=== PATIENT | male | born 1945 | race Caucasian/White ===

== ENCOUNTER 2019-05-08 18:55 | Inpatient (IN) | payer MEDICARE, OTHER, SELFPAY ==
[2019-05-08] VITALS (10 sets, daily range): BP systolic 163–170; BP diastolic 67–71; PULSE 54–93; RESP 19–26; TEMP 36.3–36.7; O2SAT 80–99; BMI 29.9
--- NOTE | ~2019-05-08 | CT_ITS ---
EXAMINATION: CT brain wo con DATE: 05/08/2019 20:34 INDICATION: Altered mental status. Fall. TECHNIQUE: Computed tomography (CT) of the head was performed without intravenous contrast. Sagittal and coronal reconstructions were performed. The mA was adjusted according to patient size. Iterative reconstruction technique was employed. The dose-length product was 681.00 mGy-cm. COMPARISON: head CT dated 11/10/2017 FINDINGS: No fracture. Small regions of encephalomalacia in the right frontal lobe and frontoparietal region co nsistent with chronic infarcts. Unchanged moderate scattered periventricular and subcortical predomin ant white matter hypoattenuation consistent with chronic small vessel ischemic disease. No acute intr acranial hemorrhage, acute infarction or abnormal extra axial fluid collection. Symmetric prominence of the sulci and ventricles consistent with mild age-appropriate diffuse cerebral volume loss. No mas s/mass effect. Unchanged small left mastoid effusion. The orbits, paranasal sinuses and right mastoid air cells are normal. IMPRESSION: 1. No fracture or acute intracranial process. 2. Unchanged small infarcts in the right frontal and right frontoparietal regions 3. Age-related changes including mild volume loss and moderate scattered white matter hypoattenuation consistent with chronic small vessel ischemic disease. Reviewed, dictated and finalized at location A. OMER BUSINESS MANAGER IMPRESSION: 1. No fracture or acute intracranial process. 2. Unchanged small infarcts in the right frontal and right frontoparietal regio ns 3. Age-related changes including mild volume loss and moderate scattered white matter hypoattenuation consistent with chronic small vessel ischemic disease.
--- NOTE | ~2019-05-08 | CT_ITS ---
EXAMINATION: CT femur RT wo con DATE: 05/20/2019 14:55 INDICATION: Right lower limb edema after surgery. TECHNIQUE: Computed tomography (CT) of the right femur was performed without intravenous contrast. Au tomated exposure control and iterative reconstruction technique were employed. The dose-length produc t was 1930.54 mGy-cm. COMPARISON: Right hip radiographs 05/19/2019, right femur radiographs 05/08/2019 FINDINGS: There is a subcapital fracture of right femoral neck with impaction and internal fixation w ith 3 lag screws. There is moderate osteoarthritis of the hips. There is a benign bone island in left parasymphyseal pubis. There is mild osteoarthritis of the knees. There is a 9.4 x 4.2 x 21.7 cm intr amuscular hematoma in the lateral right thigh. There is subcutaneous edema of the abdomen, pelvis, an d thighs. IMPRESSION: 1. Large intramuscular hematoma in lateral right thigh. 2. Subcapital fracture of right femoral neck with internal fixation. Reviewed, dictated and finalized at location A. ET RESEARCHER
--- NOTE | ~2019-05-08 | US_ITS ---
EXAMINATION: US venous doppler [facility] DATE: 05/20/2019 13:42 INDICATION: Lower limb pain and swelling. TECHNIQUE: Grayscale ultrasound images without and with compression and Doppler ultrasound images of the bilateral lower extremity veins were obtained. COMPARISON: Ultrasound 11/11/2017 FINDINGS: The visualized portions of right common femoral vein, profunda (deep) femoral vein, femoral vein, pop liteal vein, peroneal veins, posterior tibial veins, and greater saphenous vein outflow are patent. The visualized portions of left common femoral vein, profunda femoral vein, femoral vein, popliteal v ein, peroneal veins, posterior tibial veins, and greater saphenous vein outflow are patent. IMPRESSION: 1. No deep venous thrombosis. Reviewed, dictated and finalized at location A. ERY ASSISTANT
--- NOTE | ~2019-05-08 | CT_ITS ---
EXAMINATION: CT chest abdomen pelvis w con DATE: 05/08/2019 20:34 INDICATION: Cough and dyspnea with right hip and back pain post fall with altered mental status. TECHNIQUE: Computed tomography (CT) of the chest, abdomen, and pelvis was performed with 100 mL Omnip aque-350 intravenous contrast. Automated exposure control and iterative reconstruction technique were employed. The dose-length product was 1361.28 mGy-cm. COMPARISON: CT abdomen and pelvis dated 11/06/2017 and chest dated 06/12/2017 FINDINGS: CHEST CT: Moderate emphysema. Chronic elevation of the left hemidiaphragm with compressive atelectasis along th e adjacent basilar right lower lobe and discoid atelectasis at the posterior lingula. Small centrilob ular nodules and tree-in-bud pattern in the right upper, middle and lower lobes consistent with endob ronchial spread of disease consistent with pneumonia. Decrease in size of a now 7 mm right lower lobe nodule which measured 9 mm on study dated 12/26/2016 likely sequela of old granulomatous disease. No pleural effusion. Heart size is normal. Atherosclerotic coronary artery calcifications. Aortic valve calcification. No pericardial effusion. Thoracic aorta is normal in caliber with no dissection. Calci fied mediastinal lymph nodes consistent with old granulomatous disease. No pathologically enlarged th oracic lymphadenopathy. T8 and T10 hemangiomas. Multiple chronic compression fractures including T3, T4, T6, T9-T12. ABDOMEN/PELVIS CT: Cirrhotic liver with nodular surface. Gallbladder, spleen, pancreas and bilateral adrenal glands are normal. Nonobstructing 9 mm stone at a lower pole calyx of the right kidney. Bilateral renal cysts th e largest on the right measuring 3 cm in maximal diameter. Regions of cortical scarring at both kidne ys most prominent at the lower pole of the right kidney likely sequela of prior infarction. There are few scattered colonic diverticula without adjacent inflammatory change to suggest diverticulitis. Sm all bowel and appendix are normal. Bladder is normal. No free intraperitoneal gas or fluid. No pathol ogically enlarged dominant or pelvic lymphadenopathy. No interval change in a fusiform infrarenal ane urysm measuring 4.0 cm in maximal diameter with aortobiiliac endoluminal stent grafting. Acute nondis placed right femoral subcapital fracture with posterosuperior impaction. No other acute fractures genoveva ntified. L1 hemangioma. Additional chronic L1-L2 compression fractures. Severe spondylosis at the lum bosacral junction. IMPRESSION: 1. Impacted subcapital fracture of the proximal right femur. 2. Extensive tree-in-bud pattern with small centrilobular nodules throughout the right lung consisten t with and bronchial spread of disease most likely pneumonia. 3. Moderate emphysema with chronic elevation of the left hemidiaphragm and atelectasis in the left lo wer lobe and lingula. 4. Cirrhosis. 5. Nonobstructing 1 mm right renal stone. 6. Unchanged 4.0 cm fusiform infrarenal aortic aneurysm with aorta biiliac endoluminal stent graft. Reviewed, dictated and finalized at location A. GER UNIVERSAL IMPRESSION: 1. Impacted subcapital fracture of the proximal right femur. 2. Extensive tree-in-bud pattern with small centrilobular nodules throughout th e right lung consistent with and bronchial spread of disease most likely pneumo bhavna. 3. Moderate emphysema with chronic elevation of the left hemidiaphragm and atel ectasis in the left lower lobe and lingula. 4. Cirrhosis. 5. Nonobstructing 1 mm right renal stone. 6. Unchanged 4.0 cm fusiform infrarenal aortic aneurysm with aorta biiliac endo luminal stent graft.
--- NOTE | ~2019-05-08 | XR_ITS ---
EXAMINATION: XR chest 1V portable DATE: 05/20/2019 14:32 INDICATION: Tachypnea. TECHNIQUE: A single frontal view of the chest was obtained. COMPARISON: Chest single view 05/16/2019, chest 2 views 08/01/2005, chest CT 05/08/2019 FINDINGS: There is marked elevation of left hemidiaphragm. There are lucencies in the lungs, consiste nt with emphysema. There is mild atelectasis in the mid and lower lung zones. No pneumothorax or pleu ral effusion. The heart size is normal. IMPRESSION: 1. Chronic marked elevation of left hemidiaphragm. 2. Mild atelectasis in the mid and lower lung zones. 3. Emphysema. Reviewed, dictated and finalized at location A. MBLER SANDAL PARTS
--- NOTE | ~2019-05-08 | XR_ITS ---
EXAMINATION: XR pelvis 1-2V, XR femur RT min 2V DATE: 05/08/2019 20:12 INDICATION: Pelvic pain and limited range of motion post fall TECHNIQUE: 1. An anteroposterior view of the pelvis was obtained. 1. Overlapping proximal and distal frontal and lateral views of the right femur were obtained. COMPARISON: None. FINDINGS: Impacted right femoral subcapital fracture. No other fractures identified. Bilateral hip joint spaces as well as the joint spaces in the right knee appear relatively preserved on nonweightbearing imagin g. No right knee joint effusion. Partially visualized aorta and iliac endoluminal stent grafting. Phl eboliths in the pelvis. IMPRESSION: 1. Impacted subcapital right femoral fracture. Reviewed, dictated and finalized at location A. RINARY VIRUS SERUM INSPECTOR IMPRESSION: 1. Impacted subcapital right femoral fracture.
--- NOTE | ~2019-05-08 | XR_ITS ---
XR hip RT 2V w AP pelvis 05/19/2019 16:21 Indication: Severe right hip pain. Recent hip surgery. Procedure: 3 views right hip Comparison: 05/12/2019 Findings: There are 3 lag screws transfixing the right femoral neck. There are residual surgical stap les in the overlying skin surface. There is an impacted right femoral subcapital fracture. There is o steoarthritis of the right hip. Phleboliths are present in the pelvis. No significant change to align ment allowing for differences of technique. There is partially visualized aorta and iliac endoluminal stent grafting. Impression: 1: Stable appearance to right hip status post internal fixation with 3 lag screws. No significant alt eration of alignment. Reviewed, dictated and finalized at location A. VIORAL HEALTH THERAPIST Impression: 1: Stable appearance to right hip status post internal fixation with 3 lag scre ws. No significant alteration of alignment.
--- NOTE | ~2019-05-08 | XR_ITS ---
EXAMINATION: XR chest 1V portable DATE: 05/08/2019 20:13 INDICATION: Cough, dyspnea and altered mental status TECHNIQUE: frontal view of the chest was obtained. COMPARISON: Chest radiograph dated 10/02/2018 FINDINGS: Hyperexpansion of lungs consistent with Elevation of the left hemidiaphragm. Similar pattern of bandl magalys and patchy airspace opacities in the mid to lower lung zone most likely atelectasis/scarring. Sub tle reticulonodular pattern in the right mid to lower lung zone which is more suspicious for pneumoni a. No pneumothorax or definitive pleural effusion. Cardiomediastinal silhouette is within normal limi ts for AP technique. Chronic lower thoracic compression fracture. Partially visualized aortic endolum inal stent graft extending beyond the inferior margin of the [id number]. IMPRESSION: 1. Stable appearance of chronic elevation of the left hemidiaphragm and patchy and bandlike opacities in the left mid and lower lung zone likely associated chronic atelectasis/scarring. 2. Subtle reticulonodular pattern throughout the right lung which is more suspicious for pneumonia. Reviewed, dictated and finalized at location A. SKEINS EXAMINER IMPRESSION: 1. Stable appearance of chronic elevation of the left hemidiaphragm and patchy and bandlike opacities in the left mid and lower lung zone likely associated ch ronic atelectasis/scarring. 2. Subtle reticulonodular pattern throughout the right lung which is more suspi cious for pneumonia.
--- NOTE | ~2019-05-08 | CT_ITS ---
EXAMINATION: CT abdomen pelvis wo con EXAM DATE: 05/25/2019 11:26 INDICATION: Abdominal pain, anemia. TECHNIQUE: Spiral CT of the abdomen and pelvis was performed without contrast. Axial, coronal and s agittal images were reviewed. The dose-length product (DLP) for this examination was 1004.40 mGy-cm. The exposure was tailored according to patient size (auto mA exposure control), and iterative recon struction (ASIR) was used as additional dose reduction technique. Comparison is made to prior examina tion from 05/08/2019. FINDINGS: There is large right thigh intramuscular hematoma laterally. Mildly nodular liver contour l ikely cirrhosis. The liver, spleen, adrenal glands and pancreas are otherwise unremarkable. Gallbla dder is unremarkable. No biliary obstruction. There is right calyceal stone measuring 10 mm. Right renal cyst measuring 3 cm. There are several bilateral subcentimeter lesions consistent with hemorrha gic cysts. The prostate is unremarkable. The bladder is collapsed with Lyles catheter balloon anchor inside. There is no retroperitoneal or pelvic lymphadenopathy. Aortobiiliac endograft. The appendix is normal. The stomach and small bowel are unremarkable. Moderately distended rectal v franki measuring 7.7 cm in diameter. Moderate amount of colonic stool proximal to this. No free intra peritoneal gas. Heart is normal in size. The interventricular septum is perceptible, suggesting pat ient is anemic. There is small right pleural effusion with adjacent atelectasis. Elevated left hemidi aphragm. There are no osteoblastic or osteolytic lesions identified. Chronic appearing mild to mod erate compression fractures unchanged. There are 3 right hip lag screws. IMPRESSION: 1. No acute intra-abdominal findings. 2. Moderately distended rectal vault and moderate amount of colonic stool. 3. Right thigh hematoma/seroma. Interval right hip lag screw placement fixing subcapital femoral nec k fracture. 4. Probable cirrhosis. 5. Small right pleural effusion. Reviewed, dictated and finalized at location B. CE ACADEMY PROGRAM COORDINATOR IMPRESSION: 1. No acute intra-abdominal findings. 2. Moderately distended rectal vault and moderate amount of colonic stool. 3. Right thigh hematoma/seroma. Interval right hip lag screw placement fixing subcapital femoral neck fracture. 4. Probable cirrhosis. 5. Small right pleural effusion.
--- NOTE | ~2019-05-08 | XR_ITS ---
EXAMINATION: XR surgery orthopedic DATE: 05/12/2019 16:42 INDICATION: Right hip pinning TECHNIQUE: AP and lateral fluoroscopic spot images of the right hip were obtained during procedure pe rformed by Dr. Davis. Radiologist was not present for the imaging or procedure. The amount of fluor oscopy time used during this procedure was 6.2 minutes. COMPARISON: 05/08/2019 FINDINGS: Interval reduction and internal fixation with 3 cannulated lag screws of a subcapital fract ure of the proximal right femur. Alignment remains near-anatomic with mild superior and posterior imp action. No new fractures identified. IMPRESSION: 1. Expected appearance during pinning of a right hip subcapital fracture which is in near-anatomic al ignment. Reviewed, dictated and finalized at location A. IDE EVENT SALES SPECIALIST IMPRESSION: 1. Expected appearance during pinning of a right hip subcapital fracture which is in near-anatomic alignment.
--- NOTE | ~2019-05-08 | XR_ITS ---
EXAMINATION: XR chest 1V portable INDICATION: Shortness of breath TECHNIQUE: Portable AP chest at 1431 hours COMPARISON: 05/08/2019 FINDINGS: There is chronic elevation of the left hemidiaphragm and stable bandlike opacity of the lef t lower lung zone. There the heart size is normal. Are diffuse opacities of the lungs which demonstra jasmyne slight increase. Small pleural effusions are present. No pneumothorax is identified. IMPRESSION: 1. Diffuse lung disease with slight worsening, consistent with atelectasis versus pneumonia. Reviewed, dictated and finalized at location A. TY AND SECURITY OFFICER IMPRESSION: 1. Diffuse lung disease with slight worsening, consistent with atelectasis vers us pneumonia.
--- NOTE | 2019-05-08 18:52 | ED.FALL ---
HPI - Fall General Chief Complaint: Shortness of Breath/Dyspnea Stated Complaint: hip pain Time Seen by Provider: 05/08/19 18:52 Source: patient, EMS and RN notes reviewed Mode of arrival: EMS Limitations: altered mental status History of Present Illness HPI Narrative: A 75 y/o male presents to the ED via EMS with worsening rt hip pain since having a ground level fall yesterday. Per EMS report that the pt was standing from his wheelchair while his was changing his depends when he fell and landed on his rt hip. They note that the pt has been complaining of worsening rt hip pain, lethargy, confusion, and SOB, so the pt's called EMS to have him brought in to be evaluated. Upon their arrival the pt's O2 sat was in the high 60's on 3L NC, so they placed him on 6L NC and his O2 sat increased into the 80's. MD complaint: fall Onset (ago): day(s) (yesterday) Fall from: standing Fall witnessed: yes, by family Place fall occurred: home Context: tripped/slipped Location of injury: other (rt hip) Associated symptoms (after fall): confusion and other (lethargy) Related Data Home Medications Medication Instructions Recorded Confirmed cholecalciferol (vitamin D3) 25 25 mcg PO DAILY 03/11/19 05/07/19 mcg (1,000 unit) capsule flecainide 100 mg tablet 100 mg PO Q12H 03/11/19 05/07/19 ipratropium 0.5 mg-albuterol 3 mg 3 ml INHALATION QID PRN 03/11/19 05/07/19 (2.5 mg base)/3 mL nebulization soln prednisone 10 mg tablet 10 mg PO DAILY 03/11/19 05/07/19 furosemide 20 mg tablet 10 mg PO QAM tablet 05/07/19 05/07/19 Allergies Allergy/AdvReac Type Severity Reaction Status Date / Time Sulfa (Sulfonamide Allergy Severe Unknown Verified 05/08/19 19:33 Antibiotics) sulfamethoxazole Allergy Severe SWELLING Verified 05/08/19 19:33 Quinolones Allergy Intermediate leg pain Verified 05/08/19 19:33 ciprofloxacin Allergy Unknown Joint pain Verified 05/08/19 19:33 clavulanic acid Allergy Unknown Unknown Verified 05/08/19 19:33 sulfanilamide Allergy Unknown Unknown Verified 05/08/19 19:33 trimethoprim Allergy Unknown Unknown Verified 05/08/19 19:33 CIPROFLOXACIN HCL Allergy Severe SWELLING Uncoded 05/08/19 19:33 NKFA Allergy Unknown Unknown Uncoded 04/13/19 14:11 Review of Systems Review of Systems: Narrative: RESPIRATORY: Reports SOB. MUSCULOSKELETAL: Reports rt hip pain. NEUROLOGIC: Reports confusion and lethargy. ROS unobtainable: unobtainable due to mental status PMFSH Past Medical History Medical History A-fib Aortic aneurysm Arthritis BPH (benign prostatic hyperplasia) Cardiac arrhythmia CHF (congestive heart failure) COPD (chronic obstructive pulmonary disease) DDD (degenerative disc disease) Emphysema, unspecified Generalized osteoarthritis of multiple sites H/O: HTN (hypertension) CHERRY (headache) History of melena History of pneumonia Hx of cataract Hx of transient ischemic attack (TIA) Hx: UTI (urinary tract infection) Hypercholesteremia Lupus erythematosus RA (rheumatoid arthritis) Shingles Stroke Surgical History Surgical History History of tonsillectomy Family History Family History Mother Family history of Alzheimer's disease Sibling Malignant neoplasm of prostate Father Family history of Hodgkin's lymphoma Patient's father is Social History Social History Smoking status: Former smoker Second hand tobacco smoke exposure: No Alcohol intake: never Comments PCP: Dr. Mcneill. Exam Narrative: Exam Narrative: GENERAL: Ill-appearing, somnolent, arousable to sternal rub HEAD: Normocephalic, atraumatic. EYES: PERRLA and EOMI. ENT: Nares clear, no rhinorrhea or epistaxis. Mucous membranes dry NECK: Supple. CHEST: Coarse breath sounds, shallow respiration, faint expirat
--- NOTE | 2019-05-08 18:55 | ECG_ITS ---
Measurements Intervals [place] Rate: 57 P: 96 MT: 77 QRS: 177 QRSD: 156 T: -53 QT: 428 QTc: 418 Interpretive Statements SINUS RHYTHM WITH SECOND DEGREE AV BLOCK, TYPE I OR II (2:1 AV CONDUCTION) RIGHT BUNDLE BRANCH BLOCK BASELINE ARTIFACT- I, II, III, AVR, AVF, V1-V6 ABNORMAL ECG Electronically Signed On 05-09-2019 8:25:57 GENERAL PRODUCTION MANAGER by Gurvinder Weiss D.O.
[2019-05-08] MEDS: ALBUTEROL SULFATE NEB 2.5 MG/0.5 ML INH 5 MG INHALATION (19:13)
[2019-05-08 19:25] LABS: Alveolar/Arterial O2 Gradient 130.5 mmHg; Base Excess ABG 1.3 mEq/l (+/-2.0); Fractional Inspired Oxygen 36 %; HCO3 ABG 30.1 mEq/l (22.0-26.0); Oxygen Content ABG 15.5 %vol (16.0-22.0); Oxyhemoglobin 78.8 % THb (90.0-100.0); PO2 FiO2 Ratio Arterial Blood 1.35 %
[2019-05-08] MEDS: SODIUM CHLORIDE 0.9% IV 1,000 ML 999 ML IV CONT (19:27)
[2019-05-08] MEDS: methylPREDNISolone SOD SUCC 125 MG VIAL IV PUSH (19:27)
[2019-05-08 19:29] LABS: Basophils Absolute Auto 0.1 K/mm3 (0.0-0.1); Basophils Percent Auto 0.4 % (0.2-1.2); Hematocrit 45.5 % (42.0-52.0); Hemoglobin 13.9 g/dL (14.0-18.0); Immature Granulocyte Absolute 0.24 K/mm3 (0.00-0.031); Immature Granulocyte Percent A 1.2 % (0-0.5); Lymphocytes Absolute Auto 1.31 K/mm3 (0.9-3.2); Lymphocytes Percent Auto 6.7 % (18.3-44.2); Mean Corpuscular HGB Conc 30.5 g/dl (32-36); Mean Corpuscular Hemoglobin 30.4 pg (26-34); Mean Corpuscular Volume 99.6 fl (80-100); Mean Platelet Volume 10.3 fl (7.4-10.4); Monocytes Absolute Auto 1.7 K/mm3 (0.1-0.6); Monocytes Percent Auto 8.6 % (2.6-8.5); Neutrophils Absolute Auto 16.3 K/mm3 (1.3-6.7); Neutrophils Percent Auto 83.1 % (45.5-73.1); Platelet Count Result 197 k/mm3 (150-375); Red Blood Count 4.57 M/mm3 (4.6-6.20); Red Cell Distribution Width 15.1 % (11.5-14.5); White Blood Count 19.6 K/mm3 (4.5-10.0)
[2019-05-08 19:30] LABS: PCO2 ABG 66.8 mmHg (35.0-45.0); PO2 ABG 48.7 mmHg (80.0-100.0); pH ABG 7.271 (7.350-7.450)
[2019-05-08 19:31] LABS: Device NASAL CANNULA; Modified Allen's Test Pass; Oxygen Saturation ABG 77.7 % (95.0-100.0); Site Drawn RIGHT RADIAL
[2019-05-08 19:40] LABS: INR 1.2; Partial Thromboplastin Time 34.3 SECONDS (22.3-36.8); Prothrombin Time 15.3 Seconds (11.1-14.7)
[2019-05-08 19:41] LABS: Alanine Aminotransferase 29 U/L (4-50); Albumin Level 4.1 g/dL (3.5-5.1); Alkaline Phosphatase 116 U/L (38-126); Aspartate Amino Transferase 24 U/L (17-59); Bilirubin,Total 0.8 mg/dL (0.2-1.3); Blood Urea Nitrogen 29 mg/dL (9-20); Calcium 9.8 mg/dL (8.4-10.2); Carbon Dioxide 32 mmol/L (22-30); Chloride 98 mmol/L (98-107); Estimated CRCL calculation 39 ml/min; Estimated Glomerular Filt Rate 49; Glucose 113 mg/dL (75-110); Potassium 5.1 mmol/L (3.4-5.0); Sodium 139 mmol/L (137-145)
[2019-05-08 19:42] LABS: Ammonia < 9 umol/L (9-30)
[2019-05-08 19:55] LABS: NT Pro B Type Natriuretic Pept 7380 PG/ML (5-100); Troponin I 0.095 ng/mL (0.000-0.034)
[2019-05-08 20:02] LABS: Lactic Acid Reflex 1.4 mmol/L (0.7-2.1)
[2019-05-08 20:55] LABS: Alveolar/Arterial O2 Gradient 156.1 mmHg; Carboxyhemoglobin 1.2 % THb (0-2.0); Fractional Inspired Oxygen 40 %; HCO3 ABG 22.8 mEq/l (22.0-26.0); Methemoglobin ABG 0.1 %THb (0-1.5); Oxygen Content ABG 16.1 %vol (16.0-22.0); Oxygen Saturation ABG 89.8 % (95.0-100.0); Oxyhemoglobin 88.4 % THb (90.0-100.0); PO2 FiO2 Ratio Arterial Blood 1.67 %; Reduced Hemoglobin 10.3 %THb (0-5.0); Total Hemoglobin 12.9 g/dL (12.0-18.0)
[2019-05-08 20:57] LABS: Device NON-INVASIVE VENT; Modified Allen's Test Pass; Site Drawn LEFT RADIAL; pH ABG 7.244 (7.350-7.450)
[2019-05-08 20:58] LABS: Non-Invasive Expiratory Pressure 5 CMH2O; Non-Invasive Inspiratory Pressure 12 CMH2O; Non-Invasive Vent Rate 12 /MIN
--- NOTE | 2019-05-08 21:31 | PM.IMHP ---
H&P: HPI History of Present Illness Chief complaint: Decreased level of consciousness Narrative: This is a pleasant 74-year-old male with known COPD and congestive heart failure who was brought to the hospital today secondary to altered mental status. EMS had reported to ER staff that the patient had worsening shortness of breath, confused, and somnolent. The patient's had reported that his symptoms had worsened since yesterday when he fell at home. The patient was satting in the 80s on 6 L of oxygen at home with obvious increased work of breathing. Patient was promptly placed on a BiPAP in the ER and his mentation and respiratory function improved significantly. On my encounter with the patient ankush he does not remember the details surrounding his fall yesterday but he tells me that he has had increased shortness of breath, wheezing, and increased generalized weakness. The patient was found to have a right hip fracture today in the ER. The patient tells me he coughs all the time and denies any significant increased coughing. Denies any fevers or chills. Denies any chest pain, abdominal pain, nausea, vomiting, diarrhea. He has chronic lower extremity swelling which he does not think has worsened recently. Review of Systems Review of Systems: All systems reviewed & are unremarkable except as noted in HPI and below PMFSH Past Medical History Medical History A-fib Aortic aneurysm Arthritis BPH (benign prostatic hyperplasia) Cardiac arrhythmia CHF (congestive heart failure) COPD (chronic obstructive pulmonary disease) DDD (degenerative disc disease) Emphysema, unspecified Generalized osteoarthritis of multiple sites H/O: HTN (hypertension) CHERRY (headache) History of melena History of pneumonia Hx of cataract Hx of transient ischemic attack (TIA) Hx: UTI (urinary tract infection) Hypercholesteremia Lupus erythematosus RA (rheumatoid arthritis) Shingles Stroke Surgical History Surgical History History of tonsillectomy Family History Family History Mother Family history of Alzheimer's disease Sibling Malignant neoplasm of prostate Coronary artery disease Breast cancer Father Patient's father is Family history of Hodgkin's lymphoma Other Parents Social History Social History Smoking packs per day: 1 Smoking cigarettes per day: 20.0 Years smoked: 41 Smoking pack-years: 41.00 Smoking status: Former smoker Tobacco type: cigarettes Second hand tobacco smoke exposure: No Alcohol intake: never Substance use: never Substance use type: does not use Gender identity (if verbalized by the patient): Male Spiritual care concerns: No Agree to blood products: Yes Meds Home Medications and Allergies Home Medications Medication Instructions Recorded Confirmed Type flecainide 100 mg tablet 100 mg PO Q12H 03/11/19 05/08/19 History prednisone 10 mg tablet 10 mg PO DAILY 03/11/19 05/08/19 History benzonatate 200 mg capsule 200 mg PO TID PRN #30 cap 05/07/19 05/08/19 Rx cefuroxime axetil 250 mg tablet 250 mg PO Q12H #20 tablet 05/07/19 05/08/19 Rx furosemide 20 mg tablet 40 mg PO QAM tablet 05/07/19 05/08/19 History acetaminophen [Tylenol Extra 1,000 mg PO Q4-6H PRN MDD 4000mg 05/08/19 05/08/19 History Strength] [id number] A-D-aloe 1 applic TOPICAL Q12H PRN 05/08/19 05/08/19 History [Zinc Oxide Diaper Cream] ipratropium-albuterol 3 ml INHALATION Q4H PRN 05/08/19 05/08/19 History ipratropium-albuterol [Combivent 1 puff INHALATION Q4H 05/08/19 05/08/19 History Respimat] lidocaine 1 patch TOPICAL DAILY PRN 05/08/19 05/08/19 History ropinirole 0.5 mg PO DAILY 05/08/19 05/08/19 History Allergies Allergy/AdvReac Type Se
--- NOTE | 2019-05-08 22:30 | ADMGEN ---
This patient, Clyde Engel, was admitted to IMU Room 204-01 on 05/08/19 at 2208. Patient/family oriented to hospital policies and general routines including ID bracelet, bed and alarms, visiting hours, pain management, procedures, bathroom and other care routines, personal items, smoking policy, room service/diet, and visiting hours. Valuables list has been completed. Information on how to activate the Rapid Response Team has been discussed. Patient/Family are encouraged to report perceived risks to care and to ask questions if they do not understand what they are told or what they should do.
[2019-05-08] MEDS: LACTATED RINGERS 1,000 ML 125 ML IV CONT (23:29)
[2019-05-08] MEDS: HYDROMORPHONE HCL 1 MG/ML INJ IV PUSH (23:30)
[2019-05-08 23:56] LABS: Base Excess ABG -1.2 mEq/l (+/-2.0); Fractional Inspired Oxygen 45 %; Oxygen Content ABG 16.4 %vol (16.0-22.0); Oxygen Saturation ABG 89.9 % (95.0-100.0); Oxyhemoglobin 89.1 % THb (90.0-100.0); PO2 ABG 66.7 mmHg (80.0-100.0); PO2 FiO2 Ratio Arterial Blood 1.48 %; Total Hemoglobin 13.1 g/dL (12.0-18.0)
[2019-05-08 23:57] LABS: Modified Allen's Test Pass; PCO2 ABG 61.7 mmHg (35.0-45.0); Site Drawn LEFT RADIAL; pH ABG 7.259 (7.350-7.450)
[2019-05-08 23:58] LABS: Device NON-INVASIVE VENT; Non-Invasive Expiratory Pressure 5 CMH2O; Non-Invasive Inspiratory Pressure 12 CMH2O; Non-Invasive Vent Rate 12 /MIN
[2019-05-09] VITALS (29 sets, daily range): BP systolic 134–155; BP diastolic 66–76; PULSE 61–91; RESP 18–24; TEMP 36–36.8; O2SAT 91–100
[2019-05-09 01:15] LABS: Troponin I 0.184 ng/mL (0.000-0.034)
[2019-05-09] MEDS: IPRATROPIUM BR 0.02% INH SOLN 0.5 MG/2.5 ML VIAL INHALATION (01:26)
[2019-05-09 02:24] LABS: Alveolar/Arterial O2 Gradient 209.2 mmHg; Base Excess ABG -0.5 mEq/l (+/-2.0); Fractional Inspired Oxygen 50 %; HCO3 ABG 28.3 mEq/l (22.0-26.0); Methemoglobin ABG 0.2 %THb (0-1.5); Oxygen Content ABG 17.9 %vol (16.0-22.0); Oxyhemoglobin 90.9 % THb (90.0-100.0); PO2 ABG 73.6 mmHg (80.0-100.0); PO2 FiO2 Ratio Arterial Blood 1.47 %; Reduced Hemoglobin 7.9 %THb (0-5.0)
[2019-05-09 02:26] LABS: pH ABG 7.253 (7.350-7.450)
[2019-05-09 02:27] LABS: PCO2 ABG 65.5 mmHg (35.0-45.0)
[2019-05-09 02:28] LABS: Device NON-INVASIVE VENT; Modified Allen's Test Pass; Non-Invasive Vent Rate 20 /MIN; Site Drawn RIGHT RADIAL
[2019-05-09 02:29] LABS: Non-Invasive Expiratory Pressure 8 CMH2O; Non-Invasive Inspiratory Pressure 20 CMH2O
[2019-05-09 03:31] LABS: Add Urine Microscopic? YES; Appearance Urine Cloudy (Clear); Bilirubin Urine Negative (Negative); Blood Urine 1+ (Negative); Color Urine Yellow (Yellow); Glucose Urine UA Negative (Negative); Ketones Urine Negative (Negative); Leukocyte Esterase Ur 3+ LEU/UL (NEGATIVE); Mucus Urine Rare /lpf; Nitrate Urine Negative (Negative); Protein Urine 1+ mg/dL (Negative); WBC Clumps Urine Present /HPF; WBC Urine >75 /hpf (0-3)
[2019-05-09 03:37] LABS: Basophils Percent Auto 0.2 % (0.2-1.2); Hematocrit 38.2 % (42.0-52.0); Hemoglobin 11.9 g/dL (14.0-18.0); Immature Granulocyte Absolute 0.18 K/mm3 (0.00-0.031); Immature Granulocyte Percent A 1.3 % (0-0.5); Lymphocytes Absolute Auto 0.55 K/mm3 (0.9-3.2); Lymphocytes Percent Auto 3.9 % (18.3-44.2); Mean Corpuscular HGB Conc 31.2 g/dl (32-36); Mean Corpuscular Hemoglobin 30.7 pg (26-34); Mean Corpuscular Volume 98.5 fl (80-100); Mean Platelet Volume 10.4 fl (7.4-10.4); Monocytes Absolute Auto 0.3 K/mm3 (0.1-0.6); Monocytes Percent Auto 1.9 % (2.6-8.5); Neutrophils Absolute Auto 12.9 K/mm3 (1.3-6.7); Neutrophils Percent Auto 92.7 % (45.5-73.1); Platelet Count Result 178 k/mm3 (150-375); Red Blood Count 3.88 M/mm3 (4.6-6.20)
[2019-05-09 03:41] LABS: Specific Grav Ur 1.036 (1.001-1.035)
[2019-05-09 03:48] LABS: Blood Urea Nitrogen 28 mg/dL (9-20); Calcium 9.2 mg/dL (8.4-10.2); Carbon Dioxide 30 mmol/L (22-30); Chloride 98 mmol/L (98-107); Estimated CRCL calculation 55 ml/min; Estimated Glomerular Filt Rate > 60; Glucose 133 mg/dL (75-110); Potassium 5.2 mmol/L (3.4-5.0); Sodium 138 mmol/L (137-145)
[2019-05-09 04:12] LABS: Troponin I 0.182 ng/mL (0.000-0.034)
[2019-05-09] MEDS: HYDROMORPHONE HCL 1 MG/ML INJ IV PUSH ×4 (06:20→20:26)
[2019-05-09] MEDS: LACTATED RINGERS 1,000 ML 125 ML IV CONT ×2 (06:58→15:42)
[2019-05-09 08:29] LABS: Blood Urea Nitrogen 28 mg/dL (9-20); Carbon Dioxide 31 mmol/L (22-30); Chloride 101 mmol/L (98-107); Estimated CRCL calculation 54 ml/min; Estimated Glomerular Filt Rate > 60; Glucose 126 mg/dL (75-110); Potassium 5.6 mmol/L (3.4-5.0); Sodium 140 mmol/L (137-145)
[2019-05-09] MEDS: ACETAMINOPHEN 500 MG TABLET 1000 MG PO (08:45)
[2019-05-09] MEDS: ENOXAPARIN 40 MG/0.4 ML SYRINGE SUB-Q (08:45)
[2019-05-09 12:03] LABS: Glucose Point of Care 110 (65-105)
--- NOTE | 2019-05-09 14:09 | PM.CNCAR ---
Assessment and Plan Assessment and plan (1) Community acquired pneumonia: Qualifiers: Laterality: left Lung location: lower lobe of lung Qualified Code(s): J18.9 - Pneumonia, unspecified organism Code(s): J18.9 - Pneumonia, unspecified organism Status: Acute Assessment and Plan: Continue antibiotics, supportive care per primary service. (2) Elevated troponin: Code(s): R79.89 - Other specified abnormal findings of blood chemistry Status: Acute Assessment and Plan: Most likely secondary to acute hypoxic respiratory failure and pneumonia. Type 2 infarct non [place] troponin elevation most likely. (3) AV block, 2nd degree: Code(s): I44.1 - Atrioventricular block, second degree Status: Acute Assessment and Plan: Resolved at present. Continue telemetry. Multifactorial including electrolyte disturbance, acute critical illness, hypoxic respiratory failure, and flecainide. Agree with holding flecainide given troponin elevation and concern for intermittent second-degree AV block.. Appropriateness of AV oliver blocking agents to be determined. (4) Hyperkalemia: Code(s): E87.5 - Hyperkalemia Status: Acute Assessment and Plan: Per primary service. May also contribute to rhythm disturbance although multiple contributions in this instance. (5) Sepsis: Qualifiers: Acute respiratory failure type: with hypercapnia Sepsis acute organ dysfunction status: with acute organ dysfunction Sepsis type: sepsis due to unspecified organism Severe sepsis acute organ dysfunction type: acute respiratory failure Severe sepsis shock status: without septic shock Qualified Code(s): A41.9 - Sepsis, unspecified organism; R65.20 - Severe sepsis without septic shock; J96.02 - Acute respiratory failure with hypercapnia Code(s): A41.9 - Sepsis, unspecified organism Status: Acute Assessment and Plan: Per primary service. (6) Obstructive sleep apnea: Code(s): G47.33 - Obstructive sleep apnea (adult) (pediatric) Status: Acute Assessment and Plan: BiPAP. (7) Paroxysmal atrial fibrillation: Code(s): I48.0 - Paroxysmal atrial fibrillation Status: Acute Assessment and Plan: No recurrence. Maintaining sinus rhythm. Patient is not on systemic anticoagulation. Candidacy questionable given recent fall. Will need to assess appropriateness this hospitalization. Aspirin daily reasonable at this time. (8) COPD (chronic obstructive pulmonary disease): Code(s): J44.9 - Chronic obstructive pulmonary disease, unspecified Status: Acute Assessment and Plan: As above. Bronchodilator therapy as appropriate. (9) Acute encephalopathy: Code(s): G93.40 - Encephalopathy, unspecified Status: Resolved Assessment and Plan: Secondary to sepsis, pneumonia. Per primary service. (10) Closed subcapital fracture of neck of right femur: Qualifiers: Encounter type: initial encounter Qualified Code(s): S72.011A - Unspecified intracapsular fracture of right femur, initial encounter for closed fracture Code(s): S72.011A - Unspecified intracapsular fracture of right femur, initial encounter for closed fracture Status: Acute History of Present Illness History of Present Illness Consult date/time: Date of service: 05/09/19 14:09 This is a cardiology consultation at the request of Dr. Barrera for our opinion regarding elevated troponin and abnormal EKG. Requesting physician: Vinod Barrera MD Consult reason: Other (Elevated troponin, abnormal EKG) Reason For Visit: Decreased level of consciousness Narrative: Patient is a 74-year-old gentleman with history of COPD, paroxysmal atrial flutter maintained on flecainide as an outpatient, history of AAA status post endovascular repair 2011, hypertension, obstructive sleep apnea noncompliant with CPAP right to the emergency department
--- NOTE | 2019-05-09 14:58 | PM.IMPN ---
Progress Note: A&P Assessment and Plan (1) Acute respiratory failure with hypoxia and hypercarbia: Code(s): J96.01 - Acute respiratory failure with hypoxia; J96.02 - Acute respiratory failure with hypercapnia Status: Acute Assessment and Plan: Respiratory distress with hypoxia and hypercapnia. Probably chronic component related to not wearing CPAP at home. CT scan showing extensive right sided pneumonia. ABG this morning reviewed. Clinically, hunter appears to be improving. Will trial off BiPAP today to see how he fares. Contineu Xopenex. (2) Sepsis: Qualifiers: Acute respiratory failure type: with hypercapnia Sepsis acute organ dysfunction status: with acute organ dysfunction Sepsis type: sepsis due to unspecified organism Severe sepsis acute organ dysfunction type: acute respiratory failure Severe sepsis shock status: without septic shock Qualified Code(s): A41.9 - Sepsis, unspecified organism; R65.20 - Severe sepsis without septic shock; J96.02 - Acute respiratory failure with hypercapnia Code(s): A41.9 - Sepsis, unspecified organism Status: Acute Assessment and Plan: Present on admission with ADONIS, respiratory failure, tachnypnea and leukocytosis 2nd to PNA. BCx pending. Continue IV antibiotics, nebs. (3) Closed subcapital fracture of neck of right femur: Qualifiers: Encounter type: initial encounter Qualified Code(s): S72.011A - Unspecified intracapsular fracture of right femur, initial encounter for closed fracture Code(s): S72.011A - Unspecified intracapsular fracture of right femur, initial encounter for closed fracture Status: Acute Assessment and Plan: Pain control as needed overnight and as tolerated. Lyles catheter placed. Discussed with Ortho. (4) Acute exacerbation of chronic obstructive airways disease: Code(s): J44.1 - Chronic obstructive pulmonary disease with (acute) exacerbation Status: Acute Assessment and Plan: No significnat wheezing noted today. Contineu Xopeneix. Wena BiPAP as toelrated. Start steroids. (5) AV block, 2nd degree: Code(s): I44.1 - Atrioventricular block, second degree Status: Acute Assessment and Plan: EKG showing 2nd degree AVB. Tele more associated with Type II. Cardiology consulted. Could be related to the hyperkalemia. (6) Elevated troponin: Code(s): R79.89 - Other specified abnormal findings of blood chemistry Status: Acute Assessment and Plan: Suspect demand ischemia related to above. Triop peaked at 0.184 but flat now. No chest pain. Will discuss with Cardiology. Add ASA. (7) Acute encephalopathy: Code(s): G93.40 - Encephalopathy, unspecified Status: Resolved Assessment and Plan: CT brain unremarkable for acute pathology. Likely secondary to respiratory failure. Patietn has underlying confusion/dementia and hx od CVA. (8) RA (rheumatoid arthritis): Code(s): M06.9 - Rheumatoid arthritis, unspecified Status: Acute Assessment and Plan: Patietn on chronic steroids for RA and SLE and immunosuppressed. Will resume steroids for stress dose. (9) Hyperkalemia: Code(s): E87.5 - Hyperkalemia Status: Acute Assessment and Plan: Potassium 5.1 on admission and has climbed to 5.6 this morning. Will repeat level. Subjective Date/time seen: 05/09/19 14:58 Interval history: 74yo male here altered mental status and shortness of breath. He had fallen suffering a right femoral fracture as well. Patient is alert but confused. He he provided the following history that is supplemented by his sons in the room. He denies any chest pain. He feels ?terrible? although cannot elaborate. His hip pain is well controlled. He was on antibiotics recently for bronchitis. His son states the patient has been having ataxia and balance issues recently.
[2019-05-09 15:52] LABS: Potassium 4.8 mmol/L (3.4-5.0)
[2019-05-09] MEDS: ASPIRIN 81 MG CHEWABLE TABLET PO (16:36)
--- NOTE | 2019-05-09 17:14 | CONS_ITS ---
DATE OF CONSULTATION: 05/09/2019 HISTORY OF PRESENT ILLNESS: This is a 74-year-old male who came into the hospital yesterday with complaints of right hip pain. He was also diagnosed with sepsis in the emergency department, was admitted to the intermediate ICU. He also had altered mental status. They also were told that he fell out of his chair and when an x-ray was taken, he was found to have a femoral neck fracture. Orthopedic consultation was requested. Currently, he is in a clinical state of sepsis with elevated white count and the source is most likely from the urine. He also has a history of pneumonia, has history of lupus, rheumatoid arthritis, and he was taking methotrexate as well. Currently complains only of right hip pain, denies any left hip pain, any other lower extremity pain or upper extremity pain. PAST MEDICAL HISTORY: AFib, aortic aneurysm, BPH, congestive heart failure, COPD, emphysema, hypertension, pneumonia, cataract, TIA, UTI, lupus, rheumatoid arthritis, shingles, and stroke. SURGICAL HISTORY: Tonsillectomy. SOCIAL HISTORY: He is a former smoker. Does not use any alcohol products. MEDICATIONS: Flecainide, prednisone, benzonatate, cefuroxime, furosemide, Tylenol, albuterol, ropinirole. ALLERGIES: SULFA, QUINOLONES, CIPRO, CLAVULANIC ACID. PHYSICAL EXAMINATION: GENERAL: He is alert and oriented and he is in the presence of his 2 sons. EXTREMITIES: The right hip was examined first, he has tenderness in the proximal hip region. He has pain with minimal passive motion of the right hip. He has no tenderness in the thigh. He has no tenderness in the knee. There is no swelling to the knee. The calf is nontender. The foot and ankle are nontender. He is able to dorsi and plantar flex the right foot with 5/5 strength. Dorsalis pedis pulse is 1+, posterior tib pulse is 1+. The left lower extremity examined, he has no pain with range of motion of the left hip. He has no thigh tenderness. No knee tenderness. Calf is nontender. Tib-fib is nontender. Foot and ankle nontender. He dorsi and plantar flexes the left foot without any difficulty. He was able to perform a straight leg raise with the left lower extremity as well. Upper extremity examination shows he is able to elevate both shoulders. He has no tenderness in the clavicles, shoulders, arms, elbows, forearms, wrist, and hand bilaterally. NECK: Nontender. Thoracic, lumbar, sacral, iliac region and the coccyx are nontender. X-RAYS: Show right femoral neck fracture with some displacement. The x-rays are not true hip views. PLAN: Plan is for x-rays of the hip with AP and cross-table and obliques views. This will allow us to assess whether he is a candidate for a closed reduction percutaneous pinning versus a hemiarthroplasty of the right hip. I talked to the patient and the 2 sons extensively about the options and the complications and the risks of both procedures. We also spoke about infection, DVT, PE, nonunion, malunion, avascular necrosis of the femoral head, and the potential procedures with any of those things happen, so we need to await his medical condition to improve and his white count to come down and to be medically cleared. We will check the x-rays and will revisit his situation on a daily basis until we see some significant amount of improvement in order to taken to the operating room. MEHRAN SALAZAR M.D. BIOMETRIC FINGERPRINTING TECHNICIAN BIOMETRIC FINGERPRINTING TECHNICIAN D I MT: Kaylee
[2019-05-09 17:31] LABS: Glucose Point of Care 92 (65-105)
[2019-05-09] MEDS: methylPREDNISolone SOD SUCC 40 MG VIAL IV PUSH (17:34)
[2019-05-09 21:02] LABS: Glucose Point of Care 101 (65-105)
[2019-05-10] VITALS (26 sets, daily range): BP systolic 126–144; BP diastolic 58–67; PULSE 60–89; RESP 18–24; TEMP 35.9–36.6; O2SAT 24–99
--- NOTE | 2019-05-10 | ECHO_ITS ---
Patient Info Name: Clyde Engel Age: 74 years : 1945 Gender: Male Ht: 68 in Wt: 195 lbs BSA: 2.08 m2 HR: 80 bpm BP: 137 / 67 mmHg Heart Rhythm: Right Bundle Branch Block, Sinus Rhythm Technical Quality: Fair Exam Date: 05/10/2019 10:32 AM Exam Location: [facility] Patient Status: Inpatient Admit Date: 05/08/2019 Staff Ordering Physician: Arian Navarrete MD Credit Review Analyst: Pineda Osuna RDCS Attending Provider: Matthew Quinn MD Referring Physician: Rosalba JORDAN; Exam Type: CA echo dop color flow w con Study Info Indications I45.5 - Other specified heart block Complete two-dimensional, color flow and Doppler transthoracic echocardiogram is performed with contrast to opacify the left ventrical and to improve the deliniation of the left ventrical endocarial boarders. Contrast/Agitated Saline Contrast/Ag. Saline: Definity Amount: 2.00 ml Administered By: Janelle Benoit RN History/Risk Factors 2degree AV block; CHF, COPD, HTN, elevated trops. Summary 1. Left ventricular systolic function is normal, estimated at 55-60%. 2. There is mildly increased left ventricular wall thickness. 3. The left ventricular diastolic function is grade I diastolic dysfunction. 4. Technically difficult study. 5. Left atrial chamber dimension is moderately enlarged. 6. Right atrial chamber dimension is severely enlarged. 7. There is mild aortic valve stenosis with a peak velocity of 195.62 cm/s, mean gradient of 8 mmHg, and aortic valve area of 2.00 cm2. 8. There is trace aortic valve regurgitation. 9. There is trace mitral valve regurgitation. 10. Moderate pulmonary hypertension, estimated pulmonary arterial systolic pressure is 49 mmHg. 11. There is mild tricuspid valve regurgitation. Left Ventricle Left ventricular chamber dimension is normal. Left ventricular systolic function is normal, estimated at 55-60%. There is mildly increased left ventricular wall thickness. The left ventricular diastolic function is grade I diastolic dysfunction. Technically difficult study. Right Ventricle Right ventricular chamber dimension is normal. Right ventricular systolic function is normal. Left Atria Left atrial chamber dimension is moderately enlarged. Right Atria Right atrial chamber dimension is severely enlarged. Aortic Valve The aortic valve is not well visualized. There is mild aortic valve sclerosis. There is mild aortic valve stenosis with a peak velocity of 195.62 cm/s, mean gradient of 8 mmHg, and aortic valve area of 2.00 cm2. There is trace aortic valve regurgitation. There is mild aortic valve calcification. Pulmonic Valve The pulmonic valve is not well visualized. There is trace pulmonic regurgitation. Mitral Valve The mitral valve has normal leaflets. There is trace mitral valve regurgitation. The mitral valve annulus is mildly calcified. Tricuspid Valve The tricuspid valve leaflets are normal. There is mild tricuspid valve regurgitation. Moderate pulmonary hypertension, estimated pulmonary arterial systolic pressure is 49 mmHg. Pericardium/Pleural The pericardium appears not well visualized. Inferior Vena Cava Normal inferior vena cava with >50% collapse upon inspiration consistent with normal right atrial pressure, 5 mmHg. Aorta The aortic root size at the sinus of Valsalva is normal. There is moderate aortic atherosclerosis. Left Ventricular Outflow
[2019-05-10] MEDS: LACTATED RINGERS 1,000 ML 125 ML IV CONT ×3 (00:15→17:11)
[2019-05-10] MEDS: methylPREDNISolone SOD SUCC 40 MG VIAL IV PUSH ×5 (00:16→23:02)
[2019-05-10 00:22] LABS: Glucose Point of Care 102 (65-105)
[2019-05-10] MEDS: HYDROMORPHONE HCL 1 MG/ML INJ IV PUSH ×4 (04:43→17:11)
[2019-05-10 04:57] LABS: Basophils Percent Auto 0.2 % (0.2-1.2); Hematocrit 36.9 % (42.0-52.0); Hemoglobin 11.4 g/dL (14.0-18.0); Immature Granulocyte Absolute 0.21 K/mm3 (0.00-0.031); Lymphocytes Absolute Auto 0.49 K/mm3 (0.9-3.2); Lymphocytes Percent Auto 2.3 % (18.3-44.2); Mean Corpuscular HGB Conc 30.9 g/dl (32-36); Mean Corpuscular Hemoglobin 30.1 pg (26-34); Mean Corpuscular Volume 97.4 fl (80-100); Mean Platelet Volume 10.7 fl (7.4-10.4); Monocytes Absolute Auto 0.7 K/mm3 (0.1-0.6); Monocytes Percent Auto 3.4 % (2.6-8.5); Neutrophils Absolute Auto 20.2 K/mm3 (1.3-6.7); Neutrophils Percent Auto 93.1 % (45.5-73.1); Platelet Count Result 182 k/mm3 (150-375); Red Blood Count 3.79 M/mm3 (4.6-6.20); Red Cell Distribution Width 14.7 % (11.5-14.5); White Blood Count 21.7 K/mm3 (4.5-10.0)
[2019-05-10 05:13] LABS: Alanine Aminotransferase 18 U/L (4-50); Alkaline Phosphatase 79 U/L (38-126); Aspartate Amino Transferase 21 U/L (17-59); Bilirubin,Total 0.7 mg/dL (0.2-1.3); Blood Urea Nitrogen 23 mg/dL (9-20); Calcium 9.2 mg/dL (8.4-10.2); Carbon Dioxide 31 mmol/L (22-30); Chloride 98 mmol/L (98-107); Estimated CRCL calculation 59 ml/min; Estimated Glomerular Filt Rate > 60; Glucose 117 mg/dL (75-110); Magnesium 2.1 mg/dL (1.6-2.3); Phosphorus 3.3 mg/dL (2.5-4.5); Potassium 4.7 mmol/L (3.4-5.0); Sodium 139 mmol/L (137-145)
[2019-05-10 05:46] LABS: Glucose Point of Care 138 (65-105)
[2019-05-10 06:18] LABS: Folic Acid 9.1 ng/mL (2.76->20)
[2019-05-10 06:28] LABS: Alveolar/Arterial O2 Gradient 136.4 mmHg; Base Excess ABG 2.9 mEq/l (+/-2.0); Device NON-INVASIVE VENT; Fractional Inspired Oxygen 40 %; HCO3 ABG 28.5 mEq/l (22.0-26.0); Modified Allen's Test Pass; Oxygen Content ABG 17.5 %vol (16.0-22.0); Oxygen Saturation ABG 97.1 % (95.0-100.0); Oxyhemoglobin 96.1 % THb (90.0-100.0); PCO2 ABG 47.8 mmHg (35.0-45.0); PO2 ABG 93.8 mmHg (80.0-100.0); PO2 FiO2 Ratio Arterial Blood 2.35 %; Site Drawn LEFT RADIAL; Total Hemoglobin 12.9 g/dL (12.0-18.0); pH ABG 7.393 (7.350-7.450)
[2019-05-10 06:29] LABS: Non-Invasive Expiratory Pressure 8 CMH2O; Non-Invasive Inspiratory Pressure 20 CMH2O; Non-Invasive Vent Rate 20 /MIN
[2019-05-10] MEDS: ASPIRIN 81 MG CHEWABLE TABLET PO (08:13)
[2019-05-10] MEDS: ENOXAPARIN 40 MG/0.4 ML SYRINGE SUB-Q (08:13)
--- NOTE | 2019-05-10 11:04 | ECG_ITS ---
Measurements Intervals [place] Rate: 77 P: 68 [place]: 188 QRS: -27 QRSD: 138 T: -42 QT: 431 QTc: 488 Interpretive Statements SINUS RHYTHM RIGHT BUNDLE BRANCH BLOCK BASELINE ARTIFACT- II, III, AVF, V1, V4-V5 ABNORMAL ECG Electronically Signed On 05-10-2019 13:58:06 ATM SERVICER by Gurvinder Weiss D.O.
[2019-05-10] MEDS: PERFLUTREN LIPID MICROSPHERES 1.5 ML VIAL DILUTED TO 10 ML TOTAL VOLUME IV PUSH (11:08)
--- NOTE | 2019-05-10 11:32 | PM.IMPN ---
Progress Note: A&P Assessment and Plan (1) Acute respiratory failure with hypoxia and hypercarbia: Code(s): J96.01 - Acute respiratory failure with hypoxia; J96.02 - Acute respiratory failure with hypercapnia Status: Acute Assessment and Plan: Respiratory distress with hypoxia and hypercapnia. Probably chronic component related to undiagnosed sleep apnea. CT scan showing extensive right sided pneumonia. ABG this morning reviewed showing 7.39/48/94. Patient much better and toelrating being off the BiPAP, COntinue nebs, abx and steroids. Continue BiPAP at night. (2) Sepsis: Qualifiers: Acute respiratory failure type: with hypercapnia Sepsis acute organ dysfunction status: with acute organ dysfunction Sepsis type: sepsis due to unspecified organism Severe sepsis acute organ dysfunction type: acute respiratory failure Severe sepsis shock status: without septic shock Qualified Code(s): A41.9 - Sepsis, unspecified organism; R65.20 - Severe sepsis without septic shock; J96.02 - Acute respiratory failure with hypercapnia Code(s): A41.9 - Sepsis, unspecified organism Status: Acute Assessment and Plan: Present on admission with ADONIS, respiratory failure, tachypnea and leukocytosis 2nd to PNA. BCx NGTD but UCx growing Enterococcus species (but suspect it is a contaminant). Continue IV antibiotics, nebs. (3) Closed subcapital fracture of neck of right femur: Qualifiers: Encounter type: initial encounter Qualified Code(s): S72.011A - Unspecified intracapsular fracture of right femur, initial encounter for closed fracture Code(s): S72.011A - Unspecified intracapsular fracture of right femur, initial encounter for closed fracture Status: Acute Assessment and Plan: Pain controlled. Ortho on consult. Patient possibly could have fracture repair in 1-2 days. (4) Acute exacerbation of chronic obstructive airways disease: Code(s): J44.1 - Chronic obstructive pulmonary disease with (acute) exacerbation Status: Acute Assessment and Plan: No significant wheezing noted today. Continue Xopenex. As above. (5) AV block, 2nd degree: Code(s): I44.1 - Atrioventricular block, second degree Status: Acute Assessment and Plan: EKG showing 2nd degree AVB. Tele today sowing no alarms. [place] it could be related to the hyperkalemia. (6) Elevated troponin: Code(s): R79.89 - Other specified abnormal findings of blood chemistry Status: Acute Assessment and Plan: Suspect demand ischemia related to above. Triop peaked at 0.184 but flat now. No chest pain. Continue ASA. (7) Acute encephalopathy: Code(s): G93.40 - Encephalopathy, unspecified Status: Resolved Assessment and Plan: CT brain unremarkable for acute pathology. Likely secondary to respiratory failure. Hunter has underlying confusion/dementia and hx of CVA. (8) RA (rheumatoid arthritis): Code(s): M06.9 - Rheumatoid arthritis, unspecified Status: Acute Assessment and Plan: Hunter on chronic steroids for RA and SLE and immunosuppressed. Currently on Solu-Medrol. (9) Hyperkalemia: Code(s): E87.5 - Hyperkalemia Status: Acute Assessment and Plan: Potassium 5.1 on admission and improved overnight. Potassium 4.7 today. Continue to monitor. Check cortisol Subjective Date/time seen: 05/10/19 11:32 Interval history: 74yo male here altered mental status and shortness of breath. Able to come off the BiPAP today to Nasal cannula. SOB better. No CP. No n/v. Denies dysphagia. available and states hunter has had sleep issues just for the past few weeks, not longstanding. She denies that the patient has dysphagia. He does not have a diagnosis of JONO but the patient 'wakes up gasping'. Right hip pain controlled. Exam Narrative: Exam Narrative: Layne
[2019-05-10 13:33] LABS: Glucose Point of Care 112 (65-105)
--- NOTE | 2019-05-10 14:51 | PM.PNCARD ---
Progress Note: A&P Assessment and Plan (1) Community acquired pneumonia: Qualifiers: Laterality: left Lung location: lower lobe of lung Qualified Code(s): J18.9 - Pneumonia, unspecified organism Code(s): J18.9 - Pneumonia, unspecified organism Status: Acute Assessment and Plan: Continue antibiotics, supportive care per primary service. (2) Elevated troponin: Code(s): R79.89 - Other specified abnormal findings of blood chemistry Status: Acute Assessment and Plan: Most likely secondary to acute hypoxic respiratory failure and pneumonia. Type 2 infarct non [place] troponin elevation most likely. However, given patient's age and risk factors ischemic evaluation warranted in future prior to resuming flecainide to ensure safety margin. (3) AV block, 2nd degree: Code(s): I44.1 - Atrioventricular block, second degree Status: Acute Assessment and Plan: Resolved at present. Continue telemetry. Will not resume flecainide as risks proceed to outweigh benefits. Maintaining sinus rhythm. Will utilize beta-rosa therapy for history of atrial fibrillation in the past as tolerated until safety margin with flecainide clarified. (4) Hyperkalemia: Code(s): E87.5 - Hyperkalemia Status: Acute Assessment and Plan: Per primary service. May also contribute to rhythm disturbance although multiple contributions in this instance. (5) Sepsis: Qualifiers: Acute respiratory failure type: with hypercapnia Sepsis acute organ dysfunction status: with acute organ dysfunction Sepsis type: sepsis due to unspecified organism Severe sepsis acute organ dysfunction type: acute respiratory failure Severe sepsis shock status: without septic shock Qualified Code(s): A41.9 - Sepsis, unspecified organism; R65.20 - Severe sepsis without septic shock; J96.02 - Acute respiratory failure with hypercapnia Code(s): A41.9 - Sepsis, unspecified organism Status: Acute Assessment and Plan: Per primary service. White blood cell count rising, possibly secondary to steroids. (6) Obstructive sleep apnea: Code(s): G47.33 - Obstructive sleep apnea (adult) (pediatric) Status: Acute Assessment and Plan: BiPAP. (7) Paroxysmal atrial fibrillation: Code(s): I48.0 - Paroxysmal atrial fibrillation Status: Acute Assessment and Plan: No recurrence. Maintaining sinus rhythm. Patient is not on systemic anticoagulation. Candidacy questionable given recent fall. Will need to assess appropriateness this hospitalization. Aspirin daily reasonable at this time. (8) COPD (chronic obstructive pulmonary disease): Code(s): J44.9 - Chronic obstructive pulmonary disease, unspecified Status: Acute Assessment and Plan: As above. Bronchodilator therapy as appropriate. (9) Acute encephalopathy: Code(s): G93.40 - Encephalopathy, unspecified Status: Resolved Assessment and Plan: Resolved. secondary to sepsis, pneumonia. Per primary service. (10) Closed subcapital fracture of neck of right femur: Qualifiers: Encounter type: initial encounter Qualified Code(s): S72.011A - Unspecified intracapsular fracture of right femur, initial encounter for closed fracture Code(s): S72.011A - Unspecified intracapsular fracture of right femur, initial encounter for closed fracture Status: Acute Assessment and Plan: Per primary service, pain control as appropriate. Subjective Date/time seen: Date of service: 05/10/19 14:51 Follow-up for second-degree AV block, elevated troponin Patient feeling better. No chest pain. Shortness of breath present but improving. Off BiPAP this a.m.. Still feels weak, complains of right hip discomfort from fall and fracture. No new issues overnight. Maintaining sinus rhythm on telemetry. No prolonged pauses or high-grade AV blocks identified. Revi
[2019-05-10 17:05] LABS: Glucose Point of Care 122 (65-105)
[2019-05-10 23:42] LABS: Vancomycin Trough 10.9 ug/mL (10.0-20.0)
[2019-05-11] VITALS (20 sets, daily range): BP systolic 143–168; BP diastolic 63–76; PULSE 56–89; RESP 18–23; TEMP 36.4–36.7; O2SAT 90–98
[2019-05-11 04:43] LABS: Hematocrit 36.8 % (42.0-52.0); Hemoglobin 11.2 g/dL (14.0-18.0); Mean Corpuscular HGB Conc 30.4 g/dl (32-36); Mean Corpuscular Volume 98.7 fl (80-100); Mean Platelet Volume 10.7 fl (7.4-10.4); Platelet Count Result 178 k/mm3 (150-375); Red Blood Count 3.73 M/mm3 (4.6-6.20); Red Cell Distribution Width 14.6 % (11.5-14.5); White Blood Count 11.3 K/mm3 (4.5-10.0)
[2019-05-11 05:02] LABS: Blood Urea Nitrogen 26 mg/dL (9-20); Calcium 9.2 mg/dL (8.4-10.2); Carbon Dioxide 37 mmol/L (22-30); Chloride 100 mmol/L (98-107); Estimated CRCL calculation 67 ml/min; Estimated Glomerular Filt Rate > 60; Glucose 137 mg/dL (75-110); Potassium 4.7 mmol/L (3.4-5.0); Sodium 140 mmol/L (137-145)
[2019-05-11] MEDS: methylPREDNISolone SOD SUCC 40 MG VIAL IV PUSH ×3 (05:27→18:21)
[2019-05-11] MEDS: BENZONATATE 100 MG CAPSULE 200 MG PO (05:28)
[2019-05-11] MEDS: LACTATED RINGERS 1,000 ML 70 ML IV CONT ×2 (05:28→20:21)
[2019-05-11] MEDS: ASPIRIN 81 MG CHEWABLE TABLET PO (09:09)
[2019-05-11 10:40] LABS: Glucose Point of Care 133 (65-105)
--- NOTE | 2019-05-11 11:58 | PM.IMPN ---
Progress Note: A&P Assessment and Plan (1) Acute respiratory failure with hypoxia and hypercarbia: Code(s): J96.01 - Acute respiratory failure with hypoxia; J96.02 - Acute respiratory failure with hypercapnia Status: Acute Assessment and Plan: Result of pneumonia. Making some improvements. Did still have some desaturation issues earlier today. Not requiring BiPAP continuously. Will add Pulmozyme and Mucinex to other nebulizer treatments already in place. Continue IV steroids. not clinically ready for surgical intervention of femur fracture. Will continue to monitor in IMU today. (2) Community acquired pneumonia: Qualifiers: Laterality: right Lung location: unspecified part of lung Qualified Code(s): J18.9 - Pneumonia, unspecified organism Code(s): J18.9 - Pneumonia, unspecified organism Status: Acute Assessment and Plan: CT chest with extensive tree-in-bud pattern with small centrilobular nodules throughout the right lung consistent with pneumonia. Continue nebulizer treatments as noted above. Continue IV cefepime and vancomycin. Pulmozyme and Mucinex added as noted above. (3) Sepsis: Qualifiers: Acute respiratory failure type: with hypercapnia Sepsis acute organ dysfunction status: with acute organ dysfunction Sepsis type: sepsis due to unspecified organism Severe sepsis acute organ dysfunction type: acute respiratory failure Severe sepsis shock status: without septic shock Qualified Code(s): A41.9 - Sepsis, unspecified organism; R65.20 - Severe sepsis without septic shock; J96.02 - Acute respiratory failure with hypercapnia Code(s): A41.9 - Sepsis, unspecified organism Status: Acute Assessment and Plan: Criteria met on admission. Result of pneumonia. Continue IV antibiotics as noted above. Blood cultures pending at present time. Urine culture with Enterococcus. Already on IV vancomycin. WBC decreased to 11.3 today. Telemetry reviewed on 05/11/2019 with heart rate controlled. Continue to monitor. (4) Closed subcapital fracture of neck of right femur: Qualifiers: Encounter type: initial encounter Qualified Code(s): S72.011A - Unspecified intracapsular fracture of right femur, initial encounter for closed fracture Code(s): S72.011A - Unspecified intracapsular fracture of right femur, initial encounter for closed fracture Status: Acute Assessment and Plan: Orthopedics consulted and appreciate input. Plan for eventual surgical correction once respiratory status allows. Oral acetaminophen and IV Dilaudid available for pain as needed. (5) Acute exacerbation of chronic obstructive airways disease: Code(s): J44.1 - Chronic obstructive pulmonary disease with (acute) exacerbation Status: Acute Assessment and Plan: Slow but steady progress. Continue respiratory treatments as noted above. (6) AV block, 2nd degree: Code(s): I44.1 - Atrioventricular block, second degree Status: Acute Assessment and Plan: EKG showing 2nd degree AVB. Cardiology consulted and appreciate input. On review of telemetry. Continue to monitor. No longer on flecainide. Continue to monitor. (7) Elevated troponin: Code(s): R79.89 - Other specified abnormal findings of blood chemistry Status: Acute Assessment and Plan: Troponin level peaked at 0.184. Suspect demand ischemia, Type II infarct, related to above. No chest pain. Cardiology has seen as noted above. Echocardiogram with EF 55-60%, diastolic dysfunction grade 1 and moderate pulmonary hypertension. (8) Acute encephalopathy: Code(s): G93.40 - Encephalopathy, unspecified Status: Resolved Assessment and Plan: Likely result of respiratory failure. CT brain unremarkable for acute pathology. (9) RA (rheumatoid arthritis): Qualifiers: Rheumatoid arthritis location: unspecified site R
[2019-05-11 14:51] LABS: Glucose Point of Care 116 (65-105)
[2019-05-11 17:22] LABS: Glucose Point of Care 129 (65-105)
[2019-05-11] MEDS: DORNASE ALFA INH SOLN 1 MG/ML 2.5 ML AMP 2.5 MG INHALATION (19:26)
[2019-05-11 20:35] LABS: Glucose Point of Care 135 (65-105)
[2019-05-12] VITALS (39 sets, daily range): BP systolic 111–171; BP diastolic 65–94; PULSE 63–138; RESP 14–29; TEMP 36.1–36.8; O2SAT 89–100
[2019-05-12] MEDS: BENZONATATE 100 MG CAPSULE 200 MG PO (00:01)
[2019-05-12] MEDS: methylPREDNISolone SOD SUCC 40 MG VIAL IV PUSH ×4 (00:01→20:03)
[2019-05-12 04:59] LABS: Hemoglobin 11.6 g/dL (14.0-18.0); Mean Corpuscular HGB Conc 29.7 g/dl (32-36); Mean Corpuscular Hemoglobin 29.8 pg (26-34); Mean Corpuscular Volume 100.3 fl (80-100); Mean Platelet Volume 10.6 fl (7.4-10.4); Platelet Count Result 173 k/mm3 (150-375); Red Blood Count 3.89 M/mm3 (4.6-6.20); Red Cell Distribution Width 14.6 % (11.5-14.5); White Blood Count 12.3 K/mm3 (4.5-10.0)
[2019-05-12 05:16] LABS: Blood Urea Nitrogen 32 mg/dL (9-20); Calcium 9.2 mg/dL (8.4-10.2); Carbon Dioxide 37 mmol/L (22-30); Chloride 96 mmol/L (98-107); Estimated CRCL calculation 75 ml/min; Estimated Glomerular Filt Rate > 60; Glucose 135 mg/dL (75-110); Magnesium 2.3 mg/dL (1.6-2.3); Potassium 4.9 mmol/L (3.4-5.0); Sodium 139 mmol/L (137-145)
[2019-05-12] MEDS: ASPIRIN 81 MG CHEWABLE TABLET PO (09:03)
[2019-05-12] MEDS: DORNASE ALFA INH SOLN 1 MG/ML 2.5 ML AMP 2.5 MG INHALATION ×2 (09:55→20:27)
[2019-05-12 10:29] LABS: Glucose Point of Care 118 (65-105)
--- NOTE | 2019-05-12 11:28 | PM.IMPN ---
Progress Note: A&P Assessment and Plan (1) Acute respiratory failure with hypoxia and hypercarbia: Code(s): J96.01 - Acute respiratory failure with hypoxia; J96.02 - Acute respiratory failure with hypercapnia Status: Acute Assessment and Plan: Result of pneumonia. Noticeably improved today. Oxygen saturation now holding above 90% on 6 L oxygen. No longer requiring BiPAP. Will continue nebulizer treatments, Pulmozyme and Mucinex. Continue IV steroids. Given his multiple comorbidities, patient is high risk for complications with repair of right femur fracture but is adequately improve respiratory standpoint to proceed your surgical intervention at this time from hospitalist standpoint. Will continue to monitor closely. (2) Community acquired pneumonia: Qualifiers: Laterality: right Lung location: unspecified part of lung Qualified Code(s): J18.9 - Pneumonia, unspecified organism Code(s): J18.9 - Pneumonia, unspecified organism Status: Acute Assessment and Plan: CT chest with extensive tree-in-bud pattern with small centrilobular nodules throughout the right lung consistent with pneumonia. Continue respiratory treatments as noted above. Continue IV cefepime and vancomycin. WBC stable at 12.3 today. (3) Sepsis: Qualifiers: Acute respiratory failure type: with hypercapnia Sepsis acute organ dysfunction status: with acute organ dysfunction Sepsis type: sepsis due to unspecified organism Severe sepsis acute organ dysfunction type: acute respiratory failure Severe sepsis shock status: without septic shock Qualified Code(s): A41.9 - Sepsis, unspecified organism; R65.20 - Severe sepsis without septic shock; J96.02 - Acute respiratory failure with hypercapnia Code(s): A41.9 - Sepsis, unspecified organism Status: Acute Assessment and Plan: Criteria met on admission. Result of pneumonia. Continue IV antibiotics as noted above. Blood cultures negative to date. Urine culture with Enterococcus but already on IV vancomycin. Will continue to monitor. (4) Closed subcapital fracture of neck of right femur: Qualifiers: Encounter type: initial encounter Qualified Code(s): S72.011A - Unspecified intracapsular fracture of right femur, initial encounter for closed fracture Code(s): S72.011A - Unspecified intracapsular fracture of right femur, initial encounter for closed fracture Status: Acute Assessment and Plan: Orthopedics consulted and appreciate input. Oral acetaminophen and IV Dilaudid available for pain as needed. Plan for eventual surgical intervention. (5) Acute exacerbation of chronic obstructive airways disease: Code(s): J44.1 - Chronic obstructive pulmonary disease with (acute) exacerbation Status: Acute Assessment and Plan: Improving. Remains on oxygen as noted above. Continue respiratory treatments as noted above. (6) AV block, 2nd degree: Code(s): I44.1 - Atrioventricular block, second degree Status: Acute Assessment and Plan: EKG showing 2nd degree AVB on admission. Cardiology consulted and appreciate input. On review of telemetry on 05/12/2019, heart rate controlled. No longer on flecainide. Will continue to monitor. (7) Elevated troponin: Code(s): R79.89 - Other specified abnormal findings of blood chemistry Status: Acute Assessment and Plan: Troponin level peaked at 0.184. Suspect demand ischemia, Type II infarct, related to above. No current chest pain. Echocardiogram with EF 55-60%, diastolic dysfunction grade 1 and moderate pulmonary hypertension. Advised cardiology of improved pulmonary status and await any further recommendations given plan for eventual ischemic workup. (8) Acute encephalopathy: Code(s): G93.40 - Encephalopathy, unspecified Status: Resolved Assessment and Plan: Likely result of respiratory failure. CT brain u
[2019-05-12 11:35] LABS: Vancomycin Trough 19.6 ug/mL (10.0-20.0)
[2019-05-12 12:05] LABS: Glucose Point of Care 133 (65-105)
[2019-05-12] MEDS: LACTATED RINGERS 1,000 ML 70 ML IV CONT (12:17)
--- NOTE | 2019-05-12 13:32 | PM.PNCARD ---
Progress Note: A&P Assessment and Plan (1) Community acquired pneumonia: Qualifiers: Laterality: right Lung location: unspecified part of lung Qualified Code(s): J18.9 - Pneumonia, unspecified organism Code(s): J18.9 - Pneumonia, unspecified organism Status: Acute Assessment and Plan: Continue antibiotics, supportive care per primary service. (2) Elevated troponin: Code(s): R79.89 - Other specified abnormal findings of blood chemistry Status: Acute Assessment and Plan: Most likely secondary to acute hypoxic respiratory failure and pneumonia. Type 2 infarct, non ND troponin elevation most likely. However, given patient's age and risk factors ischemic evaluation warranted in future prior to resuming flecainide to ensure safety margin. EF 60-65% by echo. No direct contraindication to right hip pinning which is a lower risk surgery. Explained to patient and his potential risk for ND however this risk anticipated be lower. Overall patient lower to intermediate risk. No further invasive workup indicated prior to right hip nailing/pinning. (3) AV block, 2nd degree: Code(s): I44.1 - Atrioventricular block, second degree Status: Acute Assessment and Plan: Resolved, no recurrence. Continue telemetry. Hold flecainide. (4) Hyperkalemia: Code(s): E87.5 - Hyperkalemia Status: Acute Assessment and Plan: Per primary service. May also contribute to rhythm disturbance although multiple contributions in this instance. (5) Sepsis: Qualifiers: Acute respiratory failure type: with hypercapnia Sepsis acute organ dysfunction status: with acute organ dysfunction Sepsis type: sepsis due to unspecified organism Severe sepsis acute organ dysfunction type: acute respiratory failure Severe sepsis shock status: without septic shock Qualified Code(s): A41.9 - Sepsis, unspecified organism; R65.20 - Severe sepsis without septic shock; J96.02 - Acute respiratory failure with hypercapnia Code(s): A41.9 - Sepsis, unspecified organism Status: Acute Assessment and Plan: Per primary service. White blood cell count rising, possibly secondary to steroids. (6) Obstructive sleep apnea: Code(s): G47.33 - Obstructive sleep apnea (adult) (pediatric) Status: Acute Assessment and Plan: BiPAP. (7) Paroxysmal atrial fibrillation: Code(s): I48.0 - Paroxysmal atrial fibrillation Status: Acute Assessment and Plan: No recurrence. Maintaining sinus rhythm. Patient is not on systemic anticoagulation. Candidacy questionable given recent fall. Will need to assess appropriateness this hospitalization. Aspirin daily reasonable at this time. (8) COPD (chronic obstructive pulmonary disease): Code(s): J44.9 - Chronic obstructive pulmonary disease, unspecified Status: Acute Assessment and Plan: As above. Bronchodilator therapy as appropriate. (9) Acute encephalopathy: Code(s): G93.40 - Encephalopathy, unspecified Status: Resolved Assessment and Plan: Resolved. secondary to sepsis, pneumonia. Per primary service. (10) Closed subcapital fracture of neck of right femur: Qualifiers: Encounter type: initial encounter Qualified Code(s): S72.011A - Unspecified intracapsular fracture of right femur, initial encounter for closed fracture Code(s): S72.011A - Unspecified intracapsular fracture of right femur, initial encounter for closed fracture Status: Acute Assessment and Plan: Per primary service, pain control as appropriate. Subjective Date/time seen: Date of service: 05/12/19 13:32 Follow-up for transient second-degree AV block, elevated troponin. Patient feels better. Complains of right hip pain. Breathing improved denies chest pain or significant shortness of breath at this time. Wearing BiPAP at night. Orthopedic surgery plan
--- NOTE | 2019-05-12 14:10 | PC.NURSE ---
Patient to OR via Bed. Report given to KARLA Blakely
[2019-05-12] MEDS: LACTATED RINGERS 1,000 ML 30 ML IV CONT ×2 (14:20→16:36)
--- NOTE | 2019-05-12 14:53 | WPDANESEPPF ---
Anes - Initial Pre Proc Eval Procedure: Operation Date: 05/12/19 15:00 Proposed Procedures p Right Hip Pinning - Octavio Davis MD Date/Time: 05/12/19 14:53 Surgeon: Patrick Quinn MD Pre Op Diagnosis: Sepsis, Pneumonia, Subcapital femoral fracture Patient Data Age: 74 Gender: M Height: 5 ft 8 in Weight: 90.4 kg Last Vital Signs Temp 36.7 C 05/12/19 14:35 Pulse 132 H 05/12/19 14:35 Resp 20 05/12/19 14:35 BP 147/78 H 05/12/19 14:35 Pulse Ox 89 L 05/12/19 14:35 Allergies Allergy/AdvReac Type Severity Reaction Status Date / Time Sulfa (Sulfonamide Allergy Severe Unknown Verified 05/08/19 19:33 Antibiotics) sulfamethoxazole Allergy Severe SWELLING Verified 05/08/19 19:33 Quinolones Allergy Intermediate leg pain Verified 05/08/19 19:33 ciprofloxacin Allergy Unknown Joint pain Verified 05/08/19 19:33 clavulanic acid Allergy Unknown Unknown Verified 05/08/19 19:33 sulfanilamide Allergy Unknown Unknown Verified 05/08/19 19:33 trimethoprim Allergy Unknown Unknown Verified 05/08/19 19:33 CIPROFLOXACIN HCL Allergy Severe SWELLING Uncoded 05/08/19 19:33 NKFA Allergy Unknown Unknown Uncoded 04/13/19 14:11 Home Medications Medication Instructions Recorded Confirmed Type flecainide 100 mg tablet 100 mg PO Q12H 03/11/19 05/08/19 History prednisone 10 mg tablet 10 mg PO DAILY 03/11/19 05/08/19 History benzonatate 200 mg capsule 200 mg PO TID PRN #30 cap 05/07/19 05/08/19 Rx cefuroxime axetil 250 mg tablet 250 mg PO Q12H #20 tablet 05/07/19 05/08/19 Rx furosemide 20 mg tablet 40 mg PO QAM tablet 05/07/19 05/08/19 History acetaminophen [Tylenol Extra 1,000 mg PO Q4-6H PRN MDD 4000mg 05/08/19 05/08/19 History Strength] kuwuvmeecil-[id number]-[id number] A-D-aloe 1 applic TOPICAL Q12H PRN 05/08/19 05/08/19 History [Zinc Oxide Diaper Cream] ipratropium-albuterol 3 ml INHALATION Q4H PRN 05/08/19 05/08/19 History ipratropium-albuterol [Combivent 1 puff INHALATION Q4H 05/08/19 05/08/19 History Respimat] lidocaine 1 patch TOPICAL DAILY PRN 05/08/19 05/08/19 History ropinirole 0.5 mg PO DAILY 05/08/19 05/08/19 History Laboratory Tests 05/11/19 05/11/19 05/12/19 17:20 20:30 04:26 WBC 12.3 K/mm3 H K/mm3 (4.5-10.0) RBC 3.89 M/mm3 L M/mm3 (4.6-6.20) Hgb 11.6 g/dL L g/dL (14.0-18.0) Hct 39.0 % L % (42.0-52.0) MCV 100.3 fl H fl (80-100) MCH 29.8 pg pg (26-34) MCHC 29.7 g/dl L g/dl (32-36) RDW 14.6 % H % (11.5-14.5) Plt Count 173 k/mm3 k/mm3 (150-375) MPV 10.6 fl H fl (7.4-10.4) Sodium Potassium Chloride Carbon Dioxide BUN Creatinine Estim Creat Clear Calc Estimated GFR Glucose POC Capillary Glucose 129 mg/dl H mg/dl 135 mg/dl H mg/dl (65-105) (65-105) Calcium Magnesium Vancomycin Trough 05/12/19 05/12/19 05/12/19 04:26 07:32 10:49 WBC RBC Hgb Hct MCV MCH MCHC RDW Plt Count MPV Sodium 139 mmol/L mmol/L (137-145) Potassium 4.9 mmol/L mmol/L (3.4-5.0) Chloride 96 mmol/L L mmol/L (98-107) Carbon Dioxide 37 mmol/L H mmol/L (22-30) BUN 32 mg/dL H mg/dL (9-20) Creatinine 0.80 mg/dL mg/dL (0.7-1.3) Estim Creat Clear Calc 75 ml/min ml/min Estimated GFR > 60 (59 - ) Glucose 135 mg/dL H mg/dL (75-110) POC Capillary Glucose 118 mg/dl H mg/dl (65-105) Calcium 9.2 mg/dL mg/dL (8.4-10.2) Magnesium 2.3 mg/dL mg/dL (1.6-2.3) Vancomycin Trough 19.6 ug/mL ug/mL (10.0-20.0) 05/12/19 12:03 WBC RBC Hgb Hct MCV MCH MCHC
--- NOTE | 2019-05-12 15:14 | PM.PNORT ---
Progress Note: A&P Additional Plan R FEMORAL NECK FRACTURE WITH IMPACTION. I SPOKE AGAIN TO THE PATIENT IN THE PRESENCE OF HIS . HE IS SCHEDULED FOR PERC PINNING OF THE RIGHT FEMORAL NECK. HE IS AT HIGH RISK FOR HAVING SOME KIND OF PERIOPERATIVE COMPLICATIONS IE PULMONARY AND OR CARDIAC EVENT. HE WOULD LIKE TO PROCEED REGARDLESS. Subjective Subjective Date/Time Seen: 05/12/19 15:14 R HIP FEMORAL NECK FRACTURE. STILL WITH SIGNIFICANT PAIN. BREATHING IMPROVED. NO CALF PAIN Exam Extrem: Other: THIGH SOFT, NV INTACT R HIP PAIN WITH PROM Objective Data Vital Signs Vital Signs: Vital Signs - 24 hr 05/11/19 16:00 05/11/19 16:32 05/11/19 18:00 Temperature 36.4 C Pulse Rate 67 88 82 Respiratory Rate Blood Pressure 146/68 H Pulse Oximetry 91 05/11/19 19:26 05/11/19 19:41 05/11/19 20:00 Temperature 36.6 C Pulse Rate 71 67 63 Respiratory Rate 20 20 23 H Blood Pressure 168/76 H Pulse Oximetry 97 97 05/11/19 22:00 05/11/19 23:35 05/12/19 00:00 Temperature 36.7 C Pulse Rate 82 73 105 H Respiratory Rate 22 H Blood Pressure 164/70 H Pulse Oximetry 98 05/12/19 01:31 05/12/19 01:40 05/12/19 02:00 Temperature Pulse Rate 72 75 67 Respiratory Rate 20 20 Blood Pressure Pulse Oximetry 100 05/12/19 04:00 05/12/19 06:00 05/12/19 08:00 Temperature 36.6 C 36.2 C L Pulse Rate 63 70 68 Respiratory Rate 22 H 22 H Blood Pressure 160/79 H 171/68 H Pulse Oximetry 98 100 05/12/19 09:56 05/12/19 09:59 05/12/19 10:05 Temperature Pulse Rate 66 68 Respiratory Rate 20 20 Blood Pressure Pulse Oximetry 97 05/12/19 12:00 05/12/19 13:42 05/12/19 13:54 Temperature 36.8 C Pulse Rate 70 69 68 Respiratory Rate 24 H 20 20 Blood Pressure 151/67 H Pulse Oximetry 93 05/12/19 14:35 05/12/19 15:08 Temperature 36.7 C Pulse Rate 132 H 132 H Respiratory Rate 20 21 H Blood Pressure 147/78 H Pulse Oximetry 89 L 91 Intake/Output Intake/Output: Intake & Output 05/09/19 05/10/19 05/11/19 05/12/19 23:59 23:59 23:59 23:59 Intake Total 3250 2840 4140 1920 Output Total 1200 1650 1350 1375 Balance 2050 1190 2790 545 Meds/Results Medications: Active Medications Generic Name Dose Route Start Last Admin Trade Name Freq PRN Reason Stop Dose Admin Acetaminophen 1,000 mg 05/09/19 04:09 05/09/19 08:45 Tylenol Tablet PO 1,000 mg Q4-6H PRN Administration Pain Rated 1-3 Aspirin 81 mg 05/10/19 08:00 05/12/19 09:03 Aspirin Chewable PO 81 mg DAILY@0800 EDA Administration Benzonatate 200 mg 05/09/19 04:09 05/12/19 00:01 Tessalon Perles PO 200 mg TID PRN Administration cough Budesonide/Formoterol Fumarate 2 puff 05/12/19 08:00 Symbicort 160-4.5 Mcg (*Sp) Inhaler INHALATION Q12HRT [facility] Dextrose 12.5 gm 05/10/19 17:06 Dextrose 50% Syringe IV PUSH PRN PRN Hypoglycemia Protocol Dornase Michael 2.5 mg 05/11/19 20:00 05/12/19 09:55 Pulmozyme INHALATION 2.5 mg Q12HRT EDA Administration Enoxaparin Sodium 40 mg 05/09/19 09:00 05/12/19 08:58 Lovenox SUB-Q Not Given DAILY EDA Glucagon 1 mg 05/10/19 17:06 Glucagon For Inj IM PRN PRN Hypoglycemia Protocol Glucose 15 gm 05/10/19 17:06 Glutose 15 PO PRN PRN Hypoglycemia Protocol Guaifenesin 1,200 mg 05/11/19 13:00 05/12/19 09:04 Mucinex 12 Hr Tab PO 1,200 mg Q12HR EDA Administration Hydromorphone HCl 1 mg 05/09/19 08:26 05/10/19 17:11 Dilaudid Inj IV PUSH 1 mg Q3H PRN Administration Pain Rated 7-10 Lactated Ringer's 1,000 mls @ 70 mls/hr 05/08/19 21:15 05/12/19 13:10 Lr - Lactated Ringers Iv IV CONT 0 mls/hr .[id number] EDA Infusion Dextrose 1,000 mls @ 100 mls/hr 05/10/19 17:06 Dextrose 5% 1,000 Ml IVPB PRN PRN Hypoglycemia Protocol Vancomycin HCl 1,250 mg in 250 mls @ 200 mls/hr 05/11/19 12:00 05/12/19 14:40 Vancom
[2019-05-12] MEDS: ceFAZolin SODIUM 1 GM VIAL 2 GM IV PUSH (15:50)
--- NOTE | 2019-05-12 16:23 | PM.OP ---
Procedure Note - Brief Procedure Note - Brief Date of procedure: 05/12/19 Pre-op diagnosis: Sepsis, Pneumonia, Subcapital femoral fracture Procedure performed: closed reducion, perc pinning right femoral neck fracture Anesthesia: GETA Surgeon: Octavio Davis MD Estimated blood loss (mL): 20 Complications: No immediate complications Condition: stable Disposition: PACU
[2019-05-12 16:52] LABS: Glucose Point of Care 131 (65-105)
--- NOTE | 2019-05-12 17:10 | SUR.PHASEI ---
Patient was wearing 6L O2 prior to surgery. RN doesn't have a high flow NC in PACU so she is unable to take patient off simple mask. Anesthesia is aware and said it was fine.
--- NOTE | 2019-05-12 17:39 | SUR.PHASEI ---
1739: RN spoke with Dr. Bradshaw about patient being in A-fib sustaining the 130s and was ok sending patient back to IMU without any interventions at this time.
--- NOTE | 2019-05-12 18:35 | PC.NURSE ---
Patient returned to room from PACU. Report received from KARLA Moreno
[2019-05-12] MEDS: SODIUM CHLORIDE 0.9% IV 1,000 ML 125 ML IV CONT (19:58)
[2019-05-12] MEDS: DOCUSATE SODIUM 100 MG CAPSULE PO (20:03)
[2019-05-12] MEDS: MORPHINE SULFATE 4 MG/ML INJ 3 MG IV PUSH (21:01)
[2019-05-12 21:12] LABS: Glucose Point of Care 114 (65-105)
[2019-05-12] MEDS: METOPROLOL TARTRATE INJ 5 MG/5 ML VIAL IV PUSH (22:30)
--- NOTE | 2019-05-12 23:11 | OP_ITS ---
DATE OF PROCEDURE: 05/12/2019 PREOPERATIVE DIAGNOSIS: Right femoral neck fracture. POSTOPERATIVE DIAGNOSIS: Right femoral neck fracture. PROCEDURE: Right femoral neck closed reduction and percutaneous pinning. ANESTHESIA: General. COMPLICATIONS: None. INDICATIONS: This is a 74-year-old male, who fell and injured his right hip, was diagnosed with an impacted right femoral neck fracture. Once he was cleared for surgery, he was indicated for closed reduction and percutaneous pinning of right femoral neck fracture. DESCRIPTION OF PROCEDURE: The patient was taken to the operating room in stable condition and placed in supine position. General anesthesia was induced and then he was placed on a fracture table. With gentle traction and internal rotation, the femoral neck fracture was reduced to near-anatomic position and then once that was performed, the right lower extremity was prepped and draped sterilely from the calf to the iliac crest. A small incision was made using fluoroscopy just distal to the flare of the greater trochanter in line with the femoral neck. A guide pin was placed through the femoral neck and into some shy of the subchondral bone in the femoral head. This was in good position. Two other screws then were placed in order to form a triangle type configuration through the femoral neck and just shy of the subchondral bone. Once that was performed, then reamers were used to ream over the guide pins and then three 7.3 cannulated partially threaded screws made by [employer] were then placed through the femoral neck bridging the fracture fragments. The fracture was in near-anatomic position and the hardware was in good position as well. Once that was performed, then the wound was irrigated thoroughly and then the fascial layer was approximated with #0 Vicryl, subcutaneous with 2-0 Vicryl, and skin with jana. Wound was washed and placed sterile dressing. The patient was extubated and sent to recovery room. Yony I MT: Kaylee
[2019-05-13] VITALS (27 sets, daily range): BP systolic 109–141; BP diastolic 57–69; PULSE 73–143; RESP 18–28; TEMP 36–36.9; O2SAT 92–98; BMI 10.0
[2019-05-13] MEDS: ceFAZolin 2 GM/D5W 50 ML 2 GM/50 ML BAG IVPB ×3 (00:19→16:30)
[2019-05-13] MEDS: methylPREDNISolone SOD SUCC 40 MG VIAL IV PUSH ×3 (01:00→11:32)
[2019-05-13 05:14] LABS: Basophils Percent Auto 0.2 % (0.2-1.2); Hematocrit 35.9 % (42.0-52.0); Hemoglobin 10.8 g/dL (14.0-18.0); Immature Granulocyte Absolute 0.28 K/mm3 (0.00-0.031); Immature Granulocyte Percent A 2.1 % (0-0.5); Lymphocytes Absolute Auto 0.52 K/mm3 (0.9-3.2); Mean Corpuscular HGB Conc 30.1 g/dl (32-36); Mean Corpuscular Hemoglobin 29.8 pg (26-34); Mean Corpuscular Volume 99.2 fl (80-100); Mean Platelet Volume 10.8 fl (7.4-10.4); Monocytes Absolute Auto 0.6 K/mm3 (0.1-0.6); Monocytes Percent Auto 4.8 % (2.6-8.5); Neutrophils Absolute Auto 11.6 K/mm3 (1.3-6.7); Neutrophils Percent Auto 88.9 % (45.5-73.1); Platelet Count Result 174 k/mm3 (150-375); Red Blood Count 3.62 M/mm3 (4.6-6.20); Red Cell Distribution Width 14.3 % (11.5-14.5); White Blood Count 13.1 K/mm3 (4.5-10.0)
[2019-05-13 05:28] LABS: Blood Urea Nitrogen 31 mg/dL (9-20); Calcium 8.7 mg/dL (8.4-10.2); Carbon Dioxide 35 mmol/L (22-30); Chloride 97 mmol/L (98-107); Estimated CRCL calculation 97 ml/min; Estimated Glomerular Filt Rate > 60; Glucose 125 mg/dL (75-110); Magnesium 2.1 mg/dL (1.6-2.3); Potassium 4.8 mmol/L (3.4-5.0); Sodium 136 mmol/L (137-145)
[2019-05-13] MEDS: SODIUM CHLORIDE 0.9% IV 1,000 ML 125 ML IV CONT (05:46)
[2019-05-13] MEDS: DORNASE ALFA INH SOLN 1 MG/ML 2.5 ML AMP 2.5 MG INHALATION ×2 (08:31→22:23)
[2019-05-13 08:33] LABS: Glucose Point of Care 131 (65-105)
[2019-05-13] MEDS: ENOXAPARIN 40 MG/0.4 ML SYRINGE SUB-Q (08:36)
[2019-05-13] MEDS: DOCUSATE SODIUM 100 MG CAPSULE PO ×2 (08:36→21:35)
[2019-05-13] MEDS: ASPIRIN 81 MG CHEWABLE TABLET PO (08:36)
[2019-05-13] MEDS: METOPROLOL TARTRATE INJ 5 MG/5 ML VIAL IV PUSH (09:13)
--- NOTE | 2019-05-13 10:27 | PM.IMPN ---
Progress Note: A&P Assessment and Plan (1) Acute respiratory failure with hypoxia and hypercarbia: Code(s): J96.01 - Acute respiratory failure with hypoxia; J96.02 - Acute respiratory failure with hypercapnia Status: Acute Assessment and Plan: Result of pneumonia. Continues to improve. Remains on oxygen by nasal cannula now down to 5 L. No longer requiring BiPAP. Will continue nebulizer treatments, Pulmozyme and Mucinex. Continue IV steroids. Will continue to monitor. (2) Community acquired pneumonia: Qualifiers: Laterality: right Lung location: unspecified part of lung Qualified Code(s): J18.9 - Pneumonia, unspecified organism Code(s): J18.9 - Pneumonia, unspecified organism Status: Acute Assessment and Plan: CT chest with extensive tree-in-bud pattern with small centrilobular nodules throughout the right lung consistent with pneumonia. Improving. Continue respiratory treatments as noted above. Continue IV cefepime and vancomycin. WBC 13.1 today. Will continue to monitor. (3) Sepsis: Qualifiers: Acute respiratory failure type: with hypercapnia Sepsis acute organ dysfunction status: with acute organ dysfunction Sepsis type: sepsis due to unspecified organism Severe sepsis acute organ dysfunction type: acute respiratory failure Severe sepsis shock status: without septic shock Qualified Code(s): A41.9 - Sepsis, unspecified organism; R65.20 - Severe sepsis without septic shock; J96.02 - Acute respiratory failure with hypercapnia Code(s): A41.9 - Sepsis, unspecified organism Status: Acute Assessment and Plan: Criteria met on admission. Result of pneumonia. Continue IV antibiotics as noted above. Blood cultures negative to date. Urine culture with Enterococcus but already on IV vancomycin. Will continue to monitor. (4) Atrial flutter with rapid ventricular response: Code(s): I48.92 - Unspecified atrial flutter Status: Acute Assessment and Plan: Developed atrial flutter with RVR just prior to undergoing surgery yesterday. Cardiology is already following. Telemetry reviewed on 05/13/2019 with heart rate remaining elevated at 120 to 130. Cardiology is now started IV diltiazem with metoprolol held. Currently on aspirin for now for anticoagulation with high risk for bleeding complications. Will continue to monitor. Appreciate help from Cardiology. (5) Closed subcapital fracture of neck of right femur: Qualifiers: Encounter type: initial encounter Qualified Code(s): S72.011A - Unspecified intracapsular fracture of right femur, initial encounter for closed fracture Code(s): S72.011A - Unspecified intracapsular fracture of right femur, initial encounter for closed fracture Status: Acute Assessment and Plan: Orthopedics consulted and appreciate input. Now status post pinning on 05/20/2019. Postoperative management per Orthopedics. (6) Acute exacerbation of chronic obstructive airways disease: Code(s): J44.1 - Chronic obstructive pulmonary disease with (acute) exacerbation Status: Acute Assessment and Plan: Improving. Remains on oxygen as noted above. Continue respiratory treatments as noted above. (7) AV block, 2nd degree: Code(s): I44.1 - Atrioventricular block, second degree Status: Acute Assessment and Plan: EKG showing 2nd degree AVB on admission. Cardiology consulted and appreciate input. No longer on flecainide. Will continue to monitor. (8) Elevated troponin: Code(s): R79.89 - Other specified abnormal findings of blood chemistry Status: Acute Assessment and Plan: Troponin level peaked at 0.184. Suspect demand ischemia, Type II infarct, related to above. No current chest pain. Echocardiogram with EF 55-60%, diastolic dysfunction grade 1 and moderate pulmonary hypertension. Per Cardiology, eventual plan for ischemic workup. (9
[2019-05-13 12:20] LABS: Glucose Point of Care 145 (65-105)
--- NOTE | 2019-05-13 13:09 | ECG_ITS ---
Measurements Intervals [place] Rate: 138 P: [place]: 0 QRS: -57 QRSD: 161 T: 213 QT: 316 QTc: 479 Interpretive Statements ATRIAL FLUTTER/TACHYCARDIA WITH RAPID VENTRICULAR RESPONSE RIGHT BUNDLE BRANCH BLOCK LEFT ANTERIOR FASCICULAR BLOCK ABNORMAL ECG Electronically Signed On 05-13-2019 14:46:13 RN PALLIATIVE CARE by Gurvinder Weiss D.O.
--- NOTE | 2019-05-13 14:56 | P.PNAN_ITS ---
Anes - Prog Note Post-Op Date/Time: 05/13/19 14:56 Vital Signs: Last Vital Signs Temp 96.8 F L 05/13/19 14:00 Pulse 138 H 05/13/19 14:00 Resp 26 H 05/13/19 14:00 BP 113/64 05/13/19 14:00 Pulse Ox 95 05/13/19 14:00 I/O: Intake & Output 05/12/19 05/13/19 05/13/19 23:59 07:59 15:59 Intake Total 250 1350 250 Output Total 150 625 Balance 100 725 250 Laboratory Tests 05/13/19 04:24 05/13/19 04:24 05/12/19 05/12/19 05/13/19 16:51 20:31 04:24 WBC RBC Hgb Hct MCV MCH MCHC RDW Plt Count MPV Immature Gran % (Auto) Neut % (Auto) Lymph % (Auto) [place] % (Auto) Eos % (Auto) Baso % (Auto) Lymph # (Auto) [place] # (Auto) Eos # (Auto) Baso # (Auto) Abs Immat Gran (auto) Absolute Neuts (auto) Absolute Nucleated RBC Nucleated RBC % Sodium 136 L Potassium 4.8 Chloride 97 L Carbon Dioxide 35 H BUN 31 H Creatinine 0.60 L Estim Creat Clear Calc 97 Estimated GFR > 60 Glucose 125 H POC Capillary Glucose 131 H 114 H Calcium 8.7 Magnesium 2.1 05/13/19 05/13/19 05/13/19 04:24 07:46 11:29 WBC 13.1 H RBC 3.62 L Hgb 10.8 L Hct 35.9 L MCV 99.2 MCH 29.8 MCHC 30.1 L RDW 14.3 Plt Count 174 MPV 10.8 H Immature Gran % (Auto) 2.1 H Neut % (Auto) 88.9 H Lymph % (Auto) 4.0 L [place] % (Auto) 4.8 Eos % (Auto) 0.0 Baso % (Auto) 0.2 Lymph # (Auto) 0.52 L [place] # (Auto) 0.6 Eos # (Auto) 0.0 Baso # (Auto) 0.0 Abs Immat Gran (auto) 0.28 H Absolute Neuts (auto) 11.6 H Absolute Nucleated RBC 0.0 Nucleated RBC % 0.0 Sodium Potassium Chloride Carbon Dioxide BUN Creatinine Estim Creat Clear Calc Estimated GFR Glucose POC Capillary Glucose 131 H 145 H Calcium Magnesium Patient Feedback: Patient satisfied with anesthetic care.
--- NOTE | 2019-05-13 16:16 | PM.PNCARD ---
Progress Note: A&P Assessment and Plan (1) Community acquired pneumonia: Qualifiers: Laterality: right Lung location: unspecified part of lung Qualified Code(s): J18.9 - Pneumonia, unspecified organism Code(s): J18.9 - Pneumonia, unspecified organism Status: Acute Assessment and Plan: Continue antibiotics, supportive care per primary service. (2) Elevated troponin: Code(s): R79.89 - Other specified abnormal findings of blood chemistry Status: Acute Assessment and Plan: Most likely secondary to acute hypoxic respiratory failure and pneumonia. Type 2 infarct, non [place] troponin elevation most likely. However, given patient's age and risk factors ischemic evaluation warranted in future prior to resuming flecainide to ensure safety margin. EF 60-65% by echo. (3) AV block, 2nd degree: Code(s): I44.1 - Atrioventricular block, second degree Status: Acute Assessment and Plan: Resolved, no recurrence. Continue telemetry. Hold flecainide. (4) Hyperkalemia: Code(s): E87.5 - Hyperkalemia Status: Acute Assessment and Plan: Per primary service. May also contribute to rhythm disturbance although multiple contributions in this instance. (5) Sepsis: Qualifiers: Acute respiratory failure type: with hypercapnia Sepsis acute organ dysfunction status: with acute organ dysfunction Sepsis type: sepsis due to unspecified organism Severe sepsis acute organ dysfunction type: acute respiratory failure Severe sepsis shock status: without septic shock Qualified Code(s): A41.9 - Sepsis, unspecified organism; R65.20 - Severe sepsis without septic shock; J96.02 - Acute respiratory failure with hypercapnia Code(s): A41.9 - Sepsis, unspecified organism Status: Acute Assessment and Plan: Per primary service. White blood cell count rising, possibly secondary to steroids. (6) Obstructive sleep apnea: Code(s): G47.33 - Obstructive sleep apnea (adult) (pediatric) Status: Acute Assessment and Plan: BiPAP. (7) Paroxysmal atrial fibrillation: Code(s): I48.0 - Paroxysmal atrial fibrillation Status: Acute Assessment and Plan: Developed atrial flutter with rapid ventricular response just prior to undergoing surgery to yesterday afternoon. Hemodynamically stable, asymptomatic. Start diltiazem drip due to poor heart rate control. Discontinue IV metoprolol, hold oral metoprolol until tolerance with diltiazem known. Monitor BP closely. Systemic anticoagulation ideally advise, however, patient high risk for bleeding complications particular status post fall. Continue aspirin for now. (8) COPD (chronic obstructive pulmonary disease): Code(s): J44.9 - Chronic obstructive pulmonary disease, unspecified Status: Acute Assessment and Plan: As above. Bronchodilator therapy as appropriate. (9) Acute encephalopathy: Code(s): G93.40 - Encephalopathy, unspecified Status: Resolved Assessment and Plan: Resolved. secondary to sepsis, pneumonia. Per primary service. (10) Closed subcapital fracture of neck of right femur: Qualifiers: Encounter type: initial encounter Qualified Code(s): S72.011A - Unspecified intracapsular fracture of right femur, initial encounter for closed fracture Code(s): S72.011A - Unspecified intracapsular fracture of right femur, initial encounter for closed fracture Status: Acute Assessment and Plan: Per primary service, pain control as appropriate. Status post right hip pinning. Subjective Date/time seen: Date of service: 05/13/19 16:16 Follow-up for history of atrial fibrillation/flutter, secondary AV block elevated troponin Feels more fatigued today. Status post right hip pinning yesterday. Right when he has being taken down for surgery he developed atrial flutter with rapid ventricular response. He denies
[2019-05-13 16:56] LABS: Glucose Point of Care 126 (65-105)
--- NOTE | 2019-05-13 17:59 | PM.PNORT ---
Progress Note: A&P Additional Plan POD 1 DOING WELL FROM ORTHO STANDPOINT. CONTINUE PT. Subjective Subjective Date/Time Seen: 05/13/19 17:59 POD 1 IMPROVING. WAS UP IN CHAIR TODAY. 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 H[employer] SIGN Objective Data Vital Signs Vital Signs: Vital Signs - 24 hr 05/12/19 18:00 05/12/19 18:15 05/12/19 18:30 Temperature 36.7 C 36.7 C Pulse Rate 133 H 135 H 133 H Pulse Rate [At Rest After Therapy Session] Respiratory Rate 20 14 22 H Blood Pressure 131/80 132/78 131/80 Pulse Oximetry 99 99 97 05/12/19 19:00 05/12/19 19:39 05/12/19 20:00 Temperature 36.6 C 36.4 C L Pulse Rate 135 H 135 H 138 H Pulse Rate [At Rest After Therapy Session] Respiratory Rate 24 H 22 H 23 H Blood Pressure 127/82 130/80 Pulse Oximetry 95 95 95 05/12/19 20:25 05/12/19 20:35 05/12/19 20:47 Temperature Pulse Rate 136 H 136 H 126 H Pulse Rate [At Rest After Therapy Session] Respiratory Rate 28 H 28 H 24 H Blood Pressure Pulse Oximetry 99 05/12/19 20:56 05/12/19 21:51 05/12/19 22:00 Temperature 36.6 C Pulse Rate 137 H 136 H 138 H Pulse Rate [At Rest After Therapy Session] Respiratory Rate 22 H 23 H Blood Pressure 111/65 122/75 Pulse Oximetry 97 95 05/12/19 22:30 05/12/19 23:20 05/12/19 23:39 Temperature 36.7 C Pulse Rate 138 H 107 H 107 H Pulse Rate [At Rest After Therapy Session] Respiratory Rate 22 H 24 H Blood Pressure 132/70 Pulse Oximetry 96 92 05/12/19 23:57 05/13/19 00:00 05/13/19 02:00 Temperature Pulse Rate 107 H 73 Pulse Rate [At Rest After Therapy Session] Respiratory Rate 24 H Blood Pressure Pulse Oximetry 93 92 05/13/19 02:26 05/13/19 02:31 05/13/19 04:00 Temperature Pulse Rate 73 73 74 Pulse Rate [At Rest After Therapy Session] Respiratory Rate 20 20 20 Blood Pressure Pulse Oximetry 96 96 02/13/20 06:00 05/13/19 08:00 05/13/19 08:25 Temperature 36.2 C L Pulse Rate 74 74 110 H Pulse Rate [At Rest After Therapy Session] Respiratory Rate 20 20 Blood Pressure 136/57 L Pulse Oximetry 96 05/13/19 08:30 05/13/19 08:35 05/13/19 09:10 Temperature 36.9 C Pulse Rate 112 H 139 H Pulse Rate [At Rest After Therapy Session] Respiratory Rate 20 20 Blood Pressure 126/69 Pulse Oximetry 93 92 05/13/19 09:13 05/13/19 11:00 05/13/19 12:00 Temperature 36.1 C L 36.4 C L Pulse Rate 140 H 142 H 142 H Pulse Rate [At Rest After Therapy Session] Respiratory Rate 20 24 H Blood Pressure 141/69 H 114/58 L Pulse Oximetry 94 94 05/13/19 13:05 05/13/19 14:00 05/13/19 14:50 Temperature 36.0 C L Pulse Rate 138 H 106 H Pulse Rate [At Rest After Therapy Session] 140 H Respiratory Rate 26 H 20 Blood Pressure 113/64 Pulse Oximetry 95 05/13/19 15:00 05/13/19 16:00 05/13/19 16:30 Temperature 36.1 C L Pulse Rate 105 H 82 Pulse Rate [At Rest After Therapy Session] Respiratory Rate 20 28 H Blood Pressure 109/63 Pulse Oximetry 95 92 Intake/Output Intake/Output: Intake & Output 05/10/19 05/11/19 05/12/19 05/13/19 23:59 23:59 23:59 23:59 Intake Total 2840 4140 2220 1850 Output Total 1650 1350 1525 625 Balance 1190 2790 695 1225 Meds/Results Medications: Active Medications Generic Name Dose Route Start Last Admin Trade Name Freq PRN Reason Stop Dose Admin Hydrocodone Bitart/Acetaminophen 1 tab 05/12/19 16:24 05/13/19 08:37 [place] 7.5-325 Mg PO 1 tab Q3H PRN Administration Pain Rated 4-6 Aspirin 81 mg 05/10/19 08:00 05/13/19 08:36 Aspirin Chewable PO 81 mg DAILY@0800 [facility] Administration Benzonatate 200 mg 05/09/19 04:09 05/12/19 00:01 Tesdayana Perles PO 200 mg TID PRN Administration cough Budesonide/Formoterol Fumarate 2 puff 05/12/19 08:00 05/13/19 08:32 Symbicort 160-4.5 Mcg (*Sp) Inhaler INHALATION 2 puff Q12HRT EDA Administration Dextrose 12.5 gm 02
[2019-05-13 20:32] LABS: Glucose Point of Care 171 (65-105)
--- NOTE | 2019-05-13 23:03 | PC.NURSE ---
1999----Patient refusing gel pad to right hip.
[2019-05-14] VITALS (27 sets, daily range): BP systolic 107–146; BP diastolic 50–64; PULSE 71–83; RESP 16–32; TEMP 35.9–36.4; O2SAT 95–99; BMI 10.0
[2019-05-14 04:50] LABS: Hematocrit 34.8 % (42.0-52.0); Hemoglobin 10.6 g/dL (14.0-18.0); Mean Corpuscular HGB Conc 30.5 g/dl (32-36); Mean Corpuscular Hemoglobin 30.2 pg (26-34); Mean Corpuscular Volume 99.1 fl (80-100); Mean Platelet Volume 10.9 fl (7.4-10.4); Platelet Count Result 150 k/mm3 (150-375); Red Blood Count 3.51 M/mm3 (4.6-6.20); Red Cell Distribution Width 14.4 % (11.5-14.5); White Blood Count 15.3 K/mm3 (4.5-10.0)
[2019-05-14 05:16] LABS: Blood Urea Nitrogen 33 mg/dL (9-20); Calcium 8.5 mg/dL (8.4-10.2); Carbon Dioxide 36 mmol/L (22-30); Chloride 96 mmol/L (98-107); Estimated CRCL calculation 86 ml/min; Estimated Glomerular Filt Rate > 60; Glucose 137 mg/dL (75-110); Magnesium 2.1 mg/dL (1.6-2.3); Potassium 4.7 mmol/L (3.4-5.0); Sodium 135 mmol/L (137-145)
[2019-05-14] MEDS: methylPREDNISolone SOD SUCC 40 MG VIAL IV PUSH ×4 (05:54→17:36)
[2019-05-14] MEDS: DOCUSATE SODIUM 100 MG CAPSULE PO ×2 (08:36→17:36)
[2019-05-14] MEDS: ENOXAPARIN 40 MG/0.4 ML SYRINGE SUB-Q (08:37)
[2019-05-14] MEDS: ASPIRIN 81 MG CHEWABLE TABLET PO (08:37)
[2019-05-14] MEDS: ZINC OXIDE 20% OINT 30 GM TUBE 1 APPLIC TOPICAL (08:39)
--- NOTE | 2019-05-14 09:16 | PCDIET ---
Weekly nutritional screen. Patient is tolerating current diet with adequate intake (100% of most recorded meals). No weight loss reported. BMI 31.8. No nutritional needs at this time.
[2019-05-14] MEDS: DORNASE ALFA INH SOLN 1 MG/ML 2.5 ML AMP 2.5 MG INHALATION ×2 (09:31→20:31)
[2019-05-14 09:35] LABS: Glucose Point of Care 142 (65-105)
[2019-05-14 11:47] LABS: Vancomycin Trough 24.4 ug/mL (10.0-20.0)
[2019-05-14 11:47] LABS: Glucose Point of Care 135 (65-105)
[2019-05-14 12:00] LABS: Glucose Point of Care 133 (65-105)
--- NOTE | 2019-05-14 12:32 | PM.PNCARD ---
Progress Note: A&P Additional Plan 74-year-old gentleman with paroxysmal atrial flutter with recurrences after being off of his flecainide for several days in the hospital. The drug was discontinued because of concern regarding AV node dysfunction. Last night he had a recurrence of asymptomatic a flutter and despite the concerned about his AV node he was interestingly treated with intravenous diltiazem. I will stop the diltiazem and try modest dose of metoprolol. His telemetry will be observed while he is in the hospital. Another alternative would be to consider resuming flecainide at a reduced dosage. He does not believe that he had a syncopal episode at home at the time of his fall although certainly with evidence of second-degree AV block this was a concern. Time Spent With Patient Time with patient: 15 - 25 minutes Subjective Date/time seen: Date of service: 05/14/19 12:32 Interval history: Date of Service: 05/13/2019. Admitted with respiratory failure, sepsis, right femur fracture. Successfully underwent surgery for right hip fracture yesterday. Has had problems with tachycardia since that time but denies palpitations. No chest pain. Occasional shortness of breath. No cough. No significant pain in right hip. Patient had a symptomatic recurrence of atrial flutter last evening after which she was started on intravenous diltiazem. Case currently back in sinus rhythm. Obviously his flecainide was effective at maintaining sinus rhythm and off the drug he is showing the propensity to have recurrences of atrial flutter. Exam Narrative: Exam Narrative: General: male lying supine in bed, more comfortable A&O x3 , pleasant and cooperative. No apparent distress. Head: atraumatic, normocephalic Eyes: EOM intact, sclerae anicteric, conjunctivae unremarkable Ears/Nose: external inspection of ears and nose were grossly normal Mouth/Throat: Mucosa pink and moist Neck: supple, normal range of motion, no jugular venous distention or carotid bruits, thyroid nonpalpable, trachea midline. Cardiac: Normal rate normal rhythm +systolic murmur early, clicks, gallops, or rubs. Lungs: diminished breath sounds, no wheezes or crackles. + prolonged expiratory phase. Abdomen: Soft, nontender, nondistended, positive bowel sounds throughout. No appreciable hepato-splenomegaly, no rebound guarding or rigidity noted. Abdominal aorta nonpalpable, no appreciable bruits. Extremities: 1+ edema, clubbing, and or cyanosis. reddish discoloration over bilateral feet. Extremities warm and well perfused. Skin: Warm and dry without ecchymoses, and/or petechiae. Musculoskeletal: Muscle strength and tone intact limited in right lower extremity due to hip fracture and pain Vascular: Carotid upstrokes 2+ bilaterally, radial pulses 2+ bilaterally, dorsalis pedis pulses 2+ bilaterally Neurologic: Cranial nerves 2-12 grossly intact, examination grossly nonfocal although limited due to clinical status Pscyhiatric: Mood calm and appropriate. Objective Data Vital Signs Vital Signs: Vital Signs - 24 hr 05/13/19 13:05 05/13/19 14:00 05/13/19 14:50 Temperature 36.0 C L Pulse Rate 138 H 106 H Pulse Rate [At Rest After Therapy Session] 140 H Respiratory Rate 26 H 20 Blood Pressure 113/64 Pulse Oximetry 95 05/13/19 15:00 05/13/19 16:00 05/13/19 16:30 Temperature 36.1 C L Pulse Rate 105 H 141 H 82 Pulse Rate [At Rest After Therapy Session] Respiratory Rate 20 28 H Blood Pressure 109/63 Pulse Oximetry 95 92 05/13/19 18:00 05/13/19 19:50 05/13/19 20:00 Temperature 36.0 C L Pulse Rate 74 74 73 Pulse Rate [At Rest After Therapy Session] Respiratory Rate 20 Blood Pressure 128/61 Pulse Oximetry 95 95 05/13/19 22:00 05/13/19 22:23 05/13/19 22:35 Temperature Pulse Rate 73 73 73 Pulse Rate [At Rest After Therapy Session] Respiratory Rate 20 20 Blood Pressure Pulse
[2019-05-14] MEDS: METOPROLOL SUCCINATE EXT REL 25 MG TABCR PO (13:50)
--- NOTE | 2019-05-14 15:10 | PM.IMPN ---
Progress Note: A&P Assessment and Plan (1) Acute respiratory failure with hypoxia and hypercarbia: Code(s): J96.01 - Acute respiratory failure with hypoxia; J96.02 - Acute respiratory failure with hypercapnia Status: Acute Assessment and Plan: Result of pneumonia. Continues to improve. Remains on oxygen by nasal cannula still at 5 L. No longer requiring BiPAP. Will wean oxygen as tolerated. Will continue nebulizer treatments, Pulmozyme and Mucinex. Continue IV steroids but wean. Will continue to monitor. (2) Community acquired pneumonia: Qualifiers: Laterality: right Lung location: unspecified part of lung Qualified Code(s): J18.9 - Pneumonia, unspecified organism Code(s): J18.9 - Pneumonia, unspecified organism Status: Acute Assessment and Plan: CT chest with extensive tree-in-bud pattern with small centrilobular nodules throughout the right lung consistent with pneumonia. Continue respiratory treatments as noted above. Continue IV cefepime and vancomycin. WBC increased at 15.3 today but is on steroids. Clinically improving. Will continue to monitor. (3) Sepsis: Qualifiers: Acute respiratory failure type: with hypercapnia Sepsis acute organ dysfunction status: with acute organ dysfunction Sepsis type: sepsis due to unspecified organism Severe sepsis acute organ dysfunction type: acute respiratory failure Severe sepsis shock status: without septic shock Qualified Code(s): A41.9 - Sepsis, unspecified organism; R65.20 - Severe sepsis without septic shock; J96.02 - Acute respiratory failure with hypercapnia Code(s): A41.9 - Sepsis, unspecified organism Status: Acute Assessment and Plan: Criteria met on admission. Result of pneumonia. Continue IV antibiotics as noted above. Blood cultures negative to date. Urine culture with Enterococcus but already on IV vancomycin. Will continue to monitor. (4) Atrial flutter with rapid ventricular response: Code(s): I48.92 - Unspecified atrial flutter Status: Acute Assessment and Plan: Developed atrial flutter with RVR just prior to undergoing surgery on 05/12/2019. Appreciate help from Cardiology. Telemetry reviewed on 05/14/2019 with sinus rhythm with heart rate now controlled. IV diltiazem stopped by Cardiology today. Metoprolol restarted. Will continue to monitor. Remains off flecainide at this time. (5) Closed subcapital fracture of neck of right femur: Qualifiers: Encounter type: initial encounter Qualified Code(s): S72.011A - Unspecified intracapsular fracture of right femur, initial encounter for closed fracture Code(s): S72.011A - Unspecified intracapsular fracture of right femur, initial encounter for closed fracture Status: Acute Assessment and Plan: Orthopedics consulted and appreciate input. Now status post pinning on 05/20/2019. POD # 2. Postoperative management per Orthopedics. (6) Acute exacerbation of chronic obstructive airways disease: Code(s): J44.1 - Chronic obstructive pulmonary disease with (acute) exacerbation Status: Acute Assessment and Plan: Improving. Remains on oxygen as noted above. Continue respiratory treatments as noted above. (7) AV block, 2nd degree: Code(s): I44.1 - Atrioventricular block, second degree Status: Acute Assessment and Plan: EKG showing 2nd degree AVB on admission. Cardiology consulted and appreciate input as noted above. No longer on flecainide. Will continue to monitor. (8) Elevated troponin: Code(s): R79.89 - Other specified abnormal findings of blood chemistry Status: Acute Assessment and Plan: Troponin level peaked at 0.184. Suspect demand ischemia, Type II infarct, related to above. No current chest pain. Echocardiogram with EF 55-60%, diastolic dysfunction grade 1 and moderate pulmonary hypertension. Per Cardiology, eventual plan
[2019-05-14 17:04] LABS: Glucose Point of Care 142 (65-105)
--- NOTE | 2019-05-14 18:27 | PM.PNORT ---
Progress Note: A&P Additional Plan POD 2 DOING WELL. CONT PT Subjective Subjective Date/Time Seen: 05/14/19 18:28 POD 2 IMPROVING. STILL ON 5 LITERS OF 02. 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 [employer] SIGN Objective Data Vital Signs Vital Signs: Vital Signs - 24 hr 05/13/19 19:50 05/13/19 20:00 05/13/19 22:00 Temperature 36.0 C L Pulse Rate 74 73 73 Respiratory Rate 20 Blood Pressure 128/61 Pulse Oximetry 95 95 05/13/19 22:23 05/13/19 22:35 05/13/19 23:54 Temperature 36.6 C Pulse Rate 73 73 75 Respiratory Rate 20 20 18 Blood Pressure 126/57 L Pulse Oximetry 98 96 05/14/19 00:00 05/14/19 02:00 05/14/19 02:39 Temperature Pulse Rate 73 74 71 Respiratory Rate 20 Blood Pressure Pulse Oximetry 96 05/14/19 02:49 05/14/19 03:15 05/14/19 04:00 Temperature Pulse Rate 73 73 74 Respiratory Rate 20 18 Blood Pressure 126/63 Pulse Oximetry 96 96 05/14/19 06:00 05/14/19 08:00 05/14/19 08:12 Temperature 36.3 C L Pulse Rate 74 75 74 Respiratory Rate 16 Blood Pressure 134/64 Pulse Oximetry 95 05/14/19 09:31 05/14/19 09:34 05/14/19 09:45 Temperature Pulse Rate 83 74 Respiratory Rate 20 20 Blood Pressure Pulse Oximetry 98 05/14/19 09:57 05/14/19 12:00 05/14/19 12:33 Temperature 36.2 C L Pulse Rate 74 76 76 Respiratory Rate 16 Blood Pressure 107/50 L Pulse Oximetry 96 05/14/19 13:50 05/14/19 13:53 05/14/19 15:35 Temperature Pulse Rate 76 78 73 Respiratory Rate 18 Blood Pressure Pulse Oximetry 05/14/19 15:41 05/14/19 15:47 05/14/19 16:00 Temperature 35.9 C L Pulse Rate 74 71 74 Respiratory Rate 32 H 18 Blood Pressure 136/60 Pulse Oximetry 99 05/14/19 17:54 Temperature Pulse Rate 77 Respiratory Rate Blood Pressure Pulse Oximetry Intake/Output Intake/Output: Intake & Output 05/11/19 05/12/19 05/13/19 05/14/19 23:59 23:59 23:59 23:59 Intake Total 4140 2220 3820 1470 Output Total 1350 1525 1275 1250 Balance 2790 380 6217 220 Meds/Results Medications: Active Medications Generic Name Dose Route Start Last Admin Trade Name Freq PRN Reason Stop Dose Admin Hydrocodone Bitart/Acetaminophen 1 tab 05/12/19 16:24 05/14/19 11:19 [place] 7.5-325 Mg PO 1 tab Q3H PRN Administration Pain Rated 4-6 Aspirin 81 mg 05/10/19 08:00 05/14/19 08:37 Aspirin Chewable PO 81 mg DAILY@0800 EDA Administration Benzonatate 200 mg 05/09/19 04:09 05/12/19 00:01 Tessalon Perles PO 200 mg TID PRN Administration cough Budesonide/Formoterol Fumarate 2 puff 05/12/19 08:00 05/14/19 09:31 Symbicort 160-4.5 Mcg (*Sp) Inhaler INHALATION 2 puff Q12HRT EDA Administration Dextrose 12.5 gm 05/10/19 17:06 Dextrose 50% Syringe IV PUSH PRN PRN Hypoglycemia Protocol Docusate Sodium 100 mg 05/12/19 17:00 05/14/19 17:36 Colace Capsule PO 100 mg BID EDA Administration Dornase Michael 2.5 mg 05/11/19 20:00 05/14/19 09:31 Pulmozyme INHALATION 2.5 mg Q12HRT EDA Administration Enoxaparin Sodium 40 mg 05/09/19 09:00 05/14/19 08:37 Lovenox SUB-Q 40 mg DAILY EDA Administration Glucagon 1 mg 05/10/19 17:06 Glucagon For Inj IM PRN PRN Hypoglycemia Protocol Glucose 15 gm 05/10/19 17:06 Glutose 15 PO PRN PRN Hypoglycemia Protocol Guaifenesin 1,200 mg 05/11/19 13:00 05/14/19 08:37 Mucinex 12 Hr Tab PO 1,200 mg Q12HR EDA Administration Dextrose 1,000 mls @ 100 mls/hr 05/10/19 17:06 Dextrose 5% 1,000 Ml IVPB PRN PRN Hypoglycemia Protocol Cefepime HCl 1 gm in 50 mls @ 100 mls/hr 05/12/19 14:00 05/14/19 14:49 Maxipime 1 Gm/D5w 50 Ml IVPB Infused Q8HR EDA Infusion Vancomycin HCl 1,250 mg in 250 mls @ 200 mls/hr 05/14/19 18:00 05/14/19 17:36 Vancomycin 1,250 Mg/D5w 250 Ml IVPB 200 mls/hr Q18H S
[2019-05-14 20:13] LABS: Glucose Point of Care 162 (65-105)
[2019-05-15] VITALS (30 sets, daily range): BP systolic 115–146; BP diastolic 68–106; PULSE 72–146; RESP 16–22; TEMP 35.5–37.1; O2SAT 91–99; BMI 10.0
[2019-05-15] MEDS: methylPREDNISolone SOD SUCC 40 MG VIAL IV PUSH ×5 (00:50→20:20)
[2019-05-15 04:39] LABS: Hemoglobin 10.2 g/dL (14.0-18.0); Mean Corpuscular HGB Conc 30.9 g/dl (32-36); Mean Corpuscular Hemoglobin 30.2 pg (26-34); Mean Corpuscular Volume 97.6 fl (80-100); Mean Platelet Volume 10.7 fl (7.4-10.4); Platelet Count Result 141 k/mm3 (150-375); Red Blood Count 3.38 M/mm3 (4.6-6.20); Red Cell Distribution Width 14.3 % (11.5-14.5); White Blood Count 13.2 K/mm3 (4.5-10.0)
[2019-05-15 04:53] LABS: Blood Urea Nitrogen 31 mg/dL (9-20); Calcium 8.5 mg/dL (8.4-10.2); Carbon Dioxide 37 mmol/L (22-30); Chloride 98 mmol/L (98-107); Estimated CRCL calculation 88 ml/min; Estimated Glomerular Filt Rate > 60; Glucose 138 mg/dL (75-110); Magnesium 2.2 mg/dL (1.6-2.3); Potassium 4.9 mmol/L (3.4-5.0); Sodium 136 mmol/L (137-145)
[2019-05-15 08:04] LABS: Glucose Point of Care 126 (65-105)
[2019-05-15] MEDS: DOCUSATE SODIUM 100 MG CAPSULE PO ×2 (08:58→17:05)
[2019-05-15] MEDS: ENOXAPARIN 40 MG/0.4 ML SYRINGE SUB-Q (08:58)
[2019-05-15] MEDS: METOPROLOL SUCCINATE EXT REL 25 MG TABCR PO (08:58)
[2019-05-15] MEDS: ASPIRIN 81 MG CHEWABLE TABLET PO (08:58)
--- NOTE | 2019-05-15 09:28 | PM.PNCARD ---
Progress Note: A&P Additional Plan Patient with history of atrial flutter, RVR was doing very well as an outpatient on flecainide. Recurrent atrial flutter now with RVR and patient is symptomatic. The drug was stopped several days ago because of concern regarding his AV node function. He had no symptomatic Elie arrhythmias and was clinically doing better on the medication I will see resume it today with 200 mg this morning followed by 100 mg q.12 hours. Hopefully this will restore sinus rhythm as it has in the past for this gentleman. Time Spent With Patient Time with patient: 15 - 25 minutes Subjective Date/time seen: Date of service: 05/15/19 09:28 Interval history: Date of Service: 05/14/2019. Admitted with respiratory failure, sepsis, right femur fracture. Successfully underwent surgery for right hip fracture on 05/13/2019. No chest pain today. Some shortness of breath. Cough improving. No headache. Pain right hip controlled. This morning patient is back in atrial flutter with 2-1 conduction, RVR heart rate 1 4 0. Reports to be more short of breath in this situation Exam Narrative: Exam Narrative: General: male lying supine in bed, more comfortable A&O x3 , pleasant and cooperative. No apparent distress. Head: atraumatic, normocephalic Eyes: EOM intact, sclerae anicteric, conjunctivae unremarkable Ears/Nose: external inspection of ears and nose were grossly normal Mouth/Throat: Mucosa pink and moist Neck: supple, normal range of motion, no jugular venous distention or carotid bruits, thyroid nonpalpable, trachea midline. Cardiac: Tachycardic, regular rate +systolic murmur early, clicks, gallops, or rubs. Lungs: diminished breath sounds, no wheezes or crackles. + prolonged expiratory phase. Abdomen: Soft, nontender, nondistended, positive bowel sounds throughout. No appreciable hepato-splenomegaly, no rebound guarding or rigidity noted. Abdominal aorta nonpalpable, no appreciable bruits. Extremities: 1+ edema, clubbing, and or cyanosis. reddish discoloration over bilateral feet. Extremities warm and well perfused. Skin: Warm and dry without ecchymoses, and/or petechiae. Musculoskeletal: Muscle strength and tone intact limited in right lower extremity due to hip fracture and pain Vascular: Carotid upstrokes 2+ bilaterally, radial pulses 2+ bilaterally, dorsalis pedis pulses 2+ bilaterally Neurologic: Cranial nerves 2-12 grossly intact, examination grossly nonfocal although limited due to clinical status Pscyhiatric: Mood calm and appropriate. Objective Data Vital Signs Vital Signs: Vital Signs - 24 hr 05/14/19 09:31 05/14/19 09:34 05/14/19 09:45 Temperature Pulse Rate 83 74 Respiratory Rate 20 20 Blood Pressure Pulse Oximetry 98 05/14/19 09:57 05/14/19 12:00 05/14/19 12:33 Temperature 36.2 C L Pulse Rate 74 76 76 Respiratory Rate 16 Blood Pressure 107/50 L Pulse Oximetry 96 05/14/19 13:50 05/14/19 13:53 05/14/19 15:35 Temperature Pulse Rate 76 78 73 Respiratory Rate 18 Blood Pressure Pulse Oximetry 05/14/19 15:41 05/14/19 15:47 05/14/19 16:00 Temperature 35.9 C L Pulse Rate 74 71 74 Respiratory Rate 32 H 18 Blood Pressure 136/60 Pulse Oximetry 99 05/14/19 17:54 05/14/19 20:00 05/14/19 20:32 Temperature 36.4 C L Pulse Rate 77 74 77 Respiratory Rate 20 18 Blood Pressure 146/64 H Pulse Oximetry 98 96 05/14/19 20:40 05/14/19 22:00 05/14/19 22:55 Temperature Pulse Rate 77 79 77 Respiratory Rate 16 23 H Blood Pressure Pulse Oximetry 97 05/15/19 00:00 05/15/19 00:31 05/15/19 02:00 Temperature 36.1 C L Pulse Rate 109 H 109 H 76 Respiratory Rate 18 18 Blood Pressure 146/75 H Pulse Oximetry 96 96 05/15/19 02:49 05/15/19 02:50 05/15/19 04:00 Temperature Pulse Rate 72 78 77 Respiratory Rate 18 20 22 H Blood Pressure Pulse Oximetry 97 97
[2019-05-15] MEDS: DORNASE ALFA INH SOLN 1 MG/ML 2.5 ML AMP 2.5 MG INHALATION ×2 (09:43→20:34)
[2019-05-15] MEDS: FLECAINIDE ACETATE 100 MG TABLET 200 MG PO (10:04)
--- NOTE | 2019-05-15 11:57 | PM.PNORT ---
Progress Note: A&P Additional Plan POD 3 IMPROVING FROM ORTHO STANDPOINT. CONTINUE PT. Time Spent With Patient Time with patient: 15 - 25 minutes Subjective Subjective Date/Time Seen: 05/15/19 11:57 POD 3 IMPROVING. PAIN IS LESS. 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[employer] SIGN Objective Data Vital Signs Vital Signs: Vital Signs - 24 hr 05/14/19 12:00 05/14/19 12:33 05/14/19 13:50 Temperature 36.2 C L Pulse Rate 76 76 76 Respiratory Rate 16 Blood Pressure 107/50 L Pulse Oximetry 96 05/14/19 13:53 05/14/19 15:35 05/14/19 15:41 Temperature 35.9 C L Pulse Rate 78 73 74 Respiratory Rate 18 32 H Blood Pressure 136/60 Pulse Oximetry 99 05/14/19 15:47 05/14/19 16:00 05/14/19 17:54 Temperature Pulse Rate 71 74 77 Respiratory Rate 18 Blood Pressure Pulse Oximetry 05/14/19 20:00 05/14/19 20:32 05/14/19 20:40 Temperature 36.4 C L Pulse Rate 74 77 77 Respiratory Rate 20 18 16 Blood Pressure 146/64 H Pulse Oximetry 98 96 05/14/19 22:00 05/14/19 22:55 05/15/19 00:00 Temperature Pulse Rate 79 77 109 H Respiratory Rate 23 H 18 Blood Pressure Pulse Oximetry 97 96 05/15/19 00:31 05/15/19 02:00 05/15/19 02:49 Temperature 36.1 C L Pulse Rate 109 H 76 72 Respiratory Rate 18 18 Blood Pressure 146/75 H Pulse Oximetry 96 05/15/19 02:50 05/15/19 04:00 05/15/19 04:05 Temperature Pulse Rate 78 77 73 Respiratory Rate 20 22 H 21 H Blood Pressure Pulse Oximetry 97 97 97 05/15/19 04:37 05/15/19 06:00 05/15/19 08:00 Temperature 36.1 C L Pulse Rate 77 81 143 H Respiratory Rate 22 H Blood Pressure 128/70 Pulse Oximetry 97 05/15/19 08:11 05/15/19 08:58 05/15/19 09:44 Temperature 36.3 C L Pulse Rate 124 H 146 H 142 H Respiratory Rate 16 20 Blood Pressure 141/106 H Pulse Oximetry 95 05/15/19 09:46 05/15/19 10:00 05/15/19 10:04 Temperature Pulse Rate 145 H 143 H Respiratory Rate 20 Blood Pressure Pulse Oximetry 91 05/15/19 10:10 Temperature Pulse Rate 144 H Respiratory Rate Blood Pressure Pulse Oximetry Intake/Output Intake/Output: Intake & Output 05/12/19 05/13/19 05/14/19 05/15/19 23:59 23:59 23:59 23:59 Intake Total 2220 3820 1770 250 Output Total 1525 1275 1250 775 Balance 695 2545 520 -525 Meds/Results Medications: Active Medications Generic Name Dose Route Start Last Admin Trade Name Freq PRN Reason Stop Dose Admin Hydrocodone Bitart/Acetaminophen 1 tab 05/12/19 16:24 05/15/19 05:29 [employer] 7.5-325 Mg PO 1 tab Q3H PRN Administration Pain Rated 4-6 Aspirin 81 mg 05/10/19 08:00 05/15/19 08:58 Aspirin Chewable PO 81 mg DAILY@0800 EDA Administration Benzonatate 200 mg 05/09/19 04:09 05/12/19 00:01 Tessalon Perles PO 200 mg TID PRN Administration cough Budesonide/Formoterol Fumarate 2 puff 05/12/19 08:00 05/15/19 09:43 Symbicort 160-4.5 Mcg (*Sp) Inhaler INHALATION 2 puff Q12HRT EDA Administration Dextrose 12.5 gm 05/10/19 17:06 Dextrose 50% Syringe IV PUSH PRN PRN Hypoglycemia Protocol Docusate Sodium 100 mg 05/12/19 17:00 05/15/19 08:58 Colace Capsule PO 100 mg BID EDA Administration Dornase Michael 2.5 mg 05/11/19 20:00 05/15/19 09:43 Pulmozyme INHALATION 2.5 mg Q12HRT EDA Administration Enoxaparin Sodium 40 mg 05/09/19 09:00 05/15/19 08:58 Lovenox SUB-Q 40 mg DAILY EDA Administration Flecainide Acetate 100 mg 05/15/19 21:00 [place] PO Q12HR EDA Glucagon 1 mg 05/10/19 17:06 Glucagon For Inj IM PRN PRN Hypoglycemia Protocol Glucose 15 gm 05/10/19 17:06 Glutose 15 PO PRN PRN Hypoglycemia Protocol Guaifenesin 1,200 mg 05/11/19 13:00 05/15/19 08:58 Mucinex 12 Hr Tab PO 1,200 mg Q12HR EDA Administration Dextrose 1,000 mls @ 100 mls/hr 05/10/19 17:0
[2019-05-15 12:38] LABS: Glucose Point of Care 144 (65-105)
--- NOTE | 2019-05-15 13:30 | PM.IMPN ---
Progress Note: A&P Assessment and Plan (1) Respiratory failure: Qualifiers: Chronicity: acute on chronic Respiratory failure complication: hypoxia and hypercapnia Qualified Code(s): J96.21 - Acute and chronic respiratory failure with hypoxia; J96.22 - Acute and chronic respiratory failure with hypercapnia Code(s): J96.90 - Respiratory failure, unspecified, unspecified whether with hypoxia or hypercapnia Status: Acute Assessment and Plan: Result of pneumonia. Continues to improve. Remains on oxygen by nasal cannula still at 5 L. Does use 2-3 L of oxygen at home. Will continue to wean oxygen as tolerated. Hopefully will do better with more mobilization. Will continue to monitor. (2) Community acquired pneumonia: Qualifiers: Laterality: right Lung location: unspecified part of lung Qualified Code(s): J18.9 - Pneumonia, unspecified organism Code(s): J18.9 - Pneumonia, unspecified organism Status: Acute Assessment and Plan: CT chest with extensive tree-in-bud pattern with small centrilobular nodules throughout the right lung consistent with pneumonia. Continue respiratory treatments as noted above. Continue IV cefepime and vancomycin. WBC decreased to 13.2 today. Continues to steadily improve. Will continue to monitor. (3) Sepsis: Qualifiers: Acute respiratory failure type: with hypercapnia Sepsis acute organ dysfunction status: with acute organ dysfunction Sepsis type: sepsis due to unspecified organism Severe sepsis acute organ dysfunction type: acute respiratory failure Severe sepsis shock status: without septic shock Qualified Code(s): A41.9 - Sepsis, unspecified organism; R65.20 - Severe sepsis without septic shock; J96.02 - Acute respiratory failure with hypercapnia Code(s): A41.9 - Sepsis, unspecified organism Status: Acute Assessment and Plan: Criteria met on admission. Result of pneumonia. Continue IV antibiotics as noted above. Blood cultures negative to date. Urine culture with Enterococcus - on IV vancomycin as noted above. Will continue to monitor. (4) Atrial flutter with rapid ventricular response: Code(s): I48.92 - Unspecified atrial flutter Status: Acute Assessment and Plan: Developed atrial flutter with RVR just prior to undergoing surgery on 05/12/2019. Appreciate help from Cardiology. Telemetry reviewed on 05/15/2019 with heart rate in 120s. No longer on IV diltiazem. Remains on metoprolol. Flecainide restarted today by Cardiology. Will need to remain in IMU for further monitoring. (5) Closed subcapital fracture of neck of right femur: Qualifiers: Encounter type: initial encounter Qualified Code(s): S72.011A - Unspecified intracapsular fracture of right femur, initial encounter for closed fracture Code(s): S72.011A - Unspecified intracapsular fracture of right femur, initial encounter for closed fracture Status: Acute Assessment and Plan: Orthopedics consulted and appreciate input. Now status post pinning on 05/20/2019. POD #3. Postoperative management per Orthopedics. Continue PT/OT. (6) Acute exacerbation of chronic obstructive airways disease: Code(s): J44.1 - Chronic obstructive pulmonary disease with (acute) exacerbation Status: Acute Assessment and Plan: Continues to improve. Remains on oxygen as noted above. Continue respiratory treatments as noted above. (7) AV block, 2nd degree: Code(s): I44.1 - Atrioventricular block, second degree Status: Acute Assessment and Plan: EKG showing 2nd degree AVB on admission. Cardiology consulted and appreciate input as noted above. Continue to monitor. (8) Elevated troponin: Code(s): R79.89 - Other specified abnormal findings of blood chemistry Status: Acute Assessment and Plan: Troponin level peaked at 0.184. Suspect demand ischemia, Type II infarct,
[2019-05-15 18:27] LABS: Glucose Point of Care 111 (65-105)
[2019-05-15] MEDS: FLECAINIDE ACETATE 100 MG TABLET PO (20:20)
[2019-05-15 21:18] LABS: Glucose Point of Care 138 (65-105)
[2019-05-16] VITALS (28 sets, daily range): BP systolic 111–137; BP diastolic 66–85; PULSE 100–130; RESP 16–22; TEMP 35.9–36.6; O2SAT 90–100
[2019-05-16 05:34] LABS: Hemoglobin 11.2 g/dL (14.0-18.0); Mean Corpuscular HGB Conc 31.1 g/dl (32-36); Mean Corpuscular Hemoglobin 30.6 pg (26-34); Mean Corpuscular Volume 98.4 fl (80-100); Mean Platelet Volume 11.2 fl (7.4-10.4); Platelet Count Result 153 k/mm3 (150-375); Red Blood Count 3.66 M/mm3 (4.6-6.20); Red Cell Distribution Width 14.4 % (11.5-14.5)
[2019-05-16 05:51] LABS: Blood Urea Nitrogen 39 mg/dL (9-20); Calcium 8.7 mg/dL (8.4-10.2); Carbon Dioxide 38 mmol/L (22-30); Chloride 99 mmol/L (98-107); Estimated CRCL calculation 88 ml/min; Estimated Glomerular Filt Rate > 60; Glucose 131 mg/dL (75-110); Magnesium 2.3 mg/dL (1.6-2.3); Potassium 5.1 mmol/L (3.4-5.0); Sodium 137 mmol/L (137-145)
[2019-05-16] MEDS: MORPHINE SULFATE 4 MG/ML INJ 3 MG IV PUSH (06:01)
[2019-05-16 08:16] LABS: Glucose Point of Care 142 (65-105)
[2019-05-16] MEDS: DORNASE ALFA INH SOLN 1 MG/ML 2.5 ML AMP 2.5 MG INHALATION ×2 (09:06→19:36)
[2019-05-16] MEDS: methylPREDNISolone SOD SUCC 40 MG VIAL IV PUSH (09:13)
[2019-05-16] MEDS: METOPROLOL SUCCINATE EXT REL 25 MG TABCR PO (09:13)
[2019-05-16] MEDS: ENOXAPARIN 40 MG/0.4 ML SYRINGE SUB-Q (09:14)
[2019-05-16] MEDS: ASPIRIN 81 MG CHEWABLE TABLET PO (09:14)
[2019-05-16] MEDS: DOCUSATE SODIUM 100 MG CAPSULE PO ×2 (09:14→21:16)
[2019-05-16] MEDS: FLECAINIDE ACETATE 100 MG TABLET PO ×2 (09:14→21:16)
--- NOTE | 2019-05-16 10:03 | PM.PNCARD ---
Progress Note: A&P Additional Plan As the patient is persisting atrial flutter I will advance his anticoagulation to full-dose Lovenox. Continue flecainide Hope that flecainide will medically convert him to sinus rhythm after a couple of more doses. If not DC cardioversion can be attempted earlier this week. Given his respiratory status I would involve anesthesia and that if necessary. Time Spent With Patient Time with patient: 15 - 25 minutes Subjective Date/time seen: Date of service: 05/16/19 10:03 Interval history: Date of Service: 05/16/2019 admitted with respiratory failure, sepsis, right femur fracture. Successfully underwent surgery for right hip fracture on 05/13/2019. No chest pain today. Some shortness of breath. Cough improving. No headache. Pain right hip controlled. This morning the patient persists in atrial flutter with RVR heart rate is a little bit better in the 110-120 range and he feels better. Flecainide resumed yesterday as per my note. Exam Const: General: no acute distress HENMT: Mouth: Yes moist mucous membranes Eyes: Sclera: sclerae normal Pupils: Equal, round and reactive pupils present Neck: Neck: supple and no JVD Thyroid: thyroid normal Resp: Effort & Inspection: normal respiratory effort Other: Few scattered rhonchi are noted Cardio: Rhythm: abnormal rhythm GI: Auscultation: normal bowel sounds Skin: General skin exam: normal color Neuro: Cognition (Neuro): normal cognition Extrem: General: normal to inspection Objective Data Vital Signs Vital Signs: Vital Signs - 24 hr 05/15/19 10:04 05/15/19 10:10 05/15/19 12:00 Temperature 36.3 C L Pulse Rate 143 H 144 H 120 H Respiratory Rate 20 Blood Pressure 115/68 Pulse Oximetry 96 05/15/19 14:15 05/15/19 15:36 05/15/19 15:42 Temperature Pulse Rate 121 H 120 H 122 H Respiratory Rate 20 20 Blood Pressure Pulse Oximetry 05/15/19 16:00 05/15/19 18:16 05/15/19 19:38 Temperature 35.5 C L 37.1 C Pulse Rate 123 H 126 H 127 H Respiratory Rate 20 18 Blood Pressure 116/68 145/74 H Pulse Oximetry 93 99 05/15/19 20:00 05/15/19 20:20 05/15/19 20:35 Temperature Pulse Rate 127 H 127 H 125 H Respiratory Rate 18 20 Blood Pressure Pulse Oximetry 99 05/15/19 20:40 05/15/19 20:46 05/15/19 22:00 Temperature Pulse Rate 123 H 113 H Respiratory Rate 20 Blood Pressure Pulse Oximetry 93 05/16/19 00:00 05/16/19 00:21 05/16/19 02:00 Temperature 36.3 C L Pulse Rate 117 H 117 H 110 H Respiratory Rate 18 18 Blood Pressure 137/70 Pulse Oximetry 100 100 05/16/19 02:18 05/16/19 02:27 05/16/19 04:00 Temperature Pulse Rate 119 H 117 H 111 H Respiratory Rate 20 20 16 Blood Pressure Pulse Oximetry 94 05/16/19 05:11 05/16/19 06:00 05/16/19 07:52 Temperature 36.6 C 35.9 C L Pulse Rate 124 H 100 125 H Respiratory Rate 16 16 Blood Pressure 129/70 114/85 Pulse Oximetry 94 94 05/16/19 09:06 05/16/19 09:12 05/16/19 09:13 Temperature Pulse Rate 130 H 129 H Respiratory Rate 20 Blood Pressure Pulse Oximetry 91 05/16/19 09:14 05/16/19 09:21 Temperature Pulse Rate 129 H 126 H Respiratory Rate 20 Blood Pressure Pulse Oximetry Intake/Output Intake/Output: Intake & Output 05/13/19 05/14/19 05/15/19 05/16/19 23:59 23:59 23:59 23:59 Intake Total 3820 1770 1000 540 Output Total 1275 1250 1375 850 Balance 0834 738 -083 -878 Meds/Results Medications: Active Medications Generic Name Dose Route Start Last Admin Trade Name Freq PRN Reason Stop Dose Admin Hydrocodone Bitart/Acetaminophen 1 tab 05/12/19 16:24 05/15/19 05:29 [place] 7.5-325 Mg PO 1 tab Q3H PRN Administration Pain Rated 4-6 Aspirin 81 mg 05/10/19 08:00 05/16/19 09:14 Aspirin Chewable PO 81 mg DAILY@0800 EDA Administration Benzonatate 200 mg 05/09/19 04:09 05/12/19 00:01 Tessalon Perles PO 200 mg TID PRN Administ
--- NOTE | 2019-05-16 10:55 | PM.IMPN ---
Progress Note: A&P Assessment and Plan (1) Respiratory failure: Qualifiers: Chronicity: acute on chronic Respiratory failure complication: hypoxia and hypercapnia Qualified Code(s): J96.21 - Acute and chronic respiratory failure with hypoxia; J96.22 - Acute and chronic respiratory failure with hypercapnia Code(s): J96.90 - Respiratory failure, unspecified, unspecified whether with hypoxia or hypercapnia Status: Acute Assessment and Plan: Result of pneumonia. Continues to improve. Remains on oxygen by nasal cannula but decreased to 4 L today. Does use 2-3 L of oxygen at home. Will continue to wean oxygen as tolerated. Repeat chest x-ray today with diffuse airspace disease. WBC is slightly higher at 18 but is on steroids. Continue nebulizer treatments. Plan for SNF when ready for discharge. (2) Community acquired pneumonia: Qualifiers: Laterality: right Lung location: unspecified part of lung Qualified Code(s): J18.9 - Pneumonia, unspecified organism Code(s): J18.9 - Pneumonia, unspecified organism Status: Acute Assessment and Plan: CT chest with extensive tree-in-bud pattern with small centrilobular nodules throughout the right lung consistent with pneumonia. Continue respiratory treatments as noted above. Chest x-ray today as noted above. Continue IV cefepime and vancomycin. WBC as noted above. Will reassess tomorrow. Continue to monitor. (3) Sepsis: Qualifiers: Acute respiratory failure type: with hypercapnia Sepsis acute organ dysfunction status: with acute organ dysfunction Sepsis type: sepsis due to unspecified organism Severe sepsis acute organ dysfunction type: acute respiratory failure Severe sepsis shock status: without septic shock Qualified Code(s): A41.9 - Sepsis, unspecified organism; R65.20 - Severe sepsis without septic shock; J96.02 - Acute respiratory failure with hypercapnia Code(s): A41.9 - Sepsis, unspecified organism Status: Acute Assessment and Plan: Criteria met on admission. Result of pneumonia. Continue IV antibiotics as noted above. Blood cultures negative to date. Urine culture with Enterococcus - on IV vancomycin as noted above. Will continue to monitor. (4) Atrial flutter with rapid ventricular response: Code(s): I48.92 - Unspecified atrial flutter Status: Acute Assessment and Plan: Developed atrial flutter with RVR just prior to undergoing surgery on 05/12/2019. Appreciate help from Cardiology. Telemetry reviewed on 05/16/2019 with heart rate remaining in 120s to 130s. Remains on flecainide and metoprolol. Therapeutic Lovenox for anticoagulation. Will continue to monitor. (5) Closed subcapital fracture of neck of right femur: Qualifiers: Encounter type: initial encounter Qualified Code(s): S72.011A - Unspecified intracapsular fracture of right femur, initial encounter for closed fracture Code(s): S72.011A - Unspecified intracapsular fracture of right femur, initial encounter for closed fracture Status: Acute Assessment and Plan: Orthopedics consulted and appreciate input. Now status post pinning on 05/20/2019. POD #4. Postoperative management per Orthopedics. Continue PT/OT. (6) Acute exacerbation of chronic obstructive airways disease: Code(s): J44.1 - Chronic obstructive pulmonary disease with (acute) exacerbation Status: Acute Assessment and Plan: Continues to improve. Remains on oxygen as noted above. Continue respiratory treatments as noted above. Continue to wean steroids. (7) AV block, 2nd degree: Code(s): I44.1 - Atrioventricular block, second degree Status: Acute Assessment and Plan: EKG showing 2nd degree AVB on admission. Cardiology consulted and appreciate input as noted above. Continue to monitor. (8) Elevated troponin: Code(s): R79.89 - Other specified abnormal findings of blo
[2019-05-16] MEDS: ENOXAPARIN 60 MG/0.6 ML SYRINGE SUB-Q (12:03)
[2019-05-16 13:07] LABS: Glucose Point of Care 107 (65-105)
--- NOTE | 2019-05-16 16:28 | PM.OP ---
Procedure Note - Brief Procedure Note - Brief Date of procedure: 05/25/19 Pre-op diagnosis: Sepsis, Pneumonia, Subcapital femoral fracture Post-op diagnosis: same Procedure performed: PERC PINNING RIGHT FEMORAL NECK FRACTURE Anesthesia: GETA Surgeon: Octavio Davis MD Estimated blood loss (mL): 10 Complications: No immediate complications Condition: stable Disposition: PACU
--- NOTE | 2019-05-16 16:29 | PM.PNORT ---
Progress Note: A&P Additional Plan POD 4 DOING WELL. CONT PT. Time Spent With Patient Time with patient: less than 15 minutes Subjective Subjective Date/Time Seen: 05/16/19 16:29 POD 4 DOING WELL. 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 Objective Data Vital Signs Vital Signs: Vital Signs - 24 hr 05/15/19 18:16 05/15/19 19:38 05/15/19 20:00 Temperature 37.1 C Pulse Rate 126 H 127 H 127 H Respiratory Rate 18 18 Blood Pressure 145/74 H Pulse Oximetry 99 99 05/15/19 20:20 05/15/19 20:35 05/15/19 20:40 Temperature Pulse Rate 127 H 125 H Respiratory Rate 20 Blood Pressure Pulse Oximetry 93 05/15/19 20:46 05/15/19 22:00 05/16/19 00:00 Temperature Pulse Rate 123 H 113 H 117 H Respiratory Rate 20 18 Blood Pressure Pulse Oximetry 100 05/16/19 00:21 05/16/19 02:00 05/16/19 02:18 Temperature 36.3 C L Pulse Rate 117 H 110 H 119 H Respiratory Rate 18 20 Blood Pressure 137/70 Pulse Oximetry 100 05/16/19 02:27 05/16/19 04:00 05/16/19 05:11 Temperature 36.6 C Pulse Rate 117 H 111 H 124 H Respiratory Rate 20 16 16 Blood Pressure 129/70 Pulse Oximetry 94 94 05/16/19 06:00 05/16/19 07:52 05/16/19 08:00 Temperature 35.9 C L Pulse Rate 100 125 H 121 H Respiratory Rate 16 Blood Pressure 114/85 Pulse Oximetry 94 05/16/19 09:06 05/16/19 09:12 05/16/19 09:13 Temperature Pulse Rate 130 H 129 H Respiratory Rate 20 Blood Pressure Pulse Oximetry 91 05/16/19 09:14 05/16/19 09:21 05/16/19 10:00 Temperature Pulse Rate 129 H 126 H 129 H Respiratory Rate 20 Blood Pressure Pulse Oximetry 05/16/19 11:55 05/16/19 12:00 05/16/19 14:00 Temperature 36.3 C L Pulse Rate 112 H 113 H 115 H Respiratory Rate Blood Pressure 119/69 Pulse Oximetry 98 05/16/19 15:20 05/16/19 15:28 Temperature Pulse Rate 118 H 117 H Respiratory Rate 20 20 Blood Pressure Pulse Oximetry Intake/Output Intake/Output: Intake & Output 05/13/19 05/14/19 05/15/19 05/16/19 23:59 23:59 23:59 23:59 Intake Total 3820 1770 1000 540 Output Total 1275 1250 1375 1475 Balance 2546 289 -559 -016 Meds/Results Medications: Active Medications Generic Name Dose Route Start Last Admin Trade Name Freq PRN Reason Stop Dose Admin Hydrocodone Bitart/Acetaminophen 1 tab 05/12/19 16:24 05/15/19 05:29 [place] 7.5-325 Mg PO 1 tab Q3H PRN Administration Pain Rated 4-6 Aspirin 81 mg 05/10/19 08:00 05/16/19 09:14 Aspirin Chewable PO 81 mg DAILY@0800 EDA Administration Benzonatate 200 mg 05/09/19 04:09 05/12/19 00:01 Tessalon Perles PO 200 mg TID PRN Administration cough Budesonide/Formoterol Fumarate 2 puff 05/12/19 08:00 05/16/19 09:06 Symbicort 160-4.5 Mcg (*Sp) Inhaler INHALATION 2 puff Q12HRT EDA Administration Dextrose 12.5 gm 05/10/19 17:06 Dextrose 50% Syringe IV PUSH PRN PRN Hypoglycemia Protocol Docusate Sodium 100 mg 05/12/19 17:00 05/16/19 09:14 Colace Capsule PO 100 mg BID EDA Administration Dornase Michael 2.5 mg 05/11/19 20:00 05/16/19 09:06 Pulmozyme INHALATION 2.5 mg Q12HRT EDA Administration Enoxaparin Sodium 100 mg 05/16/19 21:00 Lovenox SUB-Q Q12HR EDA Flecainide Acetate 100 mg 05/15/19 21:00 05/16/19 09:14 Tambocor PO 100 mg Q12HR EDA Administration Glucagon 1 mg 05/10/19 17:06 Glucagon For Inj IM PRN PRN Hypoglycemia Protocol Glucose 15 gm 05/10/19 17:06 Glutose 15 PO PRN PRN Hypoglycemia Protocol Guaifenesin 1,200 mg 05/11/19 13:00 05/16/19 09:13 Mucinex 12 Hr Tab PO 1,200 mg Q12HR EDA Administration Dextrose 1,000 mls @ 100 mls/hr 05/10/19 17:06 Dextrose 5% 1,000 Ml IVPB PRN PRN Hypoglycemia Protocol Cefepime HCl 1 gm in 50 mls @ 100 mls/hr 05/12/19 14:00 05/16/19 14:
[2019-05-16 17:12] LABS: Glucose Point of Care 110 (65-105)
[2019-05-16 20:24] LABS: Glucose Point of Care 155 (65-105)
[2019-05-16] MEDS: ENOXAPARIN 100 MG/ML SYRINGE SUB-Q (21:17)
[2019-05-17] VITALS (30 sets, daily range): BP systolic 99–133; BP diastolic 45–76; PULSE 70–125; RESP 18–22; TEMP 35.8–36.7; O2SAT 90–100
[2019-05-17 00:20] LABS: Vancomycin Trough 17.6 ug/mL (10.0-20.0)
[2019-05-17 04:38] LABS: Hematocrit 35.6 % (42.0-52.0); Hemoglobin 10.8 g/dL (14.0-18.0); Immature Platelet Fraction Pct 8.5 % (0.9-11.2); Mean Corpuscular HGB Conc 30.3 g/dl (32-36); Mean Corpuscular Hemoglobin 30.2 pg (26-34); Mean Corpuscular Volume 99.4 fl (80-100); Platelet Count Result 137 k/mm3 (150-375); Red Blood Count 3.58 M/mm3 (4.6-6.20); Red Cell Distribution Width 14.7 % (11.5-14.5); White Blood Count 16.2 K/mm3 (4.5-10.0)
[2019-05-17 04:51] LABS: Blood Urea Nitrogen 39 mg/dL (9-20); Calcium 8.7 mg/dL (8.4-10.2); Carbon Dioxide 37 mmol/L (22-30); Chloride 97 mmol/L (98-107); Estimated CRCL calculation 77 ml/min; Estimated Glomerular Filt Rate > 60; Glucose 98 mg/dL (75-110); Magnesium 2.3 mg/dL (1.6-2.3); Potassium 4.9 mmol/L (3.4-5.0); Sodium 138 mmol/L (137-145)
[2019-05-17] MEDS: IPRATROPIUM BR 0.02% INH SOLN 0.5 MG/2.5 ML VIAL INHALATION ×4 (08:01→20:39)
[2019-05-17] MEDS: DORNASE ALFA INH SOLN 1 MG/ML 2.5 ML AMP 2.5 MG INHALATION ×2 (08:01→20:39)
[2019-05-17 08:10] LABS: Glucose Point of Care 89 (65-105)
[2019-05-17] MEDS: FLECAINIDE ACETATE 100 MG TABLET PO ×2 (08:19→21:07)
[2019-05-17] MEDS: ASPIRIN 81 MG CHEWABLE TABLET PO (08:19)
[2019-05-17] MEDS: ENOXAPARIN 100 MG/ML SYRINGE SUB-Q ×2 (08:19→21:07)
[2019-05-17] MEDS: methylPREDNISolone SOD SUCC 40 MG VIAL IV PUSH (08:19)
[2019-05-17] MEDS: METOPROLOL SUCCINATE EXT REL 25 MG TABCR PO (08:20)
[2019-05-17] MEDS: SILVER NITRATE 1 EA BANDAGE (AQUACEL-AG)(*BKC) TOPICAL (08:21)
[2019-05-17] MEDS: DOCUSATE SODIUM 100 MG CAPSULE PO (08:22)
[2019-05-17] MEDS: MORPHINE SULFATE 4 MG/ML INJ 3 MG IV PUSH (08:37)
--- NOTE | 2019-05-17 09:22 | PM.IMPN ---
Progress Note: A&P Assessment and Plan (1) Respiratory failure: Qualifiers: Chronicity: acute on chronic Respiratory failure complication: hypoxia and hypercapnia Qualified Code(s): J96.21 - Acute and chronic respiratory failure with hypoxia; J96.22 - Acute and chronic respiratory failure with hypercapnia Code(s): J96.90 - Respiratory failure, unspecified, unspecified whether with hypoxia or hypercapnia Status: Acute Assessment and Plan: Result of pneumonia. Has improved. Down to 2 L of oxygen by nasal cannula this morning with normal home oxygen use of 2-3 L. Repeat chest x-ray yesterday with diffuse airspace disease but suspect more likely fluid from remaining in atrial flutter. WBC decreasing again at 16.2 today and is on steroids. Continue nebulizers. Plan for SNF when ready for discharge. C (2) Community acquired pneumonia: Qualifiers: Laterality: right Lung location: unspecified part of lung Qualified Code(s): J18.9 - Pneumonia, unspecified organism Code(s): J18.9 - Pneumonia, unspecified organism Status: Resolved Assessment and Plan: CT chest with extensive tree-in-bud pattern with small centrilobular nodules throughout the right lung consistent with pneumonia. Chest x-ray yesterday as noted above. Clinically has improved. Will discontinue IV cefepime and vancomycin as has completed 8 days. Back on home oxygen was noted. Will monitor. (3) Sepsis: Qualifiers: Acute respiratory failure type: with hypercapnia Sepsis acute organ dysfunction status: with acute organ dysfunction Sepsis type: sepsis due to unspecified organism Severe sepsis acute organ dysfunction type: acute respiratory failure Severe sepsis shock status: without septic shock Qualified Code(s): A41.9 - Sepsis, unspecified organism; R65.20 - Severe sepsis without septic shock; J96.02 - Acute respiratory failure with hypercapnia Code(s): A41.9 - Sepsis, unspecified organism Status: Resolved Assessment and Plan: Criteria met on admission. Result of pneumonia. Continue IV antibiotics as noted above. Blood cultures final and negative. Urine culture with 50,000-100,000 colonies of Enterococcus but has completed 8 days IV vancomycin as noted above. Sepsis resolved. (4) Atrial flutter with rapid ventricular response: Code(s): I48.92 - Unspecified atrial flutter Status: Acute Assessment and Plan: Developed atrial flutter with RVR just prior to undergoing surgery on 05/12/2019. Appreciate help from Cardiology. Telemetry reviewed on 05/17/2019 with heart rate improved but still tachycardic and in atrial flutter. On flecainide and metoprolol. Remains on therapeutic Lovenox for anticoagulation. Discussed with Cardiology. Plan for attempted cardioversion this afternoon. Will continue to monitor. (5) Closed subcapital fracture of neck of right femur: Qualifiers: Encounter type: initial encounter Qualified Code(s): S72.011A - Unspecified intracapsular fracture of right femur, initial encounter for closed fracture Code(s): S72.011A - Unspecified intracapsular fracture of right femur, initial encounter for closed fracture Status: Acute Assessment and Plan: Orthopedics consulted and appreciate input. Now status post pinning on 05/20/2019. POD #5. Postoperative management per Orthopedics. Continue PT/OT. (6) Acute exacerbation of chronic obstructive airways disease: Code(s): J44.1 - Chronic obstructive pulmonary disease with (acute) exacerbation Status: Acute Assessment and Plan: Continues to improve. Now on home oxygen. Continue respiratory treatments as noted above. Will transition to tapering prednisone in a.m.. (7) AV block, 2nd degree: Code(s): I44.1 - Atrioventricular block, second degree Status: Acute Assessment and Plan: EKG showing 2nd degree AVB on admission. Cardiol
[2019-05-17 12:47] LABS: Glucose Point of Care 108 (65-105)
--- NOTE | 2019-05-17 13:14 | WPDANESEFPP ---
Anes - Eval Final PreProcedure Day of Procedure 05/17/19 13:14 Patient weight: obese Heart: irregular rhythm Lungs: clear to auscultation Airway: Mallampati scale class 1 Neurological: alert and oriented Last oral intake: >/= 8 hours ASA classification: IV Emergent: no Anesthetic plan: proceed Anesthesia type and monitoring: general GIVS and standard monitoring Informed Consent: The patient's anesthetic plan and its attendant risks and benefits were discussed with the patient/family/POA. Questions were solicited and answers provided to the satisfaction of the patient/family/POA.
--- NOTE | 2019-05-17 14:28 | WPDCARDPROC ---
Cardiac Cath Procedure Note Date of procedure:: 05/17/19 Performing physician:: Ryan Knowles MD Indication:: Atrial flutter Brief clinical history:: this is a 74-year-old man with a history of atrial flutter previously well controlled with medical therapy using flecainide. During recent hospitalization flecainide has been discontinued and approximately 48 hours later atrial flutter has recurred. Despite resumption of flecainide he remains in atrial flutter and I recommended an attempt at restoring sinus rhythm electrically. He is currently anticoagulated with Lovenox. Procedure Procedure performed:: DC cardioversion Sedation/Medication given:: sedation provided by the anesthesia service see their separately dictated note Estimated blood loss:: no blood loss Procedure note:: following sedation by the anesthesia service in the PACU I cardioverted the patient electrically using the AP defibrillator patches and synchronized fashion delivering 200 joules of energy restoring normal sinus rhythm Findings:: successful uncomplicated DC cardioversion of atrial flutter to sinus rhythm using 200 joules x1 shock Conclusion:: as above successful DC cardioversion
--- NOTE | 2019-05-17 15:00 | ECG_ITS ---
Measurements Intervals [place] Rate: 73 P: 71 [place]: 200 QRS: -20 QRSD: 166 T: 0 QT: 411 QTc: 456 Interpretive Statements SINUS RHYTHM BORDERLINE AV CONDUCTION DELAY RIGHT BUNDLE BRANCH BLOCK ABNORMAL ECG Electronically Signed On 05-17-2019 17:29:04 [employer] COUNTER CLERK by Gurvinder Weiss D.O.
[2019-05-17 15:27] LABS: Glucose Point of Care 108 (65-105)
--- NOTE | 2019-05-17 16:00 | PCPTNOTE ---
Pt out of room for procedure this afternoon, unable to be seen by PT. PT will continue per plan of care.
[2019-05-17 17:11] LABS: Glucose Point of Care 144 (65-105)
[2019-05-17 20:38] LABS: Glucose Point of Care 109 (65-105)
[2019-05-18] VITALS (27 sets, daily range): BP systolic 95–124; BP diastolic 49–86; PULSE 62–102; RESP 18–24; TEMP 36–36.6; O2SAT 90–99; BMI 10.0
[2019-05-18 05:15] LABS: Blood Urea Nitrogen 37 mg/dL (9-20); Calcium 8.3 mg/dL (8.4-10.2); Carbon Dioxide 38 mmol/L (22-30); Chloride 97 mmol/L (98-107); Estimated CRCL calculation 87 ml/min; Estimated Glomerular Filt Rate > 60; Glucose 94 mg/dL (75-110); Magnesium 2.3 mg/dL (1.6-2.3); Potassium 4.9 mmol/L (3.4-5.0); Sodium 137 mmol/L (137-145)
[2019-05-18] MEDS: FLECAINIDE ACETATE 100 MG TABLET PO ×2 (08:18→21:11)
[2019-05-18] MEDS: ASPIRIN 81 MG CHEWABLE TABLET PO (08:19)
[2019-05-18] MEDS: METOPROLOL SUCCINATE EXT REL 25 MG TABCR PO (08:19)
[2019-05-18] MEDS: DOCUSATE SODIUM 100 MG CAPSULE PO ×2 (08:19→17:40)
[2019-05-18] MEDS: MORPHINE SULFATE 4 MG/ML INJ 3 MG IV PUSH ×2 (08:21→21:10)
[2019-05-18] MEDS: ENOXAPARIN 100 MG/ML SYRINGE SUB-Q ×2 (08:22→21:11)
[2019-05-18 08:45] LABS: Glucose Point of Care 86 (65-105)
[2019-05-18] MEDS: IPRATROPIUM BR 0.02% INH SOLN 0.5 MG/2.5 ML VIAL INHALATION ×3 (08:46→20:31)
[2019-05-18] MEDS: DORNASE ALFA INH SOLN 1 MG/ML 2.5 ML AMP 2.5 MG INHALATION ×2 (08:48→20:31)
--- NOTE | 2019-05-18 10:28 | PM.PNCARD ---
Progress Note: A&P Assessment and Plan (1) AV block, 2nd degree: Code(s): I44.1 - Atrioventricular block, second degree Status: Acute Assessment and Plan: Resolved. No recurrence. Continue to monitor with flecainide restarting. (2) Hyperkalemia: Code(s): E87.5 - Hyperkalemia Status: Acute Assessment and Plan: Resolved (3) Sepsis: Qualifiers: Acute respiratory failure type: with hypercapnia Sepsis acute organ dysfunction status: with acute organ dysfunction Sepsis type: sepsis due to unspecified organism Severe sepsis acute organ dysfunction type: acute respiratory failure Severe sepsis shock status: without septic shock Qualified Code(s): A41.9 - Sepsis, unspecified organism; R65.20 - Severe sepsis without septic shock; J96.02 - Acute respiratory failure with hypercapnia Code(s): A41.9 - Sepsis, unspecified organism Status: Resolved Assessment and Plan: Per primary service (4) Obstructive sleep apnea: Code(s): G47.33 - Obstructive sleep apnea (adult) (pediatric) Status: Acute Assessment and Plan: BiPAP (5) Paroxysmal atrial fibrillation: Code(s): I48.0 - Paroxysmal atrial fibrillation Status: Acute Assessment and Plan: Developed atrial flutter on way to operating room 05/13/2019. Flecainide restarted 05/15/2019. Anticoagulated with full-dose Lovenox. Successfully cardioverted 05/17/[address] Knowles. Continue flecainide 100 mg q.12 hours. Continue Toprol XL 25 mg daily. Maintaining normal sinus rhythm. (6) COPD (chronic obstructive pulmonary disease): Code(s): J44.9 - Chronic obstructive pulmonary disease, unspecified Status: Acute Assessment and Plan: Per primary service. Very diminished breath sounds Continue to wean oxygen as able. Home oxygen 2-3 L/min (7) Acute encephalopathy: Code(s): G93.40 - Encephalopathy, unspecified Status: Resolved Assessment and Plan: Resolved. Secondary to sepsis, pneumonia. (8) Closed subcapital fracture of neck of right femur: Qualifiers: Encounter type: initial encounter Qualified Code(s): S72.011A - Unspecified intracapsular fracture of right femur, initial encounter for closed fracture Code(s): S72.011A - Unspecified intracapsular fracture of right femur, initial encounter for closed fracture Status: Acute Assessment and Plan: Status post hip pinning 05/13/2019 Pain control per hospitalist (9) Community acquired pneumonia: Qualifiers: Laterality: right Lung location: unspecified part of lung Qualified Code(s): J18.9 - Pneumonia, unspecified organism Code(s): J18.9 - Pneumonia, unspecified organism Status: Resolved Assessment and Plan: Per primary service . (10) Elevated troponin: Code(s): R79.89 - Other specified abnormal findings of blood chemistry Status: Acute Assessment and Plan: Most likely secondary to acute hypoxic respiratory failure and pneumonia. Type 2 infarct, non VT troponin elevation most likely. However, given patient's age and risk factors ischemic evaluation warranted in future prior to resuming flecainide to ensure safety margin. EF 60-65% by echo. Additional Plan Increase activity. Plan discussed with Dr Holm [id number] 05/18/2019 Subjective Date/time seen: 05/18/19 10:28 Interval history: Follow-up for: respiratory failure, sepsis, right femur fracture post repair 05/13/2019, atrial flutter successfully cardioverted 05/17/2019 Date of service: 05/18/2019 Subjective: Wants a pain pill. Having significant hip pain. Also having some knee pain. Denied chest discomfort. Shortness of
--- NOTE | 2019-05-18 11:25 | PM.IMPN ---
Progress Note: A&P Assessment and Plan (1) Respiratory failure: Qualifiers: Chronicity: acute on chronic Respiratory failure complication: hypoxia and hypercapnia Qualified Code(s): J96.21 - Acute and chronic respiratory failure with hypoxia; J96.22 - Acute and chronic respiratory failure with hypercapnia Code(s): J96.90 - Respiratory failure, unspecified, unspecified whether with hypoxia or hypercapnia Status: Acute Assessment and Plan: Result of pneumonia. Has improved. Has chronic respiratory failure requiring 2-3L O2 at home. Contineu to wean O2 to baseline. Increase activity as tolerated. Continue nebulizers. Plan for SNF when ready for discharge. (2) Community acquired pneumonia: Qualifiers: Laterality: right Lung location: unspecified part of lung Qualified Code(s): J18.9 - Pneumonia, unspecified organism Code(s): J18.9 - Pneumonia, unspecified organism Status: Resolved Assessment and Plan: CT chest with extensive tree-in-bud pattern with small centrilobular nodules throughout the right lung consistent with pneumonia. Clinically improved. IV cefepime and vancomycin discontinued after completing a 8 day course. Contineu to monitor. (3) Sepsis: Qualifiers: Acute respiratory failure type: with hypercapnia Sepsis acute organ dysfunction status: with acute organ dysfunction Sepsis type: sepsis due to unspecified organism Severe sepsis acute organ dysfunction type: acute respiratory failure Severe sepsis shock status: without septic shock Qualified Code(s): A41.9 - Sepsis, unspecified organism; R65.20 - Severe sepsis without septic shock; J96.02 - Acute respiratory failure with hypercapnia Code(s): A41.9 - Sepsis, unspecified organism Status: Resolved Assessment and Plan: Criteria met on admission. Result of pneumonia. Blood cultures final and negative. Urine culture with 50,000-100,000 colonies of Enterococcus but has completed 8 days IV vancomycin as noted above. Completed a course of IV antibiotics for the PNA as well. Sepsis resolved. (4) Atrial flutter with rapid ventricular response: Code(s): I48.92 - Unspecified atrial flutter Status: Acute Assessment and Plan: Developed atrial flutter with RVR just prior to undergoing surgery on 05/12/19. Appreciate help from Cardiology. Tele showing sinus mechanism. Currently on flecainide and metoprolol. Remains on therapeutic Lovenox for anticoagulation. Discussed with Cardiology about transitioning to NOAC. (5) Closed subcapital fracture of neck of right femur: Qualifiers: Encounter type: initial encounter Qualified Code(s): S72.011A - Unspecified intracapsular fracture of right femur, initial encounter for closed fracture Code(s): S72.011A - Unspecified intracapsular fracture of right femur, initial encounter for closed fracture Status: Acute Assessment and Plan: Orthopedics consulted and appreciate input. Now status post pinning on 05/12/19. Postoperative management per Orthopedics. Continue PT/OT. Pain managment per ortho. (6) Acute exacerbation of chronic obstructive airways disease: Code(s): J44.1 - Chronic obstructive pulmonary disease with (acute) exacerbation Status: Acute Assessment and Plan: Continues to improve. No wheezing. Weaning steroids. Continue respiratory treatments. (7) AV block, 2nd degree: Code(s): I44.1 - Atrioventricular block, second degree Status: Acute Assessment and Plan: EKG showing 2nd degree AVB on admission. Cardiology consulted and appreciate input as noted above. Flecainide initially discontinued on presentation but now resumed as noted above. Continue to monitor. (8) Elevated troponin: Code(s): R79.89 - Other specified abnormal findings of blood chemistry Status: Acute Assessment and Plan: Troponin
[2019-05-18] MEDS: predniSONE 10 MG TABLET PO (11:28)
[2019-05-18 12:11] LABS: Glucose Point of Care 94 (65-105)
[2019-05-18] MEDS: FUROSEMIDE INJ 40 MG/4 ML VIAL 20 MG IV PUSH (13:54)
[2019-05-18 16:58] LABS: Glucose Point of Care 178 (65-105)
--- NOTE | 2019-05-18 17:35 | PCRCNOTE ---
Window of time for administration has passed. See next scheduled administration.
[2019-05-18] MEDS: FUROSEMIDE INJ 40 MG/4 ML VIAL IV PUSH (17:39)
[2019-05-18 20:47] LABS: Glucose Point of Care 149 (65-105)
[2019-05-19] VITALS (28 sets, daily range): BP systolic 86–118; BP diastolic 45–55; PULSE 53–110; RESP 18–26; TEMP 35.5–36.4; O2SAT 92–99; BMI 10.0
[2019-05-19 04:54] LABS: Hematocrit 27.7 % (42.0-52.0); Hemoglobin 8.4 g/dL (14.0-18.0); Immature Platelet Fraction Pct 9.7 % (0.9-11.2); Mean Corpuscular HGB Conc 30.3 g/dl (32-36); Mean Corpuscular Hemoglobin 30.4 pg (26-34); Mean Corpuscular Volume 100.4 fl (80-100); Mean Platelet Volume 11.6 fl (7.4-10.4); Platelet Count Result 139 k/mm3 (150-375); Red Blood Count 2.76 M/mm3 (4.6-6.20); White Blood Count 18.3 K/mm3 (4.5-10.0)
[2019-05-19 05:35] LABS: Blood Urea Nitrogen 40 mg/dL (9-20); Calcium 8.2 mg/dL (8.4-10.2); Carbon Dioxide > 40 mmol/L (22-30); Chloride 93 mmol/L (98-107); Estimated CRCL calculation 86 ml/min; Estimated Glomerular Filt Rate > 60; Glucose 107 mg/dL (75-110); Potassium 5.1 mmol/L (3.4-5.0); Sodium 138 mmol/L (137-145)
[2019-05-19 07:37] LABS: Glucose Point of Care 102 (65-105)
[2019-05-19] MEDS: IPRATROPIUM BR 0.02% INH SOLN 0.5 MG/2.5 ML VIAL INHALATION ×4 (08:42→20:34)
[2019-05-19] MEDS: DORNASE ALFA INH SOLN 1 MG/ML 2.5 ML AMP 2.5 MG INHALATION ×2 (08:48→20:34)
[2019-05-19] MEDS: FLECAINIDE ACETATE 100 MG TABLET PO ×2 (10:29→20:49)
[2019-05-19] MEDS: predniSONE 10 MG TABLET PO (10:29)
[2019-05-19] MEDS: ASPIRIN 81 MG CHEWABLE TABLET PO (10:30)
[2019-05-19] MEDS: ENOXAPARIN 100 MG/ML SYRINGE SUB-Q (10:30)
[2019-05-19] MEDS: DOCUSATE SODIUM 100 MG CAPSULE PO ×2 (10:30→18:08)
--- NOTE | 2019-05-19 12:07 | PM.PNCARD ---
Progress Note: A&P Additional Plan Follow-up visit for paroxysmal atrial flutter Doing well maintaining normal sinus rhythm following resumption of antiarrhythmic therapy and DC cardioversion on Friday Will discontinue Lovenox and start apixaban for anticoagulation. My plan would be to continue anticoagulation for about 1 month. Long-term anticoagulation in the past with this gentleman was met with hemorrhagic problems and for that reason I would like not to continue this indefinitely. Because the patient is somewhat hypotensive and going to stop his metoprolol as he was not on this drug prior to coming in the hospital and it was started at the time of his atrial flutter to assist with heart rate control. No new cardiovascular recommendations today Time Spent With Patient Time with patient: 15 - 25 minutes Subjective Date/time seen: Date of service: 05/19/19 12:07 Interval history: Follow-up visit for recurrent atrial flutter in this patient after fall, hip fracture and hip surgery during this hospitalization. Recurrence of atrial flutter occurred about 48 hours after previously effective antiarrhythmic treatment was discontinued. Patient electrically cardioverted back to sinus rhythm 2 days ago Patient has no cardiovascular complaints today is only complaint is of incisional surgical pain. Exam Const: General: uncomfortable HENMT: Mouth: Yes moist mucous membranes Eyes: Sclera: sclerae normal Pupils: Equal, round and reactive pupils present Neck: Neck: no JVD Thyroid: thyroid normal Resp: Effort & Inspection: normal respiratory effort Auscultation: clear to auscultation bilaterally Cardio: Rate: regular rate Rhythm: regular rhythm GI: Auscultation: normal bowel sounds Skin: General skin exam: normal color Extrem: General: normal to inspection Objective Data Vital Signs Vital Signs: Vital Signs - 24 hr 05/18/19 13:17 05/18/19 13:30 05/18/19 13:52 Temperature Pulse Rate 93 96 Respiratory Rate 20 20 Blood Pressure 108/62 Pulse Oximetry 05/18/19 14:00 05/18/19 15:00 05/18/19 16:00 Temperature 36.2 C L Pulse Rate 76 81 85 Respiratory Rate 18 Blood Pressure 107/51 L Pulse Oximetry 95 05/18/19 18:00 05/18/19 19:47 05/18/19 19:52 Temperature 36.4 C L Pulse Rate 71 76 Respiratory Rate 22 H Blood Pressure 117/55 L Pulse Oximetry 98 99 02/18/20 20:00 05/18/19 20:32 05/18/19 20:36 Temperature Pulse Rate 73 99 Respiratory Rate 20 Blood Pressure Pulse Oximetry 96 05/18/19 20:47 05/18/19 21:11 05/18/19 22:00 Temperature Pulse Rate 102 H 77 76 Respiratory Rate 20 Blood Pressure Pulse Oximetry 05/18/19 23:41 05/18/19 23:50 05/19/19 00:00 Temperature 36.6 C Pulse Rate 81 85 Respiratory Rate 22 H Blood Pressure 104/49 L Pulse Oximetry 99 97 05/19/19 02:00 05/19/19 03:50 05/19/19 03:53 Temperature 36.4 C Pulse Rate 87 76 Respiratory Rate 20 Blood Pressure 118/48 L Pulse Oximetry 98 99 05/19/19 04:00 05/19/19 06:00 05/19/19 08:00 Temperature 35.5 C L Pulse Rate 92 69 53 L Respiratory Rate 26 H Blood Pressure 89/48 L Pulse Oximetry 95 05/19/19 08:49 05/19/19 09:18 05/19/19 09:27 Temperature 35.5 C L Pulse Rate 99 100 93 Respiratory Rate 20 20 20 Blood Pressure 86/45 L Pulse Oximetry 92 94 05/19/19 10:29 05/19/19 11:30 Temperature 35.8 C L Pulse Rate 90 82 Respiratory Rate 22 H Blood Pressure 104/51 L Pulse Oximetry 98 Intake/Output Intake/Output: Intake & Output 05/16/19 05/17/19 05/18/19 05/19/19 23:59 23:59 23:59 23:59 Intake Total 790 877 6758 1140 Output Total 1650 1425 2650 1250 [facility] -[phone] -110 Meds/Results Medications: Active Medications Generic Name Dose Route Start Last Admin Trade Name Freq PRN Reason Stop Dose Admin Hydrocodone Bitart/Acetaminophen 1 tab 05/12/19 16:24 05/19/19 05:54 [place] 7.5-325 Mg PO 1 tab Q3H P
[2019-05-19] MEDS: MORPHINE SULFATE 4 MG/ML INJ 3 MG IV PUSH (12:23)
--- NOTE | 2019-05-19 12:42 | PHAR ---
CALLED DR. CURTIS TO MAKE SURE HE WANTED ELIQUIS TO START TOMORROW (05/20) AM INSTEAD OF TONIGHT AND HE SAID THAT HE DOES BECAUSE HE WANTS TO GIVE THE PATIENT MORE TIME. RECOMMENDED STARTING ELIQUIS TONIGHT BUT MD AGAIN SAID TO START TOMORROW MORNING. JACKY MAY PHARMD
--- NOTE | 2019-05-19 17:07 | PM.PNORT ---
Progress Note: A&P Additional Plan POD 6 WITH CONTINUED PAIN. I DO NOT BELIEVE THE PAIN IS COMING FROM THE HIP JOINT IN QUESTION. HE MAY HAVE A DVT WHICH IS CAUSING A PHLEBITIS AND THE SWLLING. RECOMMEND DUPLEX DOPPLER. I REVIEWED THE XRAYS AND THERE IS NO CHANGE FROM THE INTROPERATIVE FILMS. WILL FOLLOW Time Spent With Patient Time with patient: 15 - 25 minutes Subjective Subjective Date/Time Seen: 05/19/19 17:07 POD 6 AND STILL WITH PAIN IN THE THIGH AND KNEE MOSTLY. NO SIGNIFICANT CALF PAIN .NO CP OR SOB Exam Extrem: Other: VSS AFEBRILE DRESSING DRY NV INTACT. THIGH WITH 2 PLUS PITTING EDEMA. TENDER AT MID THIGH AND KNE WITH SQUEEZE TEST. MINIMAL DISCOMFORT WITH PASSIVE ROTATION AND FLEXION OF THE HIP.NO SIGN OF COMPARTMENT SYNDROME Objective Data Vital Signs Vital Signs: Vital Signs - 24 hr 05/18/19 18:00 05/18/19 19:47 05/18/19 19:52 Temperature 36.4 C L Pulse Rate 71 76 Respiratory Rate 22 H Blood Pressure 117/55 L Pulse Oximetry 98 99 05/18/19 20:00 05/18/19 20:32 05/18/19 20:36 Temperature Pulse Rate 73 99 Respiratory Rate 20 Blood Pressure Pulse Oximetry 96 05/18/19 20:47 05/18/19 21:11 05/18/19 22:00 Temperature Pulse Rate 102 H 77 76 Respiratory Rate 20 Blood Pressure Pulse Oximetry 05/18/19 23:41 05/18/19 23:50 05/19/19 00:00 Temperature 36.6 C Pulse Rate 81 85 Respiratory Rate 22 H Blood Pressure 104/49 L Pulse Oximetry 99 97 05/19/19 02:00 05/19/19 03:50 05/19/19 03:53 Temperature 36.4 C Pulse Rate 87 76 Respiratory Rate 20 Blood Pressure 118/48 L Pulse Oximetry 98 99 05/19/19 04:00 05/19/19 06:00 05/19/19 08:00 Temperature 35.5 C L Pulse Rate 92 69 110 H Respiratory Rate 26 H Blood Pressure 89/48 L Pulse Oximetry 95 05/19/19 08:49 05/19/19 09:18 05/19/19 09:27 Temperature 35.5 C L Pulse Rate 99 100 93 Respiratory Rate 20 20 20 Blood Pressure 86/45 L Pulse Oximetry 92 94 05/19/19 10:00 05/19/19 10:29 05/19/19 11:30 Temperature 35.8 C L Pulse Rate 95 90 82 Respiratory Rate 22 H Blood Pressure 104/51 L Pulse Oximetry 98 05/19/19 12:00 05/19/19 12:40 05/19/19 13:00 Temperature Pulse Rate 85 79 84 Respiratory Rate 20 20 Blood Pressure Pulse Oximetry 05/19/19 14:00 05/19/19 16:00 05/19/19 16:48 Temperature 36.3 C L Pulse Rate 81 84 81 Respiratory Rate 26 H 18 Blood Pressure 112/47 L Pulse Oximetry 99 05/19/19 16:55 Temperature Pulse Rate 79 Respiratory Rate 20 Blood Pressure Pulse Oximetry Intake/Output Intake/Output: Intake & Output 05/16/19 05/17/19 05/18/19 05/19/19 23:59 23:59 23:59 23:59 Intake Total 465 616 5400 1140 Output Total 1650 1425 2650 1250 Balance -770 -775 -1390 -110 Meds/Results Medications: Active Medications Generic Name Dose Route Start Last Admin Trade Name Freq PRN Reason Stop Dose Admin Hydrocodone Bitart/Acetaminophen 1 tab 05/20/19 12:30 [place] 7.5-325 Mg PO Q3H PRN Pain Rated 4-6 Apixaban 5 mg 05/20/19 09:00 Eliquis PO Q12HR [facility] Aspirin 81 mg 05/10/19 08:00 05/19/19 10:30 Aspirin Chewable PO 81 mg DAILY@0800 [facility] Administration Benzonatate 200 mg 05/09/19 04:09 05/12/19 00:01 Tessalon Perles PO 200 mg TID PRN Administration cough Budesonide/Formoterol Fumarate 2 puff 05/12/19 08:00 05/19/19 08:41 Symbicort 160-4.5 Mcg (*Sp) Inhaler INHALATION 2 puff Q12HRT EDA Administration Dextrose 12.5 gm 05/10/19 17:06 Dextrose 50% Syringe IV PUSH PRN PRN Hypoglycemia Protocol Docusate Sodium 100 mg 05/12/19 17:00 05/19/19 10:30 Colace Capsule PO 100 mg BID EDA Administration Dornase Michael 2.5 mg 05/11/19 20:00 05/19/19 08:48 Pulmozyme INHALATION 2.5 mg Q12HRT EDA Administration Flecainide Acetate 100 mg 05/15/19 21:00 05/19/19 10:29 Tambocor PO 100 mg Q12HR EDA Administration
[2019-05-19 17:32] LABS: Glucose Point of Care 121 (65-105)
[2019-05-19 17:32] LABS: Glucose Point of Care 100 (65-105)
[2019-05-19] MEDS: FUROSEMIDE INJ 40 MG/4 ML VIAL IV PUSH (18:08)
--- NOTE | 2019-05-19 18:15 | PM.IMPN ---
Progress Note: A&P Assessment and Plan (1) Respiratory failure: Qualifiers: Chronicity: acute on chronic Respiratory failure complication: hypoxia and hypercapnia Qualified Code(s): J96.21 - Acute and chronic respiratory failure with hypoxia; J96.22 - Acute and chronic respiratory failure with hypercapnia Code(s): J96.90 - Respiratory failure, unspecified, unspecified whether with hypoxia or hypercapnia Status: Acute Assessment and Plan: Result of pneumonia. Has improved. Has chronic respiratory failure requiring 2-3L O2 at home. Continue to wean O2 to baseline. Increase activity as tolerated. Add acetazolamide given the metabolic alkalosis. Consider checking ABG. Encouraged compliance with the mask. Continue nebulizers. Plan for SNF when ready for discharge. (2) Community acquired pneumonia: Qualifiers: Laterality: right Lung location: unspecified part of lung Qualified Code(s): J18.9 - Pneumonia, unspecified organism Code(s): J18.9 - Pneumonia, unspecified organism Status: Resolved Assessment and Plan: CT chest with extensive tree-in-bud pattern with small centrilobular nodules throughout the right lung consistent with pneumonia. Clinically improved. IV cefepime and vancomycin discontinued after completing a 8 day course. Continue to monitor. (3) Sepsis: Qualifiers: Acute respiratory failure type: with hypercapnia Sepsis acute organ dysfunction status: with acute organ dysfunction Sepsis type: sepsis due to unspecified organism Severe sepsis acute organ dysfunction type: acute respiratory failure Severe sepsis shock status: without septic shock Qualified Code(s): A41.9 - Sepsis, unspecified organism; R65.20 - Severe sepsis without septic shock; J96.02 - Acute respiratory failure with hypercapnia Code(s): A41.9 - Sepsis, unspecified organism Status: Resolved Assessment and Plan: Criteria met on admission. Result of pneumonia. Blood cultures final and negative. Urine culture with 50,000-100,000 colonies of Enterococcus but has completed 8 days IV vancomycin as noted above. Completed a course of IV antibiotics for the PNA as well. Sepsis resolved. (4) Atrial flutter with rapid ventricular response: Code(s): I48.92 - Unspecified atrial flutter Status: Acute Assessment and Plan: Developed atrial flutter with RVR just prior to undergoing surgery on 05/12/19. Patietn converted to normal sinus. Tele showing patient maintaining sinus mechanism. Currently on flecainide and metoprolol. Was on therapeutic Lovenox for anticoagulation but changed to Eliquis. Contineu Lasix as tolerated to improve fluid status. (5) Closed subcapital fracture of neck of right femur: Qualifiers: Encounter type: initial encounter Qualified Code(s): S72.011A - Unspecified intracapsular fracture of right femur, initial encounter for closed fracture Code(s): S72.011A - Unspecified intracapsular fracture of right femur, initial encounter for closed fracture Status: Acute Assessment and Plan: Orthopedics consulted and appreciate input. Now status post pinning on 05/12/19. Postoperative management per Orthopedics. Patietn still with extensive pain. Xray of the hip showing no acute loosing. Continue PT/OT. Added scheduled Tylenol IV to control pain. may need long acting pain meds. Pain managment per ortho. (6) Acute exacerbation of chronic obstructive airways disease: Code(s): J44.1 - Chronic obstructive pulmonary disease with (acute) exacerbation Status: Acute Assessment and Plan: Continues to improve. No wheezing. Weaning steroids. Continue respiratory treatments. (7) AV block, 2nd degree: Code(s): I44.1 - Atrioventricular block, second degree Status: Acute Assessment and Plan: EKG showing 2nd degree AVB on admission. Cardiology consu
[2019-05-19 21:04] LABS: Glucose Point of Care 132 (65-105)
[2019-05-20] VITALS (28 sets, daily range): BP systolic 107–136; BP diastolic 43–52; PULSE 73–96; RESP 18–32; TEMP 35.3–36.8; O2SAT 85–99; BMI 31.1
[2019-05-20 05:19] LABS: Hematocrit 23.5 % (42.0-52.0); Mean Corpuscular HGB Conc 29.8 g/dl (32-36); Mean Corpuscular Hemoglobin 30.4 pg (26-34); Mean Corpuscular Volume 102.2 fl (80-100); Mean Platelet Volume 11.7 fl (7.4-10.4); Platelet Count Result 172 k/mm3 (150-375); Red Cell Distribution Width 15.5 % (11.5-14.5); White Blood Count 18.8 K/mm3 (4.5-10.0)
[2019-05-20 05:23] LABS: Albumin Level 2.6 g/dL (3.5-5.1); Blood Urea Nitrogen 37 mg/dL (9-20); Carbon Dioxide > 40 mmol/L (22-30); Chloride 92 mmol/L (98-107); Estimated CRCL calculation 56 ml/min; Estimated Glomerular Filt Rate > 60; Glucose 103 mg/dL (75-110); Magnesium 2.3 mg/dL (1.6-2.3); Phosphorus 3.3 mg/dL (2.5-4.5); Potassium 4.3 mmol/L (3.4-5.0); Sodium 135 mmol/L (137-145)
[2019-05-20 07:03] LABS: Glucose Point of Care 92 (65-105)
[2019-05-20] MEDS: FLECAINIDE ACETATE 100 MG TABLET PO ×2 (09:50→20:16)
[2019-05-20] MEDS: predniSONE 10 MG TABLET PO (09:53)
[2019-05-20] MEDS: DOCUSATE SODIUM 100 MG CAPSULE PO ×2 (09:53→17:13)
[2019-05-20] MEDS: ASPIRIN 81 MG CHEWABLE TABLET PO (09:54)
[2019-05-20] MEDS: FUROSEMIDE INJ 40 MG/4 ML VIAL IV PUSH ×2 (09:54→17:13)
--- NOTE | 2019-05-20 11:11 | PM.PNCARD ---
Progress Note: A&P Assessment and Plan (1) AV block, 2nd degree: Code(s): I44.1 - Atrioventricular block, second degree Status: Acute Assessment and Plan: Resolved. No recurrence. Continue to monitor with flecainide restarting. (2) Hyperkalemia: Code(s): E87.5 - Hyperkalemia Status: Acute Assessment and Plan: Resolved (3) Sepsis: Qualifiers: Acute respiratory failure type: with hypercapnia Sepsis acute organ dysfunction status: with acute organ dysfunction Sepsis type: sepsis due to unspecified organism Severe sepsis acute organ dysfunction type: acute respiratory failure Severe sepsis shock status: without septic shock Qualified Code(s): A41.9 - Sepsis, unspecified organism; R65.20 - Severe sepsis without septic shock; J96.02 - Acute respiratory failure with hypercapnia Code(s): A41.9 - Sepsis, unspecified organism Status: Resolved Assessment and Plan: Per primary service (4) Obstructive sleep apnea: Code(s): G47.33 - Obstructive sleep apnea (adult) (pediatric) Status: Acute Assessment and Plan: BiPAP (5) Paroxysmal atrial fibrillation: Code(s): I48.0 - Paroxysmal atrial fibrillation Status: Acute Assessment and Plan: Developed atrial flutter on way to operating room 05/13/2019. Flecainide restarted 05/15/2019. Was anticoagulated with full-dose Lovenox. Was to start Eliquis this morning however his hemoglobin has dropped to 7.0. Transfusion has been ordered. Will hold Eliquis for now. Successfully cardioverted 05/17/[address] Knowles. Continue flecainide 100 mg q.12 hours. Beta-rosa discontinued yesterday due to blood pressure Maintaining normal sinus rhythm. (6) COPD (chronic obstructive pulmonary disease): Code(s): J44.9 - Chronic obstructive pulmonary disease, unspecified Status: Acute Assessment and Plan: Per primary service. Very diminished breath sounds Continue to wean oxygen as able. Home oxygen 2-3 L/min (7) Acute encephalopathy: Code(s): G93.40 - Encephalopathy, unspecified Status: Resolved Assessment and Plan: Resolved. Secondary to sepsis, pneumonia. (8) Closed subcapital fracture of neck of right femur: Qualifiers: Encounter type: initial encounter Qualified Code(s): S72.011A - Unspecified intracapsular fracture of right femur, initial encounter for closed fracture Code(s): S72.011A - Unspecified intracapsular fracture of right femur, initial encounter for closed fracture Status: Acute Assessment and Plan: Status post hip pinning 05/13/2019 Pain control per hospitalist (9) Community acquired pneumonia: Qualifiers: Laterality: right Lung location: unspecified part of lung Qualified Code(s): J18.9 - Pneumonia, unspecified organism Code(s): J18.9 - Pneumonia, unspecified organism Status: Resolved Assessment and Plan: Per primary service . (10) Elevated troponin: Code(s): R79.89 - Other specified abnormal findings of blood chemistry Status: Acute Assessment and Plan: Most likely secondary to acute hypoxic respiratory failure and pneumonia. Type 2 infarct, non RI troponin elevation most likely. However, given patient's age and risk factors ischemic evaluation warranted in future prior to resuming flecainide to ensure safety margin. EF 60-65% by echo. Additional Plan Did participate with therapy yesterday. Ultrasound venous Doppler lower extremities bilaterally has been ordered by Plan discussed with Dr Hlom [id number] 05/18/2019 Subjective Date/time seen: 05/20/19 11:11 Interval histor
[2019-05-20 11:33] LABS: Glucose Point of Care 93 (65-105)
[2019-05-20] MEDS: IPRATROPIUM BR 0.02% INH SOLN 0.5 MG/2.5 ML VIAL INHALATION ×3 (12:03→21:05)
--- NOTE | 2019-05-20 12:17 | PCPTNOTE ---
PT attempted therapy this AM, however patient unavailable due to tasting bedside. PT will continue to follow per plan care.
--- NOTE | 2019-05-20 14:01 | PM.IMPN ---
Progress Note: A&P Assessment and Plan (1) Respiratory failure: Qualifiers: Chronicity: acute on chronic Respiratory failure complication: hypoxia and hypercapnia Qualified Code(s): J96.21 - Acute and chronic respiratory failure with hypoxia; J96.22 - Acute and chronic respiratory failure with hypercapnia Code(s): J96.90 - Respiratory failure, unspecified, unspecified whether with hypoxia or hypercapnia Status: Acute Assessment and Plan: Result of pneumonia. Has improved. Has chronic respiratory failure requiring 2-3L O2 at home. Currently at O2 3-4L. Continue to wean O2 to baseline. Increase activity as tolerated. Check ABG and CXR. Encouraged compliance with the mask. Continue nebulizers. Plan for SNF when ready for discharge. 7.43/50/269 (8L). CXR showing chronic elevated left hemidiaphragm, emphysema and atelectasis. Continue supportive care. (2) Community acquired pneumonia: Qualifiers: Laterality: right Lung location: unspecified part of lung Qualified Code(s): J18.9 - Pneumonia, unspecified organism Code(s): J18.9 - Pneumonia, unspecified organism Status: Resolved Assessment and Plan: CT chest with extensive tree-in-bud pattern with small centrilobular nodules throughout the right lung consistent with pneumonia. Clinically improved. IV cefepime and vancomycin discontinued after completing a 8 day course. Continue to monitor. (3) Sepsis: Qualifiers: Acute respiratory failure type: with hypercapnia Sepsis acute organ dysfunction status: with acute organ dysfunction Sepsis type: sepsis due to unspecified organism Severe sepsis acute organ dysfunction type: acute respiratory failure Severe sepsis shock status: without septic shock Qualified Code(s): A41.9 - Sepsis, unspecified organism; R65.20 - Severe sepsis without septic shock; J96.02 - Acute respiratory failure with hypercapnia Code(s): A41.9 - Sepsis, unspecified organism Status: Resolved Assessment and Plan: Criteria met on admission. Result of pneumonia. Blood cultures final and negative. Urine culture with 50,000-100,000 colonies of Enterococcus but has completed 8 days IV vancomycin as noted above. Completed a course of IV antibiotics for the PNA as well. Sepsis resolved. (4) Atrial flutter with rapid ventricular response: Code(s): I48.92 - Unspecified atrial flutter Status: Acute Assessment and Plan: Developed atrial flutter with RVR just prior to undergoing surgery on 05/12/19. Patient converted to normal sinus. Tele showing patient maintaining sinus mechanism. Currently on flecainide and metoprolol. Was on therapeutic Lovenox for anticoagulation but changed to Eliquis and now stopped. Continue Lasix as tolerated to improve fluid status. (5) Closed subcapital fracture of neck of right femur: Qualifiers: Encounter type: initial encounter Qualified Code(s): S72.011A - Unspecified intracapsular fracture of right femur, initial encounter for closed fracture Code(s): S72.011A - Unspecified intracapsular fracture of right femur, initial encounter for closed fracture Status: Acute Assessment and Plan: Orthopedics consulted and appreciate input. Now status post pinning on 05/12/19. Postoperative management per Orthopedics. Patietn still with extensive pain possibly related to thigh hematoma. Xray of the hip showing no acute loosing. Continue PT/OT as tolerated but he can barely move the leg. Scheduled Tylenol IV with minimal benefit. Pain managment per ortho. (6) Acute exacerbation of chronic obstructive airways disease: Code(s): J44.1 - Chronic obstructive pulmonary disease with (acute) exacerbation Status: Acute Assessment and Plan: Continues to improve. No wheezing. Weaning steroids. Continue respiratory treatments. (7) AV block, 2nd degree: Code(s):
--- NOTE | 2019-05-20 15:17 | PC.NURSE ---
On 05/20/19, the student, [LISA REYES], provided care and completed [employer] documentation on this patient. I have reviewed the student's documentation and agree with the findings.
--- NOTE | 2019-05-20 16:13 | PCPTNOTE ---
Pt out of room for testing this afternoon, unable to see for PT.
[2019-05-20 16:45] LABS: Alveolar/Arterial O2 Gradient 31.2 mmHg; Base Excess ABG 7.4 mEq/l (+/-2.0); Fractional Inspired Oxygen 50 %; HCO3 ABG 32.6 mEq/l (22.0-26.0); Oxygen Content ABG 12.4 %vol (16.0-22.0); Oxygen Saturation ABG 99.6 % (95.0-100.0); Oxyhemoglobin 97.4 % THb (90.0-100.0); PCO2 ABG 49.6 mmHg (35.0-45.0); PO2 ABG 269.5 mmHg (80.0-100.0); PO2 FiO2 Ratio Arterial Blood 5.39 %; Total Hemoglobin 8.5 g/dL (12.0-18.0); pH ABG 7.435 (7.350-7.450)
[2019-05-20 16:57] LABS: Device OTHER DEVICE; Modified Allen's Test Pass; Site Drawn RIGHT RADIAL
[2019-05-20] MEDS: TUBING, BLOOD PLUM PUMP TUBING 1 EACH XX (17:12)
[2019-05-20 17:40] LABS: Hematocrit 26.4 % (42.0-52.0); Hemoglobin 8.1 g/dL (14.0-18.0)
[2019-05-20 17:48] LABS: Lactic Acid Reflex 1.6 mmol/L (0.7-2.1)
[2019-05-20 20:42] LABS: Glucose Point of Care 137 (65-105)
[2019-05-20] MEDS: DORNASE ALFA INH SOLN 1 MG/ML 2.5 ML AMP 2.5 MG INHALATION (21:05)
[2019-05-21] VITALS (27 sets, daily range): BP systolic 118–137; BP diastolic 46–60; PULSE 79–98; RESP 16–24; TEMP 36.1–36.5; O2SAT 92–100; BMI 10.0
[2019-05-21 00:53] LABS: Hematocrit 24.1 % (42.0-52.0); Hemoglobin 7.7 g/dL (14.0-18.0)
[2019-05-21 05:39] LABS: Hematocrit 24.8 % (42.0-52.0); Hemoglobin 7.6 g/dL (14.0-18.0); Mean Corpuscular HGB Conc 30.6 g/dl (32-36); Mean Corpuscular Hemoglobin 30.6 pg (26-34); Platelet Count Result 212 k/mm3 (150-375); Red Blood Count 2.48 M/mm3 (4.6-6.20); Red Cell Distribution Width 16.5 % (11.5-14.5); White Blood Count 21.3 K/mm3 (4.5-10.0)
[2019-05-21 05:49] LABS: Alanine Aminotransferase 25 U/L (4-50); Albumin Level 2.8 g/dL (3.5-5.1); Alkaline Phosphatase 66 U/L (38-126); Aspartate Amino Transferase 33 U/L (17-59); Bilirubin,Total 0.8 mg/dL (0.2-1.3); Blood Urea Nitrogen 33 mg/dL (9-20); Calcium 8.3 mg/dL (8.4-10.2); Carbon Dioxide 36 mmol/L (22-30); Chloride 91 mmol/L (98-107); Estimated CRCL calculation 55 ml/min; Estimated Glomerular Filt Rate > 60; Glucose 102 mg/dL (75-110); Sodium 134 mmol/L (137-145)
[2019-05-21] MEDS: IPRATROPIUM BR 0.02% INH SOLN 0.5 MG/2.5 ML VIAL INHALATION ×4 (08:10→19:14)
[2019-05-21] MEDS: DORNASE ALFA INH SOLN 1 MG/ML 2.5 ML AMP 2.5 MG INHALATION ×2 (08:10→19:15)
[2019-05-21 08:12] LABS: Glucose Point of Care 113 (65-105)
[2019-05-21] MEDS: ASPIRIN 81 MG CHEWABLE TABLET PO (08:46)
[2019-05-21] MEDS: DOCUSATE SODIUM 100 MG CAPSULE PO ×2 (08:46→18:03)
[2019-05-21] MEDS: FLECAINIDE ACETATE 100 MG TABLET PO ×2 (08:46→22:00)
[2019-05-21] MEDS: predniSONE 10 MG TABLET PO (08:46)
[2019-05-21] MEDS: FUROSEMIDE INJ 40 MG/4 ML VIAL IV PUSH ×2 (08:47→18:03)
--- NOTE | 2019-05-21 09:59 | PM.IMPN ---
Progress Note: A&P Assessment and Plan (1) Closed subcapital fracture of neck of right femur: Qualifiers: Encounter type: initial encounter Qualified Code(s): S72.011A - Unspecified intracapsular fracture of right femur, initial encounter for closed fracture Code(s): S72.011A - Unspecified intracapsular fracture of right femur, initial encounter for closed fracture Status: Acute Assessment and Plan: Orthopedics consulted and appreciate input. Now status post pinning on 05/12/19. Postoperative management per Orthopedics. Patient still with extensive pain from the thigh hematoma. Xray of the hip showing no acute loosing. Continue PT/OT as tolerated. Pain management per ortho. Hematoma management per ortho. (2) Respiratory failure: Qualifiers: Chronicity: acute on chronic Respiratory failure complication: hypoxia and hypercapnia Qualified Code(s): J96.21 - Acute and chronic respiratory failure with hypoxia; J96.22 - Acute and chronic respiratory failure with hypercapnia Code(s): J96.90 - Respiratory failure, unspecified, unspecified whether with hypoxia or hypercapnia Status: Acute Assessment and Plan: Result of pneumonia. Has improved. Has chronic respiratory failure requiring 2-3L O2 at home. Currently at O2 3-4L. Continue to wean O2 to baseline. Increase activity as tolerated. ABG showing 7.43/50/269 (8L). CXR showing chronic elevated left hemidiaphragm, emphysema and atelectasis. Continue supportive care. Encouraged compliance with the mask. Continue nebulizers. Plan for SNF when ready for discharge. (3) Community acquired pneumonia: Qualifiers: Laterality: right Lung location: unspecified part of lung Qualified Code(s): J18.9 - Pneumonia, unspecified organism Code(s): J18.9 - Pneumonia, unspecified organism Status: Resolved Assessment and Plan: CT chest with extensive tree-in-bud pattern with small centrilobular nodules throughout the right lung consistent with pneumonia. Clinically improved. IV cefepime and vancomycin discontinued after completing a 8 day course. Continue to monitor. (4) Sepsis: Qualifiers: Acute respiratory failure type: with hypercapnia Sepsis acute organ dysfunction status: with acute organ dysfunction Sepsis type: sepsis due to unspecified organism Severe sepsis acute organ dysfunction type: acute respiratory failure Severe sepsis shock status: without septic shock Qualified Code(s): A41.9 - Sepsis, unspecified organism; R65.20 - Severe sepsis without septic shock; J96.02 - Acute respiratory failure with hypercapnia Code(s): A41.9 - Sepsis, unspecified organism Status: Resolved Assessment and Plan: Criteria met on admission. Result of pneumonia. Blood cultures final and negative. Urine culture with 50,000-100,000 colonies of Enterococcus but has completed 8 days IV vancomycin as noted above. Completed a course of IV antibiotics for the PNA as well. Sepsis resolved. (5) Atrial flutter with rapid ventricular response: Code(s): I48.92 - Unspecified atrial flutter Status: Acute Assessment and Plan: Developed atrial flutter with RVR just prior to undergoing surgery on 05/12/19. Patient converted to normal sinus. Tele showing patient maintaining sinus mechanism. Currently on flecainide and metoprolol. Was on therapeutic Lovenox for anticoagulation but now stopped. Continue Lasix as tolerated to improve fluid status. (6) Acute exacerbation of chronic obstructive airways disease: Code(s): J44.1 - Chronic obstructive pulmonary disease with (acute) exacerbation Status: Acute Assessment and Plan: Continues to improve. Weaning steroids. Continue respiratory treatments. (7) AV block, 2nd degree: Code(s): I44.1 - Atrioventricular block, second degree Status: Acute Assessment and Plan: EKG sh
--- NOTE | 2019-05-21 12:03 | PM.PNCARD ---
Progress Note: A&P Additional Plan Continue antiarrhythmic treatment with flecainide Systemic anticoagulation will be discontinued rather than just held. Risk of anticoagulation in my opinion is higher than the benefit Subjective Date/time seen: Date of service: 05/21/19 12:03 Interval history: Follow-up visit with patient with atrial flutter, recurrence of atrial flutter. Last week when anti rhythmic area agent was discontinued. In sinus rhythm since cardioversion and resumption of flecainide treatment. Hip fracture status post ORIF Significant surgical site hematoma likely related to anticoagulation which has now been stopped Exam Const: General: uncomfortable HENMT: Mouth: Yes moist mucous membranes Eyes: Sclera: sclerae normal Pupils: Equal, round and reactive pupils present Neck: Neck: supple and no JVD Thyroid: thyroid normal Resp: Effort & Inspection: normal respiratory effort Auscultation: clear to auscultation bilaterally Cardio: Rate: regular rate Rhythm: regular rhythm GI: Auscultation: normal bowel sounds Skin: General skin exam: normal color Extrem: General: normal to inspection Objective Data Vital Signs Vital Signs: Vital Signs - 24 hr 05/20/19 14:00 05/20/19 14:15 05/20/19 14:30 Temperature 35.9 C L 36.1 C L Pulse Rate 90 90 87 Respiratory Rate 30 H 24 H Blood Pressure 111/47 L 107/44 L Pulse Oximetry 98 93 05/20/19 15:30 05/20/19 16:00 05/20/19 16:30 Temperature 35.3 C L 36.2 C L 36.2 C L Pulse Rate 85 82 83 Respiratory Rate 32 H 22 H 20 Blood Pressure 113/49 L 115/45 L 115/45 L Pulse Oximetry 90 98 97 05/20/19 16:42 05/20/19 17:00 05/20/19 18:00 Temperature 36.1 C L Pulse Rate 88 80 84 Respiratory Rate 20 22 H Blood Pressure 121/43 L Pulse Oximetry 92 05/20/19 20:00 05/20/19 20:16 05/20/19 20:21 Temperature 36.5 C Pulse Rate 86 85 96 Respiratory Rate 20 Blood Pressure 128/52 L Pulse Oximetry 94 05/20/19 21:00 05/20/19 21:05 05/20/19 21:20 Temperature Pulse Rate 85 85 Respiratory Rate 20 20 20 Blood Pressure Pulse Oximetry 05/20/19 22:00 05/21/19 00:00 05/21/19 00:10 Temperature 36.3 C L Pulse Rate 80 81 84 Respiratory Rate 20 Blood Pressure 137/60 Pulse Oximetry 100 05/21/19 02:00 05/21/19 04:00 05/21/19 04:43 Temperature 36.4 C Pulse Rate 79 81 83 Respiratory Rate 20 Blood Pressure 118/53 L Pulse Oximetry 98 05/21/19 06:00 05/21/19 08:00 05/21/19 08:10 Temperature Pulse Rate 83 93 92 Respiratory Rate 16 18 Blood Pressure Pulse Oximetry 100 92 05/21/19 08:20 05/21/19 08:21 05/21/19 08:46 Temperature 36.5 C Pulse Rate 91 93 98 Respiratory Rate 18 16 Blood Pressure 128/50 L Pulse Oximetry 100 Intake/Output Intake/Output: Intake & Output 05/18/19 05/19/19 05/20/19 05/21/19 23:59 23:59 23:59 23:59 Intake Total 1260 2780 1335 450 Output Total 2650 2150 3575 1800 Balance -1390 053 -2240 -6090 Meds/Results Medications: Active Medications Generic Name Dose Route Start Last Admin Trade Name Freq PRN Reason Stop Dose Admin Hydrocodone Bitart/Acetaminophen 1 tab 05/20/19 12:30 05/21/19 08:47 [place] 7.5-325 Mg PO 1 tab Q3H PRN Administration Pain Rated 4-6 Aspirin 81 mg 05/10/19 08:00 05/21/19 08:46 Aspirin Chewable PO 81 mg DAILY@0800 EDA Administration Benzonatate 200 mg 05/09/19 04:09 05/12/19 00:01 Tessalon Perles PO 200 mg TID PRN Administration cough Budesonide/Formoterol Fumarate 2 puff 05/12/19 08:00 05/21/19 08:13 Symbicort 160-4.5 Mcg (*Sp) Inhaler INHALATION 2 puff Q12HRT EDA Administration Dextrose 12.5 gm 05/10/19 17:06 Dextrose 50% Syringe IV PUSH PRN PRN Hypoglycemia Protocol Docusate Sodium 100 mg 05/12/19 17:00 05/21/19 08:46 Colace Capsule PO 100 mg BID EDA Administration Dornase Michael 2.5 mg 05/11/19 20:00 05/21/19 08:10 Pulmozy
[2019-05-21 12:15] LABS: Glucose Point of Care 128 (65-105)
--- NOTE | 2019-05-21 15:00 | PM.PNORT ---
Progress Note: A&P Additional Plan POD RIGHT HIP PERC PINNING. PATIENT HAS SINCE DEVELOPED HEMATOMA IN THE RIGHT THIGH. HIS EMOGLOBIN WAS STABLE UP UNTIL POD 5 WHEN HE RECEIVED LOVENOX FOR ATRIAL FLUTTER. HE IS IMPROVED TODAY AND PARTICIPATED IN PT. WE WILL OBSERVE FOR NOW. HE MAY REQUIRE EVACUATION OF HEMATOMA BUT ONLY IF HE DOESNT IMPROVE AND HE IS OFF OF BLOOD THINNERS Subjective Subjective Date/Time Seen: 05/21/19 15:00 POSTOP HIP PINNING. HE IS NOW GREATER THAN ONE WEEK POSTIOP. HEIS PAIN SHOULD BE IMPROVING. 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 HIS THIGH IS SWOLLEN AND THE LATERAL COMPARTMENT IS SWOLLEN. HIS HIP ROM SHOWS NO PAIN WITH PROM. HE HAS NO SIGN OF COMPARTMENT SYNDROME. HIS CALF IS NON TENDER Objective Data Vital Signs Vital Signs: Vital Signs - 24 hr 05/20/19 15:30 05/20/19 16:00 05/20/19 16:30 Temperature 35.3 C L 36.2 C L 36.2 C L Pulse Rate 85 82 83 Respiratory Rate 32 H 22 H 20 Blood Pressure 113/49 L 115/45 L 115/45 L Pulse Oximetry 90 98 97 05/20/19 16:42 05/20/19 17:00 05/20/19 18:00 Temperature 36.1 C L Pulse Rate 88 80 84 Respiratory Rate 20 22 H Blood Pressure 121/43 L Pulse Oximetry 92 05/20/19 20:00 05/20/19 20:16 05/20/19 20:21 Temperature 36.5 C Pulse Rate 86 85 96 Respiratory Rate 20 Blood Pressure 128/52 L Pulse Oximetry 94 05/20/19 21:00 05/20/19 21:05 05/20/19 21:20 Temperature Pulse Rate 85 85 Respiratory Rate 20 20 20 Blood Pressure Pulse Oximetry 05/20/19 22:00 05/21/19 00:00 05/21/19 00:10 Temperature 36.3 C L Pulse Rate 80 81 84 Respiratory Rate 20 Blood Pressure 137/60 Pulse Oximetry 100 05/21/19 02:00 05/21/19 04:00 05/21/19 04:43 Temperature 36.4 C Pulse Rate 79 81 83 Respiratory Rate 20 Blood Pressure 118/53 L Pulse Oximetry 98 05/21/19 06:00 05/21/19 08:00 05/21/19 08:10 Temperature Pulse Rate 83 93 92 Respiratory Rate 16 18 Blood Pressure Pulse Oximetry 100 92 05/21/19 08:20 05/21/19 08:21 05/21/19 08:46 Temperature 36.5 C Pulse Rate 91 93 98 Respiratory Rate 18 16 Blood Pressure 128/50 L Pulse Oximetry 100 05/21/19 10:00 05/21/19 11:53 05/21/19 12:00 Temperature Pulse Rate 92 79 94 Respiratory Rate 18 18 Blood Pressure Pulse Oximetry 100 05/21/19 12:03 05/21/19 12:59 Temperature 36.1 C L Pulse Rate 82 94 Respiratory Rate 18 18 Blood Pressure 128/50 L Pulse Oximetry 100 Intake/Output Intake/Output: Intake & Output 05/18/19 05/19/19 05/20/19 05/21/19 23:59 23:59 23:59 23:59 Intake Total 1260 2780 1335 690 Output Total 2650 2150 3575 1950 Balance -1390 630 -2240 -1260 Meds/Results Medications: Active Medications Generic Name Dose Route Start Last Admin Trade Name Freq PRN Reason Stop Dose Admin Hydrocodone Bitart/Acetaminophen 1 tab 05/20/19 12:30 05/21/19 14:54 [place] 7.5-325 Mg PO 1 tab Q3H PRN Administration Pain Rated 4-6 Aspirin 81 mg 05/10/19 08:00 05/21/19 08:46 Aspirin Chewable PO 81 mg DAILY@0800 EDA Administration Benzonatate 200 mg 05/09/19 04:09 05/12/19 00:01 Tessalon Perles PO 200 mg TID PRN Administration cough Budesonide/Formoterol Fumarate 2 puff 05/12/19 08:00 05/21/19 08:13 Symbicort 160-4.5 Mcg (*Sp) Inhaler INHALATION 2 puff Q12HRT EDA Administration Dextrose 12.5 gm 05/10/19 17:06 Dextrose 50% Syringe IV PUSH PRN PRN Hypoglycemia Protocol Docusate Sodium 100 mg 05/12/19 17:00 05/21/19 08:46 Colace Capsule PO 100 mg BID EDA Administration Dornase Michael 2.5 mg 05/11/19 20:00 05/21/19 08:10 Pulmozyme INHALATION 2.5 mg Q12HRT EDA Administration Flecainide Acetate 100 mg 05/15/19 21:00 05/21/19 08:46 Tambocor PO 100 mg Q12HR EDA Administration Furosemide 40 mg 05/18/19 17:00 05/21/19 08:47 Lasix Inj IV PUSH 40 mg
[2019-05-21 18:33] LABS: Glucose Point of Care 116 (65-105)
[2019-05-21 21:07] LABS: Glucose Point of Care 91 (65-105)
[2019-05-22] VITALS (31 sets, daily range): BP systolic 97–148; BP diastolic 32–93; PULSE 52–91; RESP 16–22; TEMP 35.8–37.1; O2SAT 93–100
[2019-05-22 04:33] LABS: Basophils Absolute Auto 0.1 K/mm3 (0.0-0.1); Basophils Percent Auto 0.2 % (0.2-1.2); Hematocrit 22.5 % (42.0-52.0); Immature Granulocyte Absolute 0.48 K/mm3 (0.00-0.031); Immature Granulocyte Percent A 1.9 % (0-0.5); Lymphocytes Absolute Auto 1.32 K/mm3 (0.9-3.2); Lymphocytes Percent Auto 5.3 % (18.3-44.2); Mean Corpuscular HGB Conc 30.2 g/dl (32-36); Mean Corpuscular Hemoglobin 30.1 pg (26-34); Mean Corpuscular Volume 99.6 fl (80-100); Mean Platelet Volume 10.8 fl (7.4-10.4); Monocytes Absolute Auto 2.9 K/mm3 (0.1-0.6); Monocytes Percent Auto 11.7 % (2.6-8.5); Neutrophils Absolute Auto 20.2 K/mm3 (1.3-6.7); Neutrophils Percent Auto 80.9 % (45.5-73.1); Nucleated Red Blood Cells Perc 0.1 % (0.0-0.2); Platelet Count Result 238 k/mm3 (150-375); Red Blood Count 2.26 M/mm3 (4.6-6.20); Red Cell Distribution Width 16.7 % (11.5-14.5)
[2019-05-22 04:56] LABS: Blood Urea Nitrogen 33 mg/dL (9-20); CRP 8.2 mg/dL (<1.0); Calcium 8.3 mg/dL (8.4-10.2); Carbon Dioxide 39 mmol/L (22-30); Chloride 89 mmol/L (98-107); Estimated CRCL calculation 45 ml/min; Estimated Glomerular Filt Rate 59; Glucose 101 mg/dL (75-110); Potassium 4.2 mmol/L (3.4-5.0); Sodium 135 mmol/L (137-145)
[2019-05-22 05:05] LABS: Hemoglobin 6.8 g/dL (14.0-18.0)
[2019-05-22 05:08] LABS: Hypochromasia 1+ (NORMAL); Large Platelets Present; Macrocytosis 1+ (NORMAL); Platelet Estimate Adequate (Adequate); Polychromasia 1+ (NORMAL)
[2019-05-22 05:09] LABS: Stomatocytes 1+ (NORMAL)
[2019-05-22] MEDS: MORPHINE SULFATE 4 MG/ML INJ 3 MG IV PUSH (06:37)
[2019-05-22 07:59] LABS: Glucose Point of Care 99 (65-105)
[2019-05-22] MEDS: IPRATROPIUM BR 0.02% INH SOLN 0.5 MG/2.5 ML VIAL INHALATION ×4 (08:21→20:37)
[2019-05-22] MEDS: DORNASE ALFA INH SOLN 1 MG/ML 2.5 ML AMP 2.5 MG INHALATION (08:25)
--- NOTE | 2019-05-22 08:39 | PM.PNORT ---
Progress Note: A&P Assessment and Plan (1) Closed subcapital fracture of neck of right femur: Onset Date: 05/12/19 Qualifiers: Encounter type: initial encounter Qualified Code(s): S72.011A - Unspecified intracapsular fracture of right femur, initial encounter for closed fracture Code(s): S72.011A - Unspecified intracapsular fracture of right femur, initial encounter for closed fracture Status: Acute Assessment and Plan: Postoperative day 10 right hip fixation. Complicated by right thigh hematoma. Acute anemia. Muscle compartments soft. Will observe for improvement with discontinuation of anticoagulation. Neurovascular intact at this time. Patient comfortable at rest. Subjective Subjective Date/Time Seen: 05/22/19 08:39 Patient states pain right thigh changed. No worse today. Was up to chair yesterday. Exam Const: General: healthy appearing; No in distress or confusion Orientation/consciousness: patient oriented x3 and No confusion HENMT: Head: normal to inspection, normocephalic and atraumatic Eyes: Conjunctivae: conjunctivae normal Sclera: sclerae normal Resp: Effort & Inspection: normal respiratory effort and no audible wheezes Neuro: General: patient oriented x3 and No confusion Extrem: Other: Right hip dRESSING DRY,[place] INTACT-moves all toes. Good sensation light touch. Good capillary refill. THIGH IS moderately SWOLLEN AND THE LATERAL COMPARTMENT IS SWOLLEN but soft. HIP ROM SHOWS NO PAIN WITH PROM. HE HAS NO SIGNS OF COMPARTMENT SYNDROME. HIS CALF IS NON TENDER. Moderate ecchymosis, 3+ pitting edema right leg, 2+ left leg Psych: Affect: normal affect Objective Data Vital Signs Vital Signs: Vital Signs - 24 hr 05/21/19 08:46 05/21/19 10:00 05/21/19 11:53 Temperature Pulse Rate 98 92 79 Respiratory Rate 18 Blood Pressure Pulse Oximetry 05/21/19 12:00 05/21/19 12:03 05/21/19 12:59 Temperature 96.9 F L Pulse Rate 94 82 94 Respiratory Rate 18 18 18 Blood Pressure 128/50 L Pulse Oximetry 100 100 05/21/19 14:00 05/21/19 15:35 05/21/19 15:45 Temperature Pulse Rate 94 86 80 Respiratory Rate 20 20 Blood Pressure Pulse Oximetry 97 05/21/19 16:00 05/21/19 18:00 05/21/19 18:06 Temperature 96.9 F L Pulse Rate 84 86 86 Respiratory Rate 18 Blood Pressure 119/48 L Pulse Oximetry 97 05/21/19 19:16 05/21/19 19:20 05/21/19 19:24 Temperature Pulse Rate 88 90 Respiratory Rate 20 20 Blood Pressure Pulse Oximetry 96 05/21/19 20:00 05/21/19 22:00 05/22/19 00:00 Temperature 97.2 F L 97.1 F L Pulse Rate 92 90 52 L Respiratory Rate 24 H 16 Blood Pressure 124/46 L 132/41 L Pulse Oximetry 100 100 05/22/19 02:00 05/22/19 04:00 05/22/19 06:00 Temperature 97.0 F L Pulse Rate 64 70 77 Respiratory Rate 18 Blood Pressure 101/43 L Pulse Oximetry 100 05/22/19 08:25 05/22/19 08:26 05/22/19 08:36 Temperature Pulse Rate 78 84 Respiratory Rate 20 20 Blood Pressure Pulse Oximetry 100 Intake/Output Intake/Output: Intake & Output 05/19/19 05/20/19 05/21/19 05/22/19 23:59 23:59 23:59 23:59 Intake Total 2780 1335 690 Output Total 2150 5678 6013 Balance 554 -8601 -2656 Meds/Results Medications: Active Medications Generic Name Dose Route Start Last Admin Trade Name Freq PRN Reason Stop Dose Admin Hydrocodone Bitart/Acetaminophen 1 tab 05/20/19 12:30 05/22/19 04:17 [place] 7.5-325 Mg PO 1 tab Q3H PRN Administration Pain Rated 4-6 Aspirin 81 mg 05/10/19 08:00 05/21/19 08:46 Aspirin Chewable PO 81 mg DAILY@0800 EDA Administration Benzonatate 200 mg 05/09/19 04:09 05/12/19 00:01 Tessalon Perles PO 200 mg TID PRN Administration cough Budesonide/Formoterol Fumarate 2 puff 05/12/19 08:00 05/22/19 08:24 Symbicort 160-4.5 Mcg (*Sp) Inhaler INHALATION 2 puff Q12HRT EDA Administration Dextrose 12.5 gm 05/10/19 17
[2019-05-22] MEDS: ASPIRIN 81 MG CHEWABLE TABLET PO (08:48)
[2019-05-22] MEDS: SODIUM CHLORIDE 0.9% IV 250 ML 30 ML IV CONT (08:49)
--- NOTE | 2019-05-22 09:10 | PCOTNOTE ---
The patient treatment was not able to be completed on 05/22/19 due to receiving blood at the time therapy arrived. RN reports that pt is inappropriate for therapy on this date. Will plan to continue treatment per plan of care.
[2019-05-22] MEDS: predniSONE 10 MG TABLET PO (09:38)
[2019-05-22] MEDS: DOCUSATE SODIUM 100 MG CAPSULE PO ×2 (09:38→17:06)
[2019-05-22] MEDS: FLECAINIDE ACETATE 100 MG TABLET PO ×2 (09:40→20:40)
--- NOTE | 2019-05-22 10:13 | PCPTNOTE ---
Held patient therapy this morning receiving blood transfusion will assess status this afternoon.
--- NOTE | 2019-05-22 11:33 | PM.PNCARD ---
Progress Note: A&P Assessment and Plan (1) AV block, 2nd degree: Code(s): I44.1 - Atrioventricular block, second degree Status: Acute Assessment and Plan: No recurrence. Continue to monitor with flecainide restarting. (2) Hyperkalemia: Code(s): E87.5 - Hyperkalemia Status: Acute Assessment and Plan: (3) Sepsis: Qualifiers: Acute respiratory failure type: with hypercapnia Sepsis acute organ dysfunction status: with acute organ dysfunction Sepsis type: sepsis due to unspecified organism Severe sepsis acute organ dysfunction type: acute respiratory failure Severe sepsis shock status: without septic shock Qualified Code(s): A41.9 - Sepsis, unspecified organism; R65.20 - Severe sepsis without septic shock; J96.02 - Acute respiratory failure with hypercapnia Code(s): A41.9 - Sepsis, unspecified organism Status: Resolved Assessment and Plan: Per primary service (4) Obstructive sleep apnea: Code(s): G47.33 - Obstructive sleep apnea (adult) (pediatric) Status: Acute Assessment and Plan: BiPAP (5) Paroxysmal atrial fibrillation: Code(s): I48.0 - Paroxysmal atrial fibrillation Status: Acute Assessment and Plan: Developed atrial flutter on way to operating room 05/13/2019. Flecainide restarted 05/15/2019. Was anticoagulated with full-dose Lovenox. Was to start Eliquis this morning however his hemoglobin has dropped to 7.0. Successfully cardioverted 05/17/[address] Knowles. Continue flecainide 100 mg q.12 hours. Beta-rosa discontinued yesterday due to blood pressure Maintaining normal sinus rhythm. Has not been on anticoagulation due to right hip hematoma. Would recommend restarting anticoagulation as soon as safe from orthopedic standpoint. (6) COPD (chronic obstructive pulmonary disease): Code(s): J44.9 - Chronic obstructive pulmonary disease, unspecified Status: Acute Assessment and Plan: Per primary service. Very diminished breath sounds Continue to wean oxygen as able. Home oxygen 2-3 L/min (7) Acute encephalopathy: Code(s): G93.40 - Encephalopathy, unspecified Status: Resolved Assessment and Plan: Resolved. Secondary to sepsis, pneumonia. (8) Closed subcapital fracture of neck of right femur: Onset Date: 05/12/19 Qualifiers: Encounter type: initial encounter Qualified Code(s): S72.011A - Unspecified intracapsular fracture of right femur, initial encounter for closed fracture Code(s): S72.011A - Unspecified intracapsular fracture of right femur, initial encounter for closed fracture Status: Acute Assessment and Plan: Status post hip pinning 05/13/2019 Pain control per hospitalist (9) Community acquired pneumonia: Qualifiers: Laterality: right Lung location: unspecified part of lung Qualified Code(s): J18.9 - Pneumonia, unspecified organism Code(s): J18.9 - Pneumonia, unspecified organism Status: Resolved Assessment and Plan: Per primary service . (10) Elevated troponin: Code(s): R79.89 - Other specified abnormal findings of blood chemistry Status: Acute Assessment and Plan: Most likely secondary to acute hypoxic respiratory failure and pneumonia. Type 2 infarct, non SD troponin elevation most likely. However, given patient's age and risk factors ischemic evaluation warranted in future prior to resuming flecainide to ensure safety margin. EF 60-65% by echo. Additional Plan Continue antiarrhythmic treatment with flecainide Will follow up on Friday, earlier if necessary. Subjective Date/time seen: 05/22/19 11:33 Interval history: Fol
[2019-05-22 12:21] LABS: Glucose Point of Care 109 (65-105)
[2019-05-22] MEDS: FUROSEMIDE INJ 40 MG/4 ML VIAL IV PUSH ×2 (13:29→17:07)
--- NOTE | 2019-05-22 16:48 | PM.IMPN ---
Progress Note: A&P Assessment and Plan (1) Closed subcapital fracture of neck of right femur: Onset Date: 05/12/19 Qualifiers: Encounter type: initial encounter Qualified Code(s): S72.011A - Unspecified intracapsular fracture of right femur, initial encounter for closed fracture Code(s): S72.011A - Unspecified intracapsular fracture of right femur, initial encounter for closed fracture Status: Acute Assessment and Plan: Patient presented to ER on 05/08/19 with hip pain after a fall. Right femur xray showing impacted subcapital right femoral fracture. Orthopedics consulted and appreciate input. Patient also was in respiratory failure. Once he had clinical improvement, he was able to under go pinning on 05/12/19. Postoperatively, patient has developed a large intramuscular hematoma in lateral right thigh. Patient still with extensive pain from the thigh hematoma but improving slowly. Management per Orthopedics. Continue PT/OT as tolerated. Pain management per ortho. Mottling - patient with mottling but good pulses and Lactic acid normal. ABG okay. Will monitor. (2) Respiratory failure: Qualifiers: Chronicity: acute on chronic Respiratory failure complication: hypoxia and hypercapnia Qualified Code(s): J96.21 - Acute and chronic respiratory failure with hypoxia; J96.22 - Acute and chronic respiratory failure with hypercapnia Code(s): J96.90 - Respiratory failure, unspecified, unspecified whether with hypoxia or hypercapnia Status: Acute Assessment and Plan: Result of pneumonia. Condition has improved. Has chronic respiratory failure requiring 2-3L O2 at home. Currently at O2 3L. Continue to wean O2 to baseline. Increase activity as tolerated. CXR (05/20/19) showing chronic elevated left hemidiaphragm, emphysema and atelectasis. Continue supportive care. Encouraged compliance with the mask. Continue nebulizers. Plan for SNF when ready for discharge. (3) Community acquired pneumonia: Qualifiers: Laterality: right Lung location: unspecified part of lung Qualified Code(s): J18.9 - Pneumonia, unspecified organism Code(s): J18.9 - Pneumonia, unspecified organism Status: Resolved Assessment and Plan: CT chest with extensive tree-in-bud pattern with small centrilobular nodules throughout the right lung consistent with pneumonia. IV cefepime and vancomycin started and he has completed a 8 day course. Clinically improved. Continue to monitor. (4) Leukocytosis: Qualifiers: Leukocytosis type: unspecified Qualified Code(s): D72.829 - Elevated white blood cell count, unspecified Code(s): D72.829 - Elevated white blood cell count, unspecified Status: Acute Assessment and Plan: WBC elevated on admission and clinbed to 21K. WBC improved but never back to normal. WBC climbing slowly past 5 days and now up to 25K. CRP 8.2 yet no evidence of infectious symptoms. Would consider C diff if he starts to have diarrhea. No fevers. Off abx currently. Infected hematoma? Continue to follow. Check cultures if develops fever or other worrisome symptoms. (5) Anemia in other chronic diseases classified elsewhere: Code(s): D63.8 - Anemia in other chronic diseases classified elsewhere Status: Acute Assessment and Plan: Has a mild chronic anemia but now with acute blood loss anemia. Hgb dropped to 7 on 05/20 and transfused [address] right femur showing large intramusc hematoma lateral to femur. Anticoagulation stopped. Small hematoma in abd wall and bruising noted also contributing to the drop in Hgb. Related to being on therapeutic doses of Lovenox. Hgb climbed to 8.1 but has been drifting down to 6.8 this morning. He received another unit of PRBC. Ortho following. Symptomatic care for now. (6) Sepsis: Qualifiers: Acute respiratory failure type: with hypercap
[2019-05-22] MEDS: INSULIN ASPART (*BKC) 100 UNITS/ML SUB-Q (17:14)
[2019-05-22 17:20] LABS: Glucose Point of Care 203 (65-105)
[2019-05-22 18:36] LABS: Hematocrit 23.3 % (42.0-52.0); Hemoglobin 7.4 g/dL (14.0-18.0)
[2019-05-22 21:22] LABS: Glucose Point of Care 117 (65-105)
[2019-05-23] VITALS (28 sets, daily range): BP systolic 104–115; BP diastolic 40–54; PULSE 52–96; RESP 18–22; TEMP 36.1–36.6; O2SAT 91–99; BMI 10.0
[2019-05-23 05:06] LABS: Basophils Percent Auto 0.1 % (0.2-1.2); Hematocrit 24.4 % (42.0-52.0); Hemoglobin 7.3 g/dL (14.0-18.0); Immature Granulocyte Absolute 0.36 K/mm3 (0.00-0.031); Immature Granulocyte Percent A 1.6 % (0-0.5); Lymphocytes Percent Auto 5.5 % (18.3-44.2); Mean Corpuscular HGB Conc 29.9 g/dl (32-36); Mean Corpuscular Hemoglobin 29.8 pg (26-34); Mean Corpuscular Volume 99.6 fl (80-100); Mean Platelet Volume 10.5 fl (7.4-10.4); Monocytes Absolute Auto 2.1 K/mm3 (0.1-0.6); Monocytes Percent Auto 9.7 % (2.6-8.5); Neutrophils Absolute Auto 18.2 K/mm3 (1.3-6.7); Neutrophils Percent Auto 83.1 % (45.5-73.1); Nucleated Red Blood Cells Perc 0.2 % (0.0-0.2); Platelet Count Result 236 k/mm3 (150-375); Red Blood Count 2.45 M/mm3 (4.6-6.20); Red Cell Distribution Width 19.2 % (11.5-14.5); White Blood Count 21.9 K/mm3 (4.5-10.0)
[2019-05-23 05:14] LABS: Prothrombin Time 13.1 Seconds (11.1-14.7)
[2019-05-23 05:15] LABS: Partial Thromboplastin Time 29.1 SECONDS (22.3-36.8)
[2019-05-23 05:59] LABS: Alanine Aminotransferase 25 U/L (4-50); Albumin Level 2.7 g/dL (3.5-5.1); Alkaline Phosphatase 60 U/L (38-126); Aspartate Amino Transferase 31 U/L (17-59); Blood Urea Nitrogen 34 mg/dL (9-20); Carbon Dioxide > 40 mmol/L (22-30); Chloride 92 mmol/L (98-107); Estimated CRCL calculation 54 ml/min; Estimated Glomerular Filt Rate > 60; Glucose 104 mg/dL (75-110); Potassium 3.7 mmol/L (3.4-5.0); Sodium 135 mmol/L (137-145)
[2019-05-23 06:18] LABS: Hypochromasia 2+ (NORMAL); Platelet Estimate Adequate (Adequate)
[2019-05-23 06:19] LABS: Polychromasia 2+ (NORMAL); Stomatocytes 2+ (NORMAL)
[2019-05-23 07:53] LABS: Glucose Point of Care 97 (65-105)
[2019-05-23] MEDS: IPRATROPIUM BR 0.02% INH SOLN 0.5 MG/2.5 ML VIAL INHALATION ×4 (08:32→21:06)
[2019-05-23] MEDS: ASPIRIN 81 MG CHEWABLE TABLET PO (09:49)
[2019-05-23] MEDS: predniSONE 10 MG TABLET PO (09:49)
[2019-05-23] MEDS: DOCUSATE SODIUM 100 MG CAPSULE PO ×2 (09:50→18:41)
[2019-05-23] MEDS: FLECAINIDE ACETATE 100 MG TABLET PO ×2 (09:51→20:30)
[2019-05-23] MEDS: FUROSEMIDE INJ 40 MG/4 ML VIAL IV PUSH ×2 (09:51→18:41)
[2019-05-23 11:41] LABS: Glucose Point of Care 119 (65-105)
--- NOTE | 2019-05-23 11:52 | PM.PNORT ---
Progress Note: A&P Assessment and Plan (1) Closed subcapital fracture of neck of right femur: Onset Date: 05/12/19 Qualifiers: Encounter type: initial encounter Qualified Code(s): S72.011A - Unspecified intracapsular fracture of right femur, initial encounter for closed fracture Code(s): S72.011A - Unspecified intracapsular fracture of right femur, initial encounter for closed fracture Status: Acute Assessment and Plan: POD #11 RT hip pinning. Thigh hematoma, may require more blood. Pain slightly better- observe PT/OT as tolerated Subjective Subjective Date/Time Seen: 05/23/19 11:52 States pain a little better today. Exam Const: General: healthy appearing; No in distress or confusion Orientation/consciousness: patient oriented x3 and No confusion HENMT: Head: normal to inspection, normocephalic and atraumatic Eyes: Conjunctivae: conjunctivae normal Sclera: sclerae normal Resp: Effort & Inspection: normal respiratory effort and no audible wheezes Neuro: General: patient oriented x3 and No confusion Extrem: Other: Right hip dressing in place, dry -moves all toes. Good sensation light touch. Good capillary refill. Thigh moderately swollen, lateral compartment swollen but soft. HIP ROM SHOWS NO PAIN WITH PROM. HE HAS NO SIGNS OF COMPARTMENT SYNDROME. HIS CALF IS NON TENDER. Moderate ecchymosis, 3+ pitting edema right leg, 2+ left leg. Left abdomen with swelling and ecchymosis extending to left flank and back Psych: Affect: normal affect Objective Data Vital Signs Vital Signs: Vital Signs - 24 hr 05/22/19 12:00 05/22/19 12:15 05/22/19 13:05 Temperature 97.2 F L 97.2 F L Pulse Rate 72 58 L 58 L Respiratory Rate 20 22 H 22 H Blood Pressure 105/37 L 105/37 L Pulse Oximetry 100 100 100 05/22/19 14:00 05/22/19 14:28 05/22/19 14:39 Temperature Pulse Rate 53 L 68 72 Respiratory Rate 20 20 Blood Pressure Pulse Oximetry 05/22/19 16:00 05/22/19 17:31 05/22/19 17:35 Temperature 97.4 F L Pulse Rate 89 91 78 Respiratory Rate 20 20 20 Blood Pressure 100/35 L Pulse Oximetry 96 96 05/22/19 17:53 05/22/19 18:00 05/22/19 20:00 Temperature 98.8 F Pulse Rate 82 89 88 Respiratory Rate 20 16 Blood Pressure 139/59 L Pulse Oximetry 100 05/22/19 20:37 05/22/19 20:40 05/22/19 20:47 Temperature Pulse Rate 78 87 82 Respiratory Rate 20 20 Blood Pressure Pulse Oximetry 93 05/22/19 22:00 05/23/19 00:00 05/23/19 02:00 Temperature 97.5 F L Pulse Rate 85 84 85 Respiratory Rate 18 Blood Pressure 110/54 L Pulse Oximetry 99 05/23/19 04:00 05/23/19 06:00 05/23/19 08:00 Temperature 97.8 F Pulse Rate 84 86 91 Respiratory Rate 20 22 H Blood Pressure 115/51 L Pulse Oximetry 97 99 05/23/19 08:33 05/23/19 08:45 05/23/19 08:57 Temperature 97.3 F L Pulse Rate 96 92 95 Respiratory Rate 22 H 20 22 H Blood Pressure 104/46 L Pulse Oximetry 94 99 05/23/19 09:51 05/23/19 10:00 Temperature Pulse Rate 88 91 Respiratory Rate Blood Pressure Pulse Oximetry Intake/Output Intake/Output: Intake & Output 05/20/19 05/21/19 05/22/19 05/23/19 23:59 23:59 23:59 23:59 Intake Total 1335 690 830 240 Output Total 3575 2315 140 100 Balance -2240 -1625 690 140 Meds/Results Medications: Active Medications Generic Name Dose Route Start Last Admin Trade Name Freq PRN Reason Stop Dose Admin Hydrocodone Bitart/Acetaminophen 1 tab 05/20/19 12:30 05/23/19 09:55 [place] 7.5-325 Mg PO 1 tab Q3H PRN Administration Pain Rated 4-6 Aspirin 81 mg 05/10/19 08:00 05/23/19 09:49 Aspirin Chewable PO 81 mg DAILY@0800 EDA Administration Benzonatate 200 mg 05/09/19 04:09 05/12/19 00:01 Tessalon Perles PO 200 mg TID PRN Administration cough Budesonide/Formoterol Fumarate 2 puff 05/12/19 08:00 05/23/19 08:32 Symbicort 160-4.5 Mcg (*Sp) Inhaler INHALATION 2 puff
--- NOTE | 2019-05-23 16:50 | PM.IMPN ---
Progress Note: A&P Assessment and Plan (1) Closed subcapital fracture of neck of right femur: Onset Date: 05/12/19 Qualifiers: Encounter type: initial encounter Qualified Code(s): S72.011A - Unspecified intracapsular fracture of right femur, initial encounter for closed fracture Code(s): S72.011A - Unspecified intracapsular fracture of right femur, initial encounter for closed fracture Status: Acute Assessment and Plan: Patient presented to ER on 05/08/19 with hip pain after a fall. Right femur xray showing impacted subcapital right femoral fracture. Orthopedics consulted and appreciate input. Patient also was in respiratory failure. Once he had clinical improvement, he was able to under go pinning on 05/12/19. Postoperatively, patient has developed a large intramuscular hematoma in lateral right thigh noted by CT on 05/20/19. Patient's pain better today and able to toelrate some therapy now. Management per Orthopedics. Continue PT/OT as tolerated. Pain management per ortho. Mottling - fading now (2) Respiratory failure: Qualifiers: Chronicity: acute on chronic Respiratory failure complication: hypoxia and hypercapnia Qualified Code(s): J96.21 - Acute and chronic respiratory failure with hypoxia; J96.22 - Acute and chronic respiratory failure with hypercapnia Code(s): J96.90 - Respiratory failure, unspecified, unspecified whether with hypoxia or hypercapnia Status: Acute Assessment and Plan: Result of pneumonia. Condition has improved. Has chronic respiratory failure requiring 2-3L O2 at home. Currently at O2 2L. Increase activity as tolerated. CXR (05/20/19) showing chronic elevated left hemidiaphragm, emphysema and atelectasis. Continue supportive care. Encouraged compliance with the mask. Continue nebulizers. Plan for SNF when ready for discharge. (3) Community acquired pneumonia: Qualifiers: Laterality: right Lung location: unspecified part of lung Qualified Code(s): J18.9 - Pneumonia, unspecified organism Code(s): J18.9 - Pneumonia, unspecified organism Status: Resolved Assessment and Plan: CT chest with extensive tree-in-bud pattern with small centrilobular nodules throughout the right lung consistent with pneumonia. IV cefepime and vancomycin started and he has completed a 8 day course. Clinically improved. Continue to monitor. (4) Leukocytosis: Qualifiers: Leukocytosis type: unspecified Qualified Code(s): D72.829 - Elevated white blood cell count, unspecified Code(s): D72.829 - Elevated white blood cell count, unspecified Status: Acute Assessment and Plan: WBC elevated on admission and clinbed to 21K. WBC improved but never back to normal. WBC climbing slowly past 5 days and now up to 25K on 05/22/19. CRP 8.2 yet no evidence of infectious symptoms. Would consider C diff if he starts to have diarrhea. No fevers. Off abx currently. Infected hematoma but pain better. WBC better today at 22K. Continue to follow. Check cultures if develops fever or other worrisome symptoms. (5) Anemia in other chronic diseases classified elsewhere: Code(s): D63.8 - Anemia in other chronic diseases classified elsewhere Status: Acute Assessment and Plan: Has a mild chronic anemia but now with acute blood loss anemia. Hgb dropped to 7 on 05/20 and transfused [address] right femur showing large intramusc hematoma lateral to femur. Anticoagulation stopped. Small hematoma in abd wall and bruising noted also contributing to the drop in Hgb. Related to being on therapeutic doses of Lovenox. Hgb climbed to 8.1 but has been drifting down to 6.8 on 05/22/19 andreceived another unit of PRBC. Hgb up to 7.3 today. Ortho following. Continue to monitor HH for stability. (6) Sepsis: Qualifiers: Acute respiratory failure type: with hypercapnia Sepsis acute or
[2019-05-23 20:40] LABS: Glucose Point of Care 138 (65-105)
[2019-05-24] VITALS (26 sets, daily range): BP systolic 98–120; BP diastolic 32–64; PULSE 43–108; RESP 18–26; TEMP 36.1–36.6; O2SAT 93–100
[2019-05-24 04:57] LABS: Basophils Percent Auto 0.1 % (0.2-1.2); Eosinophils Percent Auto 0.1 % (0-4.4); Hematocrit 23.8 % (42.0-52.0); Hemoglobin 7.1 g/dL (14.0-18.0); Lymphocytes Absolute Auto 1.05 K/mm3 (0.9-3.2); Lymphocytes Percent Auto 5.2 % (18.3-44.2); Mean Corpuscular HGB Conc 29.8 g/dl (32-36); Mean Corpuscular Hemoglobin 30.2 pg (26-34); Mean Corpuscular Volume 101.3 fl (80-100); Mean Platelet Volume 10.3 fl (7.4-10.4); Monocytes Absolute Auto 1.9 K/mm3 (0.1-0.6); Monocytes Percent Auto 9.2 % (2.6-8.5); Neutrophils Absolute Auto 17.1 K/mm3 (1.3-6.7); Neutrophils Percent Auto 84.4 % (45.5-73.1); Nucleated Red Blood Cells Absolute Auto 0.1 K/mm3 (0.0-0.012); Nucleated Red Blood Cells Perc 0.2 % (0.0-0.2); Platelet Count Result 242 k/mm3 (150-375); Red Blood Count 2.35 M/mm3 (4.6-6.20); Red Cell Distribution Width 19.8 % (11.5-14.5); White Blood Count 20.3 K/mm3 (4.5-10.0)
[2019-05-24 05:10] LABS: Blood Urea Nitrogen 31 mg/dL (9-20); Carbon Dioxide > 40 mmol/L (22-30); Chloride 91 mmol/L (98-107); Estimated CRCL calculation 49 ml/min; Estimated Glomerular Filt Rate > 60; Glucose 105 mg/dL (75-110); Potassium 3.5 mmol/L (3.4-5.0); Sodium 135 mmol/L (137-145)
[2019-05-24 05:28] LABS: Platelet Estimate Adequate (Adequate)
[2019-05-24 05:29] LABS: Macrocytosis 1+ (NORMAL); Microcytosis 1+ (NORMAL)
[2019-05-24 05:30] LABS: Stomatocytes 1+ (NORMAL)
[2019-05-24] MEDS: DOCUSATE SODIUM 100 MG CAPSULE PO ×2 (08:46→16:13)
[2019-05-24] MEDS: predniSONE 10 MG TABLET PO (08:46)
[2019-05-24] MEDS: ASPIRIN 81 MG CHEWABLE TABLET PO (08:46)
[2019-05-24] MEDS: FLECAINIDE ACETATE 100 MG TABLET PO ×2 (08:46→20:18)
[2019-05-24] MEDS: FUROSEMIDE INJ 40 MG/4 ML VIAL IV PUSH ×2 (08:47→16:13)
[2019-05-24] MEDS: IPRATROPIUM BR 0.02% INH SOLN 0.5 MG/2.5 ML VIAL INHALATION ×4 (08:49→20:47)
--- NOTE | 2019-05-24 09:06 | PM.PNCARD ---
Progress Note: A&P Additional Plan Follow-up visit for atrial flutter. Patient has been doing well with flecainide prior to the hospitalization and following cardioversion after the agent was discontinued in the 1st part of this hospital stay. He is not anticoagulated and in my opinion risk of anticoagulation is higher than the benefit and I would not favor restarting it in the foreseeable future. Will continue to follow the patient's telemetry while he is in the hospital and arrange for office follow-up after ultimate discharge Time Spent With Patient Time with patient: less than 15 minutes Subjective Date/time seen: Date of service: 05/24/19 09:06 Interval history: Follow-up visit with patient with atrial flutter, recurrence of atrial flutter. Last week when anti rhythmic area agent was discontinued. In sinus rhythm since cardioversion and resumption of flecainide treatment. Hip fracture status post ORIF Significant surgical site hematoma likely related to anticoagulation which has now been stopped Continues to feel better day by day in terms of pain related to his hematoma. Continues to maintain normal sinus rhythm following cardioversion last week and maintenance therapy with flecainide. Exam Const: General: comfortable and no acute distress HENMT: Mouth: Yes moist mucous membranes Eyes: Sclera: sclerae normal Neck: Neck: supple and no JVD Thyroid: thyroid normal Resp: Effort & Inspection: normal respiratory effort Other: Few central rhonchi otherwise good air movement no rales no wheezing Cardio: Rate: regular rate Rhythm: regular rhythm GI: Auscultation: normal bowel sounds Skin: General skin exam: normal color Neuro: Cognition (Neuro): normal cognition Objective Data Vital Signs Vital Signs: Vital Signs - 24 hr 05/23/19 09:51 05/23/19 10:00 05/23/19 12:00 Temperature Pulse Rate 88 91 61 Respiratory Rate 22 H Blood Pressure Pulse Oximetry 91 05/23/19 12:23 05/23/19 12:31 05/23/19 12:32 Temperature 36.4 C Pulse Rate 60 84 61 Respiratory Rate 22 H 20 22 H Blood Pressure 111/47 L Pulse Oximetry 91 05/23/19 14:00 05/23/19 16:00 05/23/19 16:37 Temperature Pulse Rate 70 79 83 Respiratory Rate 22 H 22 H Blood Pressure Pulse Oximetry 97 05/23/19 16:49 05/23/19 17:20 05/23/19 18:00 Temperature 36.4 C L Pulse Rate 84 84 78 Respiratory Rate 22 H 22 H Blood Pressure 114/46 L Pulse Oximetry 95 05/23/19 19:53 05/23/19 20:00 05/23/19 20:30 Temperature 36.3 C L Pulse Rate 76 78 79 Respiratory Rate 22 H Blood Pressure 107/42 L Pulse Oximetry 97 05/23/19 21:07 05/23/19 21:11 05/23/19 21:23 Temperature Pulse Rate 71 74 Respiratory Rate 20 20 Blood Pressure Pulse Oximetry 96 96 05/23/19 22:00 05/23/19 23:54 05/24/19 00:00 Temperature 36.1 C L Pulse Rate 52 L 60 63 Respiratory Rate 18 Blood Pressure 111/40 L Pulse Oximetry 98 05/24/19 02:00 05/24/19 03:45 05/24/19 03:48 Temperature 36.2 C L Pulse Rate 77 68 Respiratory Rate 20 Blood Pressure 98/32 L 106/37 L Pulse Oximetry 93 05/24/19 04:00 05/24/19 06:00 05/24/19 08:46 Temperature Pulse Rate 62 79 75 Respiratory Rate Blood Pressure Pulse Oximetry 05/24/19 08:50 Temperature Pulse Rate 79 Respiratory Rate 20 Blood Pressure Pulse Oximetry 97 Intake/Output Intake/Output: Intake & Output 05/21/19 05/22/19 05/23/19 05/24/19 23:59 23:59 23:59 23:59 Intake Total 690 830 965 250 Output Total 2315 140 525 Balance -1625 690 440 250 Meds/Results Medications: Active Medications Generic Name Dose Route Start Last Admin Trade Name Freq PRN Reason Stop Dose Admin Hydrocodone Bitart/Acetaminophen 1 tab 05/20/19 12:30 05/24/19 08:45 [place] 7.5-325 Mg PO 1 tab Q3H PRN Administration Pain Rated 4-6 Acetazolamide Sodium 250 mg 05/23/19 18:10 05/24/19 08:46 Diamox Inj IV PUSH 250 mg QAM EDA
[2019-05-24] MEDS: POTASSIUM CHLORIDE 20 MEQ TABLET 40 MEQ PO (09:19)
[2019-05-24 09:21] LABS: Glucose Point of Care 101 (65-105)
--- NOTE | 2019-05-24 12:07 | PM.IMPN ---
Progress Note: A&P Assessment and Plan (1) Closed subcapital fracture of neck of right femur: Onset Date: 05/12/19 Qualifiers: Encounter type: initial encounter Qualified Code(s): S72.011A - Unspecified intracapsular fracture of right femur, initial encounter for closed fracture Code(s): S72.011A - Unspecified intracapsular fracture of right femur, initial encounter for closed fracture Status: Acute Assessment and Plan: Patient presented to ER on 05/08/19 with hip pain after a fall. Right femur xray showing impacted subcapital right femoral fracture. Orthopedics consulted and appreciate input. Patient also was in respiratory failure. Once he had clinical improvement, he was able to under go pinning on 05/12/19. Postoperatively, patient has developed a large intramuscular hematoma in lateral right thigh noted by CT on 05/20/19. Patient had mottling bilateral lower extremity but better now. Patient's pain improved and able to tolerate therapy now. Management per Orthopedics. Continue PT/OT as tolerated. Pain management per ortho. (2) Anemia in other chronic diseases classified elsewhere: Code(s): D63.8 - Anemia in other chronic diseases classified elsewhere Status: Acute Assessment and Plan: Has a mild chronic anemia but now with acute blood loss anemia. Hgb dropped to 7 on 05/20 and transfused [address] right femur 05/20/19 showing large intramusc hematoma lateral to femur. Anticoagulation stopped. Small hematoma in abd wall and left lateral abdominal bruising noted also contributing to the drop in Hgb. Related to being on therapeutic doses of Lovenox. Hgb climbed to 8.1 but has been drifting down to 6.8 on 05/22/19 and received another unit of PRBC. Hgb 7.1 today. Ortho following. Continue to monitor HH for stability. (3) Hematoma: Code(s): T14.8XXA - Other injury of unspecified body region, initial encounter Status: Acute Assessment and Plan: As above. Consider also a retroperitoneal hematoma given the left flank bruising (4) Respiratory failure: Qualifiers: Chronicity: acute on chronic Respiratory failure complication: hypoxia and hypercapnia Qualified Code(s): J96.21 - Acute and chronic respiratory failure with hypoxia; J96.22 - Acute and chronic respiratory failure with hypercapnia Code(s): J96.90 - Respiratory failure, unspecified, unspecified whether with hypoxia or hypercapnia Status: Acute Assessment and Plan: Result of pneumonia. Condition has improved. Has chronic respiratory failure requiring 2-3L O2 at home. Currently at O2 2L. Increase activity as tolerated. CXR (05/20/19) showing chronic elevated left hemidiaphragm, emphysema and atelectasis. Continue supportive care. Encouraged compliance with the mask. Continue nebulizers. Plan for SNF when ready for discharge. (5) Community acquired pneumonia: Qualifiers: Laterality: right Lung location: unspecified part of lung Qualified Code(s): J18.9 - Pneumonia, unspecified organism Code(s): J18.9 - Pneumonia, unspecified organism Status: Resolved Assessment and Plan: CT chest with extensive tree-in-bud pattern with small centrilobular nodules throughout the right lung consistent with pneumonia. IV cefepime and vancomycin started and he has completed a 8 day course. Clinically improved. Continue to monitor. (6) Atrial flutter with rapid ventricular response: Code(s): I48.92 - Unspecified atrial flutter Status: Acute Assessment and Plan: Developed atrial flutter with RVR just prior to undergoing surgery on 05/12/19. Patient cardioverted to normal sinus by Dr Araya on 05/17/19. Currently on flecainide only. Was on therapeutic Lovenox for anticoagulation but now stopped due to the anemia and hematoma. Went into AFib last night but converted back out. Continue Lasix as tolerated to improve f
--- NOTE | 2019-05-24 13:11 | PCOTNOTE ---
Attempted to see patient this afternoon. Patient reports that he is experiencing 7/10 pain and reports that he is in too much pain to participate and refuses OT session at this time.
[2019-05-24 13:14] LABS: Glucose Point of Care 137 (65-105)
[2019-05-24 16:54] LABS: Glucose Point of Care 128 (65-105)
[2019-05-24 20:51] LABS: Glucose Point of Care 120 (65-105)
[2019-05-25] VITALS (23 sets, daily range): BP systolic 101–129; BP diastolic 38–56; PULSE 40–76; RESP 20–32; TEMP 36.1–36.7; O2SAT 93–100; BMI 10.0
[2019-05-25 05:00] LABS: Hematocrit 24.6 % (42.0-52.0); Hemoglobin 7.2 g/dL (14.0-18.0); Mean Corpuscular HGB Conc 29.3 g/dl (32-36); Mean Corpuscular Hemoglobin 30.4 pg (26-34); Mean Corpuscular Volume 103.8 fl (80-100); Mean Platelet Volume 10.5 fl (7.4-10.4); Platelet Count Result 235 k/mm3 (150-375); Red Blood Count 2.37 M/mm3 (4.6-6.20); Red Cell Distribution Width 19.9 % (11.5-14.5)
[2019-05-25 05:23] LABS: Blood Urea Nitrogen 32 mg/dL (9-20); Calcium 7.8 mg/dL (8.4-10.2); Carbon Dioxide 38 mmol/L (22-30); Chloride 91 mmol/L (98-107); Estimated CRCL calculation 66 ml/min; Estimated Glomerular Filt Rate > 60; Glucose 96 mg/dL (75-110); Magnesium 2.2 mg/dL (1.6-2.3); Sodium 135 mmol/L (137-145)
[2019-05-25 07:42] LABS: Glucose Point of Care 101 (65-105)
[2019-05-25] MEDS: WATER, STERILE FOR INJECTION 10 ML VIAL XX (07:49)
[2019-05-25] MEDS: FLECAINIDE ACETATE 100 MG TABLET PO ×2 (07:55→20:49)
[2019-05-25] MEDS: predniSONE 10 MG TABLET PO (07:58)
[2019-05-25] MEDS: ASPIRIN 81 MG CHEWABLE TABLET PO (07:58)
[2019-05-25] MEDS: DOCUSATE SODIUM 100 MG CAPSULE PO ×2 (07:59→19:39)
[2019-05-25] MEDS: FUROSEMIDE INJ 40 MG/4 ML VIAL IV PUSH ×2 (07:59→19:39)
[2019-05-25] MEDS: IPRATROPIUM BR 0.02% INH SOLN 0.5 MG/2.5 ML VIAL INHALATION ×3 (08:37→20:29)
--- NOTE | 2019-05-25 10:04 | PM.PNCARD ---
Progress Note: A&P Assessment and Plan (1) AV block, 2nd degree: Code(s): I44.1 - Atrioventricular block, second degree Status: Acute Assessment and Plan: Resolved. No recurrence. Will check EKG. Continue flecainide at current dose (2) Hyperkalemia: Code(s): E87.5 - Hyperkalemia Status: Acute Assessment and Plan: Resolved (3) Sepsis: Qualifiers: Acute respiratory failure type: with hypercapnia Sepsis acute organ dysfunction status: with acute organ dysfunction Sepsis type: sepsis due to unspecified organism Severe sepsis acute organ dysfunction type: acute respiratory failure Severe sepsis shock status: without septic shock Qualified Code(s): A41.9 - Sepsis, unspecified organism; R65.20 - Severe sepsis without septic shock; J96.02 - Acute respiratory failure with hypercapnia Code(s): A41.9 - Sepsis, unspecified organism Status: Resolved Assessment and Plan: Per primary service (4) Obstructive sleep apnea: Code(s): G47.33 - Obstructive sleep apnea (adult) (pediatric) Status: Acute Assessment and Plan: BiPAP (5) Paroxysmal atrial fibrillation: Code(s): I48.0 - Paroxysmal atrial fibrillation Status: Acute Assessment and Plan: Developed atrial flutter on way to operating room 05/13/2019. Flecainide restarted 05/15/2019. Successfully cardioverted 05/17/[address] Knowles Was anticoagulated with full-dose Lovenox. Was to start Eliquis however hemoglobin has dropped to 7.0. Transfused. Anticoagulation discontinued. Maintaining normal sinus rhythm. (6) COPD (chronic obstructive pulmonary disease): Code(s): J44.9 - Chronic obstructive pulmonary disease, unspecified Status: Acute Assessment and Plan: Per primary service. Diminished breath sounds especially on the left. Some crackles on the right. Continue IV Lasix. Monitor renal function. (7) Acute encephalopathy: Code(s): G93.40 - Encephalopathy, unspecified Status: Resolved Assessment and Plan: Resolved. Secondary to sepsis, pneumonia. (8) Closed subcapital fracture of neck of right femur: Onset Date: 05/12/19 Qualifiers: Encounter type: initial encounter Qualified Code(s): S72.011A - Unspecified intracapsular fracture of right femur, initial encounter for closed fracture Code(s): S72.011A - Unspecified intracapsular fracture of right femur, initial encounter for closed fracture Status: Acute Assessment and Plan: Status post hip pinning 05/13/2019 Pain control per hospitalist (9) Community acquired pneumonia: Qualifiers: Laterality: right Lung location: unspecified part of lung Qualified Code(s): J18.9 - Pneumonia, unspecified organism Code(s): J18.9 - Pneumonia, unspecified organism Status: Resolved Assessment and Plan: Per primary service . (10) Elevated troponin: Code(s): R79.89 - Other specified abnormal findings of blood chemistry Status: Acute Assessment and Plan: Most likely secondary to acute hypoxic respiratory failure and pneumonia. Type 2 infarct, non HI troponin elevation most likely. However, given patient's age and risk factors ischemic evaluation warranted in future prior to resuming flecainide to ensure safety margin. EF 60-65% by echo. Additional Plan Plan discussed with Dr. Colón [id number] 05/25/2019 Subjective Date/time seen: 05/25/19 10:04 Interval history: Follow-up for: respiratory failure, sepsis, right femur fracture post repair 05/13/2019, atrial flutter successfully cardioverted 05/17/2019, post op bleeding into hip requiring transfusion; a
--- NOTE | 2019-05-25 10:15 | ECG_ITS ---
Measurements Intervals [place] Rate: 45 P: [place]: 0 QRS: -42 QRSD: 198 T: -50 QT: 561 QTc: 486 Interpretive Statements SINUS RHYTHM WITH 2ND DEGREE AV BLOCK, MOBITZ TYPE II LEFT AXIS DEVIATION RIGHT BUNDLE BRANCH BLOCK BASELINE ARTIFACT- I, II, III, AVR, AVL, AVF, V3-V6 ABNORMAL ECG Electronically Signed On 05-25-2019 16:56:10 INSURANCE ACCOUNT SPECIALIST by Gurvinder Weiss D.O.
--- NOTE | 2019-05-25 10:40 | PM.IMPN ---
Progress Note: A&P Assessment and Plan (1) Closed subcapital fracture of neck of right femur: Onset Date: 05/12/19 Qualifiers: Encounter type: initial encounter Qualified Code(s): S72.011A - Unspecified intracapsular fracture of right femur, initial encounter for closed fracture Code(s): S72.011A - Unspecified intracapsular fracture of right femur, initial encounter for closed fracture Status: Acute Assessment and Plan: Patient presented to ER on 05/08/19 with hip pain after a fall. Right femur xray showing impacted subcapital right femoral fracture. Orthopedics consulted and appreciate input. Patient also was in respiratory failure. Able to undergo pinning on 05/12/2019 after medically stable. POD # 13. Noted on CT to have large intramuscular hematoma right thigh on 05/20/2019. CT of abdomen/pelvis today with no acute intra-abdominal findings, moderately distended rectal vault and moderate amount of colonic stool, right thigh hematoma/seroma, probable cirrhosis and small right pleural effusion. Postoperative management continues per Orthopedics. Continue PT/OT. Eventual plan is to go to rehab. (2) Anemia in other chronic diseases classified elsewhere: Code(s): D63.8 - Anemia in other chronic diseases classified elsewhere Status: Acute Assessment and Plan: Underlying mild chronic anemia. Did have acute blood loss with hemoglobin dropping to 7.0 on 05/20/2019 with transfusion 1 unit PRBC. Intermuscular hematoma noted on the right by CT on that day as noted above. Anticoagulation stopped. Hemoglobin did drop to 6.8 on 05/22/2019 with an additional 1 unit PRBC transfused. Hemoglobin today stable at 7.2. Repeat CT with no enlargement of hematoma. Will continue to monitor H&H. Transfuse as needed. (3) Hematoma: Code(s): T14.8XXA - Other injury of unspecified body region, initial encounter Status: Acute Assessment and Plan: As above. No additional hematomas noted CT today. (4) Respiratory failure: Qualifiers: Chronicity: acute on chronic Respiratory failure complication: hypoxia and hypercapnia Qualified Code(s): J96.21 - Acute and chronic respiratory failure with hypoxia; J96.22 - Acute and chronic respiratory failure with hypercapnia Code(s): J96.90 - Respiratory failure, unspecified, unspecified whether with hypoxia or hypercapnia Status: Acute Assessment and Plan: Result of pneumonia. Significantly improved. Remains on 2-3 L of oxygen presently which is his home requirement. Continue nebulizer treatments. Will continue to monitor. (5) Community acquired pneumonia: Qualifiers: Laterality: right Lung location: unspecified part of lung Qualified Code(s): J18.9 - Pneumonia, unspecified organism Code(s): J18.9 - Pneumonia, unspecified organism Status: Resolved Assessment and Plan: CT chest with extensive tree-in-bud pattern with small centrilobular nodules throughout the right lung consistent with pneumonia. IV cefepime and vancomycin started and he has completed a 8 day course. Clinically improved. Continue to monitor. (6) Atrial flutter with rapid ventricular response: Code(s): I48.92 - Unspecified atrial flutter Status: Acute Assessment and Plan: Developed atrial flutter with RVR just prior to undergoing surgery on 05/12/19. Patient cardioverted to normal sinus by Dr Araya on 05/17/19. Now on flecainide only at this time. Therapeutic Lovenox has been discontinued due to anemia and hematoma. Telemetry reviewed on 05/25/2019 with bradycardia with heart rate in 40s but patient asymptomatic. Discussed with Cardiology. Will leave current dose of flecainide. Remains on IV Lasix. Will monitor. (7) Leukocytosis: Qualifiers: Leukocytosis type: unspecified Qualified Code(s): D72.829 - Elevated white blood cell count, unspecified Code(s): D72.
[2019-05-25 13:22] LABS: Glucose Point of Care 129 (65-105)
--- NOTE | 2019-05-25 13:57 | PCDIET ---
Nutrition Follow-Up Complete: Suboptimal oral intake related to decreased appetite as evidenced by patient consuming ~50% of meals. Patient to consume 50% of meals or greater and Glucerna Shake Goal partially met.Pt consuming average of 55% of meals since 05/21. But states he does not like Glucerna drinks Nutrition recommendation: Recommend continuation of DM CHO consistent diet. Recommend addition of Thrive ice cream (270kcal, 9g pro) 1x/day in order to provide additional source of calories and pro to pt. Although source of simple CHOS, pt is eating only 55% of meals on average, has obtained a pressure ulcer, and weight loss recorded (original weight of 94.8kg, wt recorded today at 88kg). Last recorded weight is 88 kg. Bowel Motility:+BM 05/25 Labs Reviewed:Hgb(7.2), Hct(24.6), Na(135), BUN(32), Cr(0.8), Glu(96) Meds Noted:Novolog, Narcan, lasix, tambocor, prednisone, Zn oxide Additional Notes: Noted that pt now has pressure ulcer. Pt stated no N/V or abdominal pain today. Says he lacks appetite; food doesn't sound good. Said this afternoon that he has only had scrambled eggs, bunch, coffee w/ cream, apple juice and orange juice today. Stated he did not like Glucerna drinks so Thrive was suggested; pt seemed to be interested in this option. Will continue to monitor labs and intake. Follow up in 5 days.
--- NOTE | 2019-05-25 14:18 | PCNSR ---
On 05/25/19, the student, Sepideh Nettles, provided care and completed [facility] documentation on this patient. I have reviewed the student's documentation and agree with the findings.
--- NOTE | 2019-05-25 15:40 | PM.PNORT ---
Progress Note: A&P Additional Plan POST OP RIGHT HIP PERCUTANEOUS PINNING. HE IS IMPROVING SLOWLY. RECOMMEND CONTINUE TOE TOUCH WEIGHT BEARING AND F/U WITH ME IN 6 WEEKS FROM OPERATIVE DATE. Time Spent With Patient Time with patient: less than 15 minutes Subjective Subjective Date/Time Seen: 05/25/19 15:40 S/P RIGHT PERC PINNING. HE IS IMPROVED. HIS PAIN IS IMPROVED. HE ISMOVING AROUND A LITTLE BETTER. STILL NEEDS TO MOVE AROUND MORE AND GET OUT OF BED.. 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 THIGH SOFT AND CALF SOFT NON TENDER. NEG HOMANS SIGN Objective Data Vital Signs Vital Signs: Vital Signs - 24 hr 05/24/19 16:00 05/24/19 16:11 05/24/19 16:20 Temperature 36.1 C L Pulse Rate 61 63 62 Respiratory Rate 20 18 20 Blood Pressure 115/64 Pulse Oximetry 100 05/24/19 18:00 05/24/19 20:00 05/24/19 20:18 Temperature 36.5 C Pulse Rate 74 108 H 78 Respiratory Rate 22 H Blood Pressure 113/45 L Pulse Oximetry 97 05/24/19 20:48 05/24/19 21:01 05/24/19 21:06 Temperature Pulse Rate 73 68 78 Respiratory Rate 20 20 22 H Blood Pressure Pulse Oximetry 96 99 05/24/19 22:00 05/24/19 23:27 05/25/19 00:00 Temperature 36.6 C Pulse Rate 54 L 55 L 62 Respiratory Rate 22 H Blood Pressure 104/47 L Pulse Oximetry 93 05/25/19 02:00 05/25/19 04:00 05/25/19 06:00 Temperature 36.7 C Pulse Rate 65 69 73 Respiratory Rate 20 Blood Pressure 101/56 L Pulse Oximetry 94 05/25/19 07:55 05/25/19 08:00 05/25/19 08:04 Temperature 36.6 C Pulse Rate 52 L 55 L 76 Respiratory Rate 20 Blood Pressure 103/45 L Pulse Oximetry 93 05/25/19 08:37 05/25/19 08:40 05/25/19 08:52 Temperature Pulse Rate 51 L 50 L Respiratory Rate 32 H 28 H Blood Pressure Pulse Oximetry 95 05/25/19 11:51 05/25/19 12:48 05/25/19 13:32 Temperature 36.2 C L 36.2 C L Pulse Rate 46 L 46 L 46 L Respiratory Rate 20 26 H 20 Blood Pressure 126/42 L 126/42 L Pulse Oximetry 93 93 Intake/Output Intake/Output: Intake & Output 05/22/19 05/23/19 05/24/19 05/25/19 23:59 23:59 23:59 23:59 Intake Total 076 950 3926 390 Output Total 491 409 3119 550 Balance 690 675 -280 -041 Meds/Results Medications: Active Medications Generic Name Dose Route Start Last Admin Trade Name Freq PRN Reason Stop Dose Admin Hydrocodone Bitart/Acetaminophen 1 tab 05/20/19 12:30 05/25/19 14:06 [place] 7.5-325 Mg PO 1 tab Q3H PRN Administration Pain Rated 4-6 Acetazolamide Sodium 250 mg 05/23/19 18:10 05/25/19 07:56 Diamox Inj IV PUSH 250 mg QAM EDA Administration Aspirin 81 mg 05/10/19 08:00 05/25/19 07:58 Aspirin Chewable PO 81 mg DAILY@0800 EDA Administration Benzonatate 200 mg 05/09/19 04:09 05/12/19 00:01 Tessalon Perles PO 200 mg TID PRN Administration cough Budesonide/Formoterol Fumarate 2 puff 05/12/19 08:00 05/25/19 08:40 Symbicort 160-4.5 Mcg (*Sp) Inhaler INHALATION 2 puff Q12HRT EDA Administration Dextrose 12.5 gm 05/10/19 17:06 Dextrose 50% Syringe IV PUSH PRN PRN Hypoglycemia Protocol Docusate Sodium 100 mg 05/12/19 17:00 05/25/19 07:59 Colace Capsule PO 100 mg BID EDA Administration Flecainide Acetate 100 mg 05/15/19 21:00 05/25/19 07:55 Tambocor PO 100 mg Q12HR EDA Administration Furosemide 40 mg 05/18/19 17:00 05/25/19 07:59 Lasix Inj IV PUSH 40 mg BID EDA Administration Glucagon 1 mg 05/10/19 17:06 Glucagon For Inj IM PRN PRN Hypoglycemia Protocol Glucose 15 gm 05/10/19 17:06 Glutose 15 PO PRN PRN Hypoglycemia Protocol Guaifenesin 1,200 mg 05/11/19 13:00 05/25/19 07:57 Mucinex 12 Hr Tab PO 1,200 mg Q12HR EDA Administration Dextrose 1,000 mls @ 100 mls/hr 05/10/19 17:06 Dextrose 5% 1,000 Ml IVPB PRN PRN Hypoglycemia Protocol Ins
[2019-05-25 17:44] LABS: Glucose Point of Care 137 (65-105)
[2019-05-25 21:01] LABS: Glucose Point of Care 118 (65-105)
[2019-05-26] VITALS (26 sets, daily range): BP systolic 100–128; BP diastolic 40–64; PULSE 38–97; RESP 18–25; TEMP 36–36.6; O2SAT 92–100
[2019-05-26 05:12] LABS: Hematocrit 24.8 % (42.0-52.0); Hemoglobin 7.5 g/dL (14.0-18.0); Mean Corpuscular HGB Conc 30.2 g/dl (32-36); Mean Corpuscular Hemoglobin 30.9 pg (26-34); Mean Corpuscular Volume 102.1 fl (80-100); Mean Platelet Volume 10.5 fl (7.4-10.4); Platelet Count Result 228 k/mm3 (150-375); Red Blood Count 2.43 M/mm3 (4.6-6.20); Red Cell Distribution Width 19.9 % (11.5-14.5); White Blood Count 16.9 K/mm3 (4.5-10.0)
[2019-05-26 05:26] LABS: Blood Urea Nitrogen 31 mg/dL (9-20); Calcium 8.1 mg/dL (8.4-10.2); Carbon Dioxide 38 mmol/L (22-30); Chloride 93 mmol/L (98-107); Estimated CRCL calculation 55 ml/min; Estimated Glomerular Filt Rate > 60; Glucose 99 mg/dL (75-110); Magnesium 2.2 mg/dL (1.6-2.3); Potassium 3.5 mmol/L (3.4-5.0); Sodium 135 mmol/L (137-145)
[2019-05-26] MEDS: IPRATROPIUM BR 0.02% INH SOLN 0.5 MG/2.5 ML VIAL INHALATION ×4 (07:55→20:11)
[2019-05-26 09:08] LABS: Glucose Point of Care 92 (65-105)
[2019-05-26] MEDS: ASPIRIN 81 MG CHEWABLE TABLET PO (09:19)
[2019-05-26] MEDS: predniSONE 10 MG TABLET PO (09:19)
[2019-05-26] MEDS: DOCUSATE SODIUM 100 MG CAPSULE PO ×2 (09:27→17:20)
--- NOTE | 2019-05-26 09:36 | ECG_ITS ---
Measurements Intervals [place] Rate: 57 P: [place]: 0 QRS: 224 QRSD: 172 T: 134 QT: 590 QTc: 577 Interpretive Statements SINUS RHYTHM WITH 2ND DEGREE AV BLOCK, MOBITZ TYPE II ATRIAL PREMATURE COMPLEXES RIGHT BUNDLE BRANCH BLOCK BASELINE ARTIFACT- I, II, III, AVR, AVL, AVF, V1-V6 ABNORMAL ECG Electronically Signed On 05-26-2019 10:37:19 BODS DEVELOPER by Gurvinder Weiss D.O.
--- NOTE | 2019-05-26 09:42 | PC.NURSE ---
Pt BP and HR low at this time. Lasix, Tambocor, and diamox held at this time per Rosie Dupree NP. See physician communication.
[2019-05-26 11:58] LABS: Glucose Point of Care 107 (65-105)
--- NOTE | 2019-05-26 12:02 | PM.PNCARD ---
Progress Note: A&P Assessment and Plan (1) AV block, 2nd degree: Code(s): I44.1 - Atrioventricular block, second degree Status: Acute Assessment and Plan: Heart rates in the 40s with second-degree Mobitz type 2 heart block noted. EKG from 05/25/[address] Knowles reveals a second-degree AV block Mobitz type 2. Heart rate 45 beats per minute. Right bundle branch block. Baseline artifact. The EKG on 05/26/2019 as second-degree heart block Mobitz type 2. There is significant baseline artifact. Discussed with Dr. Knowles. Will hold flecainide this morning. Decrease flecainide to 50 mg at 9:00 p.m. if heart rate greater than 55. Concern is if we hold his flecainide indefinitely he will return to atrial flutter. (2) Hyperkalemia: Code(s): E87.5 - Hyperkalemia Status: Acute Assessment and Plan: Will give him 40 mEq potassium today. Potassium 3.5 this morning. Continue to monitor renal function and electrolytes. (3) Sepsis: Qualifiers: Acute respiratory failure type: with hypercapnia Sepsis acute organ dysfunction status: with acute organ dysfunction Sepsis type: sepsis due to unspecified organism Severe sepsis acute organ dysfunction type: acute respiratory failure Severe sepsis shock status: without septic shock Qualified Code(s): A41.9 - Sepsis, unspecified organism; R65.20 - Severe sepsis without septic shock; J96.02 - Acute respiratory failure with hypercapnia Code(s): A41.9 - Sepsis, unspecified organism Status: Resolved Assessment and Plan: Per primary service (4) Obstructive sleep apnea: Code(s): G47.33 - Obstructive sleep apnea (adult) (pediatric) Status: Acute Assessment and Plan: BiPAP (5) Paroxysmal atrial fibrillation: Code(s): I48.0 - Paroxysmal atrial fibrillation Status: Acute Assessment and Plan: Developed atrial flutter on way to operating room 05/13/2019. Flecainide restarted 05/15/2019. Successfully cardioverted 05/17/[address] Knowles Was anticoagulated with full-dose Lovenox. Was to start Eliquis however hemoglobin has dropped to 7.0. Transfused. Anticoagulation discontinued. Rhythm as above. (6) COPD (chronic obstructive pulmonary disease): Code(s): J44.9 - Chronic obstructive pulmonary disease, unspecified Status: Acute Assessment and Plan: Per primary service. No crackles noted. Decreased to approximately 1/3 up on the left posterior. Furosemide on hold due to his soft blood pressure and lightheadedness this morning. Will resume tomorrow at 40 mg p.o. daily. (7) Acute encephalopathy: Code(s): G93.40 - Encephalopathy, unspecified Status: Resolved Assessment and Plan: Resolved. Secondary to sepsis, pneumonia. (8) Closed subcapital fracture of neck of right femur: Onset Date: 05/12/19 Qualifiers: Encounter type: initial encounter Qualified Code(s): S72.011A - Unspecified intracapsular fracture of right femur, initial encounter for closed fracture Code(s): S72.011A - Unspecified intracapsular fracture of right femur, initial encounter for closed fracture Status: Acute Assessment and Plan: Status post hip pinning 05/13/2019 Pain control per hospitalist (9) Community acquired pneumonia: Qualifiers: Laterality: right Lung location: unspecified part of lung Qualified Code(s): J18.9 - Pneumonia, unspecified organism Code(s): J18.9 - Pneumonia, unspecified organism Status: Resolved Assessment and Plan: Per primary service . (10) Elevated troponin: Code(s): R79.89 - Other specified abnormal findings of blood chemistry
--- NOTE | 2019-05-26 12:42 | PM.IMPN ---
Progress Note: A&P Assessment and Plan (1) AV block, 2nd degree: Code(s): I44.1 - Atrioventricular block, second degree Status: Acute Assessment and Plan: Noted to have second-degree AV block on telemetry confirmed on EKG again today. Discussed with Cardiology. Flecainide being held during the day with hopes to resume at lower dose tonight. Current telemetry on 05/26/2019 with heart rate in the 50s earlier today and now in 80s this evening. Discussed with Cardiology. Will continue to monitor closely. Medicare Attestation: Patient still medically requires inpatient treatment due to cardiac issues as noted with second-degree AV block noted today. Still requiring adjustment of medication for rate control without secondary issues. (2) Atrial flutter with rapid ventricular response: Code(s): I48.92 - Unspecified atrial flutter Status: Acute Assessment and Plan: Developed atrial flutter with RVR just prior to undergoing surgery on 05/12/19. Patient cardioverted to normal sinus by Dr Araya on 05/17/19. Flecainide decrease today due to second-degree AV block as noted above. IV Lasix discontinued as was being used for edema not congestive changes. Will continue to monitor. (3) Closed subcapital fracture of neck of right femur: Onset Date: 05/12/19 Qualifiers: Encounter type: initial encounter Qualified Code(s): S72.011A - Unspecified intracapsular fracture of right femur, initial encounter for closed fracture Code(s): S72.011A - Unspecified intracapsular fracture of right femur, initial encounter for closed fracture Status: Acute Assessment and Plan: Patient presented to ER on 05/08/19 with hip pain after a fall. Right femur xray showing impacted subcapital right femoral fracture. Orthopedics consulted and appreciate input. Patient also was in respiratory failure. Able to undergo pinning on 05/12/2019 after medically stable. POD # 14. Noted on CT to have large intramuscular hematoma right thigh on 05/20/2019. CT of abdomen/pelvis today with no acute intra-abdominal findings, moderately distended rectal vault and moderate amount of colonic stool, right thigh hematoma/seroma, probable cirrhosis and small right pleural effusion. Postoperative management continues per Orthopedics. Continue PT/OT. Eventual plan is to go to rehab. (4) Anemia in other chronic diseases classified elsewhere: Code(s): D63.8 - Anemia in other chronic diseases classified elsewhere Status: Acute Assessment and Plan: Underlying mild chronic anemia. Did have acute blood loss with hemoglobin dropping to 7.0 on 05/20/2019 with transfusion 1 unit PRBC. Intermuscular hematoma noted on the right by CT on that day as noted above. Anticoagulation stopped. Hemoglobin did drop to 6.8 on 05/22/2019 with an additional 1 unit PRBC transfused. Hemoglobin today stable at 7.[address] with no enlargement of hematoma. Will continue to monitor H&H. Transfuse as needed. (5) Hematoma: Code(s): T14.8XXA - Other injury of unspecified body region, initial encounter Status: Acute Assessment and Plan: As above. No additional hematomas noted CT today. (6) Respiratory failure: Qualifiers: Chronicity: acute on chronic Respiratory failure complication: hypoxia and hypercapnia Qualified Code(s): J96.21 - Acute and chronic respiratory failure with hypoxia; J96.22 - Acute and chronic respiratory failure with hypercapnia Code(s): J96.90 - Respiratory failure, unspecified, unspecified whether with hypoxia or hypercapnia Status: Acute Assessment and Plan: Result of pneumonia. Significantly improved. Remains on 3 L of oxygen presently which is his home requirement. Continue nebulizer treatments. Will continue to monitor. (7) Community acquired pneumonia: Qualifiers: Laterality: right Lung location: unspecified part of lung
[2019-05-26 16:56] LABS: Glucose Point of Care 150 (65-105)
[2019-05-26] MEDS: FLECAINIDE ACETATE 50 MG TABLET PO (20:35)
[2019-05-26 20:38] LABS: Glucose Point of Care 100 (65-105)
--- NOTE | 2019-05-26 21:49 | PC.NURSE ---
Pt refused ice gel pad to hip, states has more pain with ice
[2019-05-27] VITALS (25 sets, daily range): BP systolic 116–136; BP diastolic 45–80; PULSE 56–97; RESP 18–24; TEMP 36.1–36.7; O2SAT 93–100; BMI 11.0
[2019-05-27 05:36] LABS: Blood Urea Nitrogen 27 mg/dL (9-20); Calcium 7.9 mg/dL (8.4-10.2); Carbon Dioxide 33 mmol/L (22-30); Chloride 95 mmol/L (98-107); Estimated CRCL calculation 67 ml/min; Estimated Glomerular Filt Rate > 60; Glucose 94 mg/dL (75-110); Magnesium 2.2 mg/dL (1.6-2.3); Potassium 3.6 mmol/L (3.4-5.0); Sodium 136 mmol/L (137-145)
--- NOTE | 2019-05-27 08:00 | ECG_ITS ---
Measurements Intervals [place] Rate: 84 P: 227 TN: 146 QRS: -37 QRSD: 178 T: 62 QT: 508 QTc: 604 Interpretive Statements SINUS RHYTHM WITH FIRST DEGREE AV BLOCK LEFT AXIS DEVIATION RIGHT BUNDLE BRANCH BLOCK BASELINE ARTIFACT- I, II, III, AVR, AVL, AVF, V1-V6 ABNORMAL ECG Electronically Signed On 05-27-2019 9:05:16 [employer] by Gurvinder Weiss D.O.
[2019-05-27] MEDS: ASPIRIN 81 MG CHEWABLE TABLET PO (08:03)
[2019-05-27] MEDS: FUROSEMIDE 40 MG TABLET PO (08:03)
[2019-05-27] MEDS: DOCUSATE SODIUM 100 MG CAPSULE PO ×2 (08:03→17:47)
[2019-05-27] MEDS: FLECAINIDE ACETATE 50 MG TABLET PO ×2 (08:03→20:45)
[2019-05-27] MEDS: predniSONE 10 MG TABLET PO (08:04)
[2019-05-27] MEDS: IPRATROPIUM BR 0.02% INH SOLN 0.5 MG/2.5 ML VIAL INHALATION ×4 (08:06→20:37)
[2019-05-27 08:11] LABS: Glucose Point of Care 93 (65-105)
--- NOTE | 2019-05-27 11:24 | PM.IMPN ---
Progress Note: A&P Assessment and Plan (1) AV block, 2nd degree: Code(s): I44.1 - Atrioventricular block, second degree Status: Acute Assessment and Plan: Noted to have second-degree AV block on telemetry and confirmed by EKG yesterday. Flecainide held then decreased dose. Discussed with Cardiology today. EKG done today reviewed with no 2nd degree block seen and sinus rhythm. Telemetry reviewed on 05/27/2019 with heart rate now in the 70s. Continue flecainide at lower dose. Hopefully will be ready for discharge soon at this point. Will continue to monitor. (2) Atrial flutter with rapid ventricular response: Code(s): I48.92 - Unspecified atrial flutter Status: Acute Assessment and Plan: Developed atrial flutter with RVR just prior to undergoing surgery on 05/12/19. Patient cardioverted to normal sinus by Dr Araya on 05/17/19. Now in sinus rhythm with no 2nd degree AV block as noted above. On oral Lasix at this point. Will monitor. (3) Closed subcapital fracture of neck of right femur: Onset Date: 05/12/19 Qualifiers: Encounter type: initial encounter Qualified Code(s): S72.011A - Unspecified intracapsular fracture of right femur, initial encounter for closed fracture Code(s): S72.011A - Unspecified intracapsular fracture of right femur, initial encounter for closed fracture Status: Acute Assessment and Plan: Patient presented to ER on 05/08/19 with hip pain after a fall. Right femur xray showing impacted subcapital right femoral fracture. Orthopedics consulted and appreciate input. Patient also was in respiratory failure. Able to undergo pinning on 05/12/2019 after medically stable. POD # 15. Noted on CT to have large intramuscular hematoma right thigh on 05/20/2019. CT of abdomen/pelvis today with no acute intra-abdominal findings, moderately distended rectal vault and moderate amount of colonic stool, right thigh hematoma/seroma, probable cirrhosis and small right pleural effusion. Postoperative management continues per Orthopedics. Continue PT/OT. Plan for SNF at [facility] when stable. Hopeful discharge soon. (4) Anemia in other chronic diseases classified elsewhere: Code(s): D63.8 - Anemia in other chronic diseases classified elsewhere Status: Acute Assessment and Plan: Underlying mild chronic anemia. Did have acute blood loss with hemoglobin dropping to 7.0 on 05/20/2019 with transfusion 1 unit PRBC. Intermuscular hematoma noted on the right by CT on that day as noted above. Anticoagulation stopped. Hemoglobin did drop to 6.8 on 05/22/2019 with an additional 1 unit PRBC transfused. Hemoglobin today stable at 7.5 on 05/26/2019. Repeat CT with no enlargement of hematoma. Will continue to monitor H&H periodically. Transfuse as needed. (5) Hematoma: Code(s): T14.8XXA - Other injury of unspecified body region, initial encounter Status: Acute Assessment and Plan: As above. No additional hematomas noted on repeat CT on 05/26/2019. (6) Respiratory failure: Qualifiers: Chronicity: acute on chronic Respiratory failure complication: hypoxia and hypercapnia Qualified Code(s): J96.21 - Acute and chronic respiratory failure with hypoxia; J96.22 - Acute and chronic respiratory failure with hypercapnia Code(s): J96.90 - Respiratory failure, unspecified, unspecified whether with hypoxia or hypercapnia Status: Acute Assessment and Plan: Result of pneumonia. Acute issue now resolved. Remains on 3 L of oxygen presently which is his home requirement. Continue nebulizer treatments. Will continue to monitor. (7) Community acquired pneumonia: Qualifiers: Laterality: right Lung location: unspecified part of lung Qualified Code(s): J18.9 - Pneumonia, unspecified organism Code(s): J18.9 - Pneumonia, unspecified organism Status: Resolved Assessment and Plan:
[2019-05-27 12:49] LABS: Glucose Point of Care 123 (65-105)
--- NOTE | 2019-05-27 14:05 | PM.PNCARD ---
Progress Note: A&P Assessment and Plan (1) AV block, 2nd degree: Code(s): I44.1 - Atrioventricular block, second degree Status: Acute Assessment and Plan: Flecainide decreased to 50 mg q.12 hours due to second-degree heart block and bradycardia. This has resolved. No evidence of atrial flutter. Continue at current dose. (2) Hyperkalemia: Code(s): E87.5 - Hyperkalemia Status: Acute Assessment and Plan: Potassium 3.6 this morning. Will supplement with 40 mEq. Continue to monitor renal function and electrolytes. Diuretics have been decreased. (3) Sepsis: Qualifiers: Acute respiratory failure type: with hypercapnia Sepsis acute organ dysfunction status: with acute organ dysfunction Sepsis type: sepsis due to unspecified organism Severe sepsis acute organ dysfunction type: acute respiratory failure Severe sepsis shock status: without septic shock Qualified Code(s): A41.9 - Sepsis, unspecified organism; R65.20 - Severe sepsis without septic shock; J96.02 - Acute respiratory failure with hypercapnia Code(s): A41.9 - Sepsis, unspecified organism Status: Resolved Assessment and Plan: Per primary service (4) Obstructive sleep apnea: Code(s): G47.33 - Obstructive sleep apnea (adult) (pediatric) Status: Acute Assessment and Plan: BiPAP (5) Paroxysmal atrial fibrillation: Code(s): I48.0 - Paroxysmal atrial fibrillation Status: Acute Assessment and Plan: Developed atrial flutter on way to operating room 05/13/2019. Flecainide restarted 05/15/2019. Successfully cardioverted 05/17/[address] Knowles Was anticoagulated with full-dose Lovenox. Was to start Eliquis however hemoglobin has dropped to 7.0. Transfused. Anticoagulation discontinued. Rhythm as above. (6) COPD (chronic obstructive pulmonary disease): Code(s): J44.9 - Chronic obstructive pulmonary disease, unspecified Status: Acute Assessment and Plan: Per primary service. Diuretics as above (7) Acute encephalopathy: Code(s): G93.40 - Encephalopathy, unspecified Status: Resolved Assessment and Plan: Resolved. Secondary to sepsis, pneumonia. (8) Closed subcapital fracture of neck of right femur: Onset Date: 05/12/19 Qualifiers: Encounter type: initial encounter Qualified Code(s): S72.011A - Unspecified intracapsular fracture of right femur, initial encounter for closed fracture Code(s): S72.011A - Unspecified intracapsular fracture of right femur, initial encounter for closed fracture Status: Acute Assessment and Plan: Status post hip pinning 05/13/2019 Pain control per Orthopedics (9) Community acquired pneumonia: Qualifiers: Laterality: right Lung location: unspecified part of lung Qualified Code(s): J18.9 - Pneumonia, unspecified organism Code(s): J18.9 - Pneumonia, unspecified organism Status: Resolved Assessment and Plan: Per primary service . (10) Elevated troponin: Code(s): R79.89 - Other specified abnormal findings of blood chemistry Status: Acute Assessment and Plan: Most likely secondary to acute hypoxic respiratory failure and pneumonia. Type 2 infarct, non [place] troponin elevation most likely. However, given patient's age and risk factors ischemic evaluation warranted in future prior to resuming flecainide to ensure safety margin. EF 60-65% by echo. Additional Plan If remains hemodynamically and rhythm stable may be ready for discharge from a cardiac standpoint within the next 24-48 hours. Plan discussed with Dr. Colón 1215 05/27/2019 Subjective Date/time seen:
[2019-05-27] MEDS: POTASSIUM CHLORIDE 20 MEQ TABLET 40 MEQ PO (15:11)
[2019-05-27 18:07] LABS: Glucose Point of Care 136 (65-105)
[2019-05-27 20:14] LABS: Glucose Point of Care 131 (65-105)
[2019-05-28] VITALS (39 sets, daily range): BP systolic 112–128; BP diastolic 46–61; PULSE 66–97; RESP 18–36; TEMP 36.1–37.3; O2SAT 94–100
[2019-05-28 04:52] LABS: Hematocrit 24.5 % (42.0-52.0); Mean Corpuscular HGB Conc 28.6 g/dl (32-36); Mean Corpuscular Volume 105.2 fl (80-100); Mean Platelet Volume 10.3 fl (7.4-10.4); Platelet Count Result 194 k/mm3 (150-375); Red Blood Count 2.33 M/mm3 (4.6-6.20); Red Cell Distribution Width 19.6 % (11.5-14.5); White Blood Count 9.9 K/mm3 (4.5-10.0)
[2019-05-28 05:12] LABS: Blood Urea Nitrogen 24 mg/dL (9-20); Calcium 8.2 mg/dL (8.4-10.2); Carbon Dioxide 34 mmol/L (22-30); Chloride 100 mmol/L (98-107); Estimated CRCL calculation 66 ml/min; Estimated Glomerular Filt Rate > 60; Glucose 93 mg/dL (75-110); Magnesium 2.1 mg/dL (1.6-2.3); Potassium 4.6 mmol/L (3.4-5.0); Sodium 139 mmol/L (137-145)
[2019-05-28 08:21] LABS: Glucose Point of Care 99 (65-105)
[2019-05-28] MEDS: IPRATROPIUM BR 0.02% INH SOLN 0.5 MG/2.5 ML VIAL INHALATION ×4 (08:21→20:58)
--- NOTE | 2019-05-28 09:08 | PCDIET ---
Nutrition Follow-Up Complete: Nutrition Diagnosis: Suboptimal oral intake related to decreased appetite as evidenced by patient consuming ~50% of meals. Nutrition Goal: Patient to consume 50% of meals or greater and Glucerna Shake Goal partly met. Patient consumed 75-100% of meals on diabetic diet. Glucerna has been changed to [employer] which he has taken. New goal: patient to consume 75% of meals + [employer]. Last recorded weight is 85.3 kg which is down from last review. Bowel Motility: +BM today. Labs Reviewed: BUN (24), Ca (8.2) Meds Noted: Diamox, Colace, Lasix, Novolog, Prednisone Additional Notes: No change in pressure ulcer to coccyx. Right hip surgical incision site. No new recommendations at this time. Nutrition Monitoring and Evaluation: Follow up in 7 days.
--- NOTE | 2019-05-28 10:04 | PM.IMPN ---
Progress Note: A&P Assessment and Plan (1) Anemia in other chronic diseases classified elsewhere: Code(s): D63.8 - Anemia in other chronic diseases classified elsewhere Status: Acute Assessment and Plan: Underlying mild chronic anemia. Did have acute blood loss with hemoglobin dropping to 7.0 on 05/20/2019 with transfusion 1 unit PRBC. Intermuscular hematoma noted on the right by CT on that day. Anticoagulation stopped. Hemoglobin did drop to 6.8 on 05/22/2019 with an additional 1 unit PRBC transfused. Hemoglobin has been drifting down and now 7.0 today. Transfuse 1 unit PRBC. Repeat H&H after transfusion. Did have repeat CT scan this week no enlargement of hematoma. Will continue to monitor H&H and transfuse as needed. Continue PT/OT. Hopefully patient is is nearly ready for discharge. If remains stable, may be able to discharge to [facility] this weekend or at least by Friday. (2) Hematoma: Code(s): T14.8XXA - Other injury of unspecified body region, initial encounter Status: Acute Assessment and Plan: As above. No additional hematomas noted on repeat CT on 05/26/2019. (3) AV block, 2nd degree: Code(s): I44.1 - Atrioventricular block, second degree Status: Resolved Assessment and Plan: Noted to have second-degree AV block again (had previously on admission) on telemetry and confirmed by EKG on 05/26/2019. Flecainide held then dose decreased. Sinus rhythm with no 2nd ring block confirmed by EKG on 05/27/2019. No staying in sinus rhythm with no 2nd degree block on lower dose flecainide. Appreciate help from cardiology. Will continue to monitor. Telemetry reviewed on 05/28/2019 with sinus rhythm. (4) Atrial flutter with rapid ventricular response: Code(s): I48.92 - Unspecified atrial flutter Status: Resolved Assessment and Plan: Developed atrial flutter with RVR just prior to undergoing surgery on 05/12/19. Patient cardioverted to normal sinus by Dr Araya on 05/17/19. Now in sinus rhythm with no 2nd degree AV block as noted above. Remains on flecainide and oral Lasix. Will monitor. (5) Closed subcapital fracture of neck of right femur: Onset Date: 05/12/19 Qualifiers: Encounter type: initial encounter Qualified Code(s): S72.011A - Unspecified intracapsular fracture of right femur, initial encounter for closed fracture Code(s): S72.011A - Unspecified intracapsular fracture of right femur, initial encounter for closed fracture Status: Acute Assessment and Plan: Patient presented to ER on 05/08/19 with hip pain after a fall. Right femur xray showing impacted subcapital right femoral fracture. Orthopedics consulted and appreciate input. Patient also was in respiratory failure. Able to undergo pinning on 05/12/2019 after medically stable. POD # 16. Noted on CT to have large intramuscular hematoma right thigh on 05/20/2019. CT of abdomen/pelvis on 05/25/2019 with no acute intra-abdominal findings, moderately distended rectal vault and moderate amount of colonic stool, right thigh hematoma/seroma, probable cirrhosis and small right pleural effusion. Postoperative management continues per Orthopedics. Continue PT/OT. Plan for SNF at [facility] when stable. Hopeful discharge soon. (6) Respiratory failure: Qualifiers: Chronicity: acute on chronic Respiratory failure complication: hypoxia and hypercapnia Qualified Code(s): J96.21 - Acute and chronic respiratory failure with hypoxia; J96.22 - Acute and chronic respiratory failure with hypercapnia Code(s): J96.90 - Respiratory failure, unspecified, unspecified whether with hypoxia or hypercapnia Status: Acute Assessment and Plan: Result of pneumonia. Acute issue now resolved. Remains on 3 L of oxygen presently which is his home requirement. Continue nebulizer treatments. Will continue to monitor. (7) Community acquired pneumonia:
[2019-05-28] MEDS: FLECAINIDE ACETATE 50 MG TABLET PO ×2 (10:21→22:08)
[2019-05-28] MEDS: DOCUSATE SODIUM 100 MG CAPSULE PO ×2 (10:22→16:37)
[2019-05-28] MEDS: ASPIRIN 81 MG CHEWABLE TABLET PO (10:22)
[2019-05-28] MEDS: predniSONE 10 MG TABLET PO (10:22)
[2019-05-28] MEDS: FUROSEMIDE 40 MG TABLET PO (10:22)
[2019-05-28] MEDS: WATER, STERILE FOR INJECTION 10 ML VIAL XX (10:30)
[2019-05-28 12:22] LABS: Glucose Point of Care 129 (65-105)
[2019-05-28] MEDS: SODIUM CHLORIDE 0.9% IV 250 ML 30 ML IV CONT (13:03)
--- NOTE | 2019-05-28 13:39 | PM.PNCARD ---
Progress Note: A&P Assessment and Plan (1) AV block, 2nd degree: Code(s): I44.1 - Atrioventricular block, second degree Status: Resolved Assessment and Plan: Flecainide decreased to 50 mg q.12 hours due to second-degree heart block and bradycardia. No evidence of atrial flutter or second-degree heart block. (2) Hyperkalemia: Code(s): E87.5 - Hyperkalemia Status: Acute Assessment and Plan: Potassium 4.0 today. Continue to monitor renal function and electrolytes. Diuretics decreased to a daily dose. (3) Sepsis: Qualifiers: Acute respiratory failure type: with hypercapnia Sepsis acute organ dysfunction status: with acute organ dysfunction Sepsis type: sepsis due to unspecified organism Severe sepsis acute organ dysfunction type: acute respiratory failure Severe sepsis shock status: without septic shock Qualified Code(s): A41.9 - Sepsis, unspecified organism; R65.20 - Severe sepsis without septic shock; J96.02 - Acute respiratory failure with hypercapnia Code(s): A41.9 - Sepsis, unspecified organism Status: Resolved Assessment and Plan: Per primary service (4) Obstructive sleep apnea: Code(s): G47.33 - Obstructive sleep apnea (adult) (pediatric) Status: Acute Assessment and Plan: BiPAP (5) Paroxysmal atrial fibrillation: Code(s): I48.0 - Paroxysmal atrial fibrillation Status: Acute Assessment and Plan: Developed atrial flutter on way to operating room 05/13/2019. Flecainide restarted 05/15/2019. Successfully cardioverted 05/17/[address] Knowles Was anticoagulated with full-dose Lovenox. Was to start Eliquis however hemoglobin has dropped to 7.0. Transfused. Anticoagulation discontinued. Rhythm as above. Hemoglobin 7.0. Receiving transfusion today. No anticoagulation for now. (6) COPD (chronic obstructive pulmonary disease): Code(s): J44.9 - Chronic obstructive pulmonary disease, unspecified Status: Acute Assessment and Plan: Per primary service. Diuretics as above (7) Acute encephalopathy: Code(s): G93.40 - Encephalopathy, unspecified Status: Resolved Assessment and Plan: Resolved. Secondary to sepsis, pneumonia. (8) Closed subcapital fracture of neck of right femur: Onset Date: 05/12/19 Qualifiers: Encounter type: initial encounter Qualified Code(s): S72.011A - Unspecified intracapsular fracture of right femur, initial encounter for closed fracture Code(s): S72.011A - Unspecified intracapsular fracture of right femur, initial encounter for closed fracture Status: Acute Assessment and Plan: Status post hip pinning 05/13/2019 Pain control per Orthopedics (9) Community acquired pneumonia: Qualifiers: Laterality: right Lung location: unspecified part of lung Qualified Code(s): J18.9 - Pneumonia, unspecified organism Code(s): J18.9 - Pneumonia, unspecified organism Status: Resolved Assessment and Plan: Per primary service . (10) Elevated troponin: Code(s): R79.89 - Other specified abnormal findings of blood chemistry Status: Acute Assessment and Plan: Most likely secondary to acute hypoxic respiratory failure and pneumonia. Type 2 infarct, non [place] troponin elevation most likely. However, given patient's age and risk factors ischemic evaluation warranted in future prior to resuming flecainide to ensure safety margin. EF 60-65% by echo. Additional Plan Anticipate could be ready from a cardiology standpoint for discharge in the next 24-48 hours. Plan discussed with Dr. Knowles 40 05/28/2019 Subjective Date/soco
[2019-05-28 16:47] LABS: Glucose Point of Care 133 (65-105)
[2019-05-28 17:31] LABS: Hematocrit 29.7 % (42.0-52.0); Hemoglobin 8.7 g/dL (14.0-18.0)
[2019-05-28 21:22] LABS: Glucose Point of Care 105 (65-105)
[2019-05-29] VITALS (23 sets, daily range): BP systolic 103–125; BP diastolic 42–55; PULSE 78–100; RESP 16–20; TEMP 36.3–37; O2SAT 91–100
[2019-05-29 05:16] LABS: Hematocrit 29.6 % (42.0-52.0); Hemoglobin 8.8 g/dL (14.0-18.0); Mean Corpuscular HGB Conc 29.7 g/dl (32-36); Mean Corpuscular Hemoglobin 30.9 pg (26-34); Mean Corpuscular Volume 103.9 fl (80-100); Mean Platelet Volume 10.2 fl (7.4-10.4); Platelet Count Result 169 k/mm3 (150-375); Red Blood Count 2.85 M/mm3 (4.6-6.20); Red Cell Distribution Width 19.3 % (11.5-14.5); White Blood Count 9.7 K/mm3 (4.5-10.0)
[2019-05-29 05:24] LABS: Blood Urea Nitrogen 19 mg/dL (9-20); Calcium 8.2 mg/dL (8.4-10.2); Carbon Dioxide 32 mmol/L (22-30); Chloride 99 mmol/L (98-107); Estimated CRCL calculation 66 ml/min; Estimated Glomerular Filt Rate > 60; Glucose 91 mg/dL (75-110); Magnesium 2.1 mg/dL (1.6-2.3); Sodium 139 mmol/L (137-145)
[2019-05-29 07:13] LABS: Glucose Point of Care 91 (65-105)
[2019-05-29] MEDS: IPRATROPIUM BR 0.02% INH SOLN 0.5 MG/2.5 ML VIAL INHALATION ×4 (08:39→21:10)
[2019-05-29] MEDS: FLECAINIDE ACETATE 50 MG TABLET PO ×2 (09:09→20:53)
[2019-05-29] MEDS: ASPIRIN 81 MG CHEWABLE TABLET PO (09:10)
[2019-05-29] MEDS: FUROSEMIDE 40 MG TABLET PO (09:10)
[2019-05-29] MEDS: DOCUSATE SODIUM 100 MG CAPSULE PO ×2 (09:10→17:35)
[2019-05-29] MEDS: predniSONE 10 MG TABLET PO (09:10)
--- NOTE | 2019-05-29 10:33 | PM.PNCARD ---
Progress Note: A&P Additional Plan 74-year-old male with: Fall recent hip fracture slow recovery following surgical repair because of debilities, cardiac arrhythmias and hematoma at the surgical site Paroxysmal atrial flutter maintaining sinus rhythm with flecainide at reduced dosage of 50 mg q.12 hours No anticoagulation because of bleeding, anemia As noted in our previous progress notes cardiovascular status seems to be stable. Patient and family indicate plans to discharge to a rehab facility probably early next week that sounds appropriate from what I can see no cardiac reason for ongoing hospitalization Subjective Date/time seen: Date of service: 05/29/19 10:33 Interval history: Follow-up visit for paroxysmal atrial fib flutter Patient has history of intermittent second-degree AV block Admission to the hospital for fall and hip fracture status post surgical repair Exam Const: General: comfortable and no acute distress Other: Patient resting comfortably in bed surgical pain is much better for the last several days HENMT: Mouth: Yes moist mucous membranes Eyes: Sclera: sclerae normal Pupils: Equal, round and reactive pupils present Neck: Neck: supple and no JVD Thyroid: thyroid normal Resp: Effort & Inspection: normal respiratory effort Auscultation: clear to auscultation bilaterally Cardio: Rate: regular rate Rhythm: regular rhythm GI: Auscultation: normal bowel sounds Skin: General skin exam: normal color Neuro: Cognition (Neuro): normal cognition Objective Data Vital Signs Vital Signs: Vital Signs - 24 hr 05/28/19 11:19 05/28/19 11:39 05/28/19 11:40 Temperature 37.0 C 37.3 C Pulse Rate 95 86 88 Respiratory Rate 36 H 34 H 25 H Blood Pressure 123/56 L 114/56 L Pulse Oximetry 98 100 05/28/19 11:45 05/28/19 11:46 05/28/19 12:00 Temperature Pulse Rate 92 92 90 Respiratory Rate 28 H 24 H Blood Pressure Pulse Oximetry 100 05/28/19 12:24 05/28/19 12:40 05/28/19 12:53 Temperature 36.2 C L 37.3 C 37.3 C Pulse Rate 91 78 Respiratory Rate 27 H 34 H Blood Pressure 113/59 L 112/48 L Pulse Oximetry 100 97 05/28/19 13:40 05/28/19 14:00 05/28/19 14:40 Temperature 37.1 C 36.1 C L Pulse Rate 85 97 86 Respiratory Rate 34 H 24 H Blood Pressure 115/49 L 113/46 L Pulse Oximetry 97 97 05/28/19 14:53 05/28/19 16:00 05/28/19 16:31 Temperature 36.8 C Pulse Rate 86 83 85 Respiratory Rate 28 H 20 Blood Pressure 115/49 L Pulse Oximetry 97 05/28/19 16:39 05/28/19 16:55 05/28/19 18:00 Temperature 36.1 C L Pulse Rate 83 86 89 Respiratory Rate 20 21 H Blood Pressure 115/52 L Pulse Oximetry 96 05/28/19 19:48 05/28/19 20:00 05/28/19 20:58 Temperature 36.7 C Pulse Rate 83 80 84 Respiratory Rate 22 H 22 H 20 Blood Pressure 124/57 L Pulse Oximetry 98 98 05/28/19 21:09 05/28/19 22:00 05/28/19 22:08 Temperature Pulse Rate 80 80 Respiratory Rate Blood Pressure Pulse Oximetry 98 05/28/19 23:56 05/29/19 00:00 05/29/19 01:54 Temperature 36.8 C Pulse Rate 81 81 78 Respiratory Rate 20 20 Blood Pressure 123/61 Pulse Oximetry 98 98 05/29/19 04:00 05/29/19 04:30 05/29/19 06:00 Temperature 36.4 C Pulse Rate 90 90 93 Respiratory Rate 20 20 Blood Pressure 112/55 L Pulse Oximetry 100 100 05/29/19 08:00 05/29/19 08:21 05/29/19 08:39 Temperature 36.3 C L Pulse Rate 100 100 95 Respiratory Rate 17 20 Blood Pressure 111/42 L Pulse Oximetry 92 95 05/29/19 08:47 05/29/19 09:09 05/29/19 10:00 Temperature Pulse Rate 91 92 94 Respiratory Rate 20 Blood Pressure Pulse Oximetry Intake/Output Intake/Output: Intake & Output 05/26/19 05/27/19 05/28/19 05/29/19 23:59 23:59 23:59 23:59 Intake Total 1380 1860 901 465 Output Total 1550 0 1999 252 Balance -170 -190 -1099 -460 Meds/Results Medications: Active Medications Generic Name Dose Route Start Last Admin [employer]
[2019-05-29 12:17] LABS: Glucose Point of Care 104 (65-105)
--- NOTE | 2019-05-29 13:28 | PC.NURSE ---
This patient, Clyde Engel, was transferred to [[id number] ] on 05/29/19 at 1328. Personal belongings sent with patient. Belongings list checked and signed with receiving [ ]. Report given to [KARLA Ayoub ]. Appropriate documentation sent with patient.
--- NOTE | 2019-05-29 16:02 | PM.IMPN ---
Progress Note: A&P Assessment and Plan (1) Anemia in other chronic diseases classified elsewhere: Code(s): D63.8 - Anemia in other chronic diseases classified elsewhere Status: Acute Assessment and Plan: Underlying mild chronic anemia. Did have acute blood loss with hemoglobin dropping to 7.0 on 05/20/2019 with transfusion 1 unit PRBC. Intermuscular hematoma noted on the right by CT on that day. Anticoagulation stopped. Hemoglobin did drop to 6.8 on 05/22/2019 with an additional 1 unit PRBC transfused. Hemoglobin has been drifting down and now 7.0 today. Transfuse 1 unit PRBC. Repeat H&H after transfusion. Did have repeat CT scan this week no enlargement of hematoma. Will continue to monitor H&H and transfuse as needed. Continue PT/OT. Hopefully patient is is nearly ready for discharge. If remains stable, may be able to discharge to [facility] this weekend or at least by Friday. 05/29/19 16:02 Patient is 74-year-old male status post fall and fracture of the hip had a surgical repair and then developed hematoma of the surgical site resulting in anemia patient was transfused 1 pack RBC on 05/28 since then his hemoglobin is stable today patient is feeling much better pain is controlled he denies any bleeding he also had developed atrial fibrillation was seen by appeals and generalist clerk started the patient on low dose of flecainide and his rate is controlled is not anticoagulated because of risk fall and anemia, patient is ready to be transferred to rehab however will monitor 1 more day to make sure his hemoglobin has remained stable before discharging him to rehab, patient denies any chest pain shortness of breath palpitation fever or chills (2) Hematoma: Code(s): T14.8XXA - Other injury of unspecified body region, initial encounter Status: Acute Assessment and Plan: As above. No additional hematomas noted on repeat CT on 05/26/2019. (3) AV block, 2nd degree: Code(s): I44.1 - Atrioventricular block, second degree Status: Resolved Assessment and Plan: Noted to have second-degree AV block again (had previously on admission) on telemetry and confirmed by EKG on 05/26/2019. Flecainide held then dose decreased. Sinus rhythm with no 2nd ring block confirmed by EKG on 05/27/2019. No staying in sinus rhythm with no 2nd degree block on lower dose flecainide. Appreciate help from cardiology. Will continue to monitor. Seen by appeals and generalist clerk remained in sinus rhythm recommended continue present management (4) Atrial flutter with rapid ventricular response: Code(s): I48.92 - Unspecified atrial flutter Status: Resolved Assessment and Plan: Developed atrial flutter with RVR just prior to undergoing surgery on 05/12/19. Patient cardioverted to normal sinus by Dr Araya on 05/17/19. Now in sinus rhythm with no 2nd degree AV block as noted above. Remains on flecainide and oral Lasix. Will monitor. (5) Closed subcapital fracture of neck of right femur: Onset Date: 05/12/19 Qualifiers: Encounter type: initial encounter Qualified Code(s): S72.011A - Unspecified intracapsular fracture of right femur, initial encounter for closed fracture Code(s): S72.011A - Unspecified intracapsular fracture of right femur, initial encounter for closed fracture Status: Acute Assessment and Plan: Patient presented to ER on 05/08/19 with hip pain after a fall. Right femur xray showing impacted subcapital right femoral fracture. Orthopedics consulted and appreciate input. Patient also was in respiratory failure. Able to undergo pinning on 05/12/2019 after medically stable. POD # 16. Noted on CT to have large intramuscular hematoma right thigh on 05/20/2019. CT of abdomen/pelvis on 05/25/2019 with no acute intra-abdominal findings, moderately distended rectal vault and moderate amount of colonic stool, right thigh hematoma/seroma, probable cirrhosis and small right pleural
--- NOTE | 2019-05-29 17:22 | PC.NURSE ---
This patient, Clyde Engel, was received from IMU on 05/29/19 at 1350. Personal belongings list checked and signed. Patient/family oriented to unit policies and routines
[2019-05-29 17:46] LABS: Glucose Point of Care 115 (65-105)
[2019-05-29 22:48] LABS: Glucose Point of Care 124 (65-105)
[2019-05-30] VITALS (19 sets, daily range): BP systolic 102–126; BP diastolic 53–83; PULSE 83–110; RESP 14–24; TEMP 36.7–37.2; O2SAT 88–97
[2019-05-30] MEDS: IPRATROPIUM BR 0.02% INH SOLN 0.5 MG/2.5 ML VIAL INHALATION ×4 (07:45→21:20)
[2019-05-30 08:12] LABS: Hematocrit 30.8 % (42.0-52.0); Hemoglobin 9.1 g/dL (14.0-18.0); Mean Corpuscular HGB Conc 29.5 g/dl (32-36); Mean Corpuscular Volume 104.8 fl (80-100); Mean Platelet Volume 10.1 fl (7.4-10.4); Platelet Count Result 137 k/mm3 (150-375); Red Blood Count 2.94 M/mm3 (4.6-6.20); Red Cell Distribution Width 19.1 % (11.5-14.5); White Blood Count 9.1 K/mm3 (4.5-10.0)
[2019-05-30] MEDS: ASPIRIN 81 MG CHEWABLE TABLET PO (08:23)
[2019-05-30] MEDS: FUROSEMIDE 40 MG TABLET PO (08:23)
[2019-05-30] MEDS: DOCUSATE SODIUM 100 MG CAPSULE PO ×2 (08:23→16:57)
[2019-05-30] MEDS: FLECAINIDE ACETATE 50 MG TABLET PO ×2 (08:23→20:15)
[2019-05-30 08:27] LABS: Blood Urea Nitrogen 21 mg/dL (9-20); Calcium 8.5 mg/dL (8.4-10.2); Carbon Dioxide 30 mmol/L (22-30); Chloride 103 mmol/L (98-107); Estimated CRCL calculation 66 ml/min; Estimated Glomerular Filt Rate > 60; Glucose 120 mg/dL (75-110); Potassium 4.1 mmol/L (3.4-5.0); Sodium 138 mmol/L (137-145)
[2019-05-30 09:15] LABS: Glucose Point of Care 110 (65-105)
[2019-05-30 13:34] LABS: Glucose Point of Care 149 (65-105)
--- NOTE | 2019-05-30 15:06 | PM.IMPN ---
Progress Note: A&P Assessment and Plan (1) Anemia in other chronic diseases classified elsewhere: Code(s): D63.8 - Anemia in other chronic diseases classified elsewhere Status: Acute Assessment and Plan: Underlying mild chronic anemia. Did have acute blood loss with hemoglobin dropping to 7.0 on 05/20/2019 with transfusion 1 unit PRBC. Intermuscular hematoma noted on the right by CT on that day. Anticoagulation stopped. Hemoglobin did drop to 6.8 on 05/22/2019 with an additional 1 unit PRBC transfused. Received additional 1 unit PRBC on 05/28/2019 with hemoglobin 7.0. Hemoglobin stable at 9.1 today. Continue PT/OT. Advised patient possible discharge to [facility] for SNF as early as tomorrow. Recheck H&H in a.m.. (2) Hematoma: Code(s): T14.8XXA - Other injury of unspecified body region, initial encounter Status: Acute Assessment and Plan: As above. No additional hematomas noted on repeat CT on 05/26/2019. (3) AV block, 2nd degree: Code(s): I44.1 - Atrioventricular block, second degree Status: Resolved Assessment and Plan: Noted to have second-degree AV block again (had previously on admission) on telemetry and confirmed by EKG on 05/26/2019. Flecainide held then dose decreased. Sinus rhythm with no 2nd ring block confirmed by EKG on 05/27/2019. Remains in sinus rhythm with no 2nd degree block at this time. Continue current dose of flecainide. Telemetry reviewed on 05/30/2019 with sinus rhythm. Will monitor while here. . (4) Atrial flutter with rapid ventricular response: Code(s): I48.92 - Unspecified atrial flutter Status: Resolved Assessment and Plan: Developed atrial flutter with RVR just prior to undergoing surgery on 05/12/19. Patient cardioverted to normal sinus by Dr Knowles on 05/17/19. Remains on flecainide and oral Lasix. Will monitor. (5) Closed subcapital fracture of neck of right femur: Onset Date: 05/12/19 Qualifiers: Encounter type: initial encounter Qualified Code(s): S72.011A - Unspecified intracapsular fracture of right femur, initial encounter for closed fracture Code(s): S72.011A - Unspecified intracapsular fracture of right femur, initial encounter for closed fracture Status: Acute Assessment and Plan: Patient presented to ER on 05/08/19 with hip pain after a fall. Right femur xray showing impacted subcapital right femoral fracture. Orthopedics consulted and appreciate input. Patient also was in respiratory failure. Able to undergo pinning on 05/12/2019 after medically stable. POD # 18. Noted on CT to have large intramuscular hematoma right thigh on 05/20/2019. CT of abdomen/pelvis on 05/25/2019 with no acute intra-abdominal findings, moderately distended rectal vault and moderate amount of colonic stool, right thigh hematoma/seroma, probable cirrhosis and small right pleural effusion. Postoperative management continues per Orthopedics. Continue PT/OT. Plan for SNF at [facility] on discharge. Advised patient may very well have some pain once moved but will need to move in order to increase strength. (6) Respiratory failure: Qualifiers: Chronicity: acute on chronic Respiratory failure complication: hypoxia and hypercapnia Qualified Code(s): J96.21 - Acute and chronic respiratory failure with hypoxia; J96.22 - Acute and chronic respiratory failure with hypercapnia Code(s): J96.90 - Respiratory failure, unspecified, unspecified whether with hypoxia or hypercapnia Status: Acute Assessment and Plan: Result of pneumonia. Acute issue now resolved. Remains on 2 L of oxygen presently which is his home requirement. Continue nebulizer treatments. Will continue to monitor. (7) Community acquired pneumonia: Qualifiers: Laterality: right Lung location: unspecified part of lung Qualified Code(s): J18.9 - Pneumonia, unspecified organism Code(s): J
[2019-05-30 16:40] LABS: Glucose Point of Care 101 (65-105)
[2019-05-30 21:04] LABS: Glucose Point of Care 136 (65-105)
[2019-05-31] VITALS (14 sets, daily range): BP systolic 118–121; BP diastolic 51–64; PULSE 75–104; RESP 18–24; TEMP 36.6–36.9; O2SAT 90–98
[2019-05-31 06:09] LABS: Hematocrit 32.1 % (42.0-52.0); Hemoglobin 9.3 g/dL (14.0-18.0)
[2019-05-31 06:26] LABS: Blood Urea Nitrogen 25 mg/dL (9-20); Calcium 8.4 mg/dL (8.4-10.2); Carbon Dioxide 29 mmol/L (22-30); Chloride 100 mmol/L (98-107); Estimated CRCL calculation 66 ml/min; Estimated Glomerular Filt Rate > 60; Glucose 110 mg/dL (75-110); Potassium 3.7 mmol/L (3.4-5.0); Sodium 137 mmol/L (137-145)
[2019-05-31 07:07] LABS: Glucose Point of Care 114 (65-105)
[2019-05-31] MEDS: IPRATROPIUM BR 0.02% INH SOLN 0.5 MG/2.5 ML VIAL INHALATION ×3 (08:14→16:11)
[2019-05-31] MEDS: ASPIRIN 81 MG CHEWABLE TABLET PO (08:44)
[2019-05-31] MEDS: DOCUSATE SODIUM 100 MG CAPSULE PO ×2 (08:44→16:50)
[2019-05-31] MEDS: FLECAINIDE ACETATE 50 MG TABLET PO (08:44)
[2019-05-31] MEDS: FUROSEMIDE 40 MG TABLET PO (08:45)
[2019-05-31 11:26] LABS: Glucose Point of Care 90 (65-105)
--- NOTE | 2019-05-31 11:30 | PM.IMPN ---
Progress Note: A&P Assessment and Plan (1) Anemia in other chronic diseases classified elsewhere: Code(s): D63.8 - Anemia in other chronic diseases classified elsewhere Status: Acute Assessment and Plan: Underlying mild chronic anemia. Did have acute blood loss with hemoglobin dropping to 7.0 on 05/20/2019 with transfusion 1 unit PRBC. Intermuscular hematoma noted on the right by CT on that day. Anticoagulation stopped. Hemoglobin did drop to 6.8 on 05/22/2019 with an additional 1 unit PRBC transfused. Received additional 1 unit PRBC on 05/28/2019 with hemoglobin 7.0. Hemoglobin stable at 9.3 today. Will need to follow at SNF. Continue PT/OT. Will discharge to [facility] today. (2) Hematoma: Code(s): T14.8XXA - Other injury of unspecified body region, initial encounter Status: Acute Assessment and Plan: As above. No additional hematomas noted on repeat CT on 05/26/2019. (3) AV block, 2nd degree: Code(s): I44.1 - Atrioventricular block, second degree Status: Resolved Assessment and Plan: Appreciate help from Cardiology. Noted to have second-degree AV block again (had previously on admission) on telemetry and confirmed by EKG on 05/26/2019. Flecainide held then dose decreased. Sinus rhythm with no 2nd ring block confirmed by EKG on 05/27/2019. Remains in sinus rhythm with no 2nd degree block at this time. Continue current dose of flecainide. Telemetry reviewed on 05/31/2019 with sinus rhythm. (4) Atrial flutter with rapid ventricular response: Code(s): I48.92 - Unspecified atrial flutter Status: Resolved Assessment and Plan: Developed atrial flutter with RVR just prior to undergoing surgery on 05/12/19. Patient cardioverted to normal sinus by Dr Knowles on 05/17/19. Remains on flecainide and oral Lasix. Stable. (5) Closed subcapital fracture of neck of right femur: Onset Date: 05/12/19 Qualifiers: Encounter type: initial encounter Qualified Code(s): S72.011A - Unspecified intracapsular fracture of right femur, initial encounter for closed fracture Code(s): S72.011A - Unspecified intracapsular fracture of right femur, initial encounter for closed fracture Status: Acute Assessment and Plan: Patient presented to ER on 05/08/19 with hip pain after a fall. Right femur xray showing impacted subcapital right femoral fracture. Orthopedics consulted and appreciate input. Patient also was in respiratory failure. Able to undergo pinning on 05/12/2019 after medically stable. POD # 19. Noted on CT to have large intramuscular hematoma right thigh on 05/20/2019. CT of abdomen/pelvis on 05/25/2019 with no acute intra-abdominal findings, moderately distended rectal vault and moderate amount of colonic stool, right thigh hematoma/seroma, probable cirrhosis and small right pleural effusion. Postoperative management continues per Orthopedics. Continue PT/OT. Discharging to SNF today. (6) Respiratory failure: Qualifiers: Chronicity: acute on chronic Respiratory failure complication: hypoxia and hypercapnia Qualified Code(s): J96.21 - Acute and chronic respiratory failure with hypoxia; J96.22 - Acute and chronic respiratory failure with hypercapnia Code(s): J96.90 - Respiratory failure, unspecified, unspecified whether with hypoxia or hypercapnia Status: Acute Assessment and Plan: Result of pneumonia. Acute issue now resolved. Remains on 2-3 L of oxygen which is his home requirement. Continue nebulizer treatments. (7) Community acquired pneumonia: Qualifiers: Laterality: right Lung location: unspecified part of lung Qualified Code(s): J18.9 - Pneumonia, unspecified organism Code(s): J18.9 - Pneumonia, unspecified organism Status: Resolved Assessment and Plan: CT chest on admission with extensive tree-in-bud pattern with small centrilobular nodules throughout th
[2019-05-31] MEDS: predniSONE 10 MG TABLET PO (12:40)
[2019-05-31 17:26] LABS: Glucose Point of Care 134 (65-105)
--- NOTE | 2019-05-31 18:35 | PM.DS ---
DS: Diagnosis Admitting Diagnosis Admitting Diagnosis: Acute respiratory failure with hypoxia Discharge Diagnosis (1) Anemia in other chronic diseases classified elsewhere: Code(s): D63.8 - Anemia in other chronic diseases classified elsewhere Status: Acute (2) Hematoma: Code(s): T14.8XXA - Other injury of unspecified body region, initial encounter Status: Acute Assessment and Plan: As above. No additional hematomas noted on repeat CT on 05/26/2019. (3) AV block, 2nd degree: Code(s): I44.1 - Atrioventricular block, second degree Status: Resolved (4) Atrial flutter with rapid ventricular response: Code(s): I48.92 - Unspecified atrial flutter Status: Resolved (5) Closed subcapital fracture of neck of right femur: Onset Date: 05/12/19 Qualifiers: Encounter type: initial encounter Qualified Code(s): S72.011A - Unspecified intracapsular fracture of right femur, initial encounter for closed fracture Code(s): S72.011A - Unspecified intracapsular fracture of right femur, initial encounter for closed fracture Status: Acute (6) Respiratory failure: Qualifiers: Chronicity: acute on chronic Respiratory failure complication: hypoxia and hypercapnia Qualified Code(s): J96.21 - Acute and chronic respiratory failure with hypoxia; J96.22 - Acute and chronic respiratory failure with hypercapnia Code(s): J96.90 - Respiratory failure, unspecified, unspecified whether with hypoxia or hypercapnia Status: Acute (7) Community acquired pneumonia: Qualifiers: Laterality: right Lung location: unspecified part of lung Qualified Code(s): J18.9 - Pneumonia, unspecified organism Code(s): J18.9 - Pneumonia, unspecified organism Status: Resolved (8) Leukocytosis: Qualifiers: Leukocytosis type: unspecified Qualified Code(s): D72.829 - Elevated white blood cell count, unspecified Code(s): D72.829 - Elevated white blood cell count, unspecified Status: Resolved (9) Urinary retention: Code(s): R33.9 - Retention of urine, unspecified Status: Acute (10) Acute exacerbation of chronic obstructive airways disease: Code(s): J44.1 - Chronic obstructive pulmonary disease with (acute) exacerbation Status: Resolved (11) Sepsis: Qualifiers: Acute respiratory failure type: with hypercapnia Sepsis acute organ dysfunction status: with acute organ dysfunction Sepsis type: sepsis due to unspecified organism Severe sepsis acute organ dysfunction type: acute respiratory failure Severe sepsis shock status: without septic shock Qualified Code(s): A41.9 - Sepsis, unspecified organism; R65.20 - Severe sepsis without septic shock; J96.02 - Acute respiratory failure with hypercapnia Code(s): A41.9 - Sepsis, unspecified organism Status: Resolved (12) Elevated troponin: Code(s): R79.89 - Other specified abnormal findings of blood chemistry Status: Acute (13) RA (rheumatoid arthritis): Qualifiers: Rheumatoid arthritis location: unspecified site Rheumatoid factor presence: unspecified presence Qualified Code(s): M06.9 - Rheumatoid arthritis, unspecified Code(s): M06.9 - Rheumatoid arthritis, unspecified Status: Chronic (14) Acute encephalopathy: Code(s): G93.40 - Encephalopathy, unspecified Status: Resolved (15) Hyperkalemia: Code(s): E87.5 - Hyperkalemia Status: Resolved DS: Summary Hospital Course Reason for hospitalization: Decreased level of consciousness. Hospital Course: Date of Service of Discharge: May 31, 2019. History of Present Illness: Patient is a 74-year-old gentleman with known COPD with chronic respiratory failure and congestive heart failure present emergency room secondary to altered mental status. Patient had also sustained fall at home. Patient was brought in by EMS reporte
== END 2019-05-31 18:30 | DRG 853 ==
LOC: ANHED 20:43 → ANHIMU 21:27 → ANH3MEDSUR 05-30 07:28 → ANHIMU 06-01 08:32
PROVIDERS: Internal Medicine; Nurse Practitioner Adult Health; Orthopaedic Surgery; Specialist; Admitting Provider Family Medicine; Emergency Provider Emergency Medicine; PCP Internal Medicine; Visit Provider Hospitalist
PROC: 0QS634Z Reposition Right Upper Femur with Internal Fixation Device, Percutaneous Approach (ICD-10-PCS; principal; 2019-05-12 15:00)
PROC: 5A2204Z Restoration of Cardiac Rhythm, Single (ICD-10-PCS; principal; 2019-05-17 13:30)
DX: A41.9 Sepsis, unspecified organism (principal); S72.011A Unspecified intracapsular fracture of right femur, initial encounter for closed fracture; J96.01 Acute respiratory failure with hypoxia; J96.02 Acute respiratory failure with hypercapnia; G93.41 Metabolic encephalopathy; J18.9 Pneumonia, unspecified organism; I21.A1 Myocardial infarction type 2; I48.92 Unspecified atrial flutter; M96.840 Postprocedural hematoma of a musculoskeletal structure following a musculoskeletal system procedure; D62 Acute posthemorrhagic anemia; R65.20 Severe sepsis without septic shock; M79.81 Nontraumatic hematoma of soft tissue; R33.9 Retention of urine, unspecified; I50.9 Heart failure, unspecified; Z99.81 Dependence on supplemental oxygen; N40.0 Benign prostatic hyperplasia without lower urinary tract symptoms; E78.00 Pure hypercholesterolemia, unspecified; Z86.73 Personal history of transient ischemic attack (TIA), and cerebral infarction without residual deficits; D63.8 Anemia in other chronic diseases classified elsewhere; M06.9 Rheumatoid arthritis, unspecified; T45.515A Adverse effect of anticoagulants, initial encounter; W19.XXXA Unspecified fall, initial encounter; J43.9 Emphysema, unspecified; M15.0 Primary generalized (osteo)arthritis; M32.9 Systemic lupus erythematosus, unspecified; I44.1 Atrioventricular block, second degree; E87.5 Hyperkalemia; G47.33 Obstructive sleep apnea (adult) (pediatric); I48.0 Paroxysmal atrial fibrillation; Z87.891 Personal history of nicotine dependence; E66.9 Obesity, unspecified; Z68.28 Body mass index [BMI] 28.0-28.9, adult; Z79.52 Long term (current) use of systemic steroids
CPT/HCPCS: 36415; 36430; 36600; 70450; 71045; 71260; 72170; 73502; 73521; 73552; 73700; 74176; 74177; 80048; 80053; 80069; 80202; 81001; 82140; 82375; 82607; 82746; 82805; 83050; 83605; 83735; 83880; 84100; 84132; 84484; 85014; 85018; 85025; 85027; 85055; 85610; 85730; 86140; 86850; 86900; 86901; 86923; 87040; 87070; 87077; 87086; 87088; 87186; 87205; 87804; 92610; 92960; 93005; 93970; 94003; 94640; 96361; 96365; 96367; 96375; 97110; 97162; 97165; 97530; 97535; 99285; A9270; C1713; C1769; C8929; J0131; J0690; J0692; J1120; J1170; J1650; J1815; J1940; J2001; J2270; J2370; J2405; J2704; J2920; J2930; J3010; J3370; J7030; J7040; J7050; J7120; J7512; P9016; Q9957; Q9967

== ENCOUNTER 2019-06-03 20:57 | Inpatient (IN) | payer MEDICARE, OTHER, SELFPAY ==
--- NOTE | ~2019-06-03 | XR_ITS ---
XR chest 1V portable DATE: 06/14/2019 03:09 INDICATION: Hypoxia TECHNIQUE: Portable AP chest on 06/14/2019 at 0307 hours COMPARISON: 06/13/2019 portable AP chest at 1057 hours FINDINGS: There is prominent elevation left leaf of the diaphragm and prominent atelectasis and possi ble infiltrate in the left lower lung. There are diffuse interstitial infiltrates of the right lung and left midlung since 06/13/2019, with K erley B-lines, suggesting pulmonary interstitial edema/congestive changes. Heart size is not optimally evaluated due to loss of the left cardiac margin partially by the elevate d diaphragm and adjacent infiltrate and/atelectasis. Aortic calcification. Vascular graft at the proximal abdominal aorta. Diffuse osteopenia. IMPRESSION: Interval pulmonary interstitial infiltrates bilaterally suggesting pulmonary edema since 06/13/2019 Left lower lung atelectasis and possible infiltrate Reviewed, dictated and finalized at location A.
--- NOTE | ~2019-06-03 | XR_ITS ---
EXAMINATION: XR chest 1V portable INDICATION: Shortness of breath TECHNIQUE: Portable AP chest at 0652 hours COMPARISON: 06/03/2019 FINDINGS: There is unchanged severe elevation of the left hemidiaphragm. Linear opacities of the left lung base are consistent with atelectasis. There are minimal airspace opacities of the right lung. N o pleural effusion or pneumothorax is identified. The heart size is obscured by the elevated left hem idiaphragm. A partially imaged endovascular abdominal aortic stent is noted. IMPRESSION: 1. Minimal opacification of the right lung, consistent with atelectasis versus pneumonia. 2. Chronic elevation of the left hemidiaphragm. Reviewed, dictated and finalized at location A.
--- NOTE | ~2019-06-03 | XR_ITS ---
EXAMINATION: XR esophogram water soluble DATE: 06/04/2019 14:00 INDICATION: Dysphagia. TECHNIQUE: The patient drank water-soluble contrast. Fluoroscopy of the hypopharynx and esophagus was performed. Fluoroscopy exposure time was 0.9 minutes. The total number of images was 195. The dose-a michael product was 13.41 Gy-cm^2. COMPARISON: Chest CT 06/03/2019 FINDINGS: There is no mass or stricture of the esophagus. There is decreased primary and secondary es ophageal peristalsis. Tertiary waves were noted. There is no hiatal hernia. IMPRESSION: 1. Severe esophageal dysmotility. Reviewed, dictated and finalized at location A. 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
--- NOTE | ~2019-06-03 | XR_ITS ---
EXAMINATION: XR chest 1V portable DATE: 06/03/2019 22:40 INDICATION: Shortness of breath TECHNIQUE: A single frontal view of the chest was obtained. Comparison is made to prior examination f rom chest x-ray 05/20/2019. FINDINGS: There is marked elevation of left hemidiaphragm with adjacent multisegmental atelectasis, u nchanged. Interval development of some indistinct reticulation, possible mild pulmonary edema. Clinic al correlation No pneumothorax or pleural effusion. The heart size is normal. IMPRESSION: 1. Possible developing mild pulmonary edema. 2. Chronic marked elevation of left hemidiaphragm, adjacent atelectasis. Reviewed, dictated and finalized at location A. 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
--- NOTE | ~2019-06-03 | XR_ITS ---
XR chest 1V portable DATE: 06/13/2019 10:57 INDICATION: Shortness of breath. COPD exacerbation. TECHNIQUE: Portable AP chest on 06/13/2019 at 1057 hours COMPARISON: 06/12/2019 portable AP chest 05/16/2019 portable AP chest 06/03/2019 CT pulmonary scan FINDINGS: There is chronic elevation left leaf of diaphragm. There is atelectasis and/or infiltrate a t the left lung base. The lungs otherwise are hyperinflated but relatively clear. No pulmonary vascular congestion, pleural effusion or pneumothorax is evident. Aortic arch calcification. Upper abdominal aortic vascular graft stent Diffuse osteopenia. IMPRESSION: Chronic elevation left leaf of the diaphragm and infiltrate or atelectasis in the left lo wer lung COPD Reviewed, dictated and finalized at location A. IMPRESSION: Chronic elevation left leaf of the diaphragm and infiltrate or atel ectasis in the left lower lung COPD
--- NOTE | ~2019-06-03 | CT_ITS ---
EXAMINATION: CTA chest PE protocol EXAM DATE: 06/03/2019 23:49 INDICATION: Shortness of breath, nausea and vomiting. TECHNIQUE: Spiral CTA of the chest (pulmonary arteries) was performed with 100 cc Omnipaque 350 intr avenous contrast injection. Images were acquired during the pulmonary arterial phase. Coronal maxi mum intensity projection 3D-reconstructions were created by the technologist on dedicated workstation . Axial, coronal and sagittal reformatted images were reviewed. The dose-length product (DLP) for t his examination was 431.46 mGy-cm. The exposure was tailored according to patient size (auto mA exp osure control), and iterative reconstruction (ASIR) was used as additional dose reduction technique. 05/08/2019 FINDINGS: Pulmonary arteries are well opacified and without intraluminal filling defects. No thora cic aortic dissection. Chronic left hemidiaphragm elevation with left basilar atelectasis unchanged. There is moderate emphysema. There are no pleural or pericardial effusions. Tracheobronchial tree is patent. There is no mediastinal, hilar or axillary lymphadenopathy. There is no pneumothorax. Heart normal in size. There is mild to moderate coronary arterial calcification, arterial scleros is. The esophagus is moderately distended with food content inside, reflux abdominal aortic endograft . Upper abdomen is unremarkable. Multiple mild to moderate thoracic compression fractures which ar e chronic. There are no osteoblastic or osteolytic lesions identified. IMPRESSION: 1. No pulmonary emboli. 2. Distended esophagus with reflux. 3. Chronic left hemidiaphragm elevation, adjacent atelectasis. 4. Moderate emphysema. Reviewed, dictated and finalized at location A. VERY SPECIALIST
--- NOTE | ~2019-06-03 | US_ITS ---
EXAMINATION: US venous doppler [facility] DATE: 06/04/2019 14:34 INDICATION: Right lower limb pain and swelling. TECHNIQUE: Grayscale ultrasound images without and with compression and Doppler ultrasound images of the bilateral lower extremity veins were obtained. COMPARISON: Ultrasound 05/20/2019 FINDINGS: The visualized portions of right common femoral vein, profunda (deep) femoral vein, femoral vein, pop liteal vein, peroneal veins, posterior tibial veins, and greater saphenous vein outflow are patent. The visualized portions of left common femoral vein, profunda femoral vein, femoral vein, popliteal v ein, peroneal veins, posterior tibial veins, and greater saphenous vein outflow are patent. IMPRESSION: 1. No deep venous thrombosis. Reviewed, dictated and finalized at location A. ING ADVISOR
--- NOTE | ~2019-06-03 | XR_ITS ---
EXAMINATION: XR hip RT 2V w AP pelvis DATE: 06/04/2019 14:00 INDICATION: Persistent right hip pain post ORIF TECHNIQUE: Anteroposterior view of the pelvis and anteroposterior and cross-table lateral views of th e right hip were obtained. COMPARISON: CT dated 05/25/2019 and 05/20/2019 FINDINGS: Subcapital fracture of the proximal right femur which is fixed with 3 lag screws in near anatomic ali gnment. The tip of one of the screws appears to extend to but not beyond the margin of the articular cortex at the anterosuperior medial aspect of the femoral head. No other fractures identified. No michael ency surrounding the screws to suggest loosening or infection. Osteoarthritis at the bilateral hips, mild on the right and mild to moderate on the left. Subcutaneous edema lateral to the right hip likel y representing residual postoperative changes. There is increased density along the lateral side of t he proximal femoral diaphysis. Upon review of prior CT images there is layering hematocrit level with in an intramuscular hematoma within the proximal right vastus lateralis muscle measures 17.5 x 7.8 x 3.6 cm, likely sequela of prior surgery. Aortobiiliac endoluminal stent graft. Several phleboliths an d atherosclerotic calcification is in the pelvis. 9 cm ball of stool at the rectum. Correlate clinic ally for constipation and fecal impaction. IMPRESSION: 1. Approximately 17.5 x 7.8 x 3.6 cm intramuscular hematoma along the right vastus lateralis muscle b jefry appreciated on prior CT. 2. Lag screw fixation of a right femoral subcapital fracture which remains in near-anatomic alignment . No acute osseous abnormality. Reviewed, dictated and finalized at location A. E THEATER USHER IMPRESSION: 1. Approximately 17.5 x 7.8 x 3.6 cm intramuscular hematoma along the right vas tus lateralis muscle better appreciated on prior CT. 2. Lag screw fixation of a right femoral subcapital fracture which remains in n ear-anatomic alignment. No acute osseous abnormality.
[2019-06-03 21:02] VITALS: BP 109/71; PULSE 127; RESP 25; TEMP 36.4; O2SAT 90
--- NOTE | 2019-06-03 21:38 | ECG_ITS ---
Measurements Intervals [place] Rate: 126 P: 24 ID: [id number] QRS: -53 QRSD: 167 T: 0 QT: 383 QTc: 556 Interpretive Statements ATRIAL FLUTTER/TACHYCARDIA WITH RAPID VENTRICULAR RESPONSE RIGHT BUNDLE BRANCH BLOCK LEFT ANTERIOR FASCICULAR BLOCK BASELINE ARTIFACT- I, II, III, AVL, AVF ABNORMAL ECG Electronically Signed On 06-04-2019 8:00:51 INSIDE CHANNEL ACCOUNT MANAGER by Gurvinder Weiss D.O.
[2019-06-03 21:57] LABS: Basophils Percent Auto 0.3 % (0.2-1.2); Eosinophils Percent Auto 0.3 % (0-4.4); Hematocrit 34.8 % (42.0-52.0); Hemoglobin 10.3 g/dL (14.0-18.0); Immature Granulocyte Absolute 0.03 K/mm3 (0.00-0.031); Immature Granulocyte Percent A 0.5 % (0-0.5); Immature Platelet Fraction Pct 4.9 % (0.9-11.2); Lymphocytes Absolute Auto 0.55 K/mm3 (0.9-3.2); Lymphocytes Percent Auto 9.5 % (18.3-44.2); Mean Corpuscular HGB Conc 29.6 g/dl (32-36); Mean Corpuscular Hemoglobin 30.2 pg (26-34); Mean Corpuscular Volume 102.1 fl (80-100); Mean Platelet Volume 10.3 fl (7.4-10.4); Monocytes Absolute Auto 0.4 K/mm3 (0.1-0.6); Neutrophils Absolute Auto 4.8 K/mm3 (1.3-6.7); Neutrophils Percent Auto 82.4 % (45.5-73.1); Platelet Count Result 149 k/mm3 (150-375); Red Blood Count 3.41 M/mm3 (4.6-6.20); Red Cell Distribution Width 18.6 % (11.5-14.5); White Blood Count 5.8 K/mm3 (4.5-10.0)
[2019-06-03 22:08] LABS: Alanine Aminotransferase 17 U/L (4-50); Albumin Level 3.1 g/dL (3.5-5.1); Alkaline Phosphatase 117 U/L (38-126); Aspartate Amino Transferase 22 U/L (17-59); Bilirubin,Total 1.2 mg/dL (0.2-1.3); Blood Urea Nitrogen 24 mg/dL (9-20); Calcium 8.4 mg/dL (8.4-10.2); Carbon Dioxide 30 mmol/L (22-30); Chloride 104 mmol/L (98-107); Estimated CRCL calculation 59 ml/min; Estimated Glomerular Filt Rate > 60; Glucose 116 mg/dL (75-110); Lipase 28 U/L (23-300); Potassium 3.6 mmol/L (3.4-5.0); Sodium 139 mmol/L (137-145)
--- NOTE | 2019-06-03 22:18 | ED.NAVMDI ---
HPI - Nausea/Vomiting/Diarrhea General Chief complaint: Nausea/Vomiting/Diarrhea Stated complaint: n/v Time Seen by Provider: 06/03/19 22:16 Source: patient, family and RN notes reviewed Mode of arrival: EMS Limitations: no limitations History of Present Illness HPI Narrative: Pt is a 74 y/o male who presents to the ED, via EMS from [facility], with c/o nausea and vomiting that began tonight. Pt's spouse states the NH called her and stated the pt was feeling miserable. Pt was admitted here at [place] on 05/08/19 with pneumonia and sepsis. Pt recently fell and broke his hip. Pt has been at [facility] since Friday (05/31/19). Pt also reports dysphagia, but denies a fever and CP. Pt's legal technician is Dr. Knowles. Pt is taking ASA 81 mg daily. MD elicited complaint: nausea and vomiting Onset (ago): hour(s) Description of diarrhea: other (none) Associated nausea: Yes Associated abdominal pain: No Location of pain: none Associated symptoms: other (dysphagia) Related Data Home Medications Medication Instructions Recorded Confirmed prednisone 10 mg tablet 10 mg PO DAILY 03/11/19 05/08/19 furosemide 20 mg tablet 40 mg PO QAM tablet 05/07/19 05/08/19 Zinc Oxide Diaper Cream 1 applic TOPICAL Q12H PRN 05/08/19 05/08/19 ropinirole 0.5 mg PO DAILY 05/08/19 05/08/19 Allergies Allergy/AdvReac Type Severity Reaction Status Date / Time Sulfa (Sulfonamide Allergy Severe Unknown Verified 05/08/19 19:33 Antibiotics) sulfamethoxazole Allergy Severe SWELLING Verified 05/08/19 19:33 Quinolones Allergy Intermediate leg pain Verified 05/08/19 19:33 ciprofloxacin Allergy Unknown Joint pain Verified 05/12/19 16:02 clavulanic acid Allergy Unknown Unknown Verified 05/08/19 19:33 sulfanilamide Allergy Unknown Unknown Verified 05/08/19 19:33 trimethoprim Allergy Unknown Unknown Verified 05/08/19 19:33 NKFA Allergy Unknown Unknown Uncoded 04/13/19 14:11 Review of Systems Review of Systems: All systems reviewed & are unremarkable except as noted in HPI and below Constitutional: Constitutional: Denies fever(s) ENT: Reports dysphagia Cardiovascular: Cardiovascular: Denies chest pain Gastrointestinal: Gastrointestinal: Reports nausea and Reports vomiting [facility] Past Medical History Medical History (Updated 06/04/19 @ 01:18 by Jeferson Rosales MD) A-fib AAA (abdominal aortic aneurysm) Acute encephalopathy Acute exacerbation of chronic obstructive airways disease Acute respiratory failure with hypoxia and hypercarbia Anemia in other chronic diseases classified elsewhere Arthritis Atrial flutter with rapid ventricular response AV block, 2nd degree BPH (benign prostatic hyperplasia) BPH w urinary obs/LUTS Cardiac arrhythmia Cervicalgia CHF (congestive heart failure) Chronic heart failure with preserved ejection fraction Closed subcapital fracture of neck of right femur (05/12/19) Community acquired pneumonia COPD (chronic obstructive pulmonary disease) Counseling on health promotion and disease prevention DDD (degenerative disc disease) Debility DVT prophylaxis Emphysema, unspecified Encounter for medication management Essential (primary) hypertension Generalized osteoarthritis of multiple sites H/O: HTN (hypertension) CHERRY (headache) Hematoma History of cardioversion History of melena History of pneumonia Hx of cataract Hx of transient ischemic attack (TIA) Hx: UTI (urinary tract infection) Hypercholesteremia Hyperkalemia Hyperlipidemia, unspecified Leukocytosis Lupus erythematosus Medication monitoring encounter Obstructive sleep apnea On home oxygen therapy 3L [place] Organic insomnia, 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
[2019-06-03 22:27] LABS: Hypochromasia 1+ (NORMAL)
[2019-06-03 22:28] LABS: Anisocytosis 2+ (NORMAL)
[2019-06-03 22:31] VITALS: BP 120/76; PULSE 121; RESP 26; O2SAT 92
[2019-06-03 22:33] LABS: Add Urine Microscopic? YES; Appearance Urine Cloudy (Clear); Bacteria Urine 1+ /hpf; Bilirubin Urine Negative (Negative); Blood Urine 2+ (Negative); Calcium Oxalate Crystals Urine Present /hpf; Color Urine Yellow (Yellow); Glucose Urine UA Negative (Negative); Hyaline Casts Urine 20-29 /lpf; Ketones Urine Negative (Negative); Leukocyte Esterase Ur 3+ LEU/UL (Negative); Mucus Urine Few /lpf; Nitrate Urine Negative (Negative); Protein Urine Negative (Negative); Specific Grav Ur 1.018 (1.001-1.035); Squamous Epithelial Cell Urine Rare /hpf (Few); WBC Urine >75 /hpf
[2019-06-03 23:00] VITALS: BP 124/68; PULSE 126; RESP 21; O2SAT 94
[2019-06-03] MEDS: METOCLOPRAMIDE HCL INJ 10 MG/2 ML VIAL IV PUSH (23:07)
[2019-06-03 23:10] LABS: Lactic Acid Reflex 1.4 mmol/L (0.7-2.1)
[2019-06-03 23:13] LABS: CRP 7.5 mg/dL (<1.0)
[2019-06-03 23:15] LABS: Partial Thromboplastin Time 33.5 SECONDS (22.3-36.8)
[2019-06-03 23:18] LABS: NT Pro B Type Natriuretic Pept 3290 PG/ML (5-100)
[2019-06-03 23:21] LABS: INR 1.2; Prothrombin Time 14.4 Seconds (11.1-14.7)
[2019-06-03 23:32] LABS: Troponin I 0.184 ng/mL (0.000-0.034)
[2019-06-04] VITALS (27 sets, daily range): BP systolic 106–126; BP diastolic 57–82; PULSE 86–125; RESP 18–27; TEMP 36.2–37.2; O2SAT 92–100; BMI 28.1
--- NOTE | 2019-06-04 00:02 | PC.NURSE ---
Patient decreased to 4L O2 via NC, patient 97%.
[2019-06-04 00:18] LABS: Alveolar/Arterial O2 Gradient 129.8 mmHg; Base Excess ABG 1.9 mEq/l (+/-2.0); Fractional Inspired Oxygen 36 %; HCO3 ABG 27.3 mEq/l (22.0-26.0); Oxygen Content ABG 14.5 %vol (16.0-22.0); Oxygen Saturation ABG 94.5 % (95.0-100.0); Oxyhemoglobin 91.5 % THb (90.0-100.0); PCO2 ABG 46.4 mmHg (35.0-45.0); PO2 ABG 73.1 mmHg (80.0-100.0); PO2 FiO2 Ratio Arterial Blood 2.03 %; Total Hemoglobin 11.2 g/dL (12.0-18.0); pH ABG 7.388 (7.350-7.450)
[2019-06-04 00:19] LABS: Device NASAL CANNULA; Modified Allen's Test Pass; Site Drawn RIGHT RADIAL
[2019-06-04] MEDS: IPRATROPIUM BR 0.02% INH SOLN 0.5 MG/2.5 ML VIAL INHALATION ×4 (00:24→21:23)
[2019-06-04] MEDS: ALBUTEROL SULFATE NEB 2.5 MG/0.5 ML INH 5 MG INHALATION (00:24)
[2019-06-04] MEDS: AMPICILLIN SODIUM/SULBACTAM 3 GM in SODIUM CHLORIDE 0.9% IV 100 ML IVPB (00:53)
[2019-06-04] MEDS: METOPROLOL TARTRATE INJ 5 MG/5 ML VIAL 2.5 MG IV PUSH (01:47)
--- NOTE | 2019-06-04 01:57 | PC.NURSE ---
Patient refusing dose of Ropinirole, stating I don't need anything for my legs.
--- NOTE | 2019-06-04 04:21 | PC.NURSE ---
This patient, Clyde Engel, was admitted to IMU Room 200-01on 06/04/2019 at 0210. Patient/family oriented to hospital policies and general routines including ID bracelet, bed and alarms, visiting hours, pain management, procedures, bathroom and other care routines, personal items, smoking policy, room service/diet, and visiting hours. Valuables list has been completed. Information on how to activate the Rapid Response Team has been discussed. Patient/Family are encouraged to report perceived risks to care and to ask questions if they do not understand what they are told or what they should do.
[2019-06-04] MEDS: methylPREDNISolone SOD SUCC 125 MG VIAL 60 MG IV PUSH ×2 (05:50→11:03)
--- NOTE | 2019-06-04 05:53 | PCRCNOTE ---
pt was not on floor yet
[2019-06-04] MEDS: PROMETHAZINE HCL 25 MG/ML AMPUL 12.5 MG IV PUSH (08:41)
[2019-06-04] MEDS: FLECAINIDE ACETATE 50 MG TABLET PO ×2 (11:01→20:29)
[2019-06-04] MEDS: ASPIRIN 81 MG CHEWABLE TABLET PO (11:01)
--- NOTE | 2019-06-04 11:27 | PM.IMHP ---
H&P: HPI History of Present Illness Chief complaint: acute on chronic respiratory failure Narrative: Clyde Engel is a 74 year old male was admitted to [facility] 05/08 and discharged 05/30 due to right hip fx, copd exacerbation, sepsis. He underwent ORIF right hip 05/12/19. He went to [facility] for rehab. He was nonweightbearing with rehab. Has severe pain right hip and thigh. Had a large hematoma there during his hospital stay. He still has some swelling and discoloration there. Pain is worse with movement or touching her any pressure to the thigh. It hurts too much to bear weight. He does not wish to return to [facility]. Late last night he was having some difficulty swallowing water. Had some choking with it. The RN on duty felt that this warranted a visit to the emergency department. This problem has been chronic. He swallows [employer]eps[employer] T coffee and solids without difficulty. It is only when he drinks cold water of the sometimes the liquid tends to sit there for a minute and either trickle down with gravity or causing to vomited up. There is some discomfort associated with this. His appetite has been good. He has not lost weight. He denied any change in his stools. No fevers chills or sweats. No increase chronic dyspnea. He is normally dyspneic with minimal exertion including conversation. He has been oxygen dependent for several years and currently is on 3 liters/minute by nasal cannula. No chest pain. No abdominal pain. No change in bowel or bladder function. No abnormal bleeding. Review of Systems Review of Systems: All systems reviewed & are unremarkable except as noted in HPI and below [facility] Past Medical History Medical History (Updated 06/04/19 @ 12:14 by Mike Chan MD) A-fib AAA (abdominal aortic aneurysm) Acute encephalopathy Acute exacerbation of chronic obstructive airways disease Acute respiratory failure with hypoxia and hypercarbia Anemia in other chronic diseases classified elsewhere Arthritis Atrial flutter with rapid ventricular response AV block, 2nd degree BPH (benign prostatic hyperplasia) BPH w urinary obs/LUTS Cardiac arrhythmia Cervicalgia CHF (congestive heart failure) Chronic heart failure with preserved ejection fraction Closed subcapital fracture of neck of right femur (05/12/19) Community acquired pneumonia COPD (chronic obstructive pulmonary disease) Counseling on health promotion and disease prevention DDD (degenerative disc disease) Debility DVT prophylaxis Emphysema, unspecified Encounter for medication management Essential (primary) hypertension Generalized osteoarthritis of multiple sites H/O: HTN (hypertension) CHERRY (headache) Hematoma History of cardioversion History of melena History of pneumonia Hx of cataract Hx of transient ischemic attack (TIA) Hx: UTI (urinary tract infection) Hypercholesteremia Hyperkalemia Hyperlipidemia, unspecified Leukocytosis Lupus erythematosus Medication monitoring encounter Obstructive sleep apnea On home oxygen therapy 3L NC Organic insomnia, 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y Surgical History Surgical History (Updated 06/04/19 @ 11:55 by Mike Chan MD) History of tonsillectomy S/P AAA repair S/P ORIF (open reduction internal fixation) fracture 05/12/2019 RIGHT HIP Family History Family History Mother Family history of Alzheimer's disease Sibling Malignant neoplasm of prostate Coronary artery disease Breast cancer Father Patient's father is Family history of Hodgkin's lymphoma Other Parents Social Histo
--- NOTE | 2019-06-04 12:50 | WPDGICN ---
Assessment and Plan Assessment and plan (1) Dysphagia: Qualifiers: Dysphagia type: esophageal phase Qualified Code(s): R13.10 - Dysphagia, unspecified Code(s): R13.10 - Dysphagia, unspecified Status: Acute Assessment and Plan: Patient's dysphagia appears to be intermittent. I am somewhat suspicious this represents esophageal narrowing. I am also suspicious last evening me he may briefly had a food impaction. CT scan with report done approximately 11:00 p.m. suggested food retained within that a dilated esophagus. Recent CT scans have failed to show dilatation of the esophagus. At the present time patient is swallowing water without difficulty Plan is to obtain a barium swallow. If food passes without obstruction then soft to liquid diet is advised. EGD would then be suggested bed prep for ensure Ali deferred until his respiratory status is optimized. We will follow with you in the interim. (2) Acute and chronic respiratory failure with hypoxia: Code(s): J96.21 - Acute and chronic respiratory failure with hypoxia Status: Acute (3) SLE (systemic lupus erythematosus related syndrome): Code(s): M32.9 - Systemic lupus erythematosus, unspecified Status: Acute (4) Paroxysmal atrial fibrillation: Code(s): I48.0 - Paroxysmal atrial fibrillation Status: Acute (5) Closed subcapital fracture of neck of right femur: Onset Date: 05/12/19 Qualifiers: Encounter type: initial encounter Qualified Code(s): S72.011A - Unspecified intracapsular fracture of right femur, initial encounter for closed fracture Code(s): S72.011A - Unspecified intracapsular fracture of right femur, initial encounter for closed fracture Status: Acute GI Consult Note Consult date/time: 06/04/19 12:50 HPI: Clyde Engel is a 74 year old male seen in evaluation at the request of Dr. Mike Chan, hospitalist. Patient current we resident of [facility]. Was noted to have difficulty swallowing. For this reason he was sent to the [facility] Emergency room. Current least patient states he is eating without difficulty. Recent history is significant for a hip fracture in early May 2019. He subsequently had pneumonia. And has been sent to rehab because of comorbid diseases. His past history is significant for COPD. He continues to have some difficulty with his respiratory status. Patient reports for some time now is had difficulty swallowing. He states that symptoms will occur intermittently. He often has trouble with liquid foods as well. When food does catch it feels as though hangs up high in his chest near his throat. Patient denies any abdominal pain. He denies any bleeding. He denies weight loss. He does have chronic dyspnea. He gets extremely short of breath on exertion including conversation. Review of Systems Review of Systems: All systems reviewed & are unremarkable except as noted in HPI and below [facility] Past Medical History Medical History A-fib AAA (abdominal aortic aneurysm) Acute encephalopathy Acute exacerbation of chronic obstructive airways disease Acute respiratory failure with hypoxia and hypercarbia Anemia in other chronic diseases classified elsewhere Arthritis Atrial flutter with rapid ventricular response AV block, 2nd degree BPH (benign prostatic hyperplasia) BPH w urinary obs/LUTS Cardiac arrhythmia Cervicalgia CHF (congestive heart failure) Chronic heart failure with preserved ejection fraction Closed subcapital fracture of neck of right femur (05/12/19) Community acquired pneumonia COPD (chronic obstructive pulmonary disease) Counseling on health promotion and disease prevention DDD (degenerative disc disease) Debility DVT prophylaxis Emphysema, unspecified Encounter for medication management Essential (primary) hypertension Generalized osteoarthritis of
--- NOTE | 2019-06-04 13:26 | PCOTNOTE ---
Attempted OT evaluation, pt is currently off the unit for test, in addition needs a weight bearing order from orthopedic consult at this time.
--- NOTE | 2019-06-04 14:08 | PCPTNOTE ---
Attempted to see pt for PT evaluation. Pt off the unit receiving x-ray. In addition needs a weight bearing order from orthopedic consult at this time.
[2019-06-05] VITALS (18 sets, daily range): BP systolic 125–139; BP diastolic 58–63; PULSE 54–91; RESP 14–22; TEMP 36.1–37.2; O2SAT 72–100
--- NOTE | 2019-06-05 07:49 | WPDGIPROGNO ---
Progress Note: A&P Additional Plan Patient alert and comfortable this morning very hungry. Tolerating liquid diet with no difficulty. Physical exam reveals patient to be alert. Comfortable at rest. Minimal shortness of breath this morning. Lungs reveal a few rhonchi. Heart without murmur. Abdomen is soft and nontender. Barium swallow suggest esophageal dysmotility. No obstruction identified. No stricture ring identified. Impression 1. Dysphagia. Appears to be related to esophageal dysmotility based on x-ray studies. Plan is to advance diet. Elective outpatient EGD anticipated at a later date. Hopefully after respiratory status more stable. Subjective Date/time seen: 06/05/19 07:49 Objective Data Vital Signs Vital Signs: Vital Signs - 24 hr 06/04/19 08:00 06/04/19 08:31 06/04/19 08:37 Temperature Pulse Rate 88 89 86 Respiratory Rate 20 20 Blood Pressure Pulse Oximetry 95 06/04/19 09:58 06/04/19 10:00 06/04/19 11:01 Temperature Pulse Rate 97 101 H Respiratory Rate Blood Pressure Pulse Oximetry 92 06/04/19 12:00 06/04/19 15:02 06/04/19 15:08 Temperature 36.3 C L Pulse Rate 91 86 86 Respiratory Rate 18 20 18 Blood Pressure 125/57 L Pulse Oximetry 97 06/04/19 16:00 06/04/19 20:00 06/04/19 20:29 Temperature 36.2 C L 37.2 C Pulse Rate 101 H 100 100 Respiratory Rate 18 18 Blood Pressure 107/57 L 110/62 Pulse Oximetry 96 97 06/04/19 21:24 06/04/19 21:27 06/04/19 21:37 Temperature Pulse Rate 87 88 Respiratory Rate 18 18 Blood Pressure Pulse Oximetry 94 06/05/19 00:00 06/05/19 04:00 Temperature 37.2 C 36.1 C L Pulse Rate 79 75 Respiratory Rate 14 14 Blood Pressure 127/62 139/63 Pulse Oximetry 99 100 Intake/Output Intake/Output: Intake & Output 06/02/19 06/03/19 06/04/19 06/05/19 23:59 23:59 23:59 23:59 Intake Total 1320 Output Total 900 250 Balance 420 -250 Meds/Results Medications: Active Medications Generic Name Dose Route Start Last Admin Trade Name Freq PRN Reason Stop Dose Admin Aspirin 81 mg 06/04/19 08:00 06/04/19 11:01 Aspirin Chewable PO 81 mg DAILY@0800 [facility] Administration Benzonatate 200 mg 06/04/19 08:17 Tessalon Perles PO TID PRN Cough Budesonide/Formoterol Fumarate 2 puff 06/04/19 08:00 06/04/19 21:24 Symbicort 160-4.5 Mcg (*Sp) Inhaler INHALATION 2 puff Q12HRT [facility] Administration Flecainide Acetate 50 mg 06/04/19 09:00 06/04/19 20:29 Tambocor PO 50 mg Q12HR [facility] Administration Guaifenesin 1,200 mg 06/04/19 09:00 06/04/19 20:29 Mucinex 12 Hr Tab PO 1,200 mg Q12HR [facility] Administration Ceftriaxone Sodium/Dextrose 1 gm in 50 mls @ 100 mls/hr 06/05/19 07:45 Rocephin 1 Gm/D5w 50 Ml IVPB Q24H [facility] Ipratropium Milner 0.5 mg 06/04/19 02:00 06/05/19 02:23 Atrovent Neb INHALATION Not Given Q6HRT [facility] Levalbuterol HCl 1.25 mg 06/04/19 15:05 06/05/19 02:24 Xopenex 1.25 Mg/0.5 Ml INHALATION Not Given Q6HRT [facility] Miconazole Nitrate 1 applic 06/04/19 09:00 06/04/19 20:30 Aloe [place] TOPICAL 1 applic Q12HR [facility] Administration Oxycodone HCl 5 mg 06/04/19 08:21 06/04/19 20:31 Roxicodone Ir Tablet PO 5 mg Q3H PRN Administration Pain Oxycodone/Acetaminophen 1 tablet 06/04/19 08:22 06/04/19 20:31 Percocet 5-325 Mg PO 1 tablet Q3H PRN Administration Pain Prednisone 10 mg 06/05/19 09:00 Prednisone PO DAILY [facility] Promethazine HCl 12.5 mg 06/04/19 08:10 06/04/19 08:41 Phenergan Inj IV PUSH 12.5 mg Q4H PRN Administration Nausea And Vomiting Ropinirole HCl 0.5 mg 06/04/19 21:00 06/04/19 20:30 Ropinirole Hcl PO 0.5 mg HS EDA Administration Zinc Oxide 1 applic 06/04/19 08:18 Zinc Oxide 20% Oint TOPICAL Q12H PRN Rash Radiology Results: ITS Impressions Chest X-Ray 06/03/19 22:40 IMPRESSION: 1. Possible developing mild pulmon
[2019-06-05] MEDS: ASPIRIN 81 MG CHEWABLE TABLET PO (08:34)
[2019-06-05] MEDS: FLECAINIDE ACETATE 50 MG TABLET PO ×2 (08:35→20:35)
[2019-06-05] MEDS: predniSONE 10 MG TABLET PO (08:35)
--- NOTE | 2019-06-05 10:05 | P.PNIM_ITS ---
Progress Note: A&P Assessment and Plan (1) UTI (urinary tract infection) due to urinary indwelling Lyles catheter: Qualifiers: Indwelling urinary catheter type: indwelling urethral catheter Encounter type: subsequent encounter Qualified Code(s): T83.511D - Infection and inflammatory reaction due to indwelling urethral catheter, subsequent encounter; N39.0 - Urinary tract infection, site not specified Code(s): T83.511A - Infection and inflammatory reaction due to indwelling urethral catheter, initial encounter; N39.0 - Urinary tract infection, site not specified Status: Acute Assessment and Plan: * Present upon admission (NOT hospital acquired) * Ceftriaxone day1 (2) Dysphagia: Qualifiers: Dysphagia type: esophageal phase Qualified Code(s): R13.10 - Dysphagia, unspecified Code(s): R13.10 - Dysphagia, unspecified Status: Acute Assessment and Plan: * Esophagram 06/03 c/w dysmotility * GI input noted and appreciated (3) Hematoma: Code(s): T14.8XXA - Other injury of unspecified body region, initial encounter Status: Acute Assessment and Plan: * Postoperative from May 12 surgery * XR noted * Analgesics * Activity as tolerated (4) Respiratory failure: Qualifiers: Chronicity: acute on chronic Respiratory failure complication: hypoxia and hypercapnia Qualified Code(s): J96.21 - Acute and chronic respiratory failure with hypoxia; J96.22 - Acute and chronic respiratory failure with hypercapnia Code(s): J96.90 - Respiratory failure, unspecified, unspecified whether with hypoxia or hypercapnia Status: Acute Assessment and Plan: * Clinically stable (5) Anemia in other chronic diseases classified elsewhere: Code(s): D63.8 - Anemia in other chronic diseases classified elsewhere Status: Acute Assessment and Plan: * Relatively stable (6) Chronic heart failure with preserved ejection fraction: Code(s): I50.32 - Chronic diastolic (congestive) heart failure Status: Acute Assessment and Plan: * Clinically stable (7) Osteoarthritis involving multiple joints on both sides of body: Code(s): M15.9 - Polyosteoarthritis, unspecified Status: Acute Assessment and Plan: * Analgesics prn (8) Restless legs syndrome: Onset Date: 09/25/18 Code(s): G25.81 - Restless legs syndrome Status: Acute Assessment and Plan: * Continue home regimen (9) Paroxysmal atrial fibrillation: Code(s): I48.0 - Paroxysmal atrial fibrillation Status: Acute Assessment and Plan: * Continue flecainide (10) SLE (systemic lupus erythematosus related syndrome): Code(s): M32.9 - Systemic lupus erythematosus, unspecified Status: Acute Assessment and Plan: * Seems inactive at this time (11) COPD (chronic obstructive pulmonary disease): Qualifiers: COPD type: unspecified COPD Qualified Code(s): J44.9 - Chronic obs tructive pulmonary disease, unspecified Code(s): J44.9 - Chronic obstructive pulmonary disease, unspecified Status: Acute Assessment and Plan: * Severe, but clinically stable (12) Urinary retention: Code(s): R33.9 - Retention of urine, unspecified Status: Acute Assessment and Plan: * Tamsulosin in anticipation of voiding trial (13) Obstructive sleep apnea: Code(s): G47.33 - Obstructive sleep apnea (adult) (pediatric) Status: Acute Assessment and Plan: * CPAP with h
--- NOTE | 2019-06-05 10:05 | PM.IMPN ---
Progress Note: A&P Assessment and Plan (1) UTI (urinary tract infection) due to urinary indwelling Lyles catheter: Qualifiers: Indwelling urinary catheter type: indwelling urethral catheter Encounter type: subsequent encounter Qualified Code(s): T83.511D - Infection and inflammatory reaction due to indwelling urethral catheter, subsequent encounter; N39.0 - Urinary tract infection, site not specified Code(s): T83.511A - Infection and inflammatory reaction due to indwelling urethral catheter, initial encounter; N39.0 - Urinary tract infection, site not specified Status: Acute Assessment and Plan: Present upon admission (NOT hospital acquired) Ceftriaxone day1 (2) Dysphagia: Qualifiers: Dysphagia type: esophageal phase Qualified Code(s): R13.10 - Dysphagia, unspecified Code(s): R13.10 - Dysphagia, unspecified Status: Acute Assessment and Plan: Esophagram 06/03 c/w dysmotility GI input noted and appreciated (3) Hematoma: Code(s): T14.8XXA - Other injury of unspecified body region, initial encounter Status: Acute Assessment and Plan: Postoperative from May 12 surgery XR noted Analgesics Activity as tolerated (4) Respiratory failure: Qualifiers: Chronicity: acute on chronic Respiratory failure complication: hypoxia and hypercapnia Qualified Code(s): J96.21 - Acute and chronic respiratory failure with hypoxia; J96.22 - Acute and chronic respiratory failure with hypercapnia Code(s): J96.90 - Respiratory failure, unspecified, unspecified whether with hypoxia or hypercapnia Status: Acute Assessment and Plan: Clinically stable (5) Anemia in other chronic diseases classified elsewhere: Code(s): D63.8 - Anemia in other chronic diseases classified elsewhere Status: Acute Assessment and Plan: Relatively stable (6) Chronic heart failure with preserved ejection fraction: Code(s): I50.32 - Chronic diastolic (congestive) heart failure Status: Acute Assessment and Plan: Clinically stable (7) Osteoarthritis involving multiple joints on both sides of body: Code(s): M15.9 - Polyosteoarthritis, unspecified Status: Acute Assessment and Plan: Analgesics prn (8) Restless legs syndrome: Onset Date: 09/25/18 Code(s): G25.81 - Restless legs syndrome Status: Acute Assessment and Plan: Continue home regimen (9) Paroxysmal atrial fibrillation: Code(s): I48.0 - Paroxysmal atrial fibrillation Status: Acute Assessment and Plan: Continue flecainide (10) SLE (systemic lupus erythematosus related syndrome): Code(s): M32.9 - Systemic lupus erythematosus, unspecified Status: Acute Assessment and Plan: Seems inactive at this time (11) COPD (chronic obstructive pulmonary disease): Qualifiers: COPD type: unspecified COPD Qualified Code(s): J44.9 - Chronic obstructive pulmonary disease, unspecified Code(s): J44.9 - Chronic obstructive pulmonary disease, unspecified Status: Acute Assessment and Plan: Severe, but clinically stable (12) Urinary retention: Code(s): R33.9 - Retention of urine, unspecified Status: Acute Assessment and Plan: Tamsulosin in anticipation of voiding trial (13) Obstructive sleep apnea: Code(s): G47.33 - Obstructive sleep apnea (adult) (pediatric) Status: Acute Assessment and Plan: CPAP with home settings Subjective Date/time seen: 06/05/19 10:05 Review of Systems Review of Systems: All systems reviewed & are unremarkable except as noted in HPI and below Exam Narrative: Exam Narrative: General: Chronically ill-appearing elderly gentleman in no acute distress HEENT: EOMI, PERRL, sclera nonicteric, pharyngeal mucosa pink and intact NECK: No JVD, adenopathy, or thyromegaly CHEST: Increased A
[2019-06-05] MEDS: IPRATROPIUM BR 0.02% INH SOLN 0.5 MG/2.5 ML VIAL INHALATION ×3 (10:07→19:37)
[2019-06-05 12:19] LABS: Alveolar/Arterial O2 Gradient 68.8 mmHg; Base Excess ABG 4.9 mEq/l (+/-2.0); Fractional Inspired Oxygen 28 %; HCO3 ABG 30.5 mEq/l (22.0-26.0); Oxygen Content ABG 14.6 %vol (16.0-22.0); Oxygen Saturation ABG 94.2 % (95.0-100.0); Oxyhemoglobin 92.4 % THb (90.0-100.0); PCO2 ABG 50.3 mmHg (35.0-45.0); PO2 ABG 71.5 mmHg (80.0-100.0); PO2 FiO2 Ratio Arterial Blood 2.55 %; Total Hemoglobin 11.2 g/dL (12.0-18.0); pH ABG 7.401 (7.350-7.450)
[2019-06-05 12:20] LABS: Device NASAL CANNULA; Modified Allen's Test Pass; Site Drawn LEFT RADIAL
--- NOTE | 2019-06-05 12:33 | PCRCNOTE ---
1033- Pt found with cannula on hooked to empty O2 tank, SpO2 72%. Pt placed on wall O2 @ 2L NC, SpO2 increased to 92% after 5 minutes and neb treatment given. KARLA [place] and fruit grading supervisor Yady notified.
--- NOTE | 2019-06-05 15:25 | PCPTNOTE ---
Awaiting weight-bearing prior to evaluating this patient...will see tomorrow as appropriate
[2019-06-05] MEDS: TAMSULOSIN HCL 0.4 MG CAPSULE PO (20:32)
[2019-06-06] VITALS (15 sets, daily range): BP systolic 115–136; BP diastolic 51–67; PULSE 81–100; RESP 16–20; TEMP 36.1–36.6; O2SAT 93–99
--- NOTE | 2019-06-06 01:57 | PC.NURSE ---
Daylight Savings Time For Daylight Savings Time Ending in the Fall - Clocks are moved back. For Daylight Savings Time Beginning in the Spring - Clocks are moved ahead. For [facility], the time of change occurs at 0200 hrs. Time is taken from the senior sql server database developer. This entry on the patient's chart recognizes the change in time reflected during documentation. Example: 2 entries for vital signs may be charted for 0200 hrs.
[2019-06-06] MEDS: IPRATROPIUM BR 0.02% INH SOLN 0.5 MG/2.5 ML VIAL INHALATION ×4 (03:01→22:36)
[2019-06-06] MEDS: FLECAINIDE ACETATE 50 MG TABLET PO ×2 (08:25→21:28)
[2019-06-06] MEDS: TAMSULOSIN HCL 0.4 MG CAPSULE PO ×2 (08:25→21:28)
[2019-06-06] MEDS: ASPIRIN 81 MG CHEWABLE TABLET PO (08:25)
[2019-06-06] MEDS: predniSONE 10 MG TABLET PO (08:26)
[2019-06-06 08:32] LABS: Blood Urea Nitrogen 20 mg/dL (9-20); Calcium 8.5 mg/dL (8.4-10.2); Carbon Dioxide 34 mmol/L (22-30); Chloride 100 mmol/L (98-107); Estimated CRCL calculation 75 ml/min; Estimated Glomerular Filt Rate > 60; Glucose 96 mg/dL (75-110); Potassium 4.1 mmol/L (3.4-5.0); Sodium 136 mmol/L (137-145)
--- NOTE | 2019-06-06 15:36 | PCOTNOTE ---
Attempted to see, awaiting WB orders.
--- NOTE | 2019-06-06 17:28 | P.PNIM_ITS ---
Progress Note: A&P Assessment and Plan (1) UTI (urinary tract infection) due to urinary indwelling Lyles catheter: Qualifiers: Indwelling urinary catheter type: indwelling urethral catheter Encounter type: subsequent encounter Qualified Code(s): T83.511D - Infection and inflammatory reaction due to indwelling urethral catheter, subsequent encounter; N39.0 - Urinary tract infection, site not specified Code(s): T83.511A - Infection and inflammatory reaction due to indwelling urethral catheter, initial encounter; N39.0 - Urinary tract infection, site not specified Status: Acute Assessment and Plan: * Present upon admission (NOT hospital acquired) * Pseudomonas may be colonizer, but will treat in anticipation of catheter removal * Ceftazidime day 1 (2) Dysphagia: Qualifiers: Dysphagia type: esophageal phase Qualified Code(s): R13.10 - Dysphagia, unspecified Code(s): R13.10 - Dysphagia, unspecified Status: Acute Assessment and Plan: * Esophagram 06/03 c/w dysmotility * GI input noted and appreciated * Easy to chew diet (3) Hematoma: Code(s): T14.8XXA - Other injury of unspecified body region, initial encounter Status: Acute Assessment and Plan: * Postoperative from May 12 surgery * XR noted * Analgesics * Activity as tolerated (4) Respiratory failure: Qualifiers: Chronicity: acute on chronic Respiratory failure complication: hypoxia and hypercapnia Qualified Code(s): J96.21 - Acute and chronic respiratory failure with hypoxia; J96.22 - Acute and chronic respiratory failure with hypercapnia Code(s): J96.90 - Respiratory failure, unspecified, unspecified whether with hypoxia or hypercapnia Status: Acute Assessment and Plan: * Clinically stable (5) Anemia in other chronic diseases classified elsewhere: Code(s): D63.8 - Anemia in other chronic diseases classified elsewhere Status: Acute Assessment and Plan: * Relatively stable (6) Chronic heart failure with preserved ejection fraction: Code(s): I50.32 - Chronic diastolic (congestive) heart failure Status: Acute Assessment and Plan: * Clinically stable (7) Osteoarthritis involving multiple joints on both sides of body: Code(s): M15.9 - Polyosteoarthritis, unspecified Status: Acute Assessment and Plan: * Analgesics prn (8) Restless legs syndrome: Onset Date: 09/25/18 Code(s): G25.81 - Restless legs syndrome Status: Acute Assessment and Plan: * Continue home regimen (9) Paroxysmal atrial fibrillation: Code(s): I48.0 - Paroxysmal atrial fibrillation Status: Acute Assessment and Plan: * Continue flecainide (10) SLE (systemic lupus erythematosus related syndrome): Code(s): M32.9 - Systemic lupus erythematosus, unspecified Status: Acute Assessment and Plan: * Seems inactive at this time (11) COPD (chronic obstructive pulmonary disease): Qualifiers: COPD type: unspecified COPD Qualified Code(s): J44.9 - Chronic obstructive pulmonary disease, unspecified Code(s): J44.9 - Chronic obstructive pulmonary disease, unspecified Status: Acute Assessment and Plan: * Severe, but clinically stable (12) Urinary retention: Code(s): R33.9 - Retention of urine, unspecified Status: Acute Assessment and Plan: * Tamsulosin in anticipation of voiding trial (13) Obstructive sleep apnea: Code(s): G47.33 -
--- NOTE | 2019-06-06 17:28 | PM.IMPN ---
Progress Note: A&P Assessment and Plan (1) UTI (urinary tract infection) due to urinary indwelling Lyles catheter: Qualifiers: Indwelling urinary catheter type: indwelling urethral catheter Encounter type: subsequent encounter Qualified Code(s): T83.511D - Infection and inflammatory reaction due to indwelling urethral catheter, subsequent encounter; N39.0 - Urinary tract infection, site not specified Code(s): T83.511A - Infection and inflammatory reaction due to indwelling urethral catheter, initial encounter; N39.0 - Urinary tract infection, site not specified Status: Acute Assessment and Plan: Present upon admission (NOT hospital acquired) Pseudomonas may be colonizer, but will treat in anticipation of catheter removal Ceftazidime day 1 (2) Dysphagia: Qualifiers: Dysphagia type: esophageal phase Qualified Code(s): R13.10 - Dysphagia, unspecified Code(s): R13.10 - Dysphagia, unspecified Status: Acute Assessment and Plan: Esophagram 3 c/w dysmotility GI input noted and appreciated Easy to chew diet (3) Hematoma: Code(s): T14.8XXA - Other injury of unspecified body region, initial encounter Status: Acute Assessment and Plan: Postoperative from May 12 surgery XR noted Analgesics Activity as tolerated (4) Respiratory failure: Qualifiers: Chronicity: acute on chronic Respiratory failure complication: hypoxia and hypercapnia Qualified Code(s): J96.21 - Acute and chronic respiratory failure with hypoxia; J96.22 - Acute and chronic respiratory failure with hypercapnia Code(s): J96.90 - Respiratory failure, unspecified, unspecified whether with hypoxia or hypercapnia Status: Acute Assessment and Plan: Clinically stable (5) Anemia in other chronic diseases classified elsewhere: Code(s): D63.8 - Anemia in other chronic diseases classified elsewhere Status: Acute Assessment and Plan: Relatively stable (6) Chronic heart failure with preserved ejection fraction: Code(s): I50.32 - Chronic diastolic (congestive) heart failure Status: Acute Assessment and Plan: Clinically stable (7) Osteoarthritis involving multiple joints on both sides of body: Code(s): M15.9 - Polyosteoarthritis, unspecified Status: Acute Assessment and Plan: Analgesics prn (8) Restless legs syndrome: Onset Date: 09/25/18 Code(s): G25.81 - Restless legs syndrome Status: Acute Assessment and Plan: Continue home regimen (9) Paroxysmal atrial fibrillation: Code(s): I48.0 - Paroxysmal atrial fibrillation Status: Acute Assessment and Plan: Continue flecainide (10) SLE (systemic lupus erythematosus related syndrome): Code(s): M32.9 - Systemic lupus erythematosus, unspecified Status: Acute Assessment and Plan: Seems inactive at this time (11) COPD (chronic obstructive pulmonary disease): Qualifiers: COPD type: unspecified COPD Qualified Code(s): J44.9 - Chronic obstructive pulmonary disease, unspecified Code(s): J44.9 - Chronic obstructive pulmonary disease, unspecified Status: Acute Assessment and Plan: Severe, but clinically stable (12) Urinary retention: Code(s): R33.9 - Retention of urine, unspecified Status: Acute Assessment and Plan: Tamsulosin in anticipation of voiding trial (13) Obstructive sleep apnea: Code(s): G47.33 - Obstructive sleep apnea (adult) (pediatric) Status: Acute Assessment and Plan: CPAP with home settings Subjective Date/time seen: 06/06/19 17:28 Interval history: 06/05 having a better day. Wants to liberalize diet to easy to chew. Still with right thigh pain. Constipated. Review of Systems Review of Systems: All systems reviewed & are unremarkable except as noted in HPI and below Exam [facility]
[2019-06-06] MEDS: polyethylene glycoL 3350 17 GM POWD.PACK PO (17:50)
[2019-06-06] MEDS: SENNOSIDES 8.6 MG TABLET PO (17:50)
[2019-06-07] VITALS (13 sets, daily range): BP systolic 106–127; BP diastolic 55–58; PULSE 85–105; RESP 16–26; TEMP 36.2–36.3; O2SAT 93–96; BMI 10.0
[2019-06-07] MEDS: IPRATROPIUM BR 0.02% INH SOLN 0.5 MG/2.5 ML VIAL INHALATION ×4 (04:02→19:46)
[2019-06-07 06:44] LABS: Hematocrit 32.9 % (42.0-52.0); Hemoglobin 9.5 g/dL (14.0-18.0); Mean Corpuscular HGB Conc 28.9 g/dl (32-36); Mean Corpuscular Hemoglobin 30.3 pg (26-34); Mean Corpuscular Volume 104.8 fl (80-100); Mean Platelet Volume 10.5 fl (7.4-10.4); Platelet Count Result 116 k/mm3 (150-375); Red Blood Count 3.14 M/mm3 (4.6-6.20); Red Cell Distribution Width 17.6 % (11.5-14.5); White Blood Count 3.6 K/mm3 (4.5-10.0)
[2019-06-07 07:06] LABS: Blood Urea Nitrogen 17 mg/dL (9-20); Calcium 8.3 mg/dL (8.4-10.2); Carbon Dioxide 36 mmol/L (22-30); Chloride 100 mmol/L (98-107); Estimated CRCL calculation 86 ml/min; Estimated Glomerular Filt Rate > 60; Glucose 93 mg/dL (75-110); Potassium 4.2 mmol/L (3.4-5.0); Sodium 135 mmol/L (137-145)
[2019-06-07] MEDS: SENNOSIDES 8.6 MG TABLET PO ×2 (09:07→17:04)
[2019-06-07] MEDS: FLECAINIDE ACETATE 50 MG TABLET PO ×2 (09:07→21:52)
[2019-06-07] MEDS: ASPIRIN 81 MG CHEWABLE TABLET PO (09:07)
[2019-06-07] MEDS: TAMSULOSIN HCL 0.4 MG CAPSULE PO ×2 (09:07→21:53)
[2019-06-07] MEDS: predniSONE 10 MG TABLET PO (09:07)
--- NOTE | 2019-06-07 11:30 | WPDGIPROGNO ---
Progress Note: A&P Additional Plan Patient reports he is swallowing easily today. He reports no difficulty with solids or liquid foods. He denies chest pain. He remains somewhat short of breath. Low energy. Physical exam reveals him to be alert. Comfortable at rest lungs reveal a few rhonchi. Abdomen is soft nontender with no organomegaly. Impression 1. Dysphagia. Patient now swallowing better. Abnormal CT scan noted with dilated esophagus. Barium swallow suggest esophageal dysmotility. Plan to allow diet as tolerated. Elevate head of bed at night. Elective EGD after discharge as an outpatient is suggested when his respiratory status has improved. Subjective Date/time seen: 06/07/19 11:30 Objective Data Vital Signs Vital Signs: Vital Signs - 24 hr 06/06/19 14:00 06/06/19 15:11 06/06/19 15:24 Temperature 36.3 C L Pulse Rate 94 100 96 Respiratory Rate 20 20 20 Blood Pressure 115/52 L Pulse Oximetry 99 06/06/19 21:28 06/06/19 22:00 06/06/19 22:40 Temperature 36.1 C L Pulse Rate 86 89 85 Respiratory Rate 16 18 Blood Pressure 136/67 Pulse Oximetry 93 06/06/19 22:41 06/06/19 22:52 06/07/19 04:03 Temperature Pulse Rate 87 90 Respiratory Rate 18 18 Blood Pressure Pulse Oximetry 96 06/07/19 04:11 06/07/19 06:00 06/07/19 08:42 Temperature 36.2 C L Pulse Rate 87 89 96 Respiratory Rate 18 16 22 H Blood Pressure 127/55 L Pulse Oximetry 93 06/07/19 08:56 06/07/19 09:07 Temperature Pulse Rate 96 96 Respiratory Rate 24 H Blood Pressure Pulse Oximetry 94 Intake/Output Intake/Output: Intake & Output 06/04/19 06/05/19 06/06/19 06/07/19 22:59 22:59 23:59 23:59 Intake Total 490 Output Total 1050 Balance -560 Meds/Results Medications: Active Medications Generic Name Dose Route Start Last Admin Trade Name Freq PRN Reason Stop Dose Admin Aspirin 81 mg 06/04/19 08:00 06/07/19 09:07 Aspirin Chewable PO 81 mg DAILY@0800 EDA Administration Benzonatate 200 mg 06/04/19 08:17 Tessalon Perles PO TID PRN Cough Budesonide/Formoterol Fumarate 2 puff 06/04/19 08:00 06/07/19 08:40 Symbicort 160-4.5 Mcg (*Sp) Inhaler INHALATION 2 puff Q12HRT PENDING SALE TO [facility] Administration Flecainide Acetate 50 mg 06/04/19 09:00 06/07/19 09:07 Tambocor PO 50 mg Q12HR EDA Administration Guaifenesin 1,200 mg 06/04/19 09:00 06/07/19 09:07 Mucinex 12 Hr Tab PO 1,200 mg Q12HR EDA Administration Ceftazidime 1 gm/ Dextrose 50 mls @ 100 mls/hr 06/06/19 08:00 06/07/19 05:07 IVPB 100 mls/hr Q8HR EDA Administration Ipratropium [place] 0.5 mg 06/04/19 02:00 06/07/19 08:40 Atrovent Neb INHALATION 0.5 mg Q6HRT PENDING SALE TO [facility] Administration Levalbuterol HCl 1.25 mg 06/04/19 15:05 06/07/19 08:40 Xopenex 1.25 Mg/0.5 Ml INHALATION 1.25 mg Q6HRT PENDING SALE TO [facility] Administration Miconazole Nitrate 1 applic 06/04/19 09:00 06/07/19 09:09 Aloe [place] TOPICAL 1 applic Q12HR PENDING SALE TO [facility] Administration Miconazole Nitrate 1 applic 06/05/19 21:00 Miconazole Nitrate 2% Cream TOPICAL Q12HR PENDING SALE TO [facility] Oxycodone HCl 5 mg 06/04/19 08:21 06/07/19 06:07 Roxicodone Ir Tablet PO 5 mg Q3H PRN Administration Pain Oxycodone/Acetaminophen 1 tablet 06/04/19 08:22 06/07/19 06:08 Percocet 5-325 Mg PO 1 tablet Q3H PRN Administration Pain Polyethylene Glycol 17 gm 06/06/19 17:34 Miralax PO QAM PRN Constipation Prednisone 10 mg 06/05/19 09:00 06/07/19 09:07 Prednisone PO 10 mg DAILY EDA Administration Promethazine HCl 12.5 mg 06/04/19 08:10 06/04/19 08:41 Phenergan Inj IV PUSH 12.5 mg Q4H PRN Administration Nausea And Vomiting Ropinirole HCl 0.5 mg 06/04/19 21:00 06/06/19 21:28 Ropinirole Hcl PO 0.5 mg HS EDA Administration Senna 8.6 mg 06/06/19 17:35 06/07/19 09:07 Senokot Tablet PO 8.6 mg BID EDA Administration Tamsulosin HCl 0.4 mg 03
--- NOTE | 2019-06-07 12:13 | PCDIET ---
Dietitian Screen for wounds. Documented Pressure Ulcer, Deep Tissue on Sacrum. Patient has been seen by wound nurse. Diet order: Regular Easy to Chew, Level 7. Patient reports eating 80-100% of meals. BMI: 27.5 overweight. He is refusing diet supplements. Agree with diet orders. No further nutritional interventions needed at this time.
--- NOTE | 2019-06-07 14:32 | P.PNIM_ITS ---
Progress Note: A&P Assessment and Plan (1) UTI (urinary tract infection) due to urinary indwelling Lyles catheter: Qualifiers: Indwelling urinary catheter type: indwelling urethral catheter Encounter type: subsequent encounter Qualified Code(s): T83.511D - Infection and inflammatory reaction due to indwelling urethral catheter, subsequent encounter; N39.0 - Urinary tract infection, site not specified Code(s): T83.511A - Infection and inflammatory reaction due to indwelling urethral catheter, initial encounter; N39.0 - Urinary tract infection, site not specified Status: Acute Assessment and Plan: * Present upon admission (NOT hospital acquired) * Pseudomonas may be colonizer, but will treat to eradicate due to plan to leave out catheter (removed 3 AM and prn straight cath ordered) * Ceftazidime day 2 (2) Dysphagia: Qualifiers: Dysphagia type: esophageal phase Qualified Code(s): R13.10 - Dysphagia, unspecified Code(s): R13.10 - Dysphagia, unspecified Status: Acute Assessment and Plan: * Esophagram 06/03 c/w dysmotility * GI input noted and appreciated * Easy to chew diet (3) Hematoma: Code(s): T14.8XXA - Other injury of unspecified body region, initial encounter Status: Acute Assessment and Plan: * Postoperative from May 12 surgery * XR noted * Analgesics * Activity as tolerated (4) Respiratory failure: Qualifiers: Chronicity: acute on chronic Respiratory failure complication: hypoxia and hypercapnia Qualified Code(s): J96.21 - Acute and chronic respiratory failure with hypoxia; J96.22 - Acute and chronic respiratory failure with hypercapnia Code(s): J96.90 - Respiratory failure, unspecified, unspecified whether with hypoxia or hypercapnia Status: Acute Assessment and Plan: * Clinically stable (5) Anemia in other chronic diseases classified elsewhere: Code(s): D63.8 - Anemia in other chronic diseases classified elsewhere Status: Acute Assessment and Plan: * Relatively stable (6) Chronic heart failure with preserved ejection fraction: Code(s): I50.32 - Chronic diastolic (congestive) heart failure Status: Acute Assessment and Plan: * Clinically stable (7) Osteoarthritis involving multiple joints on both sides of body: Code(s): M15.9 - Polyosteoarthritis, unspecified Status: Acute Assessment and Plan: * Analgesics prn (8) Restless legs syndrome: Onset Date: 09/25/18 Code(s): G25.81 - Restless legs syndrome Status: Acute Assessment and Plan: * Continue home regimen (9) Paroxysmal atrial fibrillation: Code(s): I48.0 - Paroxysmal atrial fibrillation Status: Acute Assessment and Plan: * Continue flecainide (10) SLE (systemic lupus erythematosus related syndrome): Code(s): M32.9 - Systemic lupus erythematosus, unspecified Status: Acute Assessment and Plan: * Seems inactive at this time (11) COPD (chronic obstructive pulmonary disease): Qualifiers: COPD type: unspecified COPD Qualified Code(s): J44.9 - Chronic obstructive pulmonary disease, unspecified Code(s): J44.9 - Chronic obstructive pulmonary disease, unspecified Status: Acute Assessment and Plan: * Severe, but clinically stable (12) Urinary retention: Code(s): R33.9 - Retention of urine, unspecified Status: Acute Assessment and Plan: * Tamsulosin in anticipation of voiding trial (13) Obs
--- NOTE | 2019-06-07 14:32 | PM.IMPN ---
Progress Note: A&P Assessment and Plan (1) UTI (urinary tract infection) due to urinary indwelling Lyles catheter: Qualifiers: Indwelling urinary catheter type: indwelling urethral catheter Encounter type: subsequent encounter Qualified Code(s): T83.511D - Infection and inflammatory reaction due to indwelling urethral catheter, subsequent encounter; N39.0 - Urinary tract infection, site not specified Code(s): T83.511A - Infection and inflammatory reaction due to indwelling urethral catheter, initial encounter; N39.0 - Urinary tract infection, site not specified Status: Acute Assessment and Plan: Present upon admission (NOT hospital acquired) Pseudomonas may be colonizer, but will treat to eradicate due to plan to leave out catheter (removed 3 AM and prn straight cath ordered) Ceftazidime day 2 (2) Dysphagia: Qualifiers: Dysphagia type: esophageal phase Qualified Code(s): R13.10 - Dysphagia, unspecified Code(s): R13.10 - Dysphagia, unspecified Status: Acute Assessment and Plan: Esophagram 06/03 c/w dysmotility GI input noted and appreciated Easy to chew diet (3) Hematoma: Code(s): T14.8XXA - Other injury of unspecified body region, initial encounter Status: Acute Assessment and Plan: Postoperative from May 12 surgery XR noted Analgesics Activity as tolerated (4) Respiratory failure: Qualifiers: Chronicity: acute on chronic Respiratory failure complication: hypoxia and hypercapnia Qualified Code(s): J96.21 - Acute and chronic respiratory failure with hypoxia; J96.22 - Acute and chronic respiratory failure with hypercapnia Code(s): J96.90 - Respiratory failure, unspecified, unspecified whether with hypoxia or hypercapnia Status: Acute Assessment and Plan: Clinically stable (5) Anemia in other chronic diseases classified elsewhere: Code(s): D63.8 - Anemia in other chronic diseases classified elsewhere Status: Acute Assessment and Plan: Relatively stable (6) Chronic heart failure with preserved ejection fraction: Code(s): I50.32 - Chronic diastolic (congestive) heart failure Status: Acute Assessment and Plan: Clinically stable (7) Osteoarthritis involving multiple joints on both sides of body: Code(s): M15.9 - Polyosteoarthritis, unspecified Status: Acute Assessment and Plan: Analgesics prn (8) Restless legs syndrome: Onset Date: 09/25/18 Code(s): G25.81 - Restless legs syndrome Status: Acute Assessment and Plan: Continue home regimen (9) Paroxysmal atrial fibrillation: Code(s): I48.0 - Paroxysmal atrial fibrillation Status: Acute Assessment and Plan: Continue flecainide (10) SLE (systemic lupus erythematosus related syndrome): Code(s): M32.9 - Systemic lupus erythematosus, unspecified Status: Acute Assessment and Plan: Seems inactive at this time (11) COPD (chronic obstructive pulmonary disease): Qualifiers: COPD type: unspecified COPD Qualified Code(s): J44.9 - Chronic obstructive pulmonary disease, unspecified Code(s): J44.9 - Chronic obstructive pulmonary disease, unspecified Status: Acute Assessment and Plan: Severe, but clinically stable (12) Urinary retention: Code(s): R33.9 - Retention of urine, unspecified Status: Acute Assessment and Plan: Tamsulosin in anticipation of voiding trial (13) Obstructive sleep apnea: Code(s): G47.33 - Obstructive sleep apnea (adult) (pediatric) Status: Acute Assessment and Plan: CPAP with home settings Subjective Date/time seen: 06/07/19 14:32 Interval history: ALVARES after therapy. No cp. Right groin and thigh pain, mild to moderate at rest, severe with weight bearing. Review of Systems Review of Systems: All systems reviewed & are unrem
[2019-06-08] VITALS (13 sets, daily range): BP systolic 105–139; BP diastolic 49–62; PULSE 70–105; RESP 16–30; TEMP 36.3–37.1; O2SAT 90–97
[2019-06-08] MEDS: IPRATROPIUM BR 0.02% INH SOLN 0.5 MG/2.5 ML VIAL INHALATION ×4 (01:47→20:46)
[2019-06-08] MEDS: TAMSULOSIN HCL 0.4 MG CAPSULE PO ×2 (08:21→21:01)
[2019-06-08] MEDS: FLECAINIDE ACETATE 50 MG TABLET PO ×2 (08:22→21:00)
[2019-06-08] MEDS: predniSONE 10 MG TABLET PO (08:22)
[2019-06-08] MEDS: ASPIRIN 81 MG CHEWABLE TABLET PO (08:22)
[2019-06-08] MEDS: SENNOSIDES 8.6 MG TABLET PO ×2 (08:22→16:26)
--- NOTE | 2019-06-08 11:13 | WPDGIPROGNO ---
Progress Note: A&P Additional Plan Patient alert more comfortable at present. He has been eating better since admission to the hospital. Physical exam reveals him to be alert. Minimally short of breath at rest. Lungs are clear. Abdomen is soft and nontender. Impression 1. Dysphagia. I suspect he had a food impaction at the time of admission to the hospital. Esophageal dysmotility noted on barium swallow. Plan is for EGD when he is breathing better. This can be planned as an outpatient in 2 or 3 weeks. 2. chronic respiratory failure. COPD. 3. UTI. 4. SLE. 5. Chronic anemia. 6. Atrial fibrillation. Plan is for elective EGD as an outpatient several weeks. Hopefully return to the nursing homes. Subjective Date/time seen: 06/08/19 11:13 Objective Data Vital Signs Vital Signs: Vital Signs - 24 hr 06/07/19 14:14 06/07/19 14:24 06/07/19 19:49 Temperature Pulse Rate 105 H 101 H 88 Respiratory Rate 26 H 24 H 16 Blood Pressure Pulse Oximetry 06/07/19 19:51 06/07/19 20:02 06/07/19 21:52 Temperature Pulse Rate 85 85 Respiratory Rate 16 Blood Pressure Pulse Oximetry 96 06/07/19 22:40 06/08/19 01:49 06/08/19 01:59 Temperature 36.3 C L Pulse Rate 88 90 88 Respiratory Rate 16 16 16 Blood Pressure 106/58 L Pulse Oximetry 93 06/08/19 06:00 06/08/19 08:22 06/08/19 08:54 Temperature 36.4 C L Pulse Rate 86 86 89 Respiratory Rate 20 30 H Blood Pressure 109/49 L Pulse Oximetry 92 06/08/19 09:05 Temperature Pulse Rate 70 Respiratory Rate 28 H Blood Pressure Pulse Oximetry 97 Intake/Output Intake/Output: Intake & Output 06/05/19 06/06/19 06/07/19 06/08/19 22:59 23:59 23:59 23:59 Intake Total 1670 100 Output Total 2700 800 Balance -1030 -700 Meds/Results Medications: Active Medications Generic Name Dose Route Start Last Admin Trade Name Freq PRN Reason Stop Dose Admin Aspirin 81 mg 06/04/19 08:00 06/08/19 08:22 Aspirin Chewable PO 81 mg DAILY@0800 EDA Administration Benzonatate 200 mg 06/04/19 08:17 Tessalon Perles PO TID PRN Cough Budesonide/Formoterol Fumarate 2 puff 06/04/19 08:00 06/07/19 19:47 Symbicort 160-4.5 Mcg (*Sp) Inhaler INHALATION 2 puff Q12HRT EDA Administration Flecainide Acetate 50 mg 06/04/19 09:00 06/08/19 08:22 Tambocor PO 50 mg Q12HR EDA Administration Guaifenesin 1,200 mg 06/04/19 09:00 06/08/19 08:21 Mucinex 12 Hr Tab PO 1,200 mg Q12HR EDA Administration Ceftazidime 1 gm/ Dextrose 50 mls @ 100 mls/hr 06/06/19 08:00 06/08/19 08:21 IVPB 100 mls/hr Q8HR EDA Administration Ipratropium [place] 0.5 mg 06/04/19 02:00 06/08/19 08:52 Atrovent Neb INHALATION 0.5 mg Q6HRT [facility] Administration Levalbuterol HCl 1.25 mg 06/04/19 15:05 06/08/19 08:52 Xopenex 1.25 Mg/0.5 Ml INHALATION 1.25 mg Q6HRT [facility] Administration Miconazole Nitrate 1 applic 06/04/19 09:00 06/08/19 08:22 Aloe [place] TOPICAL 1 applic Q12HR [facility] Administration Oxycodone HCl 5 mg 06/04/19 08:21 06/08/19 08:43 Roxicodone Ir Tablet PO 5 mg Q3H PRN Administration Pain Oxycodone/Acetaminophen 1 tablet 06/04/19 08:22 06/08/19 08:42 Percocet 5-325 Mg PO 1 tablet Q3H PRN Administration Pain Polyethylene Glycol 17 gm 06/06/19 17:34 Miralax PO QAM PRN Constipation Prednisone 10 mg 06/05/19 09:00 06/08/19 08:22 Prednisone PO 10 mg DAILY EDA Administration Promethazine HCl 12.5 mg 06/04/19 08:10 06/04/19 08:41 Phenergan Inj IV PUSH 12.5 mg Q4H PRN Administration Nausea And Vomiting Ropinirole HCl 0.5 mg 06/04/19 21:00 06/07/19 21:52 Ropinirole Hcl PO 0.5 mg HS EDA Administration Senna 8.6 mg 06/06/19 17:35 06/08/19 08:22 Senokot Tablet PO 8.6 mg BID EDA Administration Tamsulosin HCl 0.4 mg 06/05/19 10:30 06/08/19 08:21 Flomax PO 0.4 mg Q12HR EDA Adm
--- NOTE | 2019-06-08 17:17 | P.PNIM_ITS ---
Progress Note: A&P Assessment and Plan (1) UTI (urinary tract infection) due to urinary indwelling Lyles catheter: Qualifiers: Indwelling urinary catheter type: indwelling urethral catheter Encounter type: subsequent encounter Qualified Code(s): T83.511D - Infection and inflammatory reaction due to indwelling urethral catheter, subsequent encounter; N39.0 - Urinary tract infection, site not specified Code(s): T83.511A - Infection and inflammatory reaction due to indwelling urethral catheter, initial encounter; N39.0 - Urinary tract infection, site not specified Status: Acute Assessment and Plan: * Present upon admission (NOT hospital acquired) * Pseudomonas may be colonizer, but will treat to eradicate due to plan to leave out catheter (removed 3 AM and prn straight cath ordered) * Ceftazidime day 3 (2) Dysphagia: Qualifiers: Dysphagia type: esophageal phase Qualified Code(s): R13.10 - Dysphagia, unspecified Code(s): R13.10 - Dysphagia, unspecified Status: Acute Assessment and Plan: * Esophagram 06/03 c/w dysmotility * GI input noted and appreciated * Easy to chew diet (3) Hematoma: Code(s): T14.8XXA - Other injury of unspecified body region, initial encounter Status: Acute Assessment and Plan: * Postoperative from May 12 surgery * XR noted * Analgesics * Activity as tolerated (4) Respiratory failure: Qualifiers: Chronicity: acute on chronic Respiratory failure complication: hypoxia and hypercapnia Qualified Code(s): J96.21 - Acute and chronic respiratory failure with hypoxia; J96.22 - Acute and chronic respiratory failure with hypercapnia Code(s): J96.90 - Respiratory failure, unspecified, unspecified whether with hypoxia or hypercapnia Status: Acute Assessment and Plan: * Clinically stable (5) Anemia in other chronic diseases classified elsewhere: Code(s): D63.8 - Anemia in other chronic diseases classified elsewhere Status: Acute Assessment and Plan: * Relatively stable (6) Chronic heart failure with preserved ejection fraction: Code(s): I50.32 - Chronic diastolic (congestive) heart failure Status: Acute Assessment and Plan: * Clinically stable (7) Osteoarthritis involving multiple joints on both sides of body: Code(s): M15.9 - Polyosteoarthritis, unspecified Status: Acute Assessment and Plan: * Analgesics prn (8) Restless legs syndrome: Onset Date: 09/25/18 Code(s): G25.81 - Restless legs syndrome Status: Acute Assessment and Plan: * Continue home regimen (9) Paroxysmal atrial fibrillation: Code(s): I48.0 - Paroxysmal atrial fibrillation Status: Acute Assessment and Plan: No anticoagulation with history of fall * Continue flecainide (10) SLE (systemic lupus erythematosus related syndrome): Code(s): M32.9 - Systemic lupus erythematosus, unspecified Status: Acute Assessment and Plan: * Seems inactive at this time (11) COPD (chronic obstructive pulmonary disease): Qualifiers: COPD type: unspecified COPD Qualified Code(s): J44.9 - Chronic obs tructive pulmonary disease, unspecified Code(s): J44.9 - Chronic obstructive pulmonary disease, unspecified Status: Acute Assessment and Plan: * Severe, but clinically stable (12) Urinary retention: Code(s): R33.9 - Retention of urine, unspecified Status: Acute Assessment and Plan: * Tamsulosin a
--- NOTE | 2019-06-08 17:17 | PM.IMPN ---
Progress Note: A&P Assessment and Plan (1) UTI (urinary tract infection) due to urinary indwelling Lyles catheter: Qualifiers: Indwelling urinary catheter type: indwelling urethral catheter Encounter type: subsequent encounter Qualified Code(s): T83.511D - Infection and inflammatory reaction due to indwelling urethral catheter, subsequent encounter; N39.0 - Urinary tract infection, site not specified Code(s): T83.511A - Infection and inflammatory reaction due to indwelling urethral catheter, initial encounter; N39.0 - Urinary tract infection, site not specified Status: Acute Assessment and Plan: Present upon admission (NOT hospital acquired) Pseudomonas may be colonizer, but will treat to eradicate due to plan to leave out catheter (removed 3 AM and prn straight cath ordered) Ceftazidime day 3 (2) Dysphagia: Qualifiers: Dysphagia type: esophageal phase Qualified Code(s): R13.10 - Dysphagia, unspecified Code(s): R13.10 - Dysphagia, unspecified Status: Acute Assessment and Plan: Esophagram 06/03 c/w dysmotility GI input noted and appreciated Easy to chew diet (3) Hematoma: Code(s): T14.8XXA - Other injury of unspecified body region, initial encounter Status: Acute Assessment and Plan: Postoperative from May 12 surgery XR noted Analgesics Activity as tolerated (4) Respiratory failure: Qualifiers: Chronicity: acute on chronic Respiratory failure complication: hypoxia and hypercapnia Qualified Code(s): J96.21 - Acute and chronic respiratory failure with hypoxia; J96.22 - Acute and chronic respiratory failure with hypercapnia Code(s): J96.90 - Respiratory failure, unspecified, unspecified whether with hypoxia or hypercapnia Status: Acute Assessment and Plan: Clinically stable (5) Anemia in other chronic diseases classified elsewhere: Code(s): D63.8 - Anemia in other chronic diseases classified elsewhere Status: Acute Assessment and Plan: Relatively stable (6) Chronic heart failure with preserved ejection fraction: Code(s): I50.32 - Chronic diastolic (congestive) heart failure Status: Acute Assessment and Plan: Clinically stable (7) Osteoarthritis involving multiple joints on both sides of body: Code(s): M15.9 - Polyosteoarthritis, unspecified Status: Acute Assessment and Plan: Analgesics prn (8) Restless legs syndrome: Onset Date: 09/25/18 Code(s): G25.81 - Restless legs syndrome Status: Acute Assessment and Plan: Continue home regimen (9) Paroxysmal atrial fibrillation: Code(s): I48.0 - Paroxysmal atrial fibrillation Status: Acute Assessment and Plan: No anticoagulation with history of fall Continue flecainide (10) SLE (systemic lupus erythematosus related syndrome): Code(s): M32.9 - Systemic lupus erythematosus, unspecified Status: Acute Assessment and Plan: Seems inactive at this time (11) COPD (chronic obstructive pulmonary disease): Qualifiers: COPD type: unspecified COPD Qualified Code(s): J44.9 - Chronic obstructive pulmonary disease, unspecified Code(s): J44.9 - Chronic obstructive pulmonary disease, unspecified Status: Acute Assessment and Plan: Severe, but clinically stable (12) Urinary retention: Code(s): R33.9 - Retention of urine, unspecified Status: Acute Assessment and Plan: Tamsulosin and now on intermittent catheterization (13) Obstructive sleep apnea: Code(s): G47.33 - Obstructive sleep apnea (adult) (pediatric) Status: Acute Assessment and Plan: CPAP with home settings Subjective Date/time seen: 06/08/19 17:17 Interval history: Date of visit 06/07. 74-year-old white male COPD atrial fib diastolic heart failure with right hip fracture and now UTI post catheteriza
[2019-06-09] VITALS (14 sets, daily range): BP systolic 120–127; BP diastolic 50–95; PULSE 75–100; RESP 18–32; TEMP 36.4–37; O2SAT 89–96
[2019-06-09] MEDS: IPRATROPIUM BR 0.02% INH SOLN 0.5 MG/2.5 ML VIAL INHALATION ×4 (02:07→20:10)
[2019-06-09] MEDS: FLECAINIDE ACETATE 50 MG TABLET PO ×2 (10:52→21:08)
[2019-06-09] MEDS: SENNOSIDES 8.6 MG TABLET PO ×2 (10:53→18:49)
[2019-06-09] MEDS: TAMSULOSIN HCL 0.4 MG CAPSULE PO ×2 (10:53→21:08)
[2019-06-09] MEDS: predniSONE 10 MG TABLET PO (10:53)
[2019-06-09] MEDS: ASPIRIN 81 MG CHEWABLE TABLET PO (10:54)
--- NOTE | 2019-06-09 11:37 | WPDGIPROGNO ---
Progress Note: A&P Additional Plan Patient eating regular food at present. He denies dysphagia present. Physical exam reveals abdomen to be soft benign nontender. Impression 1. Dysphagia. Esophageal dysmotility by barium swallow. I suspect he had a food impaction at the time of presentation. Plan is for elective EGD. If patient remains hospitalized we could perform this while in the hospital. Otherwise elective follow-up EGD in a month is advised. Subjective Date/time seen: 06/09/19 11:37 Objective Data Vital Signs Vital Signs: Vital Signs - 24 hr 06/08/19 13:51 06/08/19 13:59 06/08/19 14:00 Temperature 36.3 C L Pulse Rate 105 H 103 H 93 Respiratory Rate 26 H 18 18 Blood Pressure 139/62 Pulse Oximetry 90 06/08/19 20:46 06/08/19 20:56 06/08/19 21:00 Temperature Pulse Rate 100 104 H 98 Respiratory Rate 18 18 Blood Pressure Pulse Oximetry 96 06/08/19 22:16 06/09/19 02:08 06/09/19 02:17 Temperature 37.1 C Pulse Rate 98 100 88 Respiratory Rate 22 H 18 18 Blood Pressure 105/54 L Pulse Oximetry 92 06/09/19 06:46 06/09/19 08:32 06/09/19 08:39 Temperature 36.5 C Pulse Rate 91 86 87 Respiratory Rate 20 26 H 22 H Blood Pressure 127/95 H Pulse Oximetry 96 89 L Intake/Output Intake/Output: Intake & Output 06/06/19 06/07/19 06/08/19 06/09/19 23:59 23:59 23:59 23:59 Intake Total 1670 1010 200 Output Total 2700 800 250 Balance -1030 210 -50 Meds/Results Medications: Active Medications Generic Name Dose Route Start Last Admin Trade Name Freq PRN Reason Stop Dose Admin Aspirin 81 mg 06/04/19 08:00 06/09/19 10:54 Aspirin Chewable PO 81 mg DAILY@0800 EDA Administration Benzonatate 200 mg 06/04/19 08:17 Tessalon Perles PO TID PRN Cough Budesonide/Formoterol Fumarate 2 puff 06/04/19 08:00 06/09/19 08:30 Symbicort 160-4.5 Mcg (*Sp) Inhaler INHALATION 2 puff Q12HRT EDA Administration Flecainide Acetate 50 mg 06/04/19 09:00 06/09/19 10:52 Tambocor PO 50 mg Q12HR EDA Administration Guaifenesin 1,200 mg 06/04/19 09:00 06/09/19 10:50 Mucinex 12 Hr Tab PO 1,200 mg Q12HR EDA Administration Ceftazidime 1 gm/ Dextrose 50 mls @ 100 mls/hr 06/06/19 08:00 06/09/19 06:06 IVPB Infused Q8HR EDA Infusion Ipratropium [place] 0.5 mg 06/04/19 02:00 06/09/19 08:30 Atrovent Neb INHALATION 0.5 mg Q6HRT EDA Administration Levalbuterol HCl 1.25 mg 06/04/19 15:05 06/09/19 08:30 Xopenex 1.25 Mg/0.5 Ml INHALATION 1.25 mg Q6HRT EDA Administration Miconazole Nitrate 1 applic 06/04/19 09:00 06/09/19 10:52 Aloe [place] TOPICAL 1 applic Q12HR EDA Administration Oxycodone HCl 5 mg 06/04/19 08:21 06/08/19 22:23 Roxicodone Ir Tablet PO 5 mg Q3H PRN Administration Pain Oxycodone/Acetaminophen 1 tablet 06/04/19 08:22 06/09/19 10:59 Percocet 5-325 Mg PO 1 tablet Q3H PRN Administration Pain Polyethylene Glycol 17 gm 06/06/19 17:34 Miralax PO QAM PRN Constipation Prednisone 10 mg 06/05/19 09:00 06/09/19 10:53 Prednisone PO 10 mg DAILY EDA Administration Promethazine HCl 12.5 mg 06/04/19 08:10 06/04/19 08:41 Phenergan Inj IV PUSH 12.5 mg Q4H PRN Administration Nausea And Vomiting Ropinirole HCl 0.5 mg 06/04/19 21:00 06/08/19 21:00 Ropinirole Hcl PO 0.5 mg HS EDA Administration Senna 8.6 mg 06/06/19 17:35 06/09/19 10:53 Senokot Tablet PO 8.6 mg BID EDA Administration Tamsulosin HCl 0.4 mg 06/05/19 10:30 06/09/19 10:53 Flomax PO 0.4 mg Q12HR EDA Administration Zinc Oxide 1 applic 06/04/19 08:18 Zinc Oxide 20% Oint TOPICAL Q12H PRN Rash Radiology Results: ITS Impressions Chest X-Ray 06/03/19 22:40 IMPRESSION: 1. Possible developing mild pulmonary edema. 2. Chronic marked elevation of left hemidiaphragm, adjacent atelectasis. Chest CTA 06/03/19 23:51
--- NOTE | 2019-06-09 13:11 | PCOTNOTE ---
Attempted to see patient this pm, however patient declined. Pt stated, Whatever you have for me, I'm not doing it. I'm too weak. Encouraged patient to participate in therapy, explaining the main goal of therapy is to restore strength and optimal function. Pt replied, I know, and quite frankly I don't care. It's nothing against you, hon. It's just that just had visitors, and I want to take a nap. Can you come back at 3 o'clock? Unable to check back at that time due to therapy schedule, however explained to patient, therapy will check back tomorrow. Pt replied, Thank you for understanding.
--- NOTE | 2019-06-09 16:31 | PM.IMPN ---
Progress Note: A&P Assessment and Plan (1) UTI (urinary tract infection) due to urinary indwelling Lyles catheter: Qualifiers: Encounter type: subsequent encounter Indwelling urinary catheter type: indwelling urethral catheter Qualified Code(s): T83.511D - Infection and inflammatory reaction due to indwelling urethral catheter, subsequent encounter; N39.0 - Urinary tract infection, site not specified Code(s): T83.511A - Infection and inflammatory reaction due to indwelling urethral catheter, initial encounter; N39.0 - Urinary tract infection, site not specified Status: Acute Assessment and Plan: Present upon admission (NOT hospital acquired) Pseudomonas may be colonizer, but will treat to eradicate due to plan to leave out catheter (removed 3 AM and prn straight cath ordered) Ceftazidime day 4 (2) Dysphagia: Qualifiers: Dysphagia type: esophageal phase Qualified Code(s): R13.10 - Dysphagia, unspecified Code(s): R13.10 - Dysphagia, unspecified Status: Acute Assessment and Plan: Esophagram 06/03 c/w dysmotility GI input noted and appreciated Easy to chew diet (3) Hematoma: Code(s): T14.8XXA - Other injury of unspecified body region, initial encounter Status: Acute Assessment and Plan: Postoperative from May 12 surgery XR noted Analgesics Activity as tolerated (4) Respiratory failure: Qualifiers: Chronicity: acute on chronic Respiratory failure complication: hypoxia and hypercapnia Qualified Code(s): J96.21 - Acute and chronic respiratory failure with hypoxia; J96.22 - Acute and chronic respiratory failure with hypercapnia Code(s): J96.90 - Respiratory failure, unspecified, unspecified whether with hypoxia or hypercapnia Status: Acute Assessment and Plan: Clinically stable, still marked ALVARES (5) Anemia in other chronic diseases classified elsewhere: Code(s): D63.8 - Anemia in other chronic diseases classified elsewhere Status: Acute Assessment and Plan: Relatively stable, hgb 9.5 today (6) Chronic heart failure with preserved ejection fraction: Code(s): I50.32 - Chronic diastolic (congestive) heart failure Status: Acute Assessment and Plan: Clinically stable (7) Osteoarthritis involving multiple joints on both sides of body: Code(s): M15.9 - Polyosteoarthritis, unspecified Status: Acute Assessment and Plan: Analgesics prn (8) Restless legs syndrome: Onset Date: 09/25/18 Code(s): G25.81 - Restless legs syndrome Status: Acute Assessment and Plan: Continue home regimen (9) Paroxysmal atrial fibrillation: Code(s): I48.0 - Paroxysmal atrial fibrillation Status: Acute Assessment and Plan: No anticoagulation with history of fall Continue flecainide (10) SLE (systemic lupus erythematosus related syndrome): Code(s): M32.9 - Systemic lupus erythematosus, unspecified Status: Acute Assessment and Plan: Seems inactive at this time (11) COPD (chronic obstructive pulmonary disease): Qualifiers: COPD type: unspecified COPD Qualified Code(s): J44.9 - Chronic obstructive pulmonary disease, unspecified Code(s): J44.9 - Chronic obstructive pulmonary disease, unspecified Status: Acute Assessment and Plan: Severe, but clinically stable (12) Urinary retention: Code(s): R33.9 - Retention of urine, unspecified Status: Acute Assessment and Plan: Tamsulosin and now on intermittent catheterization (13) Obstructive sleep apnea: Code(s): G47.33 - Obstructive sleep apnea (adult) (pediatric) Status: Acute Assessment and Plan: CPAP with home settings Subjective Date/time seen: 06/09/19 16:31 Interval history: Date of visit 06/08. 74-year-old white male COPD, atrial fib ,diastolic heart failure with right hip
[2019-06-09 17:20] LABS: Glucose Point of Care 132 (65-105)
[2019-06-09] MEDS: BENZONATATE 100 MG CAPSULE 200 MG PO (17:31)
[2019-06-10] VITALS (16 sets, daily range): BP systolic 117–124; BP diastolic 50–52; PULSE 77–103; RESP 18–24; TEMP 36.2–37.1; O2SAT 90–94
[2019-06-10] MEDS: IPRATROPIUM BR 0.02% INH SOLN 0.5 MG/2.5 ML VIAL INHALATION ×4 (02:52→20:20)
[2019-06-10] MEDS: ASPIRIN 81 MG CHEWABLE TABLET PO (07:59)
[2019-06-10] MEDS: SENNOSIDES 8.6 MG TABLET PO ×2 (08:00→19:49)
[2019-06-10] MEDS: FLECAINIDE ACETATE 50 MG TABLET PO ×2 (08:00→20:17)
[2019-06-10] MEDS: TAMSULOSIN HCL 0.4 MG CAPSULE PO ×2 (08:01→20:18)
[2019-06-10] MEDS: predniSONE 10 MG TABLET PO (08:02)
[2019-06-10] MEDS: ZINC OXIDE 20% OINT 30 GM TUBE 1 APPLIC TOPICAL (08:05)
--- NOTE | 2019-06-10 10:08 | WPDGIPROGNO ---
Progress Note: A&P Additional Plan Patient remains in the hospital on treatment for urinary tract infection. He remains somewhat short of breath with supplemental oxygen. Physical exam reveals him to be alert. Vital signs stable. He is anicteric. Lungs reveal a few rhonchi. Heart without murmur. Abdomen is soft and nontender. Impression 1. Dysphagia. Acute dysphagia is resolved. Now tolerating soft diet. If patient remains hospitalized plan to proceed with EGD on Friday morning otherwise this will be accomplished as an outpatient. 2. COPD. 3. Pneumonia 4. Urinary tract infection. Subjective Date/time seen: 06/10/19 10:08 Objective Data Vital Signs Vital Signs: Vital Signs - 24 hr 06/09/19 14:00 06/09/19 14:11 06/09/19 14:18 Temperature 37.0 C Pulse Rate 98 96 97 Respiratory Rate 32 H 24 H 24 H Blood Pressure 120/50 L Pulse Oximetry 91 06/09/19 20:13 06/09/19 20:14 06/09/19 20:26 Temperature Pulse Rate 86 82 Respiratory Rate 20 20 Blood Pressure Pulse Oximetry 95 06/09/19 21:08 06/09/19 22:38 06/10/19 02:54 Temperature 36.4 C Pulse Rate 75 86 79 Respiratory Rate 20 20 Blood Pressure 125/53 L Pulse Oximetry 95 06/10/19 03:04 06/10/19 06:00 06/10/19 08:03 Temperature 36.2 C L Pulse Rate 77 94 96 Respiratory Rate 20 24 H 24 H Blood Pressure 124/50 L Pulse Oximetry 91 90 06/10/19 08:13 06/10/19 09:19 Temperature Pulse Rate 93 Respiratory Rate 20 Blood Pressure Pulse Oximetry 90 Intake/Output Intake/Output: Intake & Output 06/07/19 06/08/19 06/09/19 06/10/19 23:59 23:59 23:59 23:59 Intake Total 1670 1010 1300 410 Output Total 2700 800 1050 650 Balance -1030 210 250 -240 Meds/Results Medications: Active Medications Generic Name Dose Route Start Last Admin Trade Name Freq PRN Reason Stop Dose Admin Aspirin 81 mg 06/04/19 08:00 06/10/19 07:59 Aspirin Chewable PO 81 mg DAILY@0800 [facility] Administration Benzonatate 200 mg 06/04/19 08:17 06/09/19 17:31 Tessalon Perles PO 200 mg TID PRN Administration Cough Budesonide/Formoterol Fumarate 2 puff 06/04/19 08:00 06/09/19 20:10 Symbicort 160-4.5 Mcg (*Sp) Inhaler INHALATION 2 puff Q12HRT EDA Administration Flecainide Acetate 50 mg 06/04/19 09:00 06/10/19 08:00 Tambocor PO 50 mg Q12HR EDA Administration Guaifenesin 1,200 mg 06/04/19 09:00 06/10/19 08:00 Mucinex 12 Hr Tab PO 1,200 mg Q12HR EDA Administration Ceftazidime 1 gm/ Dextrose 50 mls @ 100 mls/hr 06/06/19 08:00 06/10/19 05:44 IVPB Infused Q8HR EDA Infusion Ipratropium [place] 0.5 mg 06/04/19 02:00 06/10/19 02:52 Atrovent Neb INHALATION 0.5 mg Q6HRT [facility] Administration Levalbuterol HCl 1.25 mg 06/04/19 15:05 06/10/19 02:52 Xopenex 1.25 Mg/0.5 Ml INHALATION 1.25 mg Q6HRT EDA Administration Miconazole Nitrate 1 applic 06/04/19 09:00 06/10/19 08:03 Aloe [place] TOPICAL 1 applic Q12HR EDA Administration Oxycodone HCl 5 mg 06/04/19 08:21 06/10/19 08:03 Roxicodone Ir Tablet PO 5 mg Q3H PRN Administration Pain Oxycodone/Acetaminophen 1 tablet 06/04/19 08:22 06/10/19 08:04 Percocet 5-325 Mg PO 1 tablet Q3H PRN Administration Pain Polyethylene Glycol 17 gm 06/06/19 17:34 Miralax PO QAM PRN Constipation Prednisone 10 mg 06/05/19 09:00 06/10/19 08:02 Prednisone PO 10 mg DAILY EDA Administration Promethazine HCl 12.5 mg 06/04/19 08:10 06/04/19 08:41 Phenergan Inj IV PUSH 12.5 mg Q4H PRN Administration Nausea And Vomiting Ropinirole HCl 0.5 mg 06/04/19 21:00 06/09/19 21:08 Ropinirole Hcl PO 0.5 mg HS EDA Administration Senna 8.6 mg 06/06/19 17:35 06/10/19 08:00 Senokot Tablet PO 8.6 mg BID EDA Administration Tamsulosin HCl 0.4 mg 06/05/19 10:30 06/10/19 08:01 Flomax PO 0.4 mg Q12HR EDA Administration Zinc Oxide 1 a
--- NOTE | 2019-06-10 15:38 | PM.IMPN ---
Progress Note: A&P Assessment and Plan (1) UTI (urinary tract infection) due to urinary indwelling Lyles catheter: Qualifiers: Indwelling urinary catheter type: indwelling urethral catheter Encounter type: subsequent encounter Qualified Code(s): T83.511D - Infection and inflammatory reaction due to indwelling urethral catheter, subsequent encounter; N39.0 - Urinary tract infection, site not specified Code(s): T83.511A - Infection and inflammatory reaction due to indwelling urethral catheter, initial encounter; N39.0 - Urinary tract infection, site not specified Status: Acute Assessment and Plan: Present upon admission (NOT hospital acquired) Pseudomonas may be colonizer, but will treat to eradicate due to plan to leave out catheter (removed 06/06 AM and prn straight cath ordered) Ceftazidime day 08/04 (2) Dysphagia: Qualifiers: Dysphagia type: esophageal phase Qualified Code(s): R13.10 - Dysphagia, unspecified Code(s): R13.10 - Dysphagia, unspecified Status: Acute Assessment and Plan: Esophagram 06/03 c/w dysmotility GI input noted and appreciated Easy to chew diet (3) Hematoma: Code(s): T14.8XXA - Other injury of unspecified body region, initial encounter Status: Acute Assessment and Plan: Postoperative from May 12 surgery XR noted Analgesics Activity as tolerated (4) Respiratory failure: Qualifiers: Chronicity: acute on chronic Respiratory failure complication: hypoxia and hypercapnia Qualified Code(s): J96.21 - Acute and chronic respiratory failure with hypoxia; J96.22 - Acute and chronic respiratory failure with hypercapnia Code(s): J96.90 - Respiratory failure, unspecified, unspecified whether with hypoxia or hypercapnia Status: Acute Assessment and Plan: Clinically stable, still marked ALVARES (5) Anemia in other chronic diseases classified elsewhere: Code(s): D63.8 - Anemia in other chronic diseases classified elsewhere Status: Acute Assessment and Plan: Relatively stable, recheck in am (6) Chronic heart failure with preserved ejection fraction: Code(s): I50.32 - Chronic diastolic (congestive) heart failure Status: Acute Assessment and Plan: Clinically stable (7) Osteoarthritis involving multiple joints on both sides of body: Code(s): M15.9 - Polyosteoarthritis, unspecified Status: Acute Assessment and Plan: Analgesics prn (8) Restless legs syndrome: Onset Date: 09/25/18 Code(s): G25.81 - Restless legs syndrome Status: Acute Assessment and Plan: Continue home regimen (9) Paroxysmal atrial fibrillation: Code(s): I48.0 - Paroxysmal atrial fibrillation Status: Acute Assessment and Plan: No anticoagulation with history of fall Continue flecainide (10) SLE (systemic lupus erythematosus related syndrome): Code(s): M32.9 - Systemic lupus erythematosus, unspecified Status: Acute Assessment and Plan: Seems inactive at this time (11) COPD (chronic obstructive pulmonary disease): Qualifiers: COPD type: unspecified COPD Qualified Code(s): J44.9 - Chronic obstructive pulmonary disease, unspecified Code(s): J44.9 - Chronic obstructive pulmonary disease, unspecified Status: Acute Assessment and Plan: Severe, but clinically stable (12) Urinary retention: Code(s): R33.9 - Retention of urine, unspecified Status: Acute Assessment and Plan: Tamsulosin and now on intermittent catheterization (13) Obstructive sleep apnea: Code(s): G47.33 - Obstructive sleep apnea (adult) (pediatric) Status: Acute Assessment and Plan: CPAP with home settings Subjective Date/time seen: 06/10/19 15:38 Interval history: Date of visit 06/09. 74-year-old white male COPD, atrial fib ,diastolic heart failure with right hi
[2019-06-11] VITALS (13 sets, daily range): BP systolic 119–140; BP diastolic 51–66; PULSE 58–97; RESP 18–20; TEMP 36.4–36.8; O2SAT 92–96
[2019-06-11] MEDS: IPRATROPIUM BR 0.02% INH SOLN 0.5 MG/2.5 ML VIAL INHALATION ×4 (01:50→19:49)
[2019-06-11 06:02] LABS: Basophils Percent Auto 0.3 % (0.2-1.2); Hematocrit 33.8 % (42.0-52.0); Hemoglobin 9.9 g/dL (14.0-18.0); Immature Granulocyte Absolute 0.04 K/mm3 (0.00-0.031); Lymphocytes Absolute Auto 0.86 K/mm3 (0.9-3.2); Lymphocytes Percent Auto 22.5 % (18.3-44.2); Mean Corpuscular HGB Conc 29.3 g/dl (32-36); Mean Corpuscular Hemoglobin 30.1 pg (26-34); Mean Corpuscular Volume 102.7 fl (80-100); Mean Platelet Volume 10.5 fl (7.4-10.4); Monocytes Absolute Auto 0.5 K/mm3 (0.1-0.6); Monocytes Percent Auto 13.8 % (2.6-8.5); Neutrophils Absolute Auto 2.4 K/mm3 (1.3-6.7); Neutrophils Percent Auto 61.4 % (45.5-73.1); Platelet Count Result 119 k/mm3 (150-375); Red Blood Count 3.29 M/mm3 (4.6-6.20); Red Cell Distribution Width 17.2 % (11.5-14.5); White Blood Count 3.8 K/mm3 (4.5-10.0)
[2019-06-11 06:11] LABS: Blood Urea Nitrogen 15 mg/dL (9-20); Calcium 8.3 mg/dL (8.4-10.2); Carbon Dioxide 36 mmol/L (22-30); Chloride 99 mmol/L (98-107); Estimated CRCL calculation 86 ml/min; Estimated Glomerular Filt Rate > 60; Glucose 88 mg/dL (75-110); Sodium 136 mmol/L (137-145)
[2019-06-11 06:51] LABS: Anisocytosis 1+ (NORMAL); Hypochromasia 1+ (NORMAL); Platelet Estimate Decreased (Adequate); Target Cells 1+ (NORMAL)
[2019-06-11] MEDS: predniSONE 10 MG TABLET PO (09:23)
[2019-06-11] MEDS: SENNOSIDES 8.6 MG TABLET PO ×2 (09:23→14:34)
[2019-06-11] MEDS: ASPIRIN 81 MG CHEWABLE TABLET PO (09:24)
[2019-06-11] MEDS: TAMSULOSIN HCL 0.4 MG CAPSULE PO ×2 (09:24→21:05)
[2019-06-11] MEDS: FLECAINIDE ACETATE 50 MG TABLET PO ×2 (09:24→21:03)
--- NOTE | 2019-06-11 10:01 | WPDGIPROGNO ---
Progress Note: A&P Additional Plan Patient alert. Still somewhat short of breath at rest period require supplemental oxygen. Apparently this is his baseline. Currently tolerating diet with no difficulties. Physical exam reveals abdomen to be soft and nontender. Impression 1. Dysphagia. Current we resolved. Suspect he presented with esophageal food impaction. Esophageal motility disorder suggested by barium swallow. Plan is for elective EGD. Patient refuses to proceed with test At this time. 2. COPD. 3. Urinary tract infection. Plan is for outpatient EGD in several weeks. This can be performed electively. He may benefit from soft diet until this can be accomplished. Subjective Date/time seen: 06/11/19 10:01 Objective Data Vital Signs Vital Signs: Vital Signs - 24 hr 06/10/19 14:00 06/10/19 14:02 06/10/19 14:15 Temperature 36.4 C L Pulse Rate 101 H 94 93 Respiratory Rate 20 20 20 Blood Pressure 120/52 L Pulse Oximetry 92 06/10/19 20:17 06/10/19 20:20 06/10/19 20:30 Temperature Pulse Rate 82 92 92 Respiratory Rate 20 20 Blood Pressure Pulse Oximetry 06/10/19 20:51 06/10/19 22:00 06/11/19 01:50 Temperature 37.1 C Pulse Rate 103 H 90 Respiratory Rate 18 20 Blood Pressure 117/50 L Pulse Oximetry 94 90 06/11/19 06:00 06/11/19 08:00 06/11/19 08:48 Temperature 36.8 C Pulse Rate 65 65 97 Respiratory Rate 20 20 20 Blood Pressure 140/66 Pulse Oximetry 92 92 06/11/19 08:51 06/11/19 09:01 Temperature Pulse Rate 95 Respiratory Rate 20 Blood Pressure Pulse Oximetry 95 Intake/Output Intake/Output: Intake & Output 06/08/19 06/09/19 06/10/19 06/11/19 23:59 23:59 23:59 23:59 Intake Total 1010 1300 1130 100 Output Total 800 1050 1450 1000 Balance 210 250 -320 -900 Meds/Results Medications: Active Medications Generic Name Dose Route Start Last Admin Trade Name Freq PRN Reason Stop Dose Admin Aspirin 81 mg 06/04/19 08:00 06/11/19 09:24 Aspirin Chewable PO 81 mg DAILY@0800 [facility] Administration Benzonatate 200 mg 06/04/19 08:17 06/09/19 17:31 Tessalon Perles PO 200 mg TID PRN Administration Cough Flecainide Acetate 50 mg 06/04/19 09:00 06/11/19 09:24 Tambocor PO 50 mg Q12HR EDA Administration Guaifenesin 1,200 mg 06/04/19 09:00 06/11/19 09:23 Mucinex 12 Hr Tab PO 1,200 mg Q12HR EDA Administration Ceftazidime 1 gm/ Dextrose 50 mls @ 100 mls/hr 06/06/19 08:00 06/11/19 05:46 IVPB Infused Q8HR EDA Infusion Ipratropium [place] 0.5 mg 06/04/19 02:00 06/11/19 09:04 Atrovent Neb INHALATION 0.5 mg Q6HRT EDA Administration Levalbuterol HCl 1.25 mg 06/04/19 15:05 06/11/19 09:04 Xopenex 1.25 Mg/0.5 Ml INHALATION 1.25 mg Q6HRT EDA Administration Miconazole Nitrate 1 applic 06/04/19 09:00 06/11/19 09:37 Aloe [place] TOPICAL 1 applic Q12HR EDA Administration Oxycodone HCl 5 mg 06/04/19 08:21 06/11/19 09:28 Roxicodone Ir Tablet PO 5 mg Q3H PRN Administration Pain Oxycodone/Acetaminophen 1 tablet 06/04/19 08:22 06/11/19 09:30 Percocet 5-325 Mg PO 1 tablet Q3H PRN Administration Pain Polyethylene Glycol 17 gm 06/06/19 17:34 Miralax PO QAM PRN Constipation Prednisone 10 mg 06/05/19 09:00 06/11/19 09:23 Prednisone PO 10 mg DAILY EDA Administration Promethazine HCl 12.5 mg 06/04/19 08:10 06/04/19 08:41 Phenergan Inj IV PUSH 12.5 mg Q4H PRN Administration Nausea And Vomiting Ropinirole HCl 0.5 mg 06/04/19 21:00 06/10/19 20:17 Ropinirole Hcl PO 0.5 mg HS EDA Administration Senna 8.6 mg 06/06/19 17:35 06/11/19 09:23 Senokot Tablet PO 8.6 mg BID EDA Administration Tamsulosin HCl 0.4 mg 06/05/19 10:30 06/11/19 09:24 Flomax PO 0.4 mg Q12HR EDA Administration Zinc Oxide 1 applic 06/04/19 08:18 06/10/19 08:05 Zinc Oxide 20% Oint TOPICAL 1
[2019-06-11] MEDS: BENZONATATE 100 MG CAPSULE 200 MG PO (14:34)
--- NOTE | 2019-06-11 16:02 | PM.IMPN ---
Progress Note: A&P Assessment and Plan (1) UTI (urinary tract infection) due to urinary indwelling Lyles catheter: Qualifiers: Indwelling urinary catheter type: indwelling urethral catheter Encounter type: subsequent encounter Qualified Code(s): T83.511D - Infection and inflammatory reaction due to indwelling urethral catheter, subsequent encounter; N39.0 - Urinary tract infection, site not specified Code(s): T83.511A - Infection and inflammatory reaction due to indwelling urethral catheter, initial encounter; N39.0 - Urinary tract infection, site not specified Status: Acute Assessment and Plan: Present upon admission (NOT hospital acquired) Pseudomonas may be colonizer, but will treat to eradicate due to plan to leave out catheter (removed 06/06 AM and prn straight cath ordered) Ceftazidime day 09/04 (2) Dysphagia: Qualifiers: Dysphagia type: esophageal phase Qualified Code(s): R13.10 - Dysphagia, unspecified Code(s): R13.10 - Dysphagia, unspecified Status: Acute Assessment and Plan: Esophagram 06/03 c/w dysmotility GI input noted and appreciated Easy to chew diet (3) Hematoma: Code(s): T14.8XXA - Other injury of unspecified body region, initial encounter Status: Acute Assessment and Plan: Postoperative from May 12 surgery XR noted Analgesics Activity as tolerated (4) Respiratory failure: Qualifiers: Chronicity: acute on chronic Respiratory failure complication: hypoxia and hypercapnia Qualified Code(s): J96.21 - Acute and chronic respiratory failure with hypoxia; J96.22 - Acute and chronic respiratory failure with hypercapnia Code(s): J96.90 - Respiratory failure, unspecified, unspecified whether with hypoxia or hypercapnia Status: Acute Assessment and Plan: Clinically stable, still marked ALVARES (5) Anemia in other chronic diseases classified elsewhere: Code(s): D63.8 - Anemia in other chronic diseases classified elsewhere Status: Acute Assessment and Plan: Relatively stable, hgb 9.9 (6) Chronic heart failure with preserved ejection fraction: Code(s): I50.32 - Chronic diastolic (congestive) heart failure Status: Acute Assessment and Plan: Clinically stable (7) Osteoarthritis involving multiple joints on both sides of body: Code(s): M15.9 - Polyosteoarthritis, unspecified Status: Acute Assessment and Plan: Analgesics prn (8) Restless legs syndrome: Onset Date: 09/25/18 Code(s): G25.81 - Restless legs syndrome Status: Acute Assessment and Plan: Continue home regimen (9) Paroxysmal atrial fibrillation: Code(s): I48.0 - Paroxysmal atrial fibrillation Status: Acute Assessment and Plan: No anticoagulation with history of fall Continue flecainide (10) SLE (systemic lupus erythematosus related syndrome): Code(s): M32.9 - Systemic lupus erythematosus, unspecified Status: Acute Assessment and Plan: Seems inactive at this time (11) COPD (chronic obstructive pulmonary disease): Qualifiers: COPD type: unspecified COPD Qualified Code(s): J44.9 - Chronic obstructive pulmonary disease, unspecified Code(s): J44.9 - Chronic obstructive pulmonary disease, unspecified Status: Acute Assessment and Plan: Severe, but clinically stable (12) Urinary retention: Code(s): R33.9 - Retention of urine, unspecified Status: Acute Assessment and Plan: Tamsulosin and now on intermittent catheterization (13) Obstructive sleep apnea: Code(s): G47.33 - Obstructive sleep apnea (adult) (pediatric) Status: Acute Assessment and Plan: CPAP with home settings Subjective Date/time seen: 06/11/19 16:02 Interval history: Date of visit 06/10. 74-year-old white male COPD, atrial fib ,diastolic heart failure with right hip fr
[2019-06-12] VITALS (25 sets, daily range): BP systolic 114–142; BP diastolic 58–75; PULSE 86–108; RESP 14–32; TEMP 36.1–36.6; O2SAT 92–100
[2019-06-12] MEDS: IPRATROPIUM BR 0.02% INH SOLN 0.5 MG/2.5 ML VIAL INHALATION ×3 (02:41→20:30)
[2019-06-12] MEDS: FUROSEMIDE INJ 40 MG/4 ML VIAL IV PUSH ×2 (06:55→16:23)
[2019-06-12] MEDS: ALBUTEROL SULFATE NEB 2.5 MG/0.5 ML INH 5 MG INHALATION (06:59)
[2019-06-12 07:08] LABS: Alveolar/Arterial O2 Gradient 140.1 mmHg; Base Excess ABG 7.3 mEq/l (+/-2.0); Fractional Inspired Oxygen 36 %; HCO3 ABG 33.5 mEq/l (22.0-26.0); Oxyhemoglobin 85.8 % THb (90.0-100.0); PCO2 ABG 55.1 mmHg (35.0-45.0); PO2 ABG 52.7 mmHg (80.0-100.0); PO2 FiO2 Ratio Arterial Blood 1.46 %; Total Hemoglobin 11.6 g/dL (12.0-18.0); pH ABG 7.402 (7.350-7.450)
[2019-06-12 07:12] LABS: Oxygen Saturation ABG 86.6 % (95.0-100.0)
[2019-06-12 07:13] LABS: Device NASAL CANNULA; Modified Allen's Test Pass; Site Drawn LEFT RADIAL
--- NOTE | 2019-06-12 07:28 | PC.NURSE ---
Addendum entered by Luis Alberto Thomas RN 06/12/19 07:38: Complaint of difficulty breathing occured at 06:30 AM. Note written after caring for patient at 7:38 AM Original Note: Patient complained of increasing difficulty breathing. Patient states difficulty has been increasing for some time but he had not informed anyone even when asked. Respiration rate 46. Doctor informed. Stat chest xray and ABG ordered and obtained. Doctor to room to evaluate patient. IV lasix ordered and given. Xray and ABG obtained. Breathing treatment given by respiratory per doctor order. Order recieved to transfer patient to IMU. Report called to IMU and all questions answered. Patient transfered to IMU with all belongings per doctor order.
--- NOTE | 2019-06-12 09:11 | PCOTNOTE ---
Attempted to see pt. this am; per RN hold until afternoon as pt. is having a hard time breathing this am. Waiting new MD orders.
[2019-06-12] MEDS: TAMSULOSIN HCL 0.4 MG CAPSULE PO ×2 (09:40→21:05)
[2019-06-12] MEDS: predniSONE 10 MG TABLET PO (09:41)
[2019-06-12] MEDS: FLECAINIDE ACETATE 50 MG TABLET PO ×2 (09:41→21:05)
[2019-06-12] MEDS: ASPIRIN 81 MG CHEWABLE TABLET PO (09:42)
--- NOTE | 2019-06-12 09:58 | PC.NURSE ---
Patient transferred to room 202 at 0711.
--- NOTE | 2019-06-12 10:30 | PCPTNOTE ---
Clyde has been transferred to IMU which is a worsening of medical status - thus we will need new orders for PT and OT to continue treatment.
--- NOTE | 2019-06-12 11:56 | PM.IMPN ---
Progress Note: A&P Assessment and Plan (1) UTI (urinary tract infection) due to urinary indwelling Lyles catheter: Qualifiers: Indwelling urinary catheter type: indwelling urethral catheter Encounter type: subsequent encounter Qualified Code(s): T83.511D - Infection and inflammatory reaction due to indwelling urethral catheter, subsequent encounter; N39.0 - Urinary tract infection, site not specified Code(s): T83.511A - Infection and inflammatory reaction due to indwelling urethral catheter, initial encounter; N39.0 - Urinary tract infection, site not specified Status: Acute Assessment and Plan: Present upon admission (NOT hospital acquired) Pseudomonas may be colonizer, but will treat to eradicate due to plan to leave out catheter (removed 06/06 AM and prn straight cath ordered) Ceftazidime day 10/04 will d/c after today (2) Dysphagia: Qualifiers: Dysphagia type: esophageal phase Qualified Code(s): R13.10 - Dysphagia, unspecified Code(s): R13.10 - Dysphagia, unspecified Status: Acute Assessment and Plan: Esophagram 06/03 c/w dysmotility GI input noted and appreciated Easy to chew diet (3) Hematoma: Code(s): T14.8XXA - Other injury of unspecified body region, initial encounter Status: Acute Assessment and Plan: Postoperative from May 12 surgery XR noted Analgesics Activity as tolerated (4) Respiratory failure: Qualifiers: Chronicity: acute on chronic Respiratory failure complication: hypoxia and hypercapnia Qualified Code(s): J96.21 - Acute and chronic respiratory failure with hypoxia; J96.22 - Acute and chronic respiratory failure with hypercapnia Code(s): J96.90 - Respiratory failure, unspecified, unspecified whether with hypoxia or hypercapnia Status: Acute Assessment and Plan: worse overnight and felt secondary to mild chf exacerbation., still marked ALVARES (5) Anemia in other chronic diseases classified elsewhere: Code(s): D63.8 - Anemia in other chronic diseases classified elsewhere Status: Acute Assessment and Plan: Relatively stable, hgb 9.9 06/10 and recheck am (6) Chronic heart failure with preserved ejection fraction: Code(s): I50.32 - Chronic diastolic (congestive) heart failure Status: Acute Assessment and Plan: now mild acute on chronic. IV lasix and follow (7) Osteoarthritis involving multiple joints on both sides of body: Code(s): M15.9 - Polyosteoarthritis, unspecified Status: Acute Assessment and Plan: Analgesics prn (8) Restless legs syndrome: Onset Date: 09/25/18 Code(s): G25.81 - Restless legs syndrome Status: Acute Assessment and Plan: Continue home regimen (9) Paroxysmal atrial fibrillation: Code(s): I48.0 - Paroxysmal atrial fibrillation Status: Acute Assessment and Plan: No anticoagulation with history of fall Continue flecainide (10) SLE (systemic lupus erythematosus related syndrome): Code(s): M32.9 - Systemic lupus erythematosus, unspecified Status: Acute Assessment and Plan: Seems inactive at this time (11) COPD (chronic obstructive pulmonary disease): Qualifiers: COPD type: unspecified COPD Qualified Code(s): J44.9 - Chronic obstructive pulmonary disease, unspecified Code(s): J44.9 - Chronic obstructive pulmonary disease, unspecified Status: Acute Assessment and Plan: Severe, but clinically stable (12) Urinary retention: Code(s): R33.9 - Retention of urine, unspecified Status: Acute Assessment and Plan: Tamsulosin and now on intermittent catheterization (13) Obstructive sleep apnea: Code(s): G47.33 - Obstructive sleep apnea (adult) (pediatric) Status: Acute Assessment and Plan: CPAP with home settings Subjective Date/time seen: 06/12/19 11:56 Interval
[2019-06-12] MEDS: POTASSIUM CHLORIDE 20 MEQ TABLET 40 MEQ PO (12:32)
[2019-06-13] VITALS (28 sets, daily range): BP systolic 111–128; BP diastolic 57–92; PULSE 91–108; RESP 16–32; TEMP 36.2–36.7; O2SAT 89–100
[2019-06-13] MEDS: IPRATROPIUM BR 0.02% INH SOLN 0.5 MG/2.5 ML VIAL INHALATION ×4 (01:10→20:54)
[2019-06-13 05:33] LABS: Basophils Percent Auto 0.2 % (0.2-1.2); Eosinophils Percent Auto 0.7 % (0-4.4); Hematocrit 35.8 % (42.0-52.0); Hemoglobin 10.5 g/dL (14.0-18.0); Immature Granulocyte Absolute 0.05 K/mm3 (0.00-0.031); Immature Granulocyte Percent A 1.2 % (0-0.5); Immature Platelet Fraction Pct 4.6 % (0.9-11.2); Lymphocytes Absolute Auto 0.78 K/mm3 (0.9-3.2); Mean Corpuscular HGB Conc 29.3 g/dl (32-36); Mean Corpuscular Volume 102.3 fl (80-100); Mean Platelet Volume 10.6 fl (7.4-10.4); Monocytes Absolute Auto 0.7 K/mm3 (0.1-0.6); Monocytes Percent Auto 16.1 % (2.6-8.5); Neutrophils Absolute Auto 2.6 K/mm3 (1.3-6.7); Neutrophils Percent Auto 62.8 % (45.5-73.1); Platelet Count Result 120 k/mm3 (150-375); White Blood Count 4.1 K/mm3 (4.5-10.0)
[2019-06-13 05:46] LABS: Blood Urea Nitrogen 16 mg/dL (9-20); Calcium 8.4 mg/dL (8.4-10.2); Carbon Dioxide > 40 mmol/L (22-30); Chloride 94 mmol/L (98-107); Estimated CRCL calculation 86 ml/min; Estimated Glomerular Filt Rate > 60; Glucose 83 mg/dL (75-110); Potassium 3.5 mmol/L (3.4-5.0); Sodium 136 mmol/L (137-145)
[2019-06-13] MEDS: FUROSEMIDE INJ 40 MG/4 ML VIAL IV PUSH (08:21)
[2019-06-13] MEDS: POTASSIUM CHLORIDE 20 MEQ TABLET 40 MEQ PO (08:21)
[2019-06-13] MEDS: FLECAINIDE ACETATE 50 MG TABLET PO ×2 (08:24→21:02)
[2019-06-13] MEDS: TAMSULOSIN HCL 0.4 MG CAPSULE PO ×2 (08:24→21:03)
[2019-06-13] MEDS: predniSONE 10 MG TABLET PO (08:26)
[2019-06-13] MEDS: SENNOSIDES 8.6 MG TABLET PO ×2 (08:26→16:41)
[2019-06-13] MEDS: ASPIRIN 81 MG CHEWABLE TABLET PO (08:37)
--- NOTE | 2019-06-13 11:00 | PM.IMPN ---
Progress Note: A&P Assessment and Plan (1) UTI (urinary tract infection) due to urinary indwelling Lyles catheter: Qualifiers: Indwelling urinary catheter type: indwelling urethral catheter Encounter type: subsequent encounter Qualified Code(s): T83.511D - Infection and inflammatory reaction due to indwelling urethral catheter, subsequent encounter; N39.0 - Urinary tract infection, site not specified Code(s): T83.511A - Infection and inflammatory reaction due to indwelling urethral catheter, initial encounter; N39.0 - Urinary tract infection, site not specified Status: Acute Assessment and Plan: Present upon admission (NOT hospital acquired) Pseudomonas may be colonizer, but will treat to eradicate due to plan to leave out catheter (removed 06/06 AM and prn straight cath ordered) Ceftazidime day 10/04 will d/c 06/12 (2) Dysphagia: Qualifiers: Dysphagia type: esophageal phase Qualified Code(s): R13.10 - Dysphagia, unspecified Code(s): R13.10 - Dysphagia, unspecified Status: Acute Assessment and Plan: Esophagram 06/03 c/w dysmotility GI input noted and appreciated Easy to chew diet (3) Hematoma: Code(s): T14.8XXA - Other injury of unspecified body region, initial encounter Status: Acute Assessment and Plan: Postoperative from May 12 surgery XR noted Analgesics Activity as tolerated (4) Respiratory failure: Qualifiers: Chronicity: acute on chronic Respiratory failure complication: hypoxia and hypercapnia Qualified Code(s): J96.21 - Acute and chronic respiratory failure with hypoxia; J96.22 - Acute and chronic respiratory failure with hypercapnia Code(s): J96.90 - Respiratory failure, unspecified, unspecified whether with hypoxia or hypercapnia Status: Acute Assessment and Plan: worse overnight and felt secondary to mild chf,acute on chronic diastolic exacerbation., still marked ALVARES (5) Anemia in other chronic diseases classified elsewhere: Code(s): D63.8 - Anemia in other chronic diseases classified elsewhere Status: Acute Assessment and Plan: Relatively stable, hgb 10.5 today 06/12 (6) Chronic heart failure with preserved ejection fraction: Code(s): I50.32 - Chronic diastolic (congestive) heart failure Status: Acute Assessment and Plan: now mild acute on chronic. IV lasix once again today and repeat cxr and follow (7) Osteoarthritis involving multiple joints on both sides of body: Code(s): M15.9 - Polyosteoarthritis, unspecified Status: Acute Assessment and Plan: Analgesics prn (8) Restless legs syndrome: Onset Date: 09/25/18 Code(s): G25.81 - Restless legs syndrome Status: Acute Assessment and Plan: Continue home regimen (9) Paroxysmal atrial fibrillation: Code(s): I48.0 - Paroxysmal atrial fibrillation Status: Acute Assessment and Plan: No anticoagulation with history of fall Continue flecainide (10) SLE (systemic lupus erythematosus related syndrome): Code(s): M32.9 - Systemic lupus erythematosus, unspecified Status: Acute Assessment and Plan: Seems inactive at this time (11) COPD (chronic obstructive pulmonary disease): Qualifiers: COPD type: unspecified COPD Qualified Code(s): J44.9 - Chronic obstructive pulmonary disease, unspecified Code(s): J44.9 - Chronic obstructive pulmonary disease, unspecified Status: Acute Assessment and Plan: Severe, but clinically stable (12) Urinary retention: Code(s): R33.9 - Retention of urine, unspecified Status: Acute Assessment and Plan: Tamsulosin and now on intermittent catheterization (13) Obstructive sleep apnea: Code(s): G47.33 - Obstructive sleep apnea (adult) (pediatric) Status: Acute Assessment and Plan: CPAP with home settings Subjectiv
--- NOTE | 2019-06-13 13:11 | PCPTNOTE ---
pt has declined in medical status...unable to participate in skilled Therapy at this time...HOLD orders received from
[2019-06-14] VITALS (31 sets, daily range): BP systolic 113–142; BP diastolic 53–66; PULSE 71–105; RESP 20–31; TEMP 36.3–37.1; O2SAT 84–100
[2019-06-14] MEDS: IPRATROPIUM BR 0.02% INH SOLN 0.5 MG/2.5 ML VIAL INHALATION ×4 (02:57→20:30)
[2019-06-14 03:07] LABS: Alveolar/Arterial O2 Gradient 147.9 mmHg; Fractional Inspired Oxygen 40 %; HCO3 ABG 38.1 mEq/l (22.0-26.0); Oxygen Content ABG 14.7 %vol (16.0-22.0); Oxyhemoglobin 85.6 % THb (90.0-100.0); PO2 ABG 56.5 mmHg (80.0-100.0); PO2 FiO2 Ratio Arterial Blood 1.41 %; Total Hemoglobin 12.2 g/dL (12.0-18.0); pH ABG 7.352 (7.350-7.450)
[2019-06-14 03:09] LABS: Device OTHER DEVICE; Modified Allen's Test Pass; Oxygen Saturation ABG 86.9 % (95.0-100.0); PCO2 ABG 70.3 mmHg (35.0-45.0); Site Drawn LEFT RADIAL
[2019-06-14 04:56] LABS: Basophils Percent Auto 0.3 % (0.2-1.2); Eosinophils Percent Auto 0.6 % (0-4.4); Hematocrit 38.1 % (42.0-52.0); Hemoglobin 11.1 g/dL (14.0-18.0); Immature Granulocyte Absolute 0.06 K/mm3 (0.00-0.031); Immature Granulocyte Percent A 1.8 % (0-0.5); Immature Platelet Fraction Pct 4.3 % (0.9-11.2); Lymphocytes Absolute Auto 0.77 K/mm3 (0.9-3.2); Mean Corpuscular HGB Conc 29.1 g/dl (32-36); Mean Corpuscular Hemoglobin 30.1 pg (26-34); Mean Corpuscular Volume 103.3 fl (80-100); Mean Platelet Volume 10.4 fl (7.4-10.4); Monocytes Absolute Auto 0.5 K/mm3 (0.1-0.6); Monocytes Percent Auto 14.9 % (2.6-8.5); Neutrophils Percent Auto 59.4 % (45.5-73.1); Platelet Count Result 118 k/mm3 (150-375); Red Blood Count 3.69 M/mm3 (4.6-6.20); Red Cell Distribution Width 16.8 % (11.5-14.5); White Blood Count 3.4 K/mm3 (4.5-10.0)
[2019-06-14 05:25] LABS: Blood Urea Nitrogen 19 mg/dL (9-20); Calcium 8.7 mg/dL (8.4-10.2); Carbon Dioxide > 40 mmol/L (22-30); Chloride 95 mmol/L (98-107); Estimated CRCL calculation 75 ml/min; Estimated Glomerular Filt Rate > 60; Glucose 94 mg/dL (75-110); Potassium 3.8 mmol/L (3.4-5.0); Sodium 136 mmol/L (137-145)
[2019-06-14 06:57] LABS: Hypochromasia 1+ (NORMAL); Platelet Estimate Decreased (Adequate)
--- NOTE | 2019-06-14 09:15 | PCDIET ---
Weekly nutritional screen. Patient is tolerating regular, easy to chew diet with intake of 75-100% of most meals. Weight down slightly with patient on diuretic. Patient refusing oral supplements. May benefit from multivitamin with minerals daily. Otherwise, no nutrition recommendations at this time.
[2019-06-14] MEDS: FUROSEMIDE INJ 40 MG/4 ML VIAL IV PUSH (10:55)
[2019-06-14] MEDS: ASPIRIN 81 MG CHEWABLE TABLET PO (10:56)
[2019-06-14] MEDS: SENNOSIDES 8.6 MG TABLET PO ×2 (10:56→16:55)
[2019-06-14] MEDS: TAMSULOSIN HCL 0.4 MG CAPSULE PO ×2 (10:56→20:19)
[2019-06-14] MEDS: FLECAINIDE ACETATE 50 MG TABLET PO ×2 (10:56→20:19)
[2019-06-14] MEDS: predniSONE 10 MG TABLET PO (10:57)
[2019-06-14] MEDS: POTASSIUM CHLORIDE 20 MEQ TABLET 40 MEQ PO (11:48)
--- NOTE | 2019-06-14 15:56 | PM.IMPN ---
Progress Note: A&P Assessment and Plan (1) UTI (urinary tract infection) due to urinary indwelling Lyles catheter: Qualifiers: Indwelling urinary catheter type: indwelling urethral catheter Encounter type: subsequent encounter Qualified Code(s): T83.511D - Infection and inflammatory reaction due to indwelling urethral catheter, subsequent encounter; N39.0 - Urinary tract infection, site not specified Code(s): T83.511A - Infection and inflammatory reaction due to indwelling urethral catheter, initial encounter; N39.0 - Urinary tract infection, site not specified Status: Acute Assessment and Plan: Present upon admission (NOT hospital acquired) Pseudomonas may be colonizer, but treated to eradicate due to plan to leave out catheter (removed 06/06 AM and prn straight cath ordered) Ceftazidime day 10/04 will d/c 06/12 (2) Dysphagia: Qualifiers: Dysphagia type: esophageal phase Qualified Code(s): R13.10 - Dysphagia, unspecified Code(s): R13.10 - Dysphagia, unspecified Status: Acute Assessment and Plan: Esophagram 06/03 c/w dysmotility GI input noted and appreciated Easy to chew diet GI to do EGD at later date if stablizes (3) Hematoma: Code(s): T14.8XXA - Other injury of unspecified body region, initial encounter Status: Acute Assessment and Plan: Postoperative from May 12 surgery XR noted Analgesics Activity as tolerated (4) Respiratory failure: Qualifiers: Chronicity: acute on chronic Respiratory failure complication: hypoxia and hypercapnia Qualified Code(s): J96.21 - Acute and chronic respiratory failure with hypoxia; J96.22 - Acute and chronic respiratory failure with hypercapnia Code(s): J96.90 - Respiratory failure, unspecified, unspecified whether with hypoxia or hypercapnia Status: Acute Assessment and Plan: worse and felt possibly secondary to mild chf,acute on chronic diastolic exacerbation., but has severe copd too continue updrafts and IV lasix. Did not increase steroids since was no active bronchospams (5) Anemia in other chronic diseases classified elsewhere: Code(s): D63.8 - Anemia in other chronic diseases classified elsewhere Status: Acute Assessment and Plan: Relatively stable, hgb 11.1 today 06/13 (6) Chronic heart failure with preserved ejection fraction: Code(s): I50.32 - Chronic diastolic (congestive) heart failure Status: Acute Assessment and Plan: mild acute on chronic. IV lasix daily for now (7) Osteoarthritis involving multiple joints on both sides of body: Code(s): M15.9 - Polyosteoarthritis, unspecified Status: Acute Assessment and Plan: Analgesics prn (8) Restless legs syndrome: Onset Date: 09/25/18 Code(s): G25.81 - Restless legs syndrome Status: Acute Assessment and Plan: Continue home regimen (9) Paroxysmal atrial fibrillation: Code(s): I48.0 - Paroxysmal atrial fibrillation Status: Acute Assessment and Plan: No anticoagulation with history of fall Continue flecainide (10) SLE (systemic lupus erythematosus related syndrome): Code(s): M32.9 - Systemic lupus erythematosus, unspecified Status: Acute Assessment and Plan: Seems inactive at this time (11) COPD (chronic obstructive pulmonary disease): Qualifiers: COPD type: unspecified COPD Qualified Code(s): J44.9 - Chronic obstructive pulmonary disease, unspecified Code(s): J44.9 - Chronic obstructive pulmonary disease, unspecified Status: Acute Assessment and Plan: Severe, very poor prognosis and patient has lost desire to fight, may be time for hospice or comfort care (12) Urinary retention: Code(s): R33.9 - Retention of urine, unspecified Status: Acute Assessment and Plan: Tamsulosin and now on intermittent catheterization (13)
[2019-06-15] VITALS (24 sets, daily range): BP systolic 111–132; BP diastolic 46–72; PULSE 82–108; RESP 18–28; TEMP 36.2–36.7; O2SAT 92–100
[2019-06-15] MEDS: IPRATROPIUM BR 0.02% INH SOLN 0.5 MG/2.5 ML VIAL INHALATION ×4 (02:03→21:00)
[2019-06-15 05:26] LABS: Blood Urea Nitrogen 20 mg/dL (9-20); Calcium 8.8 mg/dL (8.4-10.2); Carbon Dioxide > 40 mmol/L (22-30); Chloride 96 mmol/L (98-107); Estimated CRCL calculation 86 ml/min; Estimated Glomerular Filt Rate > 60; Glucose 91 mg/dL (75-110); Potassium 4.2 mmol/L (3.4-5.0); Sodium 134 mmol/L (137-145)
--- NOTE | 2019-06-15 08:00 | P.PNIM_ITS ---
Progress Note: A&P Assessment and Plan (1) UTI (urinary tract infection) due to urinary indwelling Lyles catheter: Qualifiers: Encounter type: subsequent encounter Indwelling urinary catheter type: indwelling urethral catheter Qualified Code(s): T83.511D - Infection and inflammatory reaction due to indwelling urethral catheter, subsequent encounter; N39.0 - Urinary tract infection, site not specified Code(s): T83.511A - Infection and inflammatory reaction due to indwelling urethral catheter, initial encounter; N39.0 - Urinary tract infection, site not specified Status: Acute Assessment and Plan: * Present upon admission (NOT hospital acquired) * Pseudomonas may be colonizer, but treated to eradicate due to plan to leave out catheter (removed 06/06 AM and prn straight cath ordered) * Ceftazidime day 7 completed 06/12 (2) Dysphagia: Qualifiers: Dysphagia type: esophageal phase Qualified Code(s): R13.10 - Dysphagia, unspecified Code(s): R13.10 - Dysphagia, unspecified Status: Acute Assessment and Plan: * Esophagram 06/03 c/w dysmotility * GI input noted and appreciated * Easy to chew diet * GI to do EGD at later date when stable (3) Hematoma: Code(s): T14.8XXA - Other injury of unspecified body region, initial encounter Status: Acute Assessment and Plan: * Postoperative from May 12 surgery * XR noted * Analgesics * Activity as tolerated (4) Respiratory failure: Qualifiers: Chronicity: acute on chronic Respiratory failure complication: hypoxia and hypercapnia Qualified Code(s): J96.21 - Acute and chronic respiratory failure with hypoxia; J96.22 - Acute and chronic respiratory failure with hypercapnia Code(s): J96.90 - Respiratory failure, unspecified, unspecified whether with hypoxia or hypercapnia Status: Acute Assessment and Plan: * worse and felt possibly secondary to mild chf,acute on chronic diastolic exacerbation, but has severe copd too * continue updrafts and IV lasix. * continuous bipap (5) Anemia in other chronic diseases classified elsewhere: Code(s): D63.8 - Anemia in other chronic diseases classified elsewhere Status: Acute Assessment and Plan: * Relatively stable, hgb 11.1 today 06/13 (6) Chronic heart failure with preserved ejection fraction: Code(s): I50.32 - Chronic diastolic (congestive) heart failure Status: Acute Assessment and Plan: * acute on chronic * continue IV furosemide (7) Osteoarthritis involving multiple joints on both sides of body: Code(s): M15.9 - Polyosteoarthritis, unspecified Status: Acute Assessment and Plan: * Analgesics prn (8) Restless legs syndrome: Onset Date: 09/25/18 Code(s): G25.81 - Restless legs syndrome Status: Acute Assessment and Plan: * Continue home regimen (9) Paroxysmal atrial fibrillation: Code(s): I48.0 - Paroxysmal atrial fibrillation Status: Acute Assessment and Plan: No anticoagulation with history of fall * Continue flecainide (10) SLE (systemic lupus erythematosus related syndrome): Code(s): M32.9 - Systemic lupus erythematosus, unspecified Status: Acute Assessment and Plan: * Seems inactive at this time (11) COPD (chronic obstructive pulmonary disease): Qualifiers: COPD type: unspecified COPD Qualified Code(s): J44.9 - Chronic obstructive pulmonary disease, unspecified Code(s): J44.9 - Chronic obstructive pulmonary di
--- NOTE | 2019-06-15 08:00 | PM.IMPN ---
Progress Note: A&P Assessment and Plan (1) UTI (urinary tract infection) due to urinary indwelling Lyles catheter: Qualifiers: Encounter type: subsequent encounter Indwelling urinary catheter type: indwelling urethral catheter Qualified Code(s): T83.511D - Infection and inflammatory reaction due to indwelling urethral catheter, subsequent encounter; N39.0 - Urinary tract infection, site not specified Code(s): T83.511A - Infection and inflammatory reaction due to indwelling urethral catheter, initial encounter; N39.0 - Urinary tract infection, site not specified Status: Acute Assessment and Plan: Present upon admission (NOT hospital acquired) Pseudomonas may be colonizer, but treated to eradicate due to plan to leave out catheter (removed 06/06 AM and prn straight cath ordered) Ceftazidime day 7 completed 06/12 (2) Dysphagia: Qualifiers: Dysphagia type: esophageal phase Qualified Code(s): R13.10 - Dysphagia, unspecified Code(s): R13.10 - Dysphagia, unspecified Status: Acute Assessment and Plan: Esophagram 06/03 c/w dysmotility GI input noted and appreciated Easy to chew diet GI to do EGD at later date when stable (3) Hematoma: Code(s): T14.8XXA - Other injury of unspecified body region, initial encounter Status: Acute Assessment and Plan: Postoperative from May 12 surgery XR noted Analgesics Activity as tolerated (4) Respiratory failure: Qualifiers: Chronicity: acute on chronic Respiratory failure complication: hypoxia and hypercapnia Qualified Code(s): J96.21 - Acute and chronic respiratory failure with hypoxia; J96.22 - Acute and chronic respiratory failure with hypercapnia Code(s): J96.90 - Respiratory failure, unspecified, unspecified whether with hypoxia or hypercapnia Status: Acute Assessment and Plan: worse and felt possibly secondary to mild chf,acute on chronic diastolic exacerbation, but has severe copd too continue updrafts and IV lasix. continuous bipap (5) Anemia in other chronic diseases classified elsewhere: Code(s): D63.8 - Anemia in other chronic diseases classified elsewhere Status: Acute Assessment and Plan: Relatively stable, hgb 11.1 today 06/13 (6) Chronic heart failure with preserved ejection fraction: Code(s): I50.32 - Chronic diastolic (congestive) heart failure Status: Acute Assessment and Plan: acute on chronic continue IV furosemide (7) Osteoarthritis involving multiple joints on both sides of body: Code(s): M15.9 - Polyosteoarthritis, unspecified Status: Acute Assessment and Plan: Analgesics prn (8) Restless legs syndrome: Onset Date: 09/25/18 Code(s): G25.81 - Restless legs syndrome Status: Acute Assessment and Plan: Continue home regimen (9) Paroxysmal atrial fibrillation: Code(s): I48.0 - Paroxysmal atrial fibrillation Status: Acute Assessment and Plan: No anticoagulation with history of fall Continue flecainide (10) SLE (systemic lupus erythematosus related syndrome): Code(s): M32.9 - Systemic lupus erythematosus, unspecified Status: Acute Assessment and Plan: Seems inactive at this time (11) COPD (chronic obstructive pulmonary disease): Qualifiers: COPD type: unspecified COPD Qualified Code(s): J44.9 - Chronic obstructive pulmonary disease, unspecified Code(s): J44.9 - Chronic obstructive pulmonary disease, unspecified Status: Acute Assessment and Plan: Severe, very poor prognosis Discuss palliative care (12) Urinary retention: Code(s): R33.9 - Retention of urine, unspecified Status: Acute Assessment and Plan: Tamsulosin and now on intermittent catheterization prn (13) Obstructive sleep apnea: Code(s): G47.33 - Obstructive sleep apnea (adult) (pediatric)
[2019-06-15] MEDS: FUROSEMIDE INJ 40 MG/4 ML VIAL IV PUSH (09:26)
[2019-06-15] MEDS: FLECAINIDE ACETATE 50 MG TABLET PO ×2 (09:27→20:36)
[2019-06-15] MEDS: SENNOSIDES 8.6 MG TABLET PO (09:27)
[2019-06-15] MEDS: predniSONE 10 MG TABLET PO (09:27)
[2019-06-15] MEDS: ASPIRIN 81 MG CHEWABLE TABLET PO (09:27)
[2019-06-15] MEDS: TAMSULOSIN HCL 0.4 MG CAPSULE PO ×2 (09:27→20:35)
[2019-06-15 10:51] LABS: Alveolar/Arterial O2 Gradient 149.6 mmHg; Base Excess ABG 14.4 mEq/l (+/-2.0); Fractional Inspired Oxygen 40 %; HCO3 ABG 41.5 mEq/l (22.0-26.0); Oxygen Content ABG 15.1 %vol (16.0-22.0); Oxygen Saturation ABG 90.8 % (95.0-100.0); Oxyhemoglobin 89.1 % THb (90.0-100.0); PO2 ABG 60.6 mmHg (80.0-100.0); PO2 FiO2 Ratio Arterial Blood 1.51 %; pH ABG 7.422 (7.350-7.450)
[2019-06-15 10:52] LABS: Device NASAL CANNULA; Modified Allen's Test Pass; PCO2 ABG 65.2 mmHg (35.0-45.0); Site Drawn RIGHT RADIAL
[2019-06-16] VITALS (24 sets, daily range): BP systolic 107–145; BP diastolic 56–80; PULSE 74–112; RESP 18–36; TEMP 36.2–36.8; O2SAT 96–100
[2019-06-16] MEDS: IPRATROPIUM BR 0.02% INH SOLN 0.5 MG/2.5 ML VIAL INHALATION ×4 (01:40→20:14)
[2019-06-16 04:21] LABS: Base Excess ABG 15.2 mEq/l (+/-2.0); Fractional Inspired Oxygen 40 %; HCO3 ABG 41.9 mEq/l (22.0-26.0); Oxygen Content ABG 15.9 %vol (16.0-22.0); Oxygen Saturation ABG 97.7 % (95.0-100.0); Oxyhemoglobin 95.8 % THb (90.0-100.0); PO2 ABG 102.4 mmHg (80.0-100.0); PO2 FiO2 Ratio Arterial Blood 2.56 %; Total Hemoglobin 11.7 g/dL (12.0-18.0); pH ABG 7.445 (7.350-7.450)
[2019-06-16 04:22] LABS: Device BIPAP; Modified Allen's Test Pass; PCO2 ABG 62.4 mmHg (35.0-45.0); Site Drawn RIGHT RADIAL
[2019-06-16 04:23] LABS: Expiratory Pressure 6 cmH2O; Inspiratory Pressure 12 cmH2O
[2019-06-16 05:15] LABS: Hematocrit 35.4 % (42.0-52.0); Hemoglobin 10.4 g/dL (14.0-18.0); Immature Platelet Fraction Pct 4.4 % (0.9-11.2); Mean Corpuscular HGB Conc 29.4 g/dl (32-36); Mean Corpuscular Hemoglobin 29.8 pg (26-34); Mean Corpuscular Volume 101.4 fl (80-100); Mean Platelet Volume 10.3 fl (7.4-10.4); Platelet Count Result 125 k/mm3 (150-375); Red Blood Count 3.49 M/mm3 (4.6-6.20); Red Cell Distribution Width 16.4 % (11.5-14.5); White Blood Count 3.8 K/mm3 (4.5-10.0)
[2019-06-16 05:47] LABS: Blood Urea Nitrogen 24 mg/dL (9-20); Calcium 8.7 mg/dL (8.4-10.2); Carbon Dioxide > 40 mmol/L (22-30); Chloride 94 mmol/L (98-107); Estimated CRCL calculation 86 ml/min; Estimated Glomerular Filt Rate > 60; Glucose 90 mg/dL (75-110); Potassium 3.5 mmol/L (3.4-5.0); Sodium 136 mmol/L (137-145)
--- NOTE | 2019-06-16 07:43 | P.PNIM_ITS ---
Progress Note: A&P Assessment and Plan (1) Respiratory failure: Qualifiers: Chronicity: acute on chronic Respiratory failure complication: hypoxia and hypercapnia Qualified Code(s): J96.21 - Acute and chronic respiratory failure with hypoxia; J96.22 - Acute and chronic respiratory failure with hypercapnia Code(s): J96.90 - Respiratory failure, unspecified, unspecified whether with hypoxia or hypercapnia Status: Acute Assessment and Plan: * worse and felt possibly secondary to mild chf,acute on chronic diastolic exacerbation, but has severe copd too * continue updrafts and IV lasix. * continuous bipap * patient wises to discuss end of life care (2) Chronic heart failure with preserved ejection fraction: Code(s): I50.32 - Chronic diastolic (congestive) heart failure Status: Acute Assessment and Plan: * acute on chronic * continue IV furosemide (3) Dysphagia: Qualifiers: Dysphagia type: esophageal phase Qualified Code(s): R13.10 - Dysphagia, unspecified Code(s): R13.10 - Dysphagia, unspecified Status: Acute Assessment and Plan: * Esophagram 06/03 c/w dysmotility * GI input noted and appreciated * Easy to chew diet * GI to do EGD at later date when stable (4) Hematoma: Code(s): T14.8XXA - Other injury of unspecified body region, initial encounter Status: Acute Assessment and Plan: * Postoperative from May 12 surgery * XR noted * Analgesics * Activity as tolerated (5) Anemia in other chronic diseases classified elsewhere: Code(s): D63.8 - Anemia in other chronic diseases classified elsewhere Status: Acute Assessment and Plan: * Relatively stable, hgb 11.1 today 06/13 (6) Osteoarthritis involving multiple joints on both sides of body: Code(s): M15.9 - Polyosteoarthritis, unspecified Status: Acute Assessment and Plan: * Analgesics prn (7) Restless legs syndrome: Onset Date: 09/25/18 Code(s): G25.81 - Restless legs syndrome Status: Acute Assessment and Plan: * Continue home regimen (8) Paroxysmal atrial fibrillation: Code(s): I48.0 - Paroxysmal atrial fibrillation Status: Acute Assessment and Plan: No anticoagulation with history of fall * Continue flecainide (9) SLE (systemic lupus erythematosus related syndrome): Code(s): M32.9 - Systemic lupus erythematosus, unspecified Status: Acute Assessment and Plan: * Seems inactive at this time (10) COPD (chronic obstructive pulmonary disease): Qualifiers: COPD type: unspecified COPD Qualified Code(s): J44.9 - Chronic obstructive pulmonary disease, unspecified Code(s): J44.9 - Chronic obstructive pulmonary disease, unspecified Status: Acute Assessment and Plan: * Severe, very poor prognosis * Discuss palliative care (11) Urinary retention: Code(s): R33.9 - Retention of urine, unspecified Status: Acute Assessment and Plan: * Tamsulosin and now on intermittent catheterization prn (12) Obstructive sleep apnea: Code(s): G47.33 - Obstructive sleep apnea (adult) (pediatric) Status: Acute Assessment and Plan: * BiPap (13) UTI (urinary tract infection) due to urinary indwelling Lyles catheter: Qualifiers: Encounter type: subsequent encounter Indwelling urinary catheter type: indwelling urethral catheter Qualified Code(s): T83.511D - Infection and inflammatory reaction due to indwel
--- NOTE | 2019-06-16 07:43 | PM.IMPN ---
Progress Note: A&P Assessment and Plan (1) Respiratory failure: Qualifiers: Chronicity: acute on chronic Respiratory failure complication: hypoxia and hypercapnia Qualified Code(s): J96.21 - Acute and chronic respiratory failure with hypoxia; J96.22 - Acute and chronic respiratory failure with hypercapnia Code(s): J96.90 - Respiratory failure, unspecified, unspecified whether with hypoxia or hypercapnia Status: Acute Assessment and Plan: worse and felt possibly secondary to mild chf,acute on chronic diastolic exacerbation, but has severe copd too continue updrafts and IV lasix. continuous bipap patient wises to discuss end of life care (2) Chronic heart failure with preserved ejection fraction: Code(s): I50.32 - Chronic diastolic (congestive) heart failure Status: Acute Assessment and Plan: acute on chronic continue IV furosemide (3) Dysphagia: Qualifiers: Dysphagia type: esophageal phase Qualified Code(s): R13.10 - Dysphagia, unspecified Code(s): R13.10 - Dysphagia, unspecified Status: Acute Assessment and Plan: Esophagram 06/03 c/w dysmotility GI input noted and appreciated Easy to chew diet GI to do EGD at later date when stable (4) Hematoma: Code(s): T14.8XXA - Other injury of unspecified body region, initial encounter Status: Acute Assessment and Plan: Postoperative from May 12 surgery XR noted Analgesics Activity as tolerated (5) Anemia in other chronic diseases classified elsewhere: Code(s): D63.8 - Anemia in other chronic diseases classified elsewhere Status: Acute Assessment and Plan: Relatively stable, hgb 11.1 today 06/13 (6) Osteoarthritis involving multiple joints on both sides of body: Code(s): M15.9 - Polyosteoarthritis, unspecified Status: Acute Assessment and Plan: Analgesics prn (7) Restless legs syndrome: Onset Date: 09/25/18 Code(s): G25.81 - Restless legs syndrome Status: Acute Assessment and Plan: Continue home regimen (8) Paroxysmal atrial fibrillation: Code(s): I48.0 - Paroxysmal atrial fibrillation Status: Acute Assessment and Plan: No anticoagulation with history of fall Continue flecainide (9) SLE (systemic lupus erythematosus related syndrome): Code(s): M32.9 - Systemic lupus erythematosus, unspecified Status: Acute Assessment and Plan: Seems inactive at this time (10) COPD (chronic obstructive pulmonary disease): Qualifiers: COPD type: unspecified COPD Qualified Code(s): J44.9 - Chronic obstructive pulmonary disease, unspecified Code(s): J44.9 - Chronic obstructive pulmonary disease, unspecified Status: Acute Assessment and Plan: Severe, very poor prognosis Discuss palliative care (11) Urinary retention: Code(s): R33.9 - Retention of urine, unspecified Status: Acute Assessment and Plan: Tamsulosin and now on intermittent catheterization prn (12) Obstructive sleep apnea: Code(s): G47.33 - Obstructive sleep apnea (adult) (pediatric) Status: Acute Assessment and Plan: BiPap (13) UTI (urinary tract infection) due to urinary indwelling Lyles catheter: Qualifiers: Encounter type: subsequent encounter Indwelling urinary catheter type: indwelling urethral catheter Qualified Code(s): T83.511D - Infection and inflammatory reaction due to indwelling urethral catheter, subsequent encounter; N39.0 - Urinary tract infection, site not specified Code(s): T83.511A - Infection and inflammatory reaction due to indwelling urethral catheter, initial encounter; N39.0 - Urinary tract infection, site not specified Status: Acute Assessment and Plan: Present upon admission (NOT hospital acquired) Pseudomonas may be colonizer, but treated to eradicate due to plan to
[2019-06-16] MEDS: FUROSEMIDE INJ 40 MG/4 ML VIAL IV PUSH (10:25)
[2019-06-16] MEDS: predniSONE 10 MG TABLET PO (10:25)
[2019-06-16] MEDS: FLECAINIDE ACETATE 50 MG TABLET PO ×2 (10:25→21:14)
[2019-06-16] MEDS: TAMSULOSIN HCL 0.4 MG CAPSULE PO ×2 (10:25→21:14)
[2019-06-16] MEDS: ASPIRIN 81 MG CHEWABLE TABLET PO (10:26)
[2019-06-17] VITALS (15 sets, daily range): BP systolic 116–118; BP diastolic 58–70; PULSE 81–99; RESP 15–29; TEMP 36.1–37.4; O2SAT 95–100
[2019-06-17] MEDS: IPRATROPIUM BR 0.02% INH SOLN 0.5 MG/2.5 ML VIAL INHALATION ×3 (02:29→13:49)
[2019-06-17 05:05] LABS: Hematocrit 34.4 % (42.0-52.0); Hemoglobin 10.3 g/dL (14.0-18.0); Immature Platelet Fraction Pct 4.5 % (0.9-11.2); Mean Corpuscular HGB Conc 29.9 g/dl (32-36); Mean Corpuscular Hemoglobin 29.8 pg (26-34); Mean Corpuscular Volume 99.4 fl (80-100); Mean Platelet Volume 10.7 fl (7.4-10.4); Platelet Count Result 128 k/mm3 (150-375); Red Blood Count 3.46 M/mm3 (4.6-6.20); Red Cell Distribution Width 16.3 % (11.5-14.5); White Blood Count 4.5 K/mm3 (4.5-10.0)
[2019-06-17 05:11] LABS: Potassium 3.6 mmol/L (3.4-5.0)
[2019-06-17 05:25] LABS: Blood Urea Nitrogen 22 mg/dL (9-20); Calcium 8.9 mg/dL (8.4-10.2); Carbon Dioxide > 40 mmol/L (22-30); Chloride 92 mmol/L (98-107); Estimated CRCL calculation 101 ml/min; Estimated Glomerular Filt Rate > 60; Glucose 95 mg/dL (75-110); Sodium 134 mmol/L (137-145)
[2019-06-17] MEDS: FLECAINIDE ACETATE 50 MG TABLET PO (08:47)
[2019-06-17] MEDS: FUROSEMIDE INJ 40 MG/4 ML VIAL IV PUSH (08:47)
[2019-06-17] MEDS: TAMSULOSIN HCL 0.4 MG CAPSULE PO (08:48)
[2019-06-17] MEDS: predniSONE 10 MG TABLET PO (08:50)
[2019-06-17] MEDS: ASPIRIN 81 MG CHEWABLE TABLET PO (08:54)
[2019-06-17] MEDS: SENNOSIDES 8.6 MG TABLET PO (08:54)
--- NOTE | 2019-06-17 09:38 | P.DS_ITS ---
DS: Diagnosis Admitting Diagnosis Admitting Diagnosis: Dysphagia, unspecified Discharge Diagnosis (1) Respiratory failure: Qualifiers: Chronicity: acute on chronic Respiratory failure complication: hypoxia and hypercapnia Qualified Code(s): J96.21 - Acute and chronic respiratory failure with hypoxia; J96.22 - Acute and chronic respiratory failure with hypercapnia Code(s): J96.90 - Respiratory failure, unspecified, unspecified whether with hypoxia or hypercapnia Status: Acute Assessment and Plan: * worse and felt possibly secondary to mild chf,acute on chronic diastolic exacerbation, but has severe copd too * continue updrafts and IV lasix that transitioned to PO at discharge * intermittent bipap * patient wishes to go home on hospice (2) Chronic heart failure with preserved ejection fraction: Code(s): I50.32 - Chronic diastolic (congestive) heart failure Status: Acute Assessment and Plan: * acute on chronic * continue furosemide PO (3) Dysphagia: Qualifiers: Dysphagia type: esophageal phase Qualified Code(s): R13.10 - Dysphagia, unspecified Code(s): R13.10 - Dysphagia, unspecified Status: Acute Assessment and Plan: * Esophagram 06/03 c/w dysmotility * GI input noted and appreciated * Easy to chew diet tolerated (4) Hematoma: Code(s): T14.8XXA - Other injury of unspecified body region, initial encounter Status: Acute Assessment and Plan: * Postoperative from May 12 surgery * XR noted * Analgesics * Activity as tolerated (5) Anemia in other chronic diseases classified elsewhere: Code(s): D63.8 - Anemia in other chronic diseases classified elsewhere Status: Acute Assessment and Plan: * Relatively stable, hgb 11.1 06/13, 10.3 06/16 (6) Osteoarthritis involving multiple joints on both sides of body: Code(s): M15.9 - Polyosteoarthritis, unspecified Status: Acute Assessment and Plan: * Analgesics prn (7) Restless legs syndrome: Onset Date: 09/25/18 Code(s): G25.81 - Restless legs syndrome Status: Acute Assessment and Plan: * Continue home regimen (8) Paroxysmal atrial fibrillation: Code(s): I48.0 - Paroxysmal atrial fibrillation Status: Acute Assessment and Plan: No anticoagulation with history of fall * Continue flecainide (9) SLE (systemic lupus erythematosus related syndrome): Code(s): M32.9 - Systemic lupus erythematosus, unspecified Status: Acute Assessment and Plan: * Seems inactive at this time (10) COPD (chronic obstructive pulmonary disease): Qualifiers: COPD type: unspecified COPD Qualified Code(s): J44.9 - Chronic obstructive pulmonary disease, unspecified Code(s): J44.9 - Chronic obstructive pulmonary disease, unspecified Status: Acute Assessment and Plan: * Severe, very poor prognosis * Home with hospice (11) Urinary retention: Code(s): R33.9 - Retention of urine, unspecified Status: Acute Assessment and Plan: * 06/15 Lyles replaced per patient wishes (12) Obstructive sleep apnea: Code(s): G47.33 - Obstructive sleep apnea (adult) (pediatric) Status: Acute Assessment and Plan: * BiPap (13) UTI (urinary tract infection) due to urinary indwelling Lyles catheter: Qualifiers: Encounter type: subsequent encounter Indwelling urinary catheter type: indwelling urethral catheter Qualified Code(s): T83.511D
--- NOTE | 2019-06-17 09:38 | PM.DS ---
DS: Diagnosis Admitting Diagnosis Admitting Diagnosis: Dysphagia, unspecified Discharge Diagnosis (1) Respiratory failure: Qualifiers: Chronicity: acute on chronic Respiratory failure complication: hypoxia and hypercapnia Qualified Code(s): J96.21 - Acute and chronic respiratory failure with hypoxia; J96.22 - Acute and chronic respiratory failure with hypercapnia Code(s): J96.90 - Respiratory failure, unspecified, unspecified whether with hypoxia or hypercapnia Status: Acute Assessment and Plan: worse and felt possibly secondary to mild chf,acute on chronic diastolic exacerbation, but has severe copd too continue updrafts and IV lasix that transitioned to PO at discharge intermittent bipap patient wishes to go home on hospice (2) Chronic heart failure with preserved ejection fraction: Code(s): I50.32 - Chronic diastolic (congestive) heart failure Status: Acute Assessment and Plan: acute on chronic continue furosemide PO (3) Dysphagia: Qualifiers: Dysphagia type: esophageal phase Qualified Code(s): R13.10 - Dysphagia, unspecified Code(s): R13.10 - Dysphagia, unspecified Status: Acute Assessment and Plan: Esophagram 06/03 c/w dysmotility GI input noted and appreciated Easy to chew diet tolerated (4) Hematoma: Code(s): T14.8XXA - Other injury of unspecified body region, initial encounter Status: Acute Assessment and Plan: Postoperative from May 12 surgery XR noted Analgesics Activity as tolerated (5) Anemia in other chronic diseases classified elsewhere: Code(s): D63.8 - Anemia in other chronic diseases classified elsewhere Status: Acute Assessment and Plan: Relatively stable, hgb 11.1 06/13, 10.3 06/16 (6) Osteoarthritis involving multiple joints on both sides of body: Code(s): M15.9 - Polyosteoarthritis, unspecified Status: Acute Assessment and Plan: Analgesics prn (7) Restless legs syndrome: Onset Date: 09/25/18 Code(s): G25.81 - Restless legs syndrome Status: Acute Assessment and Plan: Continue home regimen (8) Paroxysmal atrial fibrillation: Code(s): I48.0 - Paroxysmal atrial fibrillation Status: Acute Assessment and Plan: No anticoagulation with history of fall Continue flecainide (9) SLE (systemic lupus erythematosus related syndrome): Code(s): M32.9 - Systemic lupus erythematosus, unspecified Status: Acute Assessment and Plan: Seems inactive at this time (10) COPD (chronic obstructive pulmonary disease): Qualifiers: COPD type: unspecified COPD Qualified Code(s): J44.9 - Chronic obstructive pulmonary disease, unspecified Code(s): J44.9 - Chronic obstructive pulmonary disease, unspecified Status: Acute Assessment and Plan: Severe, very poor prognosis Home with hospice (11) Urinary retention: Code(s): R33.9 - Retention of urine, unspecified Status: Acute Assessment and Plan: 06/15 Lyles replaced per patient wishes (12) Obstructive sleep apnea: Code(s): G47.33 - Obstructive sleep apnea (adult) (pediatric) Status: Acute Assessment and Plan: BiPap (13) UTI (urinary tract infection) due to urinary indwelling Lyles catheter: Qualifiers: Encounter type: subsequent encounter Indwelling urinary catheter type: indwelling urethral catheter Qualified Code(s): T83.511D - Infection and inflammatory reaction due to indwelling urethral catheter, subsequent encounter; N39.0 - Urinary tract infection, site not specified Code(s): T83.511A - Infection and inflammatory reaction due to indwelling urethral catheter, initial encounter; N39.0 - Urinary tract infection, site not specified Status: Acute Assessment and Plan: Present upon admission (NOT hospital acquired) Pseudomonas may be colo
== END 2019-06-17 14:00 | disposition hospice, home (50) | DRG 189 ==
LOC: ANHED 22:16 → ANHIMU 06-04 02:00 → ANH3MEDSUR 06-07 06:27 → ANHIMU 06-12 10:01 → ANH3MEDSUR 06-18 12:02 → ANHIMU 06-18 12:02
PROVIDERS: Family Medicine; General Practice; Internal Medicine; Admitting Provider Internal Medicine; Emergency Provider Emergency Medicine; PCP Internal Medicine; Visit Provider Internal Medicine
DX: J96.21 Acute and chronic respiratory failure with hypoxia (principal); I50.33 Acute on chronic diastolic (congestive) heart failure; N39.0 Urinary tract infection, site not specified; T83.511A Infection and inflammatory reaction due to indwelling urethral catheter, initial encounter; M96.840 Postprocedural hematoma of a musculoskeletal structure following a musculoskeletal system procedure; I11.0 Hypertensive heart disease with heart failure; J96.22 Acute and chronic respiratory failure with hypercapnia; J43.9 Emphysema, unspecified; I71.4 Abdominal aortic aneurysm, without rupture; D63.8 Anemia in other chronic diseases classified elsewhere; N40.1 Benign prostatic hyperplasia with lower urinary tract symptoms; M15.0 Primary generalized (osteo)arthritis; E78.5 Hyperlipidemia, unspecified; E78.00 Pure hypercholesterolemia, unspecified; G25.81 Restless legs syndrome; Z86.73 Personal history of transient ischemic attack (TIA), and cerebral infarction without residual deficits; Z87.891 Personal history of nicotine dependence; R13.10 Dysphagia, unspecified; M32.9 Systemic lupus erythematosus, unspecified; Z99.81 Dependence on supplemental oxygen; Z87.440 Personal history of urinary (tract) infections; G47.33 Obstructive sleep apnea (adult) (pediatric); G47.00 Insomnia, unspecified; I48.0 Paroxysmal atrial fibrillation; R32 Unspecified urinary incontinence; E55.9 Vitamin D deficiency, unspecified; S72.011D Unspecified intracapsular fracture of right femur, subsequent encounter for closed fracture with routine healing; K22.8 Other specified diseases of esophagus; R33.9 Retention of urine, unspecified
CPT/HCPCS: 36415; 36600; 71045; 71275; 73502; 73521; 74220; 80048; 80053; 81001; 82607; 82805; 83605; 83690; 83880; 84484; 85025; 85027; 85055; 85610; 85730; 86140; 87040; 87070; 87075; 87077; 87081; 87086; 87088; 87186; 87205; 87804; 93005; 93970; 94002; 94003; 94640; 96365; 96375; 97110; 97161; 97165; 97168; 97530; 97535; 99285; A9270; J0295; J0696; J0713; J1100; J1940; J2550; J2765; J2930; J7512; Q9967